=== PATIENT | male | born 1955 | race Caucasian/White ===

== ENCOUNTER 2020-01-27 22:55 | Emergency (ER) | payer SELFPAY ==
[2020-01-27 23:48] LABS: Absolute Lymphocytes (CBC) 1.9 K/uL (0.7-4.9); Basophils % 0.4 % (0-1.3); Hematocrit 44.9 % (39.6-49.0); Lymphocytes % 14.1 % (15.3-44.8); MPV 8.1 fL (7.6-11.3); RBC Red Blood Cell Count 4.88 M/uL (4.33-5.43)
[2020-01-28] LABS: Potassium 3.6 mmol/L (3.5-5.1)
[2020-01-28 00:17] LABS: Urine Blood 1+ (NEG); Urine Glucose NEGATIVE (NEG); Urine Protein NEGATIVE (NEG); Urine pH 5.5 (5.0-7.0)
--- NOTE | 2020-01-28 01:25 | ER ---
Nurse's Notes [facility] Name: Sinan Swift Age: 64 yrs Sex: Male : 1955 Arrival Date: 01/27/2020 Time: 22:59 Bed 5 Private MD: Diagnosis: Urinary Retention Presentation: 01/26 22:59 Chief complaint: EMS states: PATIENT COMPLAINING OF LOWER ABDOMINAL PAIN, DESCRIBED rv PRESSURE, 8/10 PAIN SCALE. WITH HISTORY OF PROSTATE ISSUES, TAKING FLOMAX. LAST VOIDED AT ABOUT TEN HOURS AGO. Coronavirus screen: Client denies travel out of the [place] in the last 14 days. At this time, the client does not indicate any symptoms associated with coronavirus-19. Ebola Screen: No symptoms or risks identified at this time. Initial Sepsis Screen: Does the patient meet any 2 criteria? No. Patient's initial sepsis screen is negative. Does the patient have a suspected source of infection? No. Patient's initial sepsis screen is negative. Risk Assessment: Do you want to hurt yourself or someone else? Patient reports no desire to harm self or others. Onset of symptoms was January 27, 2020 at 13:00. 22:59 Method Of Arrival: EMS: [facility] rv 22:59 Acuity: SUSANNE 3 rv Triage Assessment: 23:02 General: Appears uncomfortable, Behavior is calm, cooperative. Pain: Complains of pain rv in right lower quadrant and left lower quadrant. EENT: No signs and/or symptoms were reported regarding the EENT system. Neuro: Level of Consciousness is awake, alert, obeys commands, Oriented to person, place, time, situation. Cardiovascular: Patient's skin is warm and dry. Respiratory: Airway is patent Respiratory effort is even, unlabored. GI: No signs and/or symptoms were reported involving the gastrointestinal system. : Reports inability to void, since 1300 pain. Historical: - Allergies: 23:02 NKA; rv - Home Meds: 23:02 Flomax 0.4 mg Oral cp24 1 cap once daily [Active]; rv - PMHx: 23:02 PROSTATE; rv - PSHx: 23:02 None; rv - Immunization history:: Adult Immunizations up to date. - Social history:: Smoking status: Patient reports the use of cigarette tobacco products, smokes one pack cigarettes per day. Screenin:04 Abuse screen: Denies threats or abuse. Denies injuries from another. Nutritional rv screening: No deficits noted. Tuberculosis screening: No symptoms or risk factors identified. Fall Risk None identified. Assessment: 23:41 Reassessment: PRESSURE WAS RELIEVED AFTER BYRNE CATH INSERTION. Patient states feeling rv better. 01/27 00:29 Reassessment: Patient appears in no apparent distress at this time. Patient is alert, rr5 oriented x 3, equal unlabored respirations, skin warm/dry/pink. came back from CT scan. 01:00 Reassessment: Patient appears in no apparent distress at this time. Patient is alert, rr5 oriented x 3, equal unlabored respirations, skin warm/dry/pink. awaiting for results. 01:48 Reassessment: Patient appears in no apparent distress at this time. Patient is alert, rr5 oriented x 3, equal unlabored respirations, skin warm/dry/pink. discharge instruction given and explained without complaints made. Vital Signs: 01/26 22:59 BP 135 / 73; Pulse 72; Resp 17; Temp 98; Pulse Ox 100% ; Weight 87.54 kg; Height 5 ft. rv 9 in. (175.26 cm); Pain 8/10; 23:41 BP 126 / 72; Pulse 71; Resp 16; Pulse Ox 100% on R/A; rv 01/27 00:33 BP 97 / 64; Pulse 79; Resp 19; Pulse Ox 99% ; rr5 01:49 BP 110 / 75; Pulse 82; Resp 16; Pulse Ox 99% ; rr5 01/26 22:59 Body Mass Index 28.50 (87.54 kg, 175.26 cm) rv ED Course: 01/26 22:59 Patient arrived in ED. rv 23:02 Triage completed. rv 23:03 Arm band placed on Patient placed in the treatment room, on a stretcher, Patient rv notified of wait time. 23:04 Patient has correct armband on for positive identification. Pulse ox on. NIBP on. rv 23:04 Byrne cath inserted, using sterile technique, 16 Fr., by wv, balloon inflated, to ds4 gravity drainage, clamped. Patient tolerated well. 23:05 [facility] Griffin [facility]C [facility]. kb 23:05 Christian Mosqueda MD is Attending Physician. kb 23:30 Inserted saline lock: 22 gauge in right antecubital area, using aseptic technique. ds4 Blood collected. 23:37 CBC with Diff Sent. ds4 23:37 Basic Metabolic Panel Sent. ds4 23:40 Juice Caballero, RN is Primary Nurse. rv 23:52 Basic Metabolic Panel Sent. ds4 01/27 00:08 Urine Dipstick--Ancillary (enter results) Sent. ds4 00:23 CT Stone Protocol In Process Unspecified. EDKY 01:24 Suni Garcia MD is Referral Physician. [facility] 01:49 No provider procedures requiring assistance completed. IV discontinued, intact, rr5 bleeding controlled, No redness/swelling at site. Pressure dressing applied. Administered Medications: 01:25 Drug: LevaQUIN 500 mg Route: PO; rr5 01:47 Follow up: Response: No adverse reaction rr5 Output: 01:40 Urine: 1000ml (Byrne); Total: 1000ml. rr5 Outcome: 01:25 Discharge ordered by . 7 01:49 Discharged to home via wheelchair. rr5 01:49 Condition: stable 01:49 Discharge instructions given to patient, Instructed on discharge instructions, follow up and referral plans. medication usage, byrne catheter care Demonstrated understanding of instructions, follow-up care, medications, Prescriptions given X 1. 01:50 Patient left the ED. rr5 Signatures: Dispatcher [employer] EDMS Mary Griffin, BLADE WORKER-C BLADE WORKER-Ckb StewartEder carrascoovan ds4 Juice Caballero, SALINA RN Rodney Painting RN RN rr5 Christian Mosqueda MD MD 7 Corrections: (The following items were deleted from the chart) 01/26 23:09 23:04 Byrne cath inserted, using sterile technique, 16 Fr., by inside barrel polisher, balloon ds4 inflated, to gravity drainage, Patient tolerated well. rv
--- NOTE | 2020-01-28 01:25 | EDPHYS ---
Physician Documentation [facility] Name: Sinan Swift Age: 64 yrs Sex: Male : 1955 Arrival Date: 01/27/2020 Time: 22:59 Bed 5 Private MD: ED Physician Christian Mosqueda HPI: 01/27 00:47 This 64 yrs old Male presents to ER via EMS with complaints of Abdominal Pain.kb 00:47 The patient presents with urinary symptoms, retention, unable to void, Last void was kb approximately 10 hour(s) ago. Onset: The symptoms/episode began/occurred this morning. Modifying factors: The symptoms are alleviated by nothing, the symptoms are aggravated by pressure. Associated signs and symptoms: Pertinent positives: abdominal pain, Pertinent negatives: constipation, diarrhea, dysuria, fever, hematuria, nausea, vomiting. Severity of symptoms: At their worst the symptoms were moderate, in the emergency department the symptoms are unchanged. The patient has not experienced similar symptoms in the past. The patient has not recently seen a physician. Pt reports he hasn't been able to urinate for the past 10 hours and he is having suprapubic pain/pressure. Quigley placed on pt arrival for pt comfort. Pt reports pain is completely resolved after 1400ml drained. . Historical: - Allergies: 01/26 23:02 NKA; rv - Home Meds: 23:02 Flomax 0.4 mg Oral cp24 1 cap once daily [Active]; rv - PMHx: 23:02 PROSTATE; rv - PSHx: 23:02 None; rv - Immunization history:: Adult Immunizations up to date. - Social history:: Smoking status: Patient reports the use of cigarette tobacco products, smokes one pack cigarettes per day. ROS: 01/27 00:46 Constitutional: Negative for fever, chills, and weight loss, Cardiovascular: Negative kb for chest pain, palpitations, and edema, Respiratory: Negative for shortness of breath, cough, wheezing, and pleuritic chest pain, Back: Negative for injury and pain, MS/Extremity: Negative for injury and deformity, Skin: Negative for injury, rash, and discoloration, Neuro: Negative for headache, weakness, numbness, tingling, and seizure. Abdomen/GI: Positive for abdominal pain, Negative for nausea, vomiting, and diarrhea. : Positive for difficulty urinating, Negative for urinary frequency, hematuria, flank pain, burning with urination, bladder incontinence. Exam: 00:46 Constitutional: This is a well developed, well nourished patient who is awake, alert, kb and in no acute distress. Head/Face: Normocephalic, atraumatic. Chest/axilla: Normal chest wall appearance and motion. Nontender with no deformity. No lesions are appreciated. Cardiovascular: Regular rate and rhythm with a normal S1 and S2. No gallops, murmurs, or rubs. Normal PMI, no JVD. No pulse deficits. Respiratory: Lungs have equal breath sounds bilaterally, clear to auscultation and percussion. No rales, rhonchi or wheezes noted. No increased work of breathing, no retractions or nasal flaring. Abdomen/GI: Soft, non-tender, with normal bowel sounds. No distension or tympany. No guarding or rebound. No evidence of tenderness throughout. Skin: Warm, dry with normal turgor. Normal color with no rashes, no lesions, and no evidence of cellulitis. MS/ Extremity: Pulses equal, no cyanosis. Neurovascular intact. Full, normal range of motion. Neuro: Awake and alert, GCS 15, oriented to person, place, time, and situation. Cranial nerves II-XII grossly intact. Motor strength 5/5 in all extremities. Sensory grossly intact. Cerebellar exam normal. Normal gait. Vital Signs: 01/26 22:59 BP 135 / 73; Pulse 72; Resp 17; Temp 98; Pulse Ox 100% ; Weight 87.54 kg; Height 5 ft. rv 9 in. (175.26 cm); Pain 8/10; 23:41 BP 126 / 72; Pulse 71; Resp 16; Pulse Ox 100% on R/A; rv 01/27 00:33 BP 97 / 64; Pulse 79; Resp 19; Pulse Ox 99% ; rr5 01:49 BP 110 / 75; Pulse 82; Resp 16; Pulse Ox 99% ; rr5 01/26 22:59 Body Mass Index 28.50 (87.54 kg, 175.26 cm) rv MDM: 01/26 23:05 Patient medically screened. kb 01/27 00:46 Data reviewed: vital signs, nurses notes. Data interpreted: Pulse oximetry: on room air kb is 99 %. Interpretation: normal. 00:54 Transition of care: After a detail discussion of the patient's case, care is kb transferred to Christian Mosqueda MD. 01/26 23:08 Order name: Basic Metabolic Panel; Complete Time: 00:11 kb 01/26 23:08 Order name: CBC with Diff; Complete Time: 00:11 kb 01/26 23:08 Order name: CT Stone Protocol kb 01/26 23:52 Order name: Urine Dipstick--Ancillary (enter results); Complete Time: 00:27 ds4 01/27 01:23 Order name: Urine Culture 7 01/26 23:05 Order name: Bladder Scanner; Complete Time: 23:40 kb 01/26 23:08 Order name: Labs collected and sent; Complete Time: 23:36 kb 01/26 23:08 Order name: IV Start; Complete Time: 23:36 kb 01/26 23:08 Order name: Quigley; Complete Time: 23:09 kb Administered Medications: 01:25 Drug: LevaQUIN 500 mg Route: PO; rr5 01:47 Follow up: Response: No adverse reaction rr5 Disposition: 06:16 Co-signature as Attending Physician, Christian Mosqueda MD. mh7 Disposition: 01/28/20 01:25 Discharged to Home. Impression: Urinary Retention. - Condition is Stable. - Discharge Instructions: Acute Urinary Retention, Male, [id number], Quigley Catheter Care, Adult, [id number]. - Prescriptions for Levaquin 500 mg Oral Tablet - take 1 tablet by ORAL route once daily for 10 days; 10 tablet. - Medication Reconciliation Form, Thank You Letter, Antibiotic Education, Prescription Opioid Use form. - Follow up: Private Physician; When: 1 - 2 days; Reason: Worsening of condition, Recheck today's complaints, Continuance of care, Re-evaluation by your physician. Follow up: Suni Garcia MD; When: 1 - 2 days; Reason: Worsening of condition, Recheck today's complaints. - Problem is an acute exacerbation. - Symptoms have improved. Signatures: Dispatcher [employer] EDMary Solo, SONIAC ANGELES-Juice Haywood RN RN Rodney Painting RN RN rr5 Christian Mosqueda MD MD 7 Corrections: (The following items were deleted from the chart) 01:50 01:25 01/28/2020 01:25 Discharged to Home. Impression: Urinary Retention. Condition is rr5 Stable. Forms are Medication Reconciliation Form, Thank You Letter, Antibiotic Education, Prescription Opioid Use. Follow up: Private Physician; When: 1 - 2 days; Reason: Worsening of condition, Recheck today's complaints, Continuance of care, Re-evaluation by your physician. Follow up: Suni Garcia; When: 1 - 2 days; Reason: Worsening of condition, Recheck today's complaints. Problem is an acute exacerbation. Symptoms have improved. mh7
[2020-01-28] MEDS ORDERED: levoFLOXacin 500 MG TAB ONE (01:36)
--- NOTE | 2020-01-29 13:01 | RAD REPORT ---
EXAM DESCRIPTION: CT - Stone Protocol - 01/28/2020 5:51 am CLINICAL HISTORY: The patient is 64 years old and is Male; urinary retention TECHNIQUE: Axial computed tomography images of the abdomen and pelvis without intravenous contrast. Sagittal and coronal reformatted images were created and reviewed. This CT exam was performed usi ng one or more of the following dose reduction techniques: automated exposure control, adjustment o f the mA and/or kV according to patient size, and/or use of iterative reconstruction technique. COMPARISON: No relevant prior studies available. FINDINGS: LUNG BASES: Unremarkable. No mass. No consolidation. ABDOMEN: LIVER: Homogeneous without focal mass. GALLBLADDER AND BILE DUCTS: No calcified stones. No ductal dilation. PANCREAS: Unremarkable. No ductal dilation. SPLEEN: Unremarkable. ADRENALS: Mild hyperplasia of the adrenal glands is noted. KIDNEYS AND URETERS: Moderate right hydroureteronephrosis is present without obstructing calculu s. Edema and stranding of the right kidney is noted. Left perinephric stranding is present. Minimal l eft hydroureteronephrosis is present. No obstructing calculus is seen. STOMACH AND BOWEL: Stomach is distended with food contents. The small bowel is normal in caliber . Stool is present throughout colon. Scattered colonic diverticula are noted without surrounding infl ammation. There is no bowel obstruction. PELVIS: APPENDIX: The appendix is normal in caliber without surrounding inflammation. BLADDER: The bladder is decompressed with a Quigley catheter in place. A moderate sized right bl adder diverticulum is noted. There is near the UVJ. No stones. REPRODUCTIVE: Unremarkable as visualized. ABDOMEN and PELVIS: INTRAPERITONEAL SPACE: Unremarkable. No free air. No significant fluid collection. BONES/JOINTS: No acute fracture. SOFT TISSUES: The soft tissues are normal. VASCULATURE: Unremarkable. No abdominal aortic aneurysm. LYMPH NODES: Unremarkable. No enlarged lymph nodes. IMPRESSION: 1. Moderate right hydroureteronephrosis without obstructing calculus. However, there i s a bladder diverticulum adjacent to the right UVJ which may be the site of obstruction. 2. Perinephric fluid and stranding specifically on the right is present. Findings may be reactive t o the obstruction. Superimposed infection is within the differential. Electronically signed by: Clare Ortiz MD 01/28/2020 12:40 AM CDT Due to temporary technical issues with the PACS/Fluency reporting system, reports are being signed by the in house radiologist without review as a courtesy to ensure prompt reporting. The interpreting r adiologist is fully responsible for the content of the report.
[2020-01-31 11:20] VITALS: TEMP 98
[2020-01-31 11:23] VITALS: O2SAT 99
[2020-01-31 11:24] VITALS: BP 110/75
== END 2020-01-28 01:50 | disposition home or self-care (01) ==
LOC: ER 22:55
DX: R33.9 Retention of urine, unspecified (principal); F17.210 Nicotine dependence, cigarettes, uncomplicated
CPT/HCPCS: 36415; 51702; 74176; 76377; 80048; 81003; 85025; 87086; 87088; 99285

== ENCOUNTER 2022-03-23 03:27 | Inpatient (IN) | payer OTHER ==
--- OUTSIDE RECORDS SUMMARY | 2022-03-23 03:30 | XMS REPORT | Continuity of Care Document ---
:1955 Author Organization [facility] t Address [address] [place] [address] Care Team Providers Name Role Phone Domo Gordon Attending Clinician Unavailable Problems This patient has no known problems. Allergies, Adverse Reactions, Alerts This patient has no known allergies or adverse reactions. Medications This patient has no known medications. Procedures This patient has no known procedures. Encounters Start End Encounter Admission Attending Care Care Encounter Source Date/Time Date/Time Type Type Clinicians Facility Department ID 2021-08-06 Outpatient Gordon [facility] Common 08:57:04 Domo [id number] [facility] 2021-06-25 Outpatient [facility] Common 14:20:34 Domo [id number] [facility] 2021-06-25 Outpatient [facility] Common 14:18:31 Domo [id number] [facility] 2021-05-02 2021-05-02 ambulatory [facility] [id number] Common 00:00:00 00:00:00 [facility] Results This patient has no known results.
[2022-03-23 03:56] LABS: Blood Gas Oxyhemoglobin 86.8 % (94-97); Blood O2 Saturation 90.6 % (92-98.5)
[2022-03-23] MEDS ORDERED: FUROSEMIDE 40 MG/4 ML VIAL ONE (04:06)
[2022-03-23 04:09] LABS: Absolute Lymphocytes (CBC) 3.6 K/uL (0.7-4.9); Hematocrit 46.9 % (39.6-49.0); Lymphocytes % 21.9 % (15.3-44.8); MCV 93.1 fL (80-100); MPV 8.9 fL (7.6-11.3); Protime INR 1.16; RBC Red Blood Cell Count 5.04 M/uL (4.33-5.43)
[2022-03-23 04:23] LABS: Albumin 3.5 g/dL (3.4-5.0); Bilirubin Direct 0.2 mg/dL (0-0.2); Bilirubin Total 0.6 mg/dL (0.2-1.0); Magnesium 1.9 mg/dL (1.8-2.4); Potassium 3.5 mmol/L (3.5-5.1); Protein, Total 7.2 g/dL (6.4-8.2)
[2022-03-23 04:25] LABS: Troponin High Sensitivity 91.8 pg/mL (<58.9)
[2022-03-23 04:27] LABS: Urine Blood 2+ (Negative); Urine Glucose Negative (Negative); Urine Protein 2+ (Negative); Urine Specific Gravity 1.025 (1.005-1.030); Urine pH 5.5 (5.0-7.0)
[2022-03-23 04:42] LABS: Urine Granular Casts 0-5 /LPF (None Seen); Urine Mucus Slight /HPF (None Seen); Urine WBC Clump Rare /HPF (None Seen)
[2022-03-23] MEDS ORDERED: ASPIRIN 81 MG CHEWABLE TABLET ONE (04:46)
[2022-03-23] MEDS ORDERED: ENOXAPARIN 80 MG/0.8 ML SQ ONE (04:47)
[2022-03-23] MEDS ORDERED: NA CHLORIDE 0.9% 50 ML IV ONE (04:47)
[2022-03-23] MEDS ORDERED: METOPROLOL TAR 25 MG TAB ONE (04:47)
[2022-03-23] MEDS ORDERED: FAMOTIDINE 20 MG/2 ML VIAL IV ONE (04:47)
[2022-03-23] MEDS ORDERED: CEFTRIAXONE 1000 MG/VIAL ONE (04:47)
--- NOTE | 2022-03-23 04:48 | ER ---
Nurse's Notes [facility] Name: Sinan Swift Age: 66 yrs Sex: Male : 1955 Arrival Date: 03/23/2022 Time: 03:29 Bed 4 Private MD: Diagnosis: Tachycardia, unspecified;Non ST elevation SD;Cardiomegaly;Unspecified combined systolic (congestive) and diastolic (congestive) heart failure;Elevated white blood cell count;Hyperglycemia, unspecified;UTI/ Urinary tract infection, site not specified;Hypoxemia;Atypical atrial flutter;Influenza due to other identified influenza virus with other respiratory manifestations-Influenza B;Tobacco abuse counseling;Tobacco use;COPD/ Chronic obstructive pulmonary disease, unspecified Presentation: 03/23 03:20 Chief complaint: EMS states: 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 as6 on arrival to ER pt on CPAP, 82%. 03:20 Method Of Arrival: EMS: [facility] as6 03:20 Coronavirus screen: At this time, the client does not indicate any symptoms associated as6 with coronavirus-19. Ebola Screen: No symptoms or risks identified at this time. 03:54 Initial Sepsis Screen: Does the patient meet any 2 criteria? No. Patient's initial as6 sepsis screen is negative. Does the patient have a suspected source of infection? No. Patient's initial sepsis screen is negative. Risk Assessment: Do you want to hurt yourself or someone else? Patient reports no desire to harm self or others. Onset of symptoms was March 23, 2022 at 02:30. 03:54 Acuity: SUSANNE 2 as6 Historical: - Allergies: 03:55 No Known Drug Allergies; as6 - Home Meds: 03:55 Flomax 0.4 mg Oral cp24 1 cap once daily [Active]; as6 - PMHx: 03:55 Prostate; as6 - Immunization history:: Client reports receiving the 2nd dose of the Covid vaccine, moderna . - Social history:: Smoking status: Patient reports the use of cigarette tobacco products, smokes one pack cigarettes per day. Screenin:58 Abuse screen: Denies threats or abuse. Denies injuries from another. Nutritional as6 screening: No deficits noted. Tuberculosis screening: No symptoms or risk factors identified. Fall Risk None identified. Assessment: 03:58 General: Appears uncomfortable, Behavior is calm, cooperative. Pain: Denies pain. as6 Neuro: Level of Consciousness is awake, alert, obeys commands, Oriented to person, place, time, situation. Cardiovascular: Capillary refill < 3 seconds Patient's skin is warm and dry. Respiratory: Airway is patent Trachea midline Respiratory effort is even, labored. Vital Signs: 03:54 BP 123 / 95; Pulse 116; Resp 17 S; Temp 96.4(A); Pulse Ox 90% on 100% BiPAP; Weight as6 77.11 kg (R); Height 5 ft. 10 in. (177.80 cm) (R); Pain 0/10; 04:16 BP 111 / 77; Pulse 124; Resp 16 S; Pulse Ox 94% on 100% BiPAP; as6 04:39 BP 111 / 84; Pulse 124; Resp 20 S; Pulse Ox 96% on 100% BiPAP; as6 05:36 BP 108 / 74; Pulse 120; Resp 19 S; Pulse Ox 97% on 95% BiPAP; as6 06:24 BP 105 / 74; Pulse 113; Resp 12 S; Pulse Ox 92% on 50% BiPAP; as6 03:54 Body Mass Index 24.39 (77.11 kg, 177.80 cm) as6 ED Course: 03:29 Patient arrived in ED. as6 03:30 Adolph Cole, SALINA is Primary Nurse. as6 03:33 Jacoby Hernández MD is Attending Physician. katherin 03:35 Inserted saline lock: 18 gauge in left antecubital area, using aseptic technique. Blood as6 collected. 03:35 Maintain EMS IV. Dressing intact. Good blood return noted. Site clean \T\ dry. Gauge \T\ as 6 site: 20g RAC. 03:46 Lactate Sent. as6 03:46 Blood Culture Adult (2) Sent. as6 03:47 Basic Metabolic Panel Sent. as6 03:47 CBC with Diff Sent. as6 03:47 LFT's Sent. as6 03:47 Magnesium Sent. as6 03:47 NT PRO-BNP Sent. as6 03:47 Troponin HS Sent. as6 03:47 PT-INR Sent. as6 03:47 ABG Sent. as6 03:55 Triage completed. as6 03:56 Arm band placed on. as6 03:58 Placed in gown. Bed in low position. Call light in reach. Side rails up X 1. as6 04:06 XRAY Chest (1 view) In Process Unspecified. EDMS 04:17 Quigley cath inserted, using sterile technique, 16 Fr., by nv, balloon inflated, to as6 gravity drainage, urine specimen collected. returned clear yellow urine. Patient tolerated well. 04:30 Urine Microscopic Only Sent. as6 04:44 Luann Alamo MD is Hospitalizing Provider. katherin 04:45 Jb Martin is Hospitalizing Provider. katherin 06:32 No provider procedures requiring assistance completed. Patient admitted, IV remains in as6 place. Administered Medications: 04:20 Drug: Lasix (furosemide) 40 mg Route: IVP; Site: right antecubital; as6 06:41 Follow up: Response: No adverse reaction as6 04:55 Drug: Pepcid (famotidine) 20 mg Route: IVP; Site: left antecubital; as6 06:42 Follow up: Response: No adverse reaction as6 04:56 Drug: Rocephin (cefTRIAXone) 1 grams Route: IV; Rate: per protocol; Site: right as6 antecubital; 06:41 Follow up: Response: No adverse reaction; IV Status: Completed infusion; IV Intake: [id number] 04:57 Drug: Lovenox (enoxaparin) 1 mg/kg Route: Sub-Q; Site: left lower abdomen; as6 06:42 Follow up: Response: No adverse reaction as6 05:27 Drug: Digoxin 0.5 mg Route: IVP; Site: left antecubital; as6 06:42 Follow up: Response: No adverse reaction as6 05:27 Drug: Lopressor (metoprolol) 2.5 mg Route: IVP; Site: left antecubital; as6 06:42 Follow up: Response: No adverse reaction as6 05:30 Drug: Aspirin Chewable Tablet 81 mg Route: PO; as6 06:41 Follow up: Response: No adverse reaction as6 05:30 Drug: Lopressor (metoprolol TARTRATE)) 25 mg Route: PO; as6 06:42 Follow up: Response: No adverse reaction as6 05:36 Drug: Magnesium Sulfate 1 grams Route: IVPB; Infused Over: 1 hrs; Site: right as6 antecubital; 06:43 Follow up: Response: No adverse reaction; IV Status: Completed infusion; IV Intake: as6 100ml 05:54 Drug: Lopressor (metoprolol) 2.5 mg Route: IVP; Site: left antecubital; as6 06:43 Follow up: Response: No adverse reaction as6 06:40 Drug: Tamiflu (oseltamivir) 75 mg Route: PO; as6 06:43 Follow up: Response: No adverse reaction as6 Medication: 03:58 VIS not applicable for this client. as6 Intake: 06:41 IV: 50ml; Total: 50ml. as6 06:43 IV: 100ml; Total: 150ml. as6 Output: 06:24 Urine: 1200ml (Quigley); Total: 1200ml. as6 Outcome: 04:47 Decision to Hospitalize by Provider. [facility] 06:33 Condition: stable as6 06:33 Instructed on the need for admit. 09:12 Patient left the ED. ss Signatures: Dispatcher [employer] EDCA Jacoby Hernández MD MD cha Smirch, Shelby, RN RN Adolph Cole, SALINA RN as6 Corrections: (The following items were deleted from the chart) 06:33 03:54 BP 123 / 95; Pulse 116bpm; Resp 17bpm; Spontaneous; Pulse Ox 90% 02 60% BiPAP; as6 Temp 96.4F Axillary; 77.11 kg Reported; Height 5 ft. 10 in. Reported; BMI: 24.3; Pain 0/10; as6
--- NOTE | 2022-03-23 04:49 | EDPHYS ---
Physician Documentation [facility] Name: Sinan Swift Age: 66 yrs Sex: Male : 1955 Arrival Date: 03/23/2022 Time: 03:29 Bed 4 Private MD: ED Physician Jacoby Hernández HPI: 03/23 04:18 This 66 yrs old Male presents to ER via EMS with complaints of Breathing katherin Difficulty. 04:18 The patient has shortness of breath at rest, with light activity. Onset: The katherin symptoms/episode began/occurred just prior to arrival, this morning. Duration: The symptoms are continuous, and are steadily getting worse. The patient's shortness of breath is aggravated by exertion, light activity, supine position, is alleviated by elevating head, rest, sitting up, application of supplemental oxygen. Associated signs and symptoms: Pertinent positives: non-productive cough. Severity of symptoms: At their worst the symptoms were moderate severe in the emergency department the symptoms have improved moderately. The patient has not experienced similar symptoms in the past. Historical: - Allergies: 03:55 No Known Drug Allergies; as6 - Home Meds: 03:55 Flomax 0.4 mg Oral cp24 1 cap once daily [Active]; as6 - PMHx: 03:55 Prostate; as6 - Immunization history:: Client reports receiving the 2nd dose of the Covid vaccine, moderna . - Social history:: Smoking status: Patient reports the use of cigarette tobacco products, smokes one pack cigarettes per day. ROS: 04:19 Constitutional: Negative for fever, chills, and weight loss, Eyes: Negative for injury, katherin pain, redness, and discharge, ENT: Negative for injury, pain, and discharge, Neck: Negative for injury, pain, and swelling, Abdomen/GI: Negative for abdominal pain, nausea, vomiting, diarrhea, and constipation, Back: Negative for injury and pain, : Negative for injury, bleeding, discharge, and swelling, MS/Extremity: Negative for injury and deformity, Neuro: Negative for headache, weakness, numbness, tingling, and seizure, Psych: Negative for depression, anxiety, suicide ideation, homicidal ideation, and hallucinations, Allergy/Immunology: Negative for hives, rash, and allergies, Endocrine: Negative for neck swelling, polydipsia, polyuria, polyphagia, and marked weight changes, Hematologic/Lymphatic: Negative for swollen nodes, abnormal bleeding, and unusual bruising. 04:19 Cardiovascular: Positive for orthopnea, palpitations. 04:19 Respiratory: Positive for cough, orthopnea, shortness of breath, at rest. 04:32 Cardiovascular: Positive for katherin 04:32 Respiratory: Positive for wheezing, expiratory. Exam: 04:32 Constitutional: This is a well developed, well nourished patient who is awake, alert, katherin and in no acute distress. Head/Face: Normocephalic, atraumatic. Eyes: Pupils equal round and reactive to light, extra-ocular motions intact. Lids and lashes normal. Conjunctiva and sclera are non-icteric and not injected. Cornea within normal limits. Periorbital areas with no swelling, redness, or edema. ENT: Nares patent. No nasal discharge, no septal abnormalities noted. Tympanic membranes are normal and external auditory canals are clear. Oropharynx with no redness, swelling, or masses, exudates, or evidence of obstruction, uvula midline. Mucous membranes moist. Neck: Trachea midline, no thyromegaly or masses palpated, and no cervical lymphadenopathy. Supple, full range of motion without nuchal rigidity, or vertebral point tenderness. No Meningismus. Chest/axilla: Normal chest wall appearance and motion. Nontender with no deformity. No lesions are appreciated. Abdomen/GI: Soft, non-tender, with normal bowel sounds. No distension or tympany. No guarding or rebound. No evidence of tenderness throughout. Back: No spinal tenderness. No costovertebral tenderness. Full range of motion. Skin: Warm, dry with normal turgor. Normal color with no rashes, no lesions, and no evidence of cellulitis. MS/ Extremity: Pulses equal, no cyanosis. Neurovascular intact. Full, normal range of motion. Neuro: Awake and alert, GCS 15, oriented to person, place, time, and situation. Cranial nerves II-XII grossly intact. Motor strength 5/5 in all extremities. Sensory grossly intact. Cerebellar exam normal. Normal gait. Psych: Awake, alert, with orientation to person, place and time. Behavior, mood, and affect are within normal limits. 04:32 Cardiovascular: Rate: tachycardic, Rhythm: regular, Pulses: Pulses are 4+ in bilateral radial, brachial, femoral, popliteal, posterior tibial and and dorsalis pedis arteries.. Heart sounds: normal, Edema: is not appreciated, JVD: is not appreciated. 04:32 ECG was reviewed by the Attending Physician. Vital Signs: 03:54 BP 123 / 95; Pulse 116; Resp 17 S; Temp 96.4(A); Pulse Ox 90% on 100% BiPAP; Weight as6 77.11 kg (R); Height 5 ft. 10 in. (177.80 cm) (R); Pain 0/10; 04:16 BP 111 / 77; Pulse 124; Resp 16 S; Pulse Ox 94% on 100% BiPAP; as6 04:39 BP 111 / 84; Pulse 124; Resp 20 S; Pulse Ox 96% on 100% BiPAP; as6 05:36 BP 108 / 74; Pulse 120; Resp 19 S; Pulse Ox 97% on 95% BiPAP; as6 06:24 BP 105 / 74; Pulse 113; Resp 12 S; Pulse Ox 92% on 50% BiPAP; as6 03:54 Body Mass Index 24.39 (77.11 kg, 177.80 cm) as6 MDM: 03:33 Patient medically screened. katherin 04:42 Differential diagnosis: Anemia Anxiety Reaction Bronchitis CHF exacerbation, Chronic katherin Obstructive Pulmonary Disease arrythmia, pneumonia, pulmonary edema, reactive airway disease, Sepsis Unstable Angina. Antibiotic administration: Rocephin and Zithromax given. The patient's Wells Deep Vein Thrombosis Score was calculated as follows: Heart Rate >100 BPM (1.5 Pts) Total Score: 0-2 Pts- Low Risk. The patient's pulmonary embolism risk score was calculated as follows: the patients heart rate is greater than 100 beats per minute (1.5 Pts) Total Score: 0-2 points. This patient was found to be at low risk for a pulmonary embolism by using the Well's assessment criteria. Immunization status: Pneumococcal vaccine: Influenza vaccine: Data reviewed: vital signs, nurses notes, EMS record, lab test result(s), EKG, radiologic studies, plain films. Data interpreted: quality assurance monitor chassis: rate is 124 beats/min, rhythm is regular, Pulse oximetry: on room air is 96 %. Test interpretation: by ED physician or midlevel provider: ECG, plain radiologic studies. Counseling: I had a detailed discussion with the patient and/or guardian regarding: the historical points, exam findings, and any diagnostic results supporting the discharge/admit diagnosis, the presence of at least one elevated blood pressure reading (>120/80) during this emergency department visit, lab results, radiology results, the need for further work-up and treatment in the hospital. 03/23 03:36 Order name: Basic Metabolic Panel; Complete Time: 04:[address] [facility] 03/23 03:36 Order name: CBC with Diff; Complete Time: 04:[address] [facility] 03/23 03:36 Order name: LFT's; Complete Time: 04:31 03/23 03:36 Order name: Magnesium; Complete Time: 04:[address] [facility] 03/23 03:36 Order name: NT PRO-BNP; Complete Time: 04:[address] [facility] 03/23 03:36 Order name: PT-INR; Complete Time: 04:[address] [facility] 03/23 03:36 Order name: Troponin HS; Complete Time: 04:[address] [facility] 03/23 03:36 Order name: Blood Culture Adult (2) [facility] 03/23 03:36 Order name: Lactate; Complete Time: 04:[address] [facility] 03/23 03:40 Order name: ABG; Complete Time: 04:[address] [facility] 03/23 03:40 Order name: SARS-COV-2 RT PCR (Document "Date of Onset" if Symptomatic) 03/23 03:40 Order name: Flu [facility] 03/23 04:27 Order name: Urine Microscopic Only; Complete Time: 04:54 03/23 04:28 Order name: Urine Dipstick-Ancillary; Complete Time: 04:31 [facility] 03/23 03:36 Order name: XRAY Chest (1 view) [facility] 03/23 03:36 Order name: EKG; Complete Time: 03:38 03/23 03:36 Order name: Cardiac monitoring; Complete Time: 03:46 03/23 03:36 Order name: BIPAP [facility] 03/23 04:47 Order name: Urine Culture [facility] 03/23 03:36 Order name: EKG - Nurse/Tech; Complete Time: 03:47 03/23 03:36 Order name: IV Saline Lock; Complete Time: 03:47 03/23 03:36 Order name: Labs collected and sent; Complete Time: 03:47 03/23 03:36 Order name: O2 Per Protocol; Complete Time: 03:47 03/23 03:36 Order name: O2 Sat Monitoring; Complete Time: 03:[address] [facility] 03/23 03:36 Order name: Urine Dipstick-Ancillary (obtain specimen); Complete Time: 04:[address] [facility] 03/23 04:03 Order name: Dann; Complete Time: 04:[address] [facility] EC:32 Rate is 116 beats/min. Rhythm is regular. QRS [place] is Normal. PA interval is normal. katherin QRS interval is prolonged at 194 msec. QT interval is normal. No Q waves. T waves are Normal. No ST changes noted. Clinical impression: Sinus tachycardia. Interpreted by me. Reviewed by me. Administered Medications: 04:20 Drug: Lasix (furosemide) 40 mg Route: IVP; Site: right antecubital; as6 06:41 Follow up: Response: No adverse reaction as6 04:55 Drug: Pepcid (famotidine) 20 mg Route: IVP; Site: left antecubital; as6 06:42 Follow up: Response: No adverse reaction as6 04:56 Drug: Rocephin (cefTRIAXone) 1 grams Route: IV; Rate: per protocol; Site: right as6 antecubital; 06:41 Follow up: Response: No adverse reaction; IV Status: Completed infusion; IV Intake: [id number] 04:57 Drug: Lovenox (enoxaparin) 1 mg/kg Route: Sub-Q; Site: left lower abdomen; as6 06:42 Follow up: Response: No adverse reaction as6 05:27 Drug: Digoxin 0.5 mg Route: IVP; Site: left antecubital; as6 06:42 Follow up: Response: No adverse reaction as6 05:27 Drug: Lopressor (metoprolol) 2.5 mg Route: IVP; Site: left antecubital; as6 06:42 Follow up: Response: No adverse reaction as6 05:30 Drug: Aspirin Chewable Tablet 81 mg Route: PO; as6 06:41 Follow up: Response: No adverse reaction as6 05:30 Drug: Lopressor (metoprolol TARTRATE)) 25 mg Route: PO; as6 06:42 Follow up: Response: No adverse reaction as6 05:36 Drug: Magnesium Sulfate 1 grams Route: IVPB; Infused Over: 1 hrs; Site: right as6 antecubital; 06:43 Follow up: Response: No adverse reaction; IV Status: Completed infusion; IV Intake: as6 100ml 05:54 Drug: Lopressor (metoprolol) 2.5 mg Route: IVP; Site: left antecubital; as6 06:43 Follow up: Response: No adverse reaction as6 06:40 Drug: Tamiflu (oseltamivir) 75 mg Route: PO; as6 06:43 Follow up: Response: No adverse reaction as6 Disposition Summary: 03/23/22 04:47 Hospitalization Ordered Hospitalization Status: Inpatient Admission katherin Provider: Jb Martin cha Condition: Fair katherin Problem: new katherin Symptoms: have improved katherin Bed/Room Type: Standard katherin Location: Intensive Care Unit(03/23/22 06:27) mw Room Assignment: -(03/23/22 06:27) Diagnosis - Tachycardia, unspecified katherin - Non ST elevation [place] katherin - Cardiomegaly katherin - Unspecified combined systolic (congestive) and diastolic (congestive) heart failure katherin - Elevated white blood cell count katherin - Hyperglycemia, unspecified katherin - UTI/ Urinary tract infection, site not specified katherin - Hypoxemia katherin - Atypical atrial flutter katherin - Influenza due to other identified influenza virus with other respiratory katherin manifestations - Influenza B - Tobacco abuse counseling katherin - Tobacco use katherin - COPD/ Chronic obstructive pulmonary disease, unspecified katherin Forms: - Medication Reconciliation Form katherin - SBAR form katherin Signatures: Dispatcher [employer] EDLoretta Moore RN Jacoby Briscoe MD MD cha Slawson, Ashby, RN RN Cassandra Ferrer PA-C PALisbeth [id number] Corrections: (The following items were deleted from the chart) 04:47 Telemetry/MedSurg (Inpatient) [facility] : 04:47 [facility]
--- NOTE | 2022-03-23 04:55 | P.HP ---
Certification for Inpatient Patient admitted to: Inpatient With expected LOS: >2 Midnights Patient will require the following post-hospital care: None Practitioner: I am a practitioner with admitting privileges, knowledge of patient current condition, hospital course, and medical plan of care. Services: Services provided to patient in accordance with Admission requirements found in Title 42 Section 412.3 of the Code of Federal Regulations Patient History Date of Service: 03/23/22 Reason for admission: Acute CHF History of Present Illness: Patient is a 66 year old male with history of BPH who presented to the ED via EMS with sudden onset of shortness of breath. EMS placed him on bipap and administered 125 mg solumedrol he was saturating 90% upon arrival to ED. ABG with pH 7.35, pCO2 36, and bicarb 19. EKG showing wide QRS vs 2/1 aflutter. Labs significant for WBC 16.6, glucose 231, lactic acid 3.1, troponin HS 91.8, BNP 2162. Urine with trace ketones, 2+ blood, trace LE. Chest xray showed interstitial edema, cardiomegaly, and right pleural effusion. He was given lasix, pepcid, rocephin, and lovenox in the ED. He denies any diagnosed cardiac history although he reports that he had COVID-19 in December and now he has intermittent episodes of tachycardia. Patient is admitted for further management. 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 - Family History Father -: Heart disease - Social History Smoking Status: Current every day smoker Alcohol use: Yes CD- Drugs: No Caffeine use: Yes Place of Residence: Home Review of Systems Respiratory: Cough, Shortness of Breath Physical Examination - Physical Exam General: Alert, In no apparent distress, Obese HEENT: Atraumatic, PERRLA, EOMI, Sclerae nonicteric Neck: Supple, 2+ carotid pulse no bruit, No LAD, Without JVD or thyroid abnormality Respiratory: Crackles/rales, Expiratory wheezes Cardiovascular: Regular rate/rhythm, Normal S1 S2 Gastrointestinal: Normal bowel sounds, No tenderness Musculoskeletal: No tenderness Integumentary: No rashes Neurological: Normal speech, Normal strength at 5/5 x4 extr, Normal tone, Normal affect - Studies Laboratory Data (last 24 hrs) 03/23/22 03:43: PT 12.8 H, INR 1.16 03/23/22 03:43: WBC 16.60 H, Hgb 15.6, Hct 46.9, Plt Count 238 03/23/22 03:43: Sodium 135 L, Potassium 3.5, BUN 20 H, Creatinine 1.13, Glucose 231 H, Magnesium 1.9, Total Bilirubin 0.6, AST 18, ALT 38, Alkaline Phosphatase 86 Assessment and Plan - Problems (Diagnosis) (1) CHF (congestive heart failure) Current Visit: Yes Status: Acute Qualifiers: Heart failure type: diastolic Heart failure chronicity: acute Qualified Code(s): I50.31 - Acute diastolic (congestive) heart failure (2) Acute respiratory failure Current Visit: Yes Status: Acute Qualifiers: Respiratory failure complication: hypoxia Qualified Code(s): J96.01 - Acute respiratory failure with hypoxia (3) UTI (urinary tract infection) Current Visit: Yes Status: Acute Qualifiers: Urinary tract infection type: acute cystitis Hematuria presence: with hematuria Qualified Code(s): N30.01 - Acute cystitis with hematuria - Plan -Continue bipap as needed. Lasix given in ED. Quigley in place. Patient diuresing well. -Cardiology consult. Echo ordered. patient has not had cardiac work up and denies cardiac history. -Elevated troponin likely secondary to demand ischemia. Will trend serial cardiac enzymes and monitor patient on telemetry. -Continue rocephin. Patient meets sepsis criteria at this time, however SIRS criteria seems more likely due to acute CHF and not infection. -Initial lactic acid 3.1. Repeat pending. Blood and urine cultures obtained. -Breathing treatments as needed. -Hyperglycemic. Patient denies history of diabetes. He did receive solumedrol en route. Will obtain A1C. -Lipid panel and TSH ordered -Monitor and replete electrolytes per protocol -Reconcile and continue home medications -Lovenox for VTE prophylaxis -Full code Discharge Plan: Home Plan to discharge in: Greater than 2 days - Advance Directives Does patient have a Living Will: No Does patient have a Durable POA for Healthcare: No - Code Status/Comfort Care Code Status Assessed: Yes (Full) Critical Care: No Time Spent Managing Pts Care (In Minutes): 50
[2022-03-23] MEDS ORDERED: METOPROLOL TARTRATE 5 MG/5 ML INJ IV ONE (05:22)
[2022-03-23] MEDS ORDERED: DIGOXIN 0.25 MG/ML AMP ONE (05:22)
[2022-03-23] MEDS ORDERED: MAGNESIUM SULFATE 1 gm IVPB 1 GM/100 ML BAG IV ONE (05:34)
[2022-03-23] MEDS ORDERED: OSELTAMIVIR 75 MG CAP ONE (06:37)
[2022-03-23] MEDS ORDERED: ONDANSETRON 4 MG/2 ML VIAL IV PRN (08:43)
[2022-03-23] MEDS ORDERED: ACETAMINOPHEN 500 MG TAB PO PRN (08:43)
[2022-03-23] MEDS ORDERED: ALBUTEROL 2.5 MG/3 ML NEB SOL NEB PRN ×2 (08:43→14:00)
[2022-03-23] MEDS: ASPIRIN EC 81 MG TAB PO SCH (08:46)
[2022-03-23] MEDS: IPRATROPIUM BROM 0.5MG/2.5ML NEB SCH ×2 (10:40→12:00)
[2022-03-23] MEDS ORDERED: FUROSEMIDE 100 MG/10 ML VIAL IV ONE (11:04)
[2022-03-23] MEDS ORDERED: MORPHINE 4 MG/ML SYR IV ONE (11:05)
[2022-03-23] MEDS ORDERED: MORPHINE 4 MG/ML SYR ONE (11:07)
[2022-03-23] MEDS ORDERED: RSI MEDICATION KIT IV ONE (11:12)
[2022-03-23] MEDS ORDERED: propofoL 1,000 MG/100 ML VIAL IV ONE (11:14)
[2022-03-23] MEDS ORDERED: SUCCINYLCHOLINE 20 MG/ML (10 ML) IV ONE ×2 (11:22→11:41)
[2022-03-23] MEDS: propofoL 1,000 MG/100 ML VIAL IV SCH ×3 (11:40→23:31)
[2022-03-23] MEDS ORDERED: NOREPINEPHRINE BITARTRATE/D5W 4 MG/250 ML BAG IV ONE (11:42)
[2022-03-23] MEDS ORDERED: FENTANYL CITR 100 MCG/2 ML IV PRN (11:46)
[2022-03-23] MEDS ORDERED: NA CHLORIDE 0.9% 250 ML IV PRN (11:46)
[2022-03-23] MEDS ORDERED: MIDAZOLAM HCL 2 MG/2 ML INJ IV PRN (11:46)
[2022-03-23] MEDS ORDERED: HALOPERIDOL LACT 5 MG/ML INJ IV PRN (11:46)
[2022-03-23] MEDS ORDERED: LORazepam 2 MG/ML VIAL IV PRN (11:46)
[2022-03-23] MEDS ORDERED: METHYLPREDNISOLONE 40 MG INJ IV SCH (12:00)
--- NOTE | 2022-03-23 12:19 | P.CNS ---
Date of Consult: 03/23/22 Reason for Consult: Respiratory failure Chief Complaint: Respiratory failure patient on a ventilator History of Present Illness: Patient is 66 years of age admitted with sudden onset of breath he had significant interstitial edema was intubated he was very hypoxic patient was also in atrial flutter and was admitted to the ICU currently on a ventilator tachypneic history of COVID patient is currently on propofol drip Allergies No Known Allergies Allergy (Unverified 07/30/16 11:20) Home Medications: Cayenne 800 mg PO DAILY 03/23/22 Echinacea 500 mg PO DAILY 03/23/22 Fenugreek Seed 610 mg PO DAILY 03/23/22 Saw Aguirre 800 mg PO BID 03/23/22 Tamsulosin HCl [Flomax] 0.4 mg PO BID 03/23/22 Vitamin E 400 unit PO DAILY 03/23/22 - Past Medical/Surgical History Diabetic: No -: BPH -: urinary diverticulum -: leticia cataract sx -: vasectomy in 83 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 - Family History Father Medical History: Heart disease - Social History Smoking Status: Current every day smoker Alcohol use: No CD- Drugs: No Caffeine use: Yes Place of Residence: Home Review of Systems is unable to be obtained Physical Examination Temp Pulse Resp BP Pulse Ox 96.4 F L 100 H 28 H 177/101 H 88 L 03/23/22 03:54 03/23/22 11:33 03/23/22 11:31 03/23/22 11:33 03/23/22 11:31 General: Unresponsive HEENT: Atraumatic Neck: Supple Respiratory: Crackles/rales Cardiovascular: No edema, Regular rate/rhythm Gastrointestinal: Soft and benign, Non-distended Laboratory Data (last 24 hrs) 03/23/22 03:43: PT 12.8 H, INR 1.16 03/23/22 03:43: WBC 16.60 H, Hgb 15.6, Hct 46.9, Plt Count 238 03/23/22 03:43: Sodium 135 L, Potassium 3.5, BUN 20 H, Creatinine 1.13, Glucose 231 H, Magnesium 1.9, Total Bilirubin 0.6, AST 18, ALT 38, Alkaline Phosphatase 86 - Problems (1) Respiratory failure Current Visit: Yes Status: Acute Plan: Patient is 66 years of age admitted with acute hypoxic respiratory failure with bilateral interstitial changes presumed pulmonary edema troponins are mildly elevated plan to change to assist control ventilation increase PEEP try dexmedetomidine fully anticoagulate the patient chest x-ray is reviewed change to pressure control ventilation Lasix as tolerated diagram shows ballooning of the left ventricle elevated pulmonary artery pressure thrombus in the left atrium repeat troponins EKG does show some ST-T changes consistent with the aneurysmal 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
--- NOTE | 2022-03-23 12:33 | RAD REPORT ---
EXAM DESCRIPTION: RAD - Chest Single View - 03/23/2022 11:15 am CLINICAL HISTORY: CHF, RESP DISTRESS Chest pain. COMPARISON: Chest Single View dated 03/23/2022 FINDINGS: Portable technique limits examination quality. Quite severe bilateral pulmonary opacifications present likely representing pulmonary edema. The hear t is moderately enlarged in size. No displaced fractures. IMPRESSION: Moderately severe worsening of in lung aeration since comparative study.
--- NOTE | 2022-03-23 12:43 | RAD REPORT ---
EXAM DESCRIPTION: RAD - Chest Single View - 03/23/2022 11:39 am CLINICAL HISTORY: INTUBATION Chest pain. COMPARISON: Chest Single View dated 03/23/2022; Chest Single View dated 03/23/2022 FINDINGS: Portable technique limits examination quality. Tip of the endotracheal tube is above the gopal. Moderately severe bilateral pulmonary opacities are noted. Most likely, this represents pulmonary edema. The heart is moderately enlarged in size.
[2022-03-23 13:08] LABS: CKMB Creatine Kinase MB 3.7 ng/mL (1.0-3.6)
[2022-03-23 13:19] LABS: Troponin High Sensitivity 146.7 pg/mL (<58.9)
--- NOTE | 2022-03-23 13:26 | RAD REPORT ---
EXAM DESCRIPTION: RAD - Abdomen 1 View (KUB) - 03/23/2022 1:15 pm CLINICAL HISTORY: Device placement orogastric tube placement FINDINGS: The tip of an orogastric tube lies within the lateral gastric fundus
--- NOTE | 2022-03-23 14:10 | P.PN ---
Date of Service: 03/23/22 Patient seen and examined. He developed sudden acute respiratory distress associated with cough with frothy pinkish sputum production. Patient noted to be hypoxic and agonal breathing. He remained responsive. Patient given a dose of IV Lasix and intubated. Quigley catheter in place. Troponin trended up. Diagnosis: NSTEMI Acute pulmonary edema Acute heart failure-unknown EF Lactic acidosis Wide-complex tachycardia Echo preliminary report suggests apical ballooning with concern for cardiac thrombus. Seen by cardiology. Patient started on full dose anticoagulation. Also seen by pulmonary. Continue IV Lasix Scheduled bronchodilators, IV steroid. Mechanical ventilation. Sedation per vent protocol Antibiotics. Cardiology to follow.
[2022-03-23] MEDS ORDERED: IPRATROPIUM BROM 0.5MG/2.5ML NEB PRN (14:28)
--- NOTE | 2022-03-23 14:47 | RAD REPORT ---
EXAM DESCRIPTION: RAD - Abdomen 1 View (KUB) - 03/23/2022 2:40 pm CLINICAL HISTORY: Device placement orogastric tube placement FINDINGS: An orogastric tube is coiled within the gastric body. The distal 11 centimeters of the tu be extends proximally within the stomach. The tip lies near the junction of the gastric body and fund us
[2022-03-23] MEDS: ENOXAPARIN 100 MG/ML SYR SQ SCH (16:41)
[2022-03-23] MEDS: FUROSEMIDE 40 MG/4 ML VIAL IV SCH (16:42)
--- NOTE | 2022-03-23 18:36 | EKG ---
Test Date: 2022-03-23 Test Time: 03:30:13 Quality Analyst/Technical Writer: MEASUREMENT RESULTS: Intervals: Rate: 116 [place]: QRSD: 194 QT: 406 QTc: 564 [place]: P: IL: QRS: 233 T: 51 INTERPRETIVE STATEMENTS: Wide QRS rhythm Right bundle branch block Inferior infarct, age undetermined Anterolateral infarct, age undetermined Abnormal ECG No previous ECG available for comparison Electronically Signed On 03-23-22 18:35:38 CDT by Trevor Grimm
--- NOTE | 2022-03-23 18:36 | EKG ---
Test Date: 2022-03-23 Test Time: 10:50:30 Quality Assurance Clerk: THERESA MEASUREMENT RESULTS: Intervals: Rate: 113 TX: 122 QRSD: 112 QT: 338 QTc: 463 [place]: P: 49 TX: 122 QRS: 84 T: 54 INTERPRETIVE STATEMENTS: Sinus tachycardia with fusion complexes Low voltage QRS Inferior infarct, age undetermined Anterolateral infarct, age undetermined Abnormal ECG Compared to ECG 03/23/2022 03:30:13 Fusion complex(es) now present Low QRS voltage now present Uncertain supraventricular rhythm no longer present Ventricular premature complex(es) no longer present Right bundle-branch block no longer present Myocardial infarct finding still present Electronically Signed On 03-23-22 18:35:14 CDT by Trevor Grimm
--- NOTE | 2022-03-23 18:53 | CON ---
Date of Consultation: 03/23/2022 Reason For Consultation: Acute heart failure. History Of Present Illness: A 66-year-old male, history of enlarged prostate, no other medical histo ry, who presented to the emergency room with shortness of breath. He was in respiratory distress. E MS placed him on BiPAP, gave him another 25 mg of Solu-Medrol and found to have mild troponin leak, b ut there was no documentation of any chest pain. He was started on Lasix and then the patient's cond ition has deteriorated and required intubation. I was unable to get any history from the patient due to the fact that the patient is not awake and he is on the ventilator, and information on this consu lt were obtained from the records and from the providers that already saw the patient prior to intuba tion. Past Medical History: Enlarged prostate. Medications: Refer to reconciliation sheet for detailed list. Allergies: NO KNOWN DRUG ALLERGIES. Family History: Heart disease on father's side, unknown exactly what kind. Social History: He is an active smoker. Does not drink, use any drugs. Review of Systems: All systems reviewed and they were negative except what mentioned in HPI. Physical Examination: Vital Signs: Temperature is 96.4, heart rate 100, breathing at 28 to 30, blood pressure is 177/101, saturating 88%. General: This is a middle-aged male on the ventilator. Head and Neck: Pupils are equal, reactive to light. There is no cervical lymphadenopathy. Elevated JVD. Lungs: Diffuse crackles bilaterally and increased in respiratory efforts. Heart: Irregular and tachycardic. Abdomen: Soft, nontender. Bowel sounds positive. No rigidity or rebound. Extremities: No clubbing or cyanosis. Intact pulses. Skin: No rash. Neurologic: He is sedated, unable to answer questions, on the ventilator. Lymph Nodes: No cervical or axillary lymphadenopathy. Investigations: BUN is 20, creatinine 1.1. NT-proBNP is 2161. First troponin was 91. Second tropo sami, which is almost 10 hours later, is 146. On echo, his ejection fraction is 25% to 30% with diffu se apical dyskinesis and apical ballooning picture and elevated filling pressures. On the EKG, the E KG showed he was sinus and there is ST elevation in the anterolateral leads; however, on echo, the LV is aneurysmal in the apex explaining that. Assessment And Recommendations: 1.Acute hypoxic respiratory failure due to acute congestive heart failure, probably some chronic obs tructive pulmonary disease also as the patient is heavy smoker. There was ST elevation on the EKG, h owever, there is aneurysmal LV, which explains ST elevation as the repeat troponin 10 hours later is still very mildly elevated. I do not believe there is acute coronary syndrome unless it is non-ST el evation myocardial infarction. I recommend full anticoagulation. The patient was found also to have a small LV thrombus on the echo. Full anticoagulation with Lovenox, aggressive diuresis of Lasix I will give him 60 mg IV q.6 hours. Monitor BUN, creatinine, electrolytes. 2.Systolic congestive heart failure. The apex is dyskinetic and dilated suggestive of stress-induce d cardiomyopathy. Aggressive diuresis to stabilize the condition is recommended and then if the bloo d pressure allows to start on beta-racheal and low-dose HENRY inhibitor. Once the patient's condition stabilizes, then we will plan for coronary angiogram on more elective basis as there is non-ST elevat ion myocardial infarction and the patient is not stable for transportation at this point. 3.LV thrombus seen on echo. Continue Lovenox therapeutic dose 1 mg/kg subcu q.12 hours once he is a ble to take medications by mouth to overlap with Coumadin. Critically ill patient. Discussed the case with Dr. Warner. /MODL Voice ID: [id number] Report ID: [id number]
--- NOTE | 2022-03-23 21:14 | P.PN ---
Date of Service: 03/24/22 Subjective: intubated/sedated no acute events overnight ROS: 10 point ROS unable to be obtained Physical Exam: Gen: intubated/sedated CV: regular rate & rhythm, no edema Pulm: on mech vent, mild b/l rhonchi Abd: soft, non-distended MSK: no contractures, no tenderness Skin: no rashes, no lesions Neuro: sedated solorzano (placed in ED) vitals reviewed Problem List NSTEMI acute CHF exacerbation, unknown EF; with pulmonary edema acute hypoxic respiratory failure secondary to above UTI, acute cystitis Lactic acidosis Wide-complex tachycardia Flu B+ intubated 03/23 for respiratory distress Echo: suggests apical ballooning with concern for cardiac thrombus. Seen by cardiology. will likely need cardiac cath Patient started on full dose anticoagulation 03/23 also seen by pulm, flu B positive continue IV lasix bronchodilators, IV steroids mech vent; sedation; wean as tolerated empiric antibiotics for UTI f/u cultures solorzano placed in ED for strict i/o's continue for now VTE: full lovenox Code: full Dispo: continue ICU level of care Time Spent Managing Pts Care (In Minutes): 35
[2022-03-23] MEDS: FAMOTIDINE 20 MG/2 ML VIAL IV SCH (21:59)
--- NOTE | 2022-03-23 22:42 | RAD REPORT ---
EXAM DESCRIPTION: XR Chest, 1 View CLINICAL HISTORY: The patient is 66 years old and is Male; Cough TECHNIQUE: Frontal view of the chest. COMPARISON: No relevant prior studies available. FINDINGS: Lungs: Prominent interstitial markings suggestive of interstitial edema. Pleural space: Blunting of the right costophrenic angle which may indicate a right pleural effusi on. No pneumothorax. Heart: Cardiac silhouette appears enlarged. Mediastinum: Unremarkable. Bones/joints: Unremarkable. IMPRESSION: 1. Prominent interstitial markings suggestive of interstitial edema. 2. Cardiac silhouette appears enlarged. 3. Blunting of the right costophrenic angle which may indicate a right pleural effusion. Electronically signed by: Darinel Hayward MD 03/23/2022 4:31 AM CDT Due to temporary technical issues with the PACS/Fluency reporting system, reports are being signed by the in house radiologists without review as a courtesy to insure prompt reporting. The interpreting radiologist is fully responsible for the content of the report.
[2022-03-24] MEDS: FUROSEMIDE 40 MG/4 ML VIAL IV SCH ×3 (01:14→18:18)
[2022-03-24 05:02] LABS: Hematocrit 43.2 % (39.6-49.0); Lymphocytes % 4.6 % (15.3-44.8); MCV 92.4 fL (80-100); RBC Red Blood Cell Count 4.67 M/uL (4.33-5.43)
[2022-03-24 05:23] LABS: Blood Morphology Comment NOT SEEN (NOT SEEN); Platelet Estimate ADEQ
[2022-03-24 05:28] LABS: Phosphorus 3.8 mg/dL (2.5-4.9); Potassium 3.8 mmol/L (3.5-5.1); Thyroid Stimulating Hormone 0.479 uIU/mL (0.360-3.740)
[2022-03-24] MEDS ORDERED: ENOXAPARIN 40 MG/0.4 ML SQ SCH (06:00)
[2022-03-24] MEDS: ENOXAPARIN 100 MG/ML SYR SQ SCH ×2 (06:03→18:18)
[2022-03-24] MEDS: CEFTRIAXONE 1,000 MG in NA CHLORIDE 0.9% 50 ML IVPB SCH (06:03)
[2022-03-24] MEDS: propofoL 1,000 MG/100 ML VIAL IV SCH ×3 (06:04→18:17)
[2022-03-24 06:23] LABS: Arterial Blood Carboxyhemoglob 0.9 % (0-1.5); Blood Gas Oxyhemoglobin 94.2 % (94-97); Blood O2 Saturation 96.2 % (92-98.5)
--- NOTE | 2022-03-24 06:37 | RAD REPORT ---
EXAM DESCRIPTION: RAD - Chest Single View - 03/24/2022 5:21 am CLINICAL HISTORY: Respiratory Failure/Pulmonary Edema COMPARISON: Portable chest March 23 TECHNIQUE: AP portable chest image was obtained 03/24/2022 5:21 am . FINDINGS: Endotracheal tube is in place mid aortic arch level 4.5 cm above the gopal. NG tube is in place extending below the diaphragm, off the field of view. Cardiomegaly and vascular engorgement are still present. Diffuse interstitial and alveolar opacities are seen throughout both lung villanueva. Lung volume is reduced compared to the prior study. There is be en no improvement. Accentuated lung parenchymal pattern is probably due to low lung volumes. No pneumothorax or enlarging pleural effusion. No acute bony abnormality seen. No acute aortic findin gs suspected. IMPRESSION: Endotracheal tube and NG tube in good position. Diffuse alveolar edema or infiltrate, accentuated by shallow inspiration, shows no improvement from O ct. Cardiomegaly similar to prior imaging.
--- NOTE | 2022-03-24 08:07 | ECHO ---
HEIGHT: 5 ft 9 in WEIGHT: 205 lb 4.006 oz DATE OF STUDY: 03/23/[address]: Cassandra Gongora 2-DIMENSIONAL: YES M.MODE: YES DOPPLER: YES COLOR FLOW: YES TDS: PORTABLE: YES DEFINITY: BUBBLE STUDY: DIAGNOSIS: CONGESTIVE HEART FAILURE CARDIAC HISTORY: CATHERIZATION: SURGERY: PROSTHETIC VALVE: PACEMAKER: MEASUREMENTS (cm) DIASTOLIC (NORMALS) SYSTOLIC (NORMALS) IVSd 1.1 (0.6-1.2) LA Diam 4.0 (1.9-4.0) LVEF 20% LVIDd 6.1 (3.5-5.7) LVIDs 4.9 (2.0-3.5) %FS % LVPWd 1.3 (0.6-1.2) Ao Diam (2.0-3.7) 2 DIMENSIONAL ASSESSMENT: RIGHT ATRIUM: NORMAL LEFT ATRIUM: NORMAL RIGHT VENTRICLE: NORMAL LEFT VENTRICLE: DILATED LEFT VENTRICLE TRICUSPID VALVE: MILD TRICUSPID REGURGITATION MITRAL VALVE: MILD MITRAL REGURGITATION PULMONIC VALVE: NORMAL AORTIC VALVE: MILD AORTIC INSUFFICIENCY PERICARDIAL EFFUSION: NONE AORTIC ROOT: NORMAL LEFT VENTRICULAR WALL MOTION: APICAL DYSKINESIS DOPPLER/COLOR FLOW: COMMENTS: SEVERELY DEPRESSED LEFT VENTRICULAR EJECTION FRACTION 20-25%. APICAL ANEURYSM WITH DYSKINESIS. SMALL LEFT VENTRICULAR THROMBUS IS SEEN. MILD MITRAL REGRUGITATION. MILD TRICUSPID REGURGITATION. MODERATE PULMONARY HYPERTENSION WITH RIGHT VENTRICULAR SYSTOLIC PRESSURE 55-60 mmHg. LARGE PLEURAL EFFUSION. TECHNOLOGIST: LULU AMAYA
[2022-03-24] MEDS: ASPIRIN EC 81 MG TAB PO SCH (09:23)
[2022-03-24] MEDS: FAMOTIDINE 20 MG/2 ML VIAL IV SCH ×2 (09:23→20:44)
--- NOTE | 2022-03-24 12:33 | P.PN ---
Subjective Date of Service: 03/24/22 Chief Complaint: Respiratory failure patient on a ventilator Patient's condition is stable still requiring high concentrations of oxygen chest x-ray no change currently on propofol Review of Systems is unable to be obtained Physical Examination - Vital Signs Temperature: 97.2 F Blood Pressure: 102/72 Pulse: 115 Respirations: 19 Pulse Ox (%): 96 - Physical Exam General: Unresponsive Respiratory: Clear to auscultation bilaterally, Crackles/rales Cardiovascular: No edema, Regular rate/rhythm, Normal S1 S2 Gastrointestinal: Normal bowel sounds, Soft and benign - Studies Microbiology Data (last 24 hrs): 03/23/22 04:28 Clean Catch Urine Harrod Count - Final No growth. 03/23/22 04:28 Clean Catch Urine - Final No growth. Assessment And Plan - Current Problems (Diagnosis) (1) Respiratory failure Current Visit: Yes Status: Acute Plan: Patient admitted with respiratory failure appears to have ARDS phone is were not significantly elevated probably not an [place] he does have dilated cardiomyopathy moderate pulmonary hypertension pleural effusion labs reviewed white count is mildly elevated currently on pressure control PEEP of 8 we will plan to titrate his O2 down so far cultures are negative trial of steroid serum cultures Qualifiers: Chronicity: acute
[2022-03-24] MEDS: METHYLPREDNISOLONE 40 MG INJ IV SCH ×2 (17:00→18:18)
[2022-03-24 18:13] LABS: Arterial Blood Carboxyhemoglob 0.8 % (0-1.5); Blood Gas Oxyhemoglobin 92.3 % (94-97); Blood O2 Saturation 94.1 % (92-98.5)
[2022-03-24] MEDS: OSELTAMIVIR 75 MG CAP FT SCH (20:44)
[2022-03-25] MEDS: METHYLPREDNISOLONE 40 MG INJ IV SCH ×2 (00:55→09:25)
[2022-03-25] MEDS: FUROSEMIDE 40 MG/4 ML VIAL IV SCH ×2 (00:55→09:25)
[2022-03-25] MEDS: propofoL 1,000 MG/100 ML VIAL IV SCH (01:36)
[2022-03-25 04:59] LABS: Hematocrit 44.6 % (39.6-49.0); Lymphocytes % 6.2 % (15.3-44.8); MPV 9.1 fL (7.6-11.3); RBC Red Blood Cell Count 4.85 M/uL (4.33-5.43)
[2022-03-25 05:15] LABS: Magnesium 2.5 mg/dL (1.8-2.4); Phosphorus 4.3 mg/dL (2.5-4.9); Potassium 3.8 mmol/L (3.5-5.1)
[2022-03-25 05:40] LABS: Arterial Blood Carboxyhemoglob 0.9 % (0-1.5); Blood Gas Oxyhemoglobin 90.8 % (94-97); Blood O2 Saturation 92.8 % (92-98.5)
[2022-03-25] MEDS: ENOXAPARIN 100 MG/ML SYR SQ SCH ×2 (06:16→16:58)
[2022-03-25] MEDS: CEFTRIAXONE 1,000 MG in NA CHLORIDE 0.9% 50 ML IVPB SCH (06:16)
--- NOTE | 2022-03-25 07:29 | RAD REPORT ---
EXAM DESCRIPTION: RAD - Chest Single View - 03/25/2022 5:15 am CLINICAL HISTORY: Respiratory Failure/Pulmonary Edema COMPARISON: Chest Single View dated 03/24/2022; Abdomen 1 View (KUB) dated 03/23/2022; Abdomen 1 Vie w (KUB) dated 03/23/2022; Chest Single View dated 03/23/2022 FINDINGS: Lines: Endotracheal tube at the aortic arch. NG tube below the diaphragm. Lungs: Widespread pulmonary opacities with suggestion of improvement, best seen on left side. Pleural: Bilateral effusions. Cardiac: Cardiomegaly. Mediastinum: Within normal limits. Bones: No acute fractures. Other: None IMPRESSION: Effusions and widespread pulmonary opacities favored to represent pulmonary edema with s ome improvement compared with 03/24/2022.
[2022-03-25] MEDS ORDERED: POTASSIUM 25 MEQ EFFERV TAB PO ONE (09:00)
[2022-03-25] MEDS: OSELTAMIVIR 75 MG CAP FT SCH ×2 (09:24→20:15)
[2022-03-25] MEDS: ASPIRIN 81 MG CHEWABLE TABLET PO SCH (09:24)
[2022-03-25] MEDS: FAMOTIDINE 20 MG/2 ML VIAL IV SCH ×2 (09:25→20:16)
--- NOTE | 2022-03-25 12:30 | P.PN ---
Subjective Date of Service: 03/25/22 Chief Complaint: Respiratory failure patient on a ventilator Patient is doing much better he is was extubated following a spontaneous breathing trial. Alert responsive cooperative hemodynamically stable Review of Systems is unable to be obtained Physical Examination - Vital Signs Temperature: 97.3 F Blood Pressure: 96/69 Pulse: 75 Respirations: 20 Pulse Ox (%): 94 - Physical Exam General: Alert, Cooperative Respiratory: Clear to auscultation bilaterally Cardiovascular: No edema, Regular rate/rhythm Assessment And Plan - Current Problems (Diagnosis) (1) Respiratory failure Current Visit: Yes Status: Acute Plan: Respiratory failure secondary to dilated cardiomyopathy patient is improving doing well was extubated given a trial of steroids yesterday renal function is slightly worse we will need to back down on the Lasix for now chest x-ray shows some haziness in the right side most likely right-sided pleural effusion reduce dose of Lasix Qualifiers: Chronicity: acute
--- NOTE | 2022-03-25 13:07 | EKG ---
Test Date: 2022-03-25 Test Time: 03:30:17 Domestic Technician: JACOB MEASUREMENT RESULTS: Intervals: Rate: 78 [place]: QRSD: 90 QT: 402 QTc: 458 [place]: P: [place]: QRS: 70 T: 42 INTERPRETIVE STATEMENTS: Atrial fibrillation Cannot rule out Inferior infarct, age undetermined Anterolateral infarct, age undetermined Abnormal ECG Compared to ECG 03/23/2022 10:50:30 Sinus tachycardia no longer present Fusion complex(es) no longer present Myocardial infarct finding still present Electronically Signed On 03-25-22 13:06:15 CDT by Trevor Grimm
--- NOTE | 2022-03-25 15:11 | PN ---
Date of Progress Note: 03/24/2022 Subjective: Seen by bedside. Remains intubated, but stable on the vent. No distress. Review of Systems: No reported fever or vomiting or diarrhea. No skin rash. The patient is unable to communicate to re view the other systems. Physical Examination: Vital Signs: Reviewed. Head and Neck: Pupils are equal, reactive to light. No JVD. No cervical lymphadenopathy. Lungs: Clear to auscultation bilaterally. No rhonchi, wheezing, or crackles. Heart: Irregularly irregular. No extra sounds. Abdomen: Soft, nontender. Bowel sounds positive. No organomegaly. No masses or hernia. No rigidi ty or rebound. Extremities: No clubbing or cyanosis. Intact pulses. Skin: No rash. Neurologic: Alert, awake. No acute focal deficits appreciated. Lymph Nodes: No cervical or axillary lymphadenopathy. Investigations: Labs were reviewed. Assessment And Recommendations: 1.Acute hypoxic respiratory failure due to acute congestive heart failure. After diuresis, he is do ing much better now and there is plan for extubation. We will further obtain history from the patien t once he is awake about his cardiac status. 2.Acute congestive heart failure exacerbation. This could be stress induced cardiomyopathy and ther e is apical ballooning with a small thrombus. Recommend to start beta-racheal and HENRY inhibitor and titrate up if the blood pressure allows and once he is awake, we will get more history and plan accordingly. 3.LV thrombus. Continue anticoagulation with Lovenox. SR/MODL Voice ID: [id number] Report ID: [id number]
--- NOTE | 2022-03-25 15:14 | PN ---
Date of Progress Note: 03/25/2022 Subjective: Seen by bedside. He is extubated. I had a more history from him. He never had a heart attack before or chest pain or any cardiac history that he is aware of. Review of Systems: No chest pain, shortness of breath, orthopnea, cough. No nausea, vomiting, diarrhea. No abdominal p ain. No dysuria, polyuria, or urinary urgency. No skin rash, headache. All other systems reviewed and they were negative. Physical Examination: Vital Signs: Revealed a temperature of 97.3, pulse 75, breathing at 18, blood pressure 96/69, satura ting 94% on room air. General: Pleasant and middle-aged male, in no apparent distress. Head and Neck: Pupils are equal, reactive to light. Intact eye movements. No JVD. No cervical lym phadenopathy. Neck is supple. Thyroid is not enlarged. Lungs: Clear to auscultation bilaterally. No rhonchi, wheezing, or crackles. No accessory muscle u se. Heart: Irregularly irregular. No extra sounds. Abdomen: Soft, nontender. Bowel sounds positive. No organomegaly. No masses or hernia. No rigidi ty or rebound. Extremities: No clubbing or cyanosis. Intact pulses. Skin: No rash. Neurologic: Alert, awake, oriented x3. No acute focal deficits appreciated. Investigations: BUN 48, creatinine 1.49, and his hemoglobin is 14.9. Assessment And Recommendations: 1.Acute hypoxic respiratory failure, successfully extubated, and this is due to congestive heart kodi lure. Diuresed very well. Appears to be euvolemic, in fact slightly dehydrated. Hold Lasix today a nd reassess tomorrow morning. 2.Severe systolic heart failure with apical ballooning suggestive of possibility of stress induced c ardiomyopathy; however, to confirm diagnosis, we will plan for coronary angiogram tomorrow morning. 3.Influenza A. Continue Tamiflu. 4.LV thrombus. He is off the ventilator now. Continue Lovenox for now as we are going to do a lauren nary angiogram on him tomorrow and then switch him to Eliquis after that. After holding the Lasix, w e will evaluate his blood pressure and try to reduce beta-racheal, HENRY inhibitor if possible. 5.Atrial fibrillation, rate is controlled and on the anticoagulation. If there is no coronary arter y disease is seen, then I will plan to load him with amiodarone drip to convert into sinus rhythm and given the fact that he has significant systolic heart failure. SR/MODL Voice ID: [id number] Report ID: [id number]
--- NOTE | 2022-03-25 17:27 | P.PN ---
Date of Service: 03/25/22 Subjective: intubated aflutter noted last night ROS: 10 point ROS unable to be obtained Physical Exam: Gen: intubated/sedated CV: irregularly irregular rhythm, no edema Pulm: on mech vent, mild b/l rhonchi Abd: soft, non-distended MSK: no contractures, no tenderness Skin: no rashes, no lesions Neuro: sedated solorzano (placed in ED) vitals reviewed Problem List NSTEMI acute CHF exacerbation, unknown EF; with pulmonary edema acute hypoxic respiratory failure secondary to above UTI, acute cystitis Lactic acidosis Wide-complex tachycardia Flu B+ intubated 03/23 for respiratory distress Echo: suggests apical ballooning with concern for cardiac thrombus. Seen by cardiology. will likely need cardiac cath Patient started on full dose anticoagulation 03/23, plan for transition to coumadin once taking PO/stable also seen by pulnicole, flu B positive renal function worsening, dc lasix bronchodilators, IV steroids mech vent; sedation; weaning trials this AM, likely extubate today empiric antibiotics for UTI f/u cultures solorzano placed in ED for strict i/o's continue for now VTE: full lovenox Code: full Dispo: continue ICU level of care Time Spent Managing Pts Care (In Minutes): 35
[2022-03-25] MEDS ORDERED: METHYLPREDNISOLONE 40 MG INJ IV SCH (21:00)
[2022-03-25] MEDS ORDERED: FUROSEMIDE 40 MG/4 ML VIAL IV SCH (21:00)
[2022-03-26 04:53] LABS: Hematocrit 45.5 % (39.6-49.0); Lymphocytes % 6.1 % (15.3-44.8); MCV 92.1 fL (80-100); RBC Red Blood Cell Count 4.94 M/uL (4.33-5.43)
[2022-03-26] MEDS: ENOXAPARIN 100 MG/ML SYR SQ SCH ×2 (05:00→16:45)
[2022-03-26 05:09] LABS: Magnesium 2.8 mg/dL (1.8-2.4); Phosphorus 3.2 mg/dL (2.5-4.9); Potassium 3.8 mmol/L (3.5-5.1)
[2022-03-26] MEDS: CEFTRIAXONE 1,000 MG in NA CHLORIDE 0.9% 50 ML IVPB SCH (06:10)
--- NOTE | 2022-03-26 07:26 | RAD REPORT ---
EXAM DESCRIPTION: RAD - Chest Single View - 03/26/2022 5:50 am CLINICAL HISTORY: Respiratory Failure/Pulmonary Edema COMPARISON: Chest Single View dated 03/25/2022; Chest Single View dated 03/24/2022; Abdomen 1 View ( KUB) dated 03/23/2022; Abdomen 1 View (KUB) dated 03/23/2022 FINDINGS: Lines: The patient has been extubated and there has been removal of the enteric tube. Lungs: Pulmonary edema continues to improve. Pleural: No significant pleural effusions or pneumothorax. Cardiac: Cardiomegaly. Mediastinum: Within normal limits. Bones: No acute fractures. Other: None IMPRESSION: Continued improvement in pulmonary edema. Interval extubation and removal of the enteric tube.
[2022-03-26] MEDS: ASPIRIN 81 MG CHEWABLE TABLET PO SCH (08:45)
[2022-03-26] MEDS: predniSONE 20 MG TAB PO SCH ×2 (08:45→20:21)
[2022-03-26] MEDS: OSELTAMIVIR 75 MG CAP FT SCH ×2 (08:45→20:21)
[2022-03-26] MEDS ORDERED: POTASSIUM CL SA 10 MEQ TAB PO ONE (09:00)
[2022-03-26] MEDS ORDERED: HEPA 1000U/500MLS 2,000 UNIT/1,000 ML BAG IV ONE (10:06)
[2022-03-26] MEDS ORDERED: LIDOCAINE 1% 20 ML MDV ONE ×2 (10:07→18:48)
--- NOTE | 2022-03-26 13:37 | P.PN ---
Date of Service: 03/26/22 Subjective: extubated yesterday, down to 3L NC no chest pain, feeling better; sore throat ROS: 10 point ROS unable to be obtained Physical Exam: Gen: NAD, AOx3 CV: paced rhythm, no edema Pulm: mild b/l rhonchi, on 3L NC Abd: soft, non-distended Skin: no rashes, no lesions Neuro: normal speech/affect, moves all extremities solorzano (placed in ED) vitals reviewed Problem List NSTEMI acute CHF exacerbation, unknown EF; with pulmonary edema acute hypoxic respiratory failure secondary to above UTI, acute cystitis Lactic acidosis Wide-complex tachycardia Flu B+ BPH, straight cath's at home intubated 03/23 for respiratory distress Echo: apical ballooning with concern for cardiac thrombus. Seen by cardiology. cardiac cath planned for today Patient started on full dose anticoagulation 03/23, plan for transition to PO anticoagulation/ eliquis once taking PO/stable also seen by pulm, flu B positive renal function worsening suspect secondary to overdiuresis, dc'd lasix 03/25, improved today bronchodilators, steroids extubated 03/25 empiric antibiotics for suspected UTI f/u cultures solorzano placed in ED for strict i/o's continue for now Flu B+ continue tamiflu VTE: full lovenox Code: full Dispo: continue ICU level of care pending cardiac cath; further improvement home, ~2-3 days Time Spent Managing Pts Care (In Minutes): 35
--- NOTE | 2022-03-26 14:33 | EKG ---
Test Date: 2022-03-25 Test Time: 03:32:38 Table Worker Packager: JACOB MEASUREMENT RESULTS: Intervals: Rate: 73 [place]: QRSD: 94 QT: 404 QTc: 445 [place]: P: [place]: QRS: 71 T: 11 INTERPRETIVE STATEMENTS: Atrial fibrillation Cannot rule out Inferior infarct, age undetermined Anterolateral infarct, age undetermined Abnormal ECG Compared to ECG 03/25/2022 03:30:17 No significant changes Electronically Signed On 03-26-22 14:31:02 CDT by Trevor Grimm
[2022-03-26] MEDS ORDERED: VERAPAMIL HCL 10 MG/4 ML VIAL IV ONE (18:35)
[2022-03-26] MEDS ORDERED: HEPARIN 5000 UNIT/ML 1 ML VIAL ONE (18:35)
[2022-03-26] MEDS ORDERED: CLOPIDOGREL 75 MG TABLET ONE (18:35)
[2022-03-26] MEDS ORDERED: ASPIRIN 325 MG TAB ONE (18:35)
[2022-03-26] MEDS ORDERED: FENTANYL CITR 100 MCG/2 ML ONE (18:35)
[2022-03-26] MEDS ORDERED: MIDAZOLAM HCL 2 MG/2 ML INJ ONE (18:35)
[2022-03-26] MEDS ORDERED: TICAGRELOR 90 MG TABLET PO ONE (18:36)
[2022-03-26] MEDS ORDERED: ATROPINE SULF 1 MG/10 ML SYR IV ONE (18:36)
[2022-03-26] MEDS ORDERED: HEPARIN 10,000 UNIT/10 ML VIAL IV ONE (18:36)
[2022-03-26] MEDS ORDERED: NA CHLORIDE 0.9% 500 ML ONE (18:48)
[2022-03-26] MEDS ORDERED: NITROPRUSSIDE 50 MG VIAL IV ONE (19:20)
[2022-03-26] MEDS ORDERED: D5W 250 ML IV ONE (19:20)
[2022-03-26] MEDS ORDERED: AMIODARONE HCL 150 MG in D5W 100 ML IV STA (21:18)
[2022-03-26] MEDS ORDERED: AMIODARONE HCL 150 MG/3 ML INJ IV ONE (21:22)
[2022-03-26] MEDS ORDERED: AMIODARONE IN DEXTROSE,ISO-OSM 360 MG/200 ML BAG IV ONE (21:23)
[2022-03-26] MEDS ORDERED: D5W 100 ML IV ONE (21:23)
[2022-03-26] MEDS: AMIODARONE IN DEXTROSE,ISO-OSM 360 MG/200 ML BAG IV SCH (21:31)
[2022-03-26] MEDS ORDERED: AMIODARONE HCL 900 MG in Dextrose 5%-Water 482 ML IV SCH (22:00)
--- NOTE | 2022-03-26 22:53 | PN ---
Date of Progress Note: 03/26/2022 Subjective: Seen at bedside, doing clinically well. No chest pain, shortness of breath, or cough. No nausea, vomiting, or diarrhea. All other systems reviewed and they are negative. Physical Examination: Vital Signs: Temperature is 97.6, pulse 71, breathing at 14, blood pressure is 109/74, saturating 94 % on room air. General: A pleasant middle-aged male, in no apparent distress. Head and Neck: Pupils are equal and reactive to light. Intact eye movements. No JVD. No cervical lymphadenopathy. Neck: Supple. Thyroid is not enlarged. Lungs: Clear to auscultation bilaterally. No rhonchi, wheezing, or crackles. No accessory muscle u se. Heart: Irregular. No extra sounds. Abdomen: Soft, nontender. Bowel sounds positive. No organomegaly. No masses or hernia. No rigidi ty or rebound. Extremities: No edema, clubbing, or cyanosis. Intact pulses. Skin: No rash noted. Neuro: Alert, awake, oriented x3. No acute focal deficits appreciated. Investigations: Labs were reviewed. Assessment And Recommendations: 1.Severe systolic congestive heart failure. He is n.p.o. We will plan for coronary angiogram on hi m later today. This definitely could be stress induced cardiomyopathy as there is an apical ballooni ng. 2.Left ventricular thrombus. Continue anticoagulation. Switch Lovenox to oral Eliquis after the ca theterization is done. 3.Acute hypoxic respiratory failure due to congestive heart failure. This has resolved and patient is extubated. 4.Atrial fibrillation. Rate is controlled, on anticoagulation. SR/MODL Voice ID: [id number] Report ID: [id number]
[2022-03-27] MEDS ORDERED: ALPRAZOLAM 0.5 MG TABLET PO STA (00:39)
[2022-03-27] MEDS: AMIODARONE IN DEXTROSE,ISO-OSM 360 MG/200 ML BAG IV SCH (03:44)
[2022-03-27 05:21] LABS: Hematocrit 48.3 % (39.6-49.0); MCV 92.4 fL (80-100); MPV 9.3 fL (7.6-11.3); RBC Red Blood Cell Count 5.23 M/uL (4.33-5.43)
[2022-03-27] MEDS: CEFTRIAXONE 1,000 MG in NA CHLORIDE 0.9% 50 ML IVPB SCH (05:38)
[2022-03-27] MEDS: ENOXAPARIN 100 MG/ML SYR SQ SCH (05:38)
[2022-03-27 05:42] LABS: Magnesium 2.9 mg/dL (1.8-2.4); Phosphorus 2.9 mg/dL (2.5-4.9); Potassium 4.3 mmol/L (3.5-5.1)
--- NOTE | 2022-03-27 06:11 | P.PN ---
Date of Service: 03/27/22 Subjective: s/p cath yesterday arrhythmia overnight, started on amiodarone feeling ok, no worsening of symptoms ROS: 10 point ROS unable to be obtained Physical Exam: Gen: NAD, AOx3 CV: irregularly irregular rhythm, no edema Pulm: nonlabored respirations on 3L NC Abd: soft, non-distended Skin: no rashes, no lesions Neuro: normal speech/affect, moves all extremities solorzano (placed in ED) vitals reviewed Problem List NSTEMI, CAD s/p PCI acute CHF exacerbation, unknown EF; with pulmonary edema acute hypoxic respiratory failure secondary to above UTI, acute cystitis Lactic acidosis Wide-complex tachycardia Flu B+ BPH, straight cath's at home intubated 03/23 for respiratory distress; extubated 03/25 Echo: apical ballooning with concern for cardiac thrombus. Seen by cardiology. cardiac cath planned for today Patient started on full dose anticoagulation 03/23, plan for transition to PO anticoagulation/ eliquis once taking PO/stable also seen by pulm, flu B positive renal function worsening suspect secondary to overdiuresis, dc'd lasix 03/25, improved bronchodilators, steroids empiric antibiotics for suspected UTI solorzano placed in ED for strict i/o's continue for now straight cath's at home Afib/flutter after cardiac cath, suspect secondary to reperfusion, s/p PCI on 03/26, LAD occlusion on amio drip cardiology planning electrical cardioversion today continue lovenox for now Flu B+ continue tamiflu VTE: full lovenox Code: full Dispo: continue ICU level of halfway, ~2-3 days Time Spent Managing Pts Care (In Minutes): 35
[2022-03-27 06:45] VITALS: BMI 28.3
[2022-03-27] MEDS: CLOPIDOGREL 75 MG TABLET PO SCH (08:29)
[2022-03-27] MEDS: OSELTAMIVIR 75 MG CAP FT SCH ×2 (08:29→19:45)
[2022-03-27] MEDS: predniSONE 20 MG TAB PO SCH ×2 (08:29→19:44)
[2022-03-27] MEDS: ASPIRIN 81 MG CHEWABLE TABLET PO SCH (08:29)
--- NOTE | 2022-03-27 08:35 | RAD REPORT ---
EXAM DESCRIPTION: Ben Single View03/27/2022 5:33 am CLINICAL HISTORY: respiratory failure COMPARISON: March 26 2022 FINDINGS: Bilateral pulmonary opacities have resolved. Heart remains enlarged IMPRESSION: Resolution in the bilateral pulmonary opacities
[2022-03-27] MEDS ORDERED: METOPROLOL TARTRATE 5 MG/5 ML INJ IV ONE (11:47)
[2022-03-27] MEDS ORDERED: ATROPINE SULFATE 1 MG/ML INJ ONE (11:48)
[2022-03-27] MEDS ORDERED: FENTANYL CITR 100 MCG/2 ML ONE (11:48)
[2022-03-27] MEDS ORDERED: FLUMAZENIL 0.1 MG/ML (5 mL VIAL) IV ONE (11:48)
[2022-03-27] MEDS ORDERED: MIDAZOLAM HCL 5 ML ONE (11:48)
[2022-03-27] MEDS ORDERED: NA CHLORIDE 0.9% 500 ML ONE (11:49)
[2022-03-27] MEDS ORDERED: PHENOL 1.4% ORAL SPRAY 180ML ONE (11:58)
[2022-03-27] MEDS ORDERED: LIDOCAINE VISCOUS 2% SOLN 15 ML UDC ONE (12:02)
--- NOTE | 2022-03-27 14:08 | OP ---
Date of Procedure: 03/26/2022 Surgeon: LUKE CALIX Procedures Performed: 1.Selective coronary angiogram. 2.Left heart catheterization. 3.Balloon angioplasty of chronic total occlusion 100% occlusion, which is chronic of the mid left an terior descending with establishing a GORDO 1-2 flow after the angioplasty. Indication: Severe systolic heart failure. Access: Right femoral artery 6-South African closed with 6-South African Angio-Seal. Complications: None. Estimated Blood Loss: Bleeding less than 10 mL. Anesthesia: Total sedation time was 65 minutes. Description Of Procedure: After risks, benefits, alternatives were explained, patient agreed to proc edure and signed informed consent. Patient was brought into the cardiac catheterization laboratory, prepped and draped in the usual sterile fashion. Then, I accessed the right radial artery using micr opuncture kit and placed 6-South African Slender sheath and took 5-South African [place] 4 catheter. However, there was some radial artery spasm. I engaged the left main, then right coronary artery and took standard views and the catheter was pushed into the LV over the wire and measured the LVEDP and pullback. Did not record any gradient. I tried to get an EBU through the radial; however, there was severe spasm, so I accessed the right femoral artery and placed 6-South African [place] sheath using micropuncture kit a nd the ultrasound guidance, and then I took an EBU 3.5 guide into the aortic root, engaged left main, took a short Runthrough wire into the mid LAD, could not cross it, gave heparin to assure ACT level above 250 throughout the procedure. Then I took a [place] wire into the mid LAD. I was able to cros s it and placed it in the distal LAD. Then I used a 2.5 x 20 mm NC balloon and now I was able to ope n the vessel. However, only GORDO-2 flow at the end. So I decided not to put a stent as this is like ly an old STEMI probably happened many months ago that caused the severe systolic heart failure. At this point, I decided to remove all the wires and final angiogram showed still flow in the LAD all th e way distally, but it is sluggish. So I tried IV nitroglycerin and IV Nipride without significant i mprovement. So, at this point, we will give the patient aspirin and Plavix and high-dose statin and heart failure therapy. I then removed the guide and the sheath and placed a 6-[place] Angio-Seal for closure and TR band for the radial artery. No complications. Findings: 1.Left main, large and normal. 2.LAD; proximal to mid is normal and normal diagonal branches and normal septal branches, but there is a CADDY MASTER 100% chronic total occlusion and it is very old. Also hard to cross, but eventually I was a ble to cross it and established GORDO-2 flow in it, status post successful balloon angioplasty as abov e. 3.Left circumflex, large and normal with luminal irregularities and is dominant. 4.RCA; it is medium size and codominant with luminal irregularities. 5.Elevated LVEDP at 25 mmHg. Conclusion: 1.Chronic total occlusion of the mid LAD, status post successful angioplasty as above. 2.Mild coronary artery disease elsewhere. 3.Elevated LVEDP. Plan: Aspirin, Plavix, and statin, and recommend stop smoking. SR/MODL Voice ID: [id number] Report ID: [id number]
--- NOTE | 2022-03-27 14:43 | EKG ---
Test Date: 2022-03-26 Test Time: 20:58:31 Cinder Worker: JACOB MEASUREMENT RESULTS: Intervals: Rate: 154 [place]: QRSD: 180 QT: 334 QTc: 534 [place]: P: GA: QRS: -59 T: 100 INTERPRETIVE STATEMENTS: A flutter Left axis deviation Left ventricular hypertrophy with QRS widening and repolarization abnormality Inferior infarct, age undetermined Anterolateral infarct, age undetermined Abnormal ECG Compared to ECG 03/25/2022 03:32:38 Left-axis deviation now present Left ventricular hypertrophy now present Early repolarization now present Myocardial infarct finding still present Electronically Signed On 03-27-22 14:42:52 CDT by Trevor Grimm
[2022-03-27] MEDS: APIXABAN 5 MG TABLET PO SCH (19:45)
--- NOTE | 2022-03-28 01:17 | PN ---
Date of Progress Note: 03/27/2022 Subjective: Seen by bedside, doing well. No complaints. Still in AFib flutter, but with rapid vent ricular response. On amiodarone since last night, but heart rate is still fast. Review of Systems: No chest pain, shortness of breath, orthopnea, or cough. No nausea, vomiting, or diarrhea. No abdom inal pain. No dysuria, polyuria, or urinary urgency. All other systems are reviewed and are negativ e. Physical Examination: Vital Signs: Reviewed. Head And Neck: Pupils are equal and reactive to light. Intact eye movements. No JVD. No cervical lymphadenopathy. Neck: Supple. Thyroid is not enlarged. Lungs: Clear to auscultation bilaterally. No rhonchi, wheezing, or crackles. No accessory muscle u se. Heart: Irregularly irregular and tachycardic. Abdomen: Soft, nontender. Bowel sounds positive. No organomegaly. No masses or hernia. No rigidi ty or rebound. Extremities: No clubbing or cyanosis. Intact pulses. Skin: No rashes. Neurologic: Alert, awake, and oriented x3. No acute focal deficits appreciated. Investigations: Labs were reviewed. Assessment And Recommendation: 1.Nxsiy-ny-qbuyjyt systolic heart failure exacerbation with resultant respiratory failure, has resol charu now. He is extubated. Continue current management with the diuretics. If the patient is not ge tting Lasix, start him on Lasix at 20 mg once daily for now and adjust further as far as blood pressu re tolerates. 2.Atrial flutter with rapid ventricular response now. We will plan for MANISHA guided cardioversion and patient was started on amiodarone drip last night and he is still not slowing down and did not conve rt to sinus rhythm. Continue with the 24 hours low dose of the amiodarone and introduce beta racheal . 3.Severe systolic heart failure. He had an old heart attack and did heart catheterization on him an d he has a chronically totally occluded mid left anterior descending, which was opened yesterday as t here are no collaterals that I could see. Likely, this might not improve his cardiac function. [place] tr[place], the patient is feeling well and has no chest pain. Recommend to introduce Toprol-XL 25 mg daily and we will plan to put him on Entresto once his blood pressure allows to start the medication. The patient can be transferred to the floor after the cardioversion. /LAURYN Voice ID: [id number] Report ID: [id number]
--- NOTE | 2022-03-28 02:53 | OP ---
Date of Procedure: 03/27/2022 Surgeon: LUKE CALIX Procedures Performed: 1.Transesophageal echocardiogram. 2.Electrical cardioversion to normal sinus rhythm. Indication: Atrial fibrillation/flutter with rapid ventricular response and severe systolic heart fa ilure failed to respond to medical treatment. Description Of Procedure: After risks, benefits, and concerns were explained to the patient, patient agreed to procedure and signed informed consent. At the bedside in ICU, the back of the throat was numbed using local lidocaine and after proper time-out, we gave 5 mg of Versed and then inserted a TE E probe without difficulty. MANISHA was performed and there was no thrombus in the left atrial appendage . MANISHA probe was removed after finishing the echo and then charged the paddles to 200 joule in synchr onized fashion. Electrical cardioversion was performed successfully converting the rhythm into sinus . Conclusion: Successful MANISHA-guided cardioversion. Plan: Continue amiodarone and Eliquis. /LAURYN Voice ID: [id number] Report ID: [id number]
[2022-03-28] MEDS ORDERED: CEFTRIAXONE 1000 MG/VIAL ONE (04:54)
[2022-03-28] MEDS ORDERED: NA CHLORIDE 0.9% 50 ML IV ONE (04:57)
[2022-03-28] MEDS: CEFTRIAXONE 1,000 MG in NA CHLORIDE 0.9% 50 ML IVPB SCH (05:26)
[2022-03-28 05:30] LABS: Hematocrit 44.4 % (39.6-49.0); MCV 93.1 fL (80-100); MPV 8.7 fL (7.6-11.3); RBC Red Blood Cell Count 4.77 M/uL (4.33-5.43)
[2022-03-28 05:49] LABS: Magnesium 2.2 mg/dL (1.8-2.4); Potassium 4.3 mmol/L (3.5-5.1)
--- NOTE | 2022-03-28 06:42 | P.PN ---
Date of Service: 03/28/22 Subjective: s/p successful electrocardioversion yesterday Feeling much better today, feels "like a new man" Oxygen being weaned down Ambulating to the bathroom without issue ROS: 10 point ROS unable to be obtained Physical Exam: Gen: NAD, AOx3 CV: Regular heart rate and rhythm, no edema Pulm: nonlabored respirations on 2L NC Abd: soft, non-distended Neuro: normal speech/affect, moves all extremities solorzano (placed in ED) vitals reviewed Problem List NSTEMI, CAD s/p PCI acute CHF exacerbation, unknown EF; with pulmonary edema acute hypoxic respiratory failure secondary to above UTI, acute cystitis Lactic acidosis Wide-complex tachycardia Flu B+ BPH, straight cath's at home intubated 03/23 for respiratory distress; extubated 03/25 Echo: apical ballooning with concern for cardiac thrombus Seen by cardiology. cardiac cath done - LAD occlusion Patient started on full dose anticoagulation 03/23, transitioned to eliquis & plavix also seen by pulm, started steroids, dc steroids. patient also flu B positive renal function worsened earlier in hospitalization secondary to overdiuresis, improving since lasix dc'd CXR 03/27 cleared b/l opacities bronchodilators, empiric antibiotics for suspected UTI - completed 5 days rocephin on 03/28, cultures negative, afebrile. solorzano placed in ED for strict i/o's dc 03/28 straight cath's at home, ok to straight cath resume home tamsulosin Afib/flutter after cardiac cath, suspect secondary to reperfusion, s/p PCI on 03/26, LAD occlusion started on amio drip, now transitioned to PO amio after electrical cardioversion 03/27 Continue Eliquis Flu B+ continue tamiflu, to complete today (5 days) VTE: Eliquis Code: full Dispo: home, ~1-2 days Time Spent Managing Pts Care (In Minutes): 35 Hospital course Patient presented with chest pain and shortness of breath. He progressed with sudden onset of respiratory distress/failure on 03/23, requiring intubation (extubated 03/25). He was seen by pulmonology and cardiology. He received empiric IV Rocephin for possible UTI, bronchodilators and steroids, and Lasix. Echocardiogram revealed apical ballooning with concern for cardiac thrombus. He was also noted to be positive for flu B, and received 5 days of Tamiflu. Patient underwent cardiac catheterization, which revealed LAD occlusion. Stent was able to be placed and opened this up. Postoperatively, he was noted to develop atrial fibrillation/flutter, started on amiodarone drip with no significant change. Cardiology performed successful electrical cardioversion on 03/27. Patient was transitioned to oral amiodarone, and continued on Eliquis and Plavix per cardiology recommendations.
[2022-03-28] MEDS: ASPIRIN 81 MG CHEWABLE TABLET PO SCH (08:34)
[2022-03-28] MEDS: APIXABAN 5 MG TABLET PO SCH ×2 (08:34→22:05)
[2022-03-28] MEDS: CLOPIDOGREL 75 MG TABLET PO SCH (08:34)
[2022-03-28] MEDS: OSELTAMIVIR 75 MG CAP FT SCH ×2 (08:34→22:05)
[2022-03-28] MEDS: predniSONE 20 MG TAB PO SCH (08:35)
[2022-03-28] MEDS: AMIODARONE HCL 200 MG TAB PO SCH ×2 (08:42→22:05)
--- NOTE | 2022-03-28 20:19 | PN ---
Date of Progress Note: 03/28/2022 Subjective: Seen at bedside, doing clinically well and still in sinus rhythm. Review of Systems: No chest pain, shortness of breath, orthopnea, or cough. No nausea, vomiting, or diarrhea. No abdom inal pain. All other systems are reviewed and they are negative. Physical Examination: Vital Signs: Reviewed. Head And Neck: Pupils are equal and reactive to light. Intact eye movements. No JVD. No cervical lymphadenopathy. Neck is supple. Thyroid is not enlarged. Lungs: Clear to auscultation bilaterally. No rhonchi, wheezing, or crackles. No accessory muscle u se. Heart: Regular rate and rhythm. No extra sounds. Abdomen: Soft, nontender. Bowel sounds positive. No organomegaly. No masses or hernia. No rigidi ty or rebound. Extremities: No edema, clubbing, or cyanosis. Intact pulses. Skin: No rash. Neurologic: Alert, awake, oriented x3. No acute focal deficits appreciated. Investigations: Labs reviewed. Assessment And Recommendation: 1.Acute respiratory failure due to congestive heart failure plus pneumonia, doing clinically better. 2.Severe systolic heart failure, status post coronary angiogram. He has chronic total occlusion of mid left anterior descending. Recommend to continue aspirin, Plavix, high-dose statin, and beta-bloc ker. 3.Atrial flutter. He was cardioverted to sinus rhythm successfully. Continue amiodarone and Eliqui s. SR/MODL Voice ID: [id number] Report ID: [id number]
[2022-03-28] MEDS: TAMSULOSIN 0.4 MG SR CAP PO SCH (22:05)
[2022-03-29 03:52] VITALS: O2SAT 96
[2022-03-29 05:21] LABS: Hematocrit 40.5 % (39.6-49.0); MCV 91.9 fL (80-100); MPV 8.7 fL (7.6-11.3); RBC Red Blood Cell Count 4.41 M/uL (4.33-5.43)
[2022-03-29 05:39] LABS: Magnesium 2.2 mg/dL (1.8-2.4); Potassium 3.5 mmol/L (3.5-5.1)
[2022-03-29 07:20] VITALS: BP 109/50; TEMP 97.2
--- NOTE | 2022-03-29 07:44 | P.DS ---
Admission Date: 03/23/22 Discharge Date: 03/29/22 Disposition: ROUTINE DISCHARGE Discharge Condition: GOOD Reason for Admission: Respiratory failure patient on a ventilator Consultations: Cardiology - Dr. Grimm Pulmonology - Dr. Warner Brief History of Present Illness: 66 year old male with history of BPH who presented to the ED via EMS with sudden onset of shortness of breath. EMS placed him on bipap and administered 125 mg solumedrol he was saturating 90% upon arrival to ED. ABG with pH 7.35, pCO2 36, and bicarb 19. EKG showing wide QRS vs 2/1 aflutter. Labs significant for WBC 16.6, glucose 231, lactic acid 3.1, troponin HS 91.8, BNP 2162. Urine with trace ketones, 2+ blood, trace LE. Chest xray showed interstitial edema, cardiomegaly, and right pleural effusion. He was given lasix, pepcid, rocephin, and lovenox in the ED. He denies any diagnosed cardiac history although he reports that he had COVID-19 in December and now he has intermittent episodes of tachycardia. Hospital Course: Problem List NSTEMI, CAD s/p PCI (chronic, total mid LAD occlusion) acute systolic CHF exacerbation (EF:25%); with pulmonary edema acute hypoxic respiratory failure secondary to above Lactic acidosis secondary to CHF/hypoxia Wide-complex tachycardia Flu B+ BPH, straight cath's at home Patient presented with chest pain and shortness of breath. He progressed with sudden onset of respiratory distress/failure on 03/23, requiring intubation (extubated 03/25). He was seen by pulmonology and cardiology. He received empiric IV Rocephin for possible UTI, bronchodilators and steroids, and Lasix. Echocardiogram revealed: EF: ~25%, apical ballooning with concern for cardiac thrombus. He was also noted to be positive for flu B, and received 5 days of Tamiflu. Patient underwent cardiac catheterization, which revealed chronic total mid LAD occlusion. Stent was able to be placed and opened this up. Postoperatively, he was noted to develop atrial fibrillation/flutter, started on amiodarone drip with no significant change. Cardiology performed successful electrical cardioversion on 03/27. Patient was transitioned to oral amiodarone, and continued on Eliquis and Plavix per cardiology recommendations. Patient was weaned off oxygen supplementation and chest x-ray noted resolved bilateral opacities. Follow up PCP within 1 week Cardiology in ~2 weeks Monitor heart rate, blood pressure, and for worsening lower extremity swelling / shortness of breath Discussed risks of tobacco, counselled on cessation. Vital Signs/Physical Exam: Temp Pulse Resp BP Pulse Ox 97.2 F 62 16 109/50 L 97 03/29/22 04:00 03/29/22 04:00 03/29/22 04:00 03/29/22 04:00 03/29/22 04:00 General: Alert, In no apparent distress, Oriented x3 HEENT: Mucous membr. moist/pink, EOMI, Sclerae nonicteric Respiratory: Clear to auscultation bilaterally, Normal air movement Cardiovascular: No edema, Regular rate/rhythm Gastrointestinal: Soft and benign, Non-distended, No tenderness Musculoskeletal: No tenderness Neurological: Normal speech, Normal strength at 5/5 x4 extr, Normal affect Laboratory Data at Discharge: WBC 13.20 K/uL (4.3-10.9) H 03/29/22 04:54 Hgb 13.6 g/dL (13.6-17.9) 03/29/22 04:54 Hct 40.5 % (39.6-49.0) 03/29/22 04:54 Plt Count 193 K/uL (152-406) 03/29/22 04:54 PT 12.8 SECONDS (9.5-12.5) H 03/23/22 03:43 INR 1.16 03/23/22 03:43 Sodium 137 mmol/L (136-145) 03/29/22 04:54 Potassium 3.5 mmol/L (3.5-5.1) D 03/29/22 04:54 BUN 30 mg/dL (7-18) H 03/29/22 04:54 Creatinine 0.76 mg/dL (0.55-1.3) 03/29/22 04:54 Glucose 114 mg/dL (74-106) H 03/29/22 04:54 Phosphorus 2.9 mg/dL (2.5-4.9) 03/27/22 04:38 Magnesium 2.2 mg/dL (1.8-2.4) 03/29/22 04:54 Total Bilirubin 0.6 mg/dL (0.2-1.0) 03/23/22 03:43 AST 18 U/L (15-37) 03/23/22 03:43 ALT 38 U/L (12-78) 03/23/22 03:43 Alkaline Phosphatase 86 U/L (45-117) 03/23/22 03:43 Triglycerides 87 mg/dL (<150) 03/24/22 04:33 Cholesterol 157 mg/dL (<200) 03/24/22 04:33 HDL Cholesterol 47 mg/dL (40-60) 03/24/22 04:33 Cholesterol/HDL Ratio 3.34 03/24/22 04:33 Home Medications: Cay[place] 800 mg PO DAILY 03/23/22 Echinacea 500 mg PO DAILY 03/23/22 Fenugreek Seed 610 mg PO DAILY 03/23/22 Saw [place] 800 mg PO BID 03/23/22 Tamsulosin HCl [Flomax] 0.4 mg PO BID 03/23/22 Vitamin E 400 unit PO DAILY 03/23/22 Amiodarone HCl [Cordarone*] 200 mg PO BID 30 Days #60 tab 03/29/22 Apixaban [Eliquis] 5 mg PO BID 30 Days #60 tab 03/29/22 Atorvastatin Calcium [Lipitor] 40 mg PO BEDTIME 30 Days #30 tab 03/29/22 Clopidogrel Bisulfate [Plavix*] 75 mg PO DAILY 30 Days #30 tab 03/29/22 Furosemide [Lasix] 40 mg PO DAILY 30 Days #30 tab 03/29/22 New Medications: Amiodarone HCl [Cordarone*] 200 mg PO BID 30 Days #60 tab Apixaban [Eliquis] 5 mg PO BID 30 Days #60 tab Furosemide [Lasix] 40 mg PO DAILY 30 Days #30 tab Atorvastatin Calcium [Lipitor] 40 mg PO BEDTIME 30 Days #30 tab Clopidogrel Bisulfate [Plavix*] 75 mg PO DAILY 30 Days #30 tab Physician Discharge Instructions: Patient presented with chest pain and shortness of breath. He progressed with sudden onset of respiratory distress/failure on 03/23, requiring intubation (extubated 03/25). He was seen by pulmonology and cardiology. He received empiric IV Rocephin for possible UTI, bronchodilators and steroids, and Lasix. Echocardiogram revealed: EF: ~25%, apical ballooning with concern for cardiac thrombus. He was also noted to be positive for flu B, and received 5 days of Tamiflu. Patient underwent cardiac catheterization, which revealed chronic total mid LAD occlusion. Stent was able to be placed and opened this up. Postoperatively, he was noted to develop atrial fibrillation/flutter, started on amiodarone drip with no significant change. Cardiology performed successful electrical cardioversion on 03/27. Patient was transitioned to oral amiodarone, and continued on Eliquis and Plavix per cardiology recommendations. Patient was weaned off oxygen supplementation and chest x-ray noted resolved bilateral opacities. Follow up PCP within 1 week Cardiology in ~2 weeks Monitor heart rate, blood pressure, and for worsening lower extremity swelling / shortness of breath Discussed risks of tobacco, counselled on cessation. Diet: AHA Activity: Ad young Followup: Unknown,U [Primary Care Provider] - 1-2 Weeks (Please call to schedule a follow up appointment.) Time spent managing pt's care (in minutes): 45
[2022-03-29] MEDS: TAMSULOSIN 0.4 MG SR CAP PO SCH (08:17)
[2022-03-29] MEDS: CLOPIDOGREL 75 MG TABLET PO SCH (08:17)
[2022-03-29] MEDS: AMIODARONE HCL 200 MG TAB PO SCH (08:18)
[2022-03-29] MEDS: OSELTAMIVIR 75 MG CAP FT SCH (08:18)
[2022-03-29] MEDS: APIXABAN 5 MG TABLET PO SCH (08:18)
[2022-03-29] MEDS ORDERED: POTASSIUM 25 MEQ EFFERV TAB PO ONE (09:00)
--- NOTE | 2022-03-30 07:44 | TEE ---
TRANSESOPHAGEAL ECHOCARDIOGRAM REPORT CARDIOLOGY DEPARTMENT DATE OF STUDY: 03/27/2022 HEIGHT: 5 ft. 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 SEVERELY DEPRESSED LEFT VENTRICULAR EJECTION FRACTION 30% WITH APICAL ANEURYSM. MILD MITRAL REGURGITATION. TECHNOLOGIST: JERED BRASWELL
--- NOTE | 2022-03-30 16:08 | EKG ---
Test Date: 2022-03-27 Test Time: 13:00:05 Clerical Receptionist: DELVIS MEASUREMENT RESULTS: Intervals: Rate: 66 TN: 136 QRSD: 102 QT: 400 QTc: 419 [place]: P: 57 TN: 136 QRS: 10 T: 89 INTERPRETIVE STATEMENTS: Sinus rhythm with premature supraventricular complexes Anterolateral infarct, age undetermined Abnormal ECG Compared to ECG 03/26/2022 20:58:31 Atrial premature complex(es) now present Left-axis deviation no longer present Left ventricular hypertrophy no longer present Early repolarization no longer present Myocardial infarct finding still present Electronically Signed On 03-30-22 16:00:58 CDT by Trevor Grimm
== END 2022-03-29 09:01 | disposition home or self-care (01) | DRG 981 ==
LOC: ER 03:27 → ERHOLD 04:47 → 3RD-ICU 06:31 → 2ND 03-27 21:51
PROVIDERS: ADMIT Internal Medicine; ATTEND Hospitalist
PROC: 5A1945Z Respiratory Ventilation, 24-96 Consecutive Hours (ICD-10-PCS; 2022-03-23)
PROC: 0BH17EZ Insertion of Endotracheal Airway into Trachea, Via Natural or Artificial Opening (ICD-10-PCS; 2022-03-23)
PROC: 5A09357 Assistance with Respiratory Ventilation, Less than 24 Consecutive Hours, Continuous Positive Airway Pressure (ICD-10-PCS; 2022-03-23)
PROC: 4A023N7 Measurement of Cardiac Sampling and Pressure, Left Heart, Percutaneous Approach (ICD-10-PCS; 2022-03-23)
PROC: B2111ZZ Fluoroscopy of Multiple Coronary Arteries using Low Osmolar Contrast (ICD-10-PCS; 2022-03-23)
PROC: 02703ZZ Dilation of Coronary Artery, One Artery, Percutaneous Approach (ICD-10-PCS; principal; 2022-03-26)
PROC: B245ZZ4 Ultrasonography of Left Heart, Transesophageal (ICD-10-PCS; 2022-03-27)
PROC: 5A2204Z Restoration of Cardiac Rhythm, Single (ICD-10-PCS; 2022-03-27)
DX: J96.01 Acute respiratory failure with hypoxia (principal); I21.4 Non-ST elevation (NSTEMI) myocardial infarction; I50.33 Acute on chronic diastolic (congestive) heart failure; J18.9 Pneumonia, unspecified organism; E87.20 Acidosis, unspecified; N30.01 Acute cystitis with hematuria; I42.0 Dilated cardiomyopathy; I48.4 Atypical atrial flutter; I97.89 Other postprocedural complications and disorders of the circulatory system, not elsewhere classified; J44.0 Chronic obstructive pulmonary disease with (acute) lower respiratory infection; I25.10 Atherosclerotic heart disease of native coronary artery without angina pectoris; N40.0 Benign prostatic hyperplasia without lower urinary tract symptoms; I27.20 Pulmonary hypertension, unspecified; I48.91 Unspecified atrial fibrillation; J10.1 Influenza due to other identified influenza virus with other respiratory manifestations; D72.829 Elevated white blood cell count, unspecified; F17.210 Nicotine dependence, cigarettes, uncomplicated; I25.2 Old myocardial infarction; R73.9 Hyperglycemia, unspecified; Z71.6 Tobacco abuse counseling; Z78.1 Physical restraint status; Z79.02 Long term (current) use of antithrombotics/antiplatelets; Z79.01 Long term (current) use of anticoagulants; Z85.46 Personal history of malignant neoplasm of prostate; Z86.16 Personal history of COVID-19; Z79.899 Other long term (current) drug therapy; Z20.822 Contact with and (suspected) exposure to COVID-19; Y84.8 Other medical procedures as the cause of abnormal reaction of the patient, or of later complication, without mention of misadventure at the time of the procedure
CPT/HCPCS: 36415; 51702; 71045; 74018; 76937; 80048; 80061; 80076; 81003; 81015; 82550; 82553; 82805; 82947; 83036; 83605; 83735; 83880; 84100; 84443; 84484; 85025; 85027; 85347; 85610; 87040; 87070; 87086; 87088; 87205; 87804; 92920; 93005; 93306; 93312; 93458; 94002; 94003; 94660; 96372; 99284; C1725; C1760; C1893; G0269; J0282; J0330; J0461; J1160; J1644; J1650; J1940; J2250; J2704; J2920; J3010; J3475; J7040; J7060; J7512; Q9967; U0003

== ENCOUNTER 2022-04-20 01:46 | Emergency (ER) | payer OTHER ==
--- OUTSIDE RECORDS SUMMARY | 2022-04-20 01:48 | XMS REPORT | Continuity of Care Document ---
:1955 Author Organization [facility] t Address [address] [place] [address] Care Team Providers Name Role Phone Domo [...] Clinicians Facility Department ID 2021-08-06 Outpatient [facility] Common 08:57:04 Domo [id number] [facility] 2021-06-25 [facility] Common 14:20:34 Domo [id number] [facility] 2021-06-25 Outpatient Heidi [facility] Common 14:18:31 Domo [id number] [facility] 2021-05-02 2021-05-[address] [facility] [id number] Common 00:00:00 00:00:00 [facility] Results This patient has no known results.
[2022-04-20 02:44] LABS: Urine Blood 3+ (Negative); Urine Glucose Trace (Negative); Urine Protein Negative (Negative); Urine Specific Gravity 1.015 (1.005-1.030); Urine pH 5.5 (5.0-7.0)
[2022-04-20 03:23] LABS: Absolute Lymphocytes (CBC) 2.5 K/uL (0.7-4.9); Hematocrit 44.7 % (39.6-49.0); Lymphocytes % 27.2 % (15.3-44.8); MCV 92.6 fL (80-100); MPV 8.2 fL (7.6-11.3); RBC Red Blood Cell Count 4.82 M/uL (4.33-5.43)
[2022-04-20 03:24] LABS: Calcium Oxalate Crystals- Ur Many /HPF (None Seen); Urine RBC >50 /HPF (None Seen)
[2022-04-20 03:27] LABS: Protime INR 1.16
[2022-04-20 03:29] LABS: Albumin 3.3 g/dL (3.4-5.0); Bilirubin Total 0.3 mg/dL (0.2-1.0); Magnesium 1.8 mg/dL (1.8-2.4); Potassium 3.9 mmol/L (3.5-5.1); Protein, Total 6.7 g/dL (6.4-8.2); Troponin High Sensitivity 52.1 pg/mL (<58.9)
[2022-04-20] MEDS ORDERED: CEFTRIAXONE 1000 MG/VIAL ONE (04:06)
[2022-04-20] MEDS ORDERED: NA CHLORIDE 0.9% 50 ML IV ONE (04:07)
--- NOTE | 2022-04-20 05:03 | ER ---
Nurse's Notes [facility] Name: Sinan Swift Age: 66 yrs Sex: Male : 1955 Arrival Date: 04/20/2022 Time: 01:46 Bed 7 Private MD: Diagnosis: Paroxysmal tachycardia, unspecified;Acute cystitis with hematuria Presentation: 04/20 01:56 Chief complaint: Patient states: I had an WY a month ago and I am feeling the same way jb4 I did then. I am not having any chest pain, I am having SOB. Coronavirus screen: At this time, the client does not indicate any symptoms associated with coronavirus-19. Ebola Screen: No symptoms or risks identified at this time. Initial Sepsis Screen: Does the patient meet any 2 criteria? No. Patient's initial sepsis screen is negative. Does the patient have a suspected source of infection? No. Patient's initial sepsis screen is negative. Risk Assessment: Do you want to hurt yourself or someone else? Patient reports no desire to harm self or others. Onset of symptoms was April 20, 2022. Transition of care: patient was not received from another setting of care. 01:56 Method Of Arrival: Wheelchair jb4 01:56 Acuity: SUSANNE 3 jb4 Historical: - Allergies: 01:58 No Known Allergies; jb4 - Home Meds: 01:58 Flomax 0.4 mg Oral cp24 1 cap once daily [Active]; clopidogrel oral [Active]; Eliquis jb4 oral [Active]; amiodarone Oral [Active]; - PMHx: 01:58 Prostate; Bladder Diverticulum; WY; jb4 - PSHx: 01:58 Cataract; jb4 - Immunization history:: Adult Immunizations unknown. - Social history:: Smoking status: Patient/guardian denies using tobacco, Stopped _ months ago 1. Screenin:00 Abuse screen: Denies threats or abuse. Nutritional screening: No deficits noted. jb4 Tuberculosis screening: No symptoms or risk factors identified. Fall Risk None identified. Assessment: 02:00 General: Appears in no apparent distress. comfortable, Behavior is calm, cooperative, jb4 appropriate for age. Pain: Denies pain. Neuro: Level of Consciousness is awake, alert, obeys commands, Oriented to person, place, time, situation. Cardiovascular: Patient's skin is warm and dry. Rhythm is sinus rhythm. Respiratory: Airway is patent Respiratory effort is even, unlabored, Respiratory pattern is regular, symmetrical. GI: No signs and/or symptoms were reported involving the gastrointestinal system. : No signs and/or symptoms were reported regarding the genitourinary system. EENT: No signs and/or symptoms were reported regarding the EENT system. Derm: Skin is intact, Skin is pink, warm \T\ dry. Musculoskeletal: Circulation, motion, and sensation intact. Range of motion: intact in all extremities. Vital Signs: 01:56 BP 132 / 80; Pulse 94; Resp 12; Temp 98.2(TE); Pulse Ox 99% on R/A; Weight 92.53 kg jb4 (M); Height 5 ft. 9 in. (175.26 cm) (R); 04:10 BP 91 / 63; Pulse 65; Resp 13 S; Pulse Ox 96% on R/A; as6 04:58 BP 98 / 65; Pulse 61; Resp 10 S; Pulse Ox 99% on R/A; as6 01:56 Body Mass Index 30.13 (92.53 kg, 175.26 cm) jb4 ED Course: 01:46 Patient arrived in ED. jj6 01:53 Roya Evangelista MD is Attending Physician. sd2 01:56 Clarke Butler, SALINA is Primary Nurse. jb4 01:58 Triage completed. jb4 01:58 Arm band placed on right wrist. EKG completed in triage. Results shown to MD. jb4 02:35 Inserted saline lock: 18 gauge in right forearm, using aseptic technique. Blood as6 collected. 02:36 XRAY Chest (1 view) In Process Unspecified. EDMS 02:43 Ptt, Activated Sent. as6 02:43 Urine Microscopic Only Sent. as6 02:43 PT-INR Sent. as6 02:43 BNP Sent. as6 02:43 Troponin High Sensitivity Sent. as6 02:43 CMP Sent. as6 02:43 Magnesium Sent. as6 02:43 CBC with Diff Sent. as6 05:01 Trevor Grimm MD is Referral Physician. sd2 05:02 Andrew Seaman MD is Referral Physician. sd2 05:15 No provider procedures requiring assistance completed. IV discontinued, intact, as6 bleeding controlled, No redness/swelling at site. Pressure dressing applied. 05:16 Placed in gown. Bed in low position. Call light in reach. Side rails up X2. as6 Administered Medications: 04:10 Drug: Rocephin (cefTRIAXone) 1 grams Route: IV; Rate: bolus; Site: right forearm; as6 05:15 Follow up: Response: No adverse reaction; IV Status: Completed infusion; IV Intake: [id number] Medication: 05:16 VIS not applicable for this client. as6 Intake: 05:15 IV: 50ml; Total: 50ml. as6 Outcome: 05:02 Discharge ordered by . ru2 05:15 Discharged to home ambulatory, with family. as6 05:15 Condition: stable 05:15 Discharge instructions given to patient, Instructed on discharge instructions, follow up and referral plans. medication usage, Demonstrated understanding of instructions, follow-up care, medications, Prescriptions given X 1. 05:16 Patient left the ED. as6 Signatures: Dispatcher [employer] EDMS Clarke Butler, RN RN [email or web address] Norma Andrew6 Adolph Cole RN RN as6 Roya Evangelista MD MD sd2
--- NOTE | 2022-04-20 05:03 | EDPHYS ---
Physician Documentation [facility] Name: Sinan Swift Age: 66 yrs Sex: Male : 1955 Arrival Date: 04/20/2022 Time: 01:46 Bed 7 Private MD: ED Physician Roya Evangelista HPI: 04/20 02:21 This 66 yrs old Male presents to ER via Wheelchair with complaints of Breathing sd2 Difficulty. 02:21 66 yo M presents with CC of breathing difficulty tonight. Noticed his HR was running sd2 high on his home pulse ox in the 110s and he was unable to get it to come down until he arrived at the ER and it has been in the 80s since then. States he had some associated SOB with it. Recently started on Entresto with Dr. Grimm and stopped after 3 doses due to continued side effects with dizziness and orthostatic hypotension. Also recently discharged from the hospital after a complex stay with cardiac stent placement and intubation. Pt also reports noticing tonight he had gross hematuria with small clots when he was urinating only. States only at beginning of stream and then urine clears. is currently on 2 blood thinners.. Historical: - Allergies: 01:58 No Known Allergies; jb4 - Home Meds: 01:58 Flomax 0.4 mg Oral cp24 1 cap once daily [Active]; clopidogrel oral [Active]; Eliquis jb4 oral [Active]; amiodarone Oral [Active]; - PMHx: 01:58 Prostate; Bladder Diverticulum; MS; jb4 - PSHx: 01:58 Cataract; jb4 - Immunization history:: Adult Immunizations unknown. - Social history:: Smoking status: Patient/guardian denies using tobacco, Stopped _ months ago 1. ROS: 02:21 Constitutional: Negative for fever, chills, and weight loss, Eyes: Negative for injury, sd2 pain, redness, and discharge, Cardiovascular: Negative for chest pain, palpitations, and edema. 02:21 Abdomen/GI: Negative for abdominal pain, nausea, vomiting, diarrhea. : Negative for dysuria, frequency, positive for hematuria MS/Extremity: Negative for injury and deformity, Skin: Negative for injury, rash, and discoloration, Neuro: Negative for headache, numbness and tingling. 02:21 Respiratory: Positive for shortness of breath, Negative for cough, dyspnea on exertion, wheezing. Exam: 02:21 Constitutional: This is a well developed, well nourished patient who is awake, alert, sd2 and in no acute distress. Head/Face: Normocephalic, atraumatic. Eyes: EOMI, normal conjunctiva bilaterally Chest/axilla: Normal chest wall appearance and motion. Nontender with no deformity. Cardiovascular: Regular rate and rhythm with a normal S1 and S2. No gallops, murmurs, or rubs. 2+ distal pulses. Respiratory: Lungs have equal breath sounds bilaterally, clear to auscultation and percussion. No rales, rhonchi or wheezes noted. No increased work of breathing, no retractions or nasal flaring. Abdomen/GI: Soft, non-tender, with normal bowel sounds. No guarding or rebound. No evidence of tenderness throughout. Skin: Warm, dry with normal turgor. Normal color with no rashes, no lesions, and no evidence of cellulitis. MS/ Extremity: Pulses equal, no cyanosis. Neurovascular intact. Full, normal range of motion. Ambulatory without difficulty. Psych: Awake, alert, with orientation to person, place and time. Behavior, mood, and affect are within normal limits. 02:21 ECG was reviewed by the Attending Physician. NSR, rate 85, no STEMI criteria sd2 Vital Signs: 01:56 BP 132 / 80; Pulse 94; Resp 12; Temp 98.2(TE); Pulse Ox 99% on R/A; Weight 92.53 kg jb4 (M); Height 5 ft. 9 in. (175.26 cm) (R); 04:10 BP 91 / 63; Pulse 65; Resp 13 S; Pulse Ox 96% on R/A; as6 04:58 BP 98 / 65; Pulse 61; Resp 10 S; Pulse Ox 99% on R/A; as6 01:56 Body Mass Index 30.13 (92.53 kg, 175.26 cm) jb4 MDM: 01:57 Patient medically screened. sd2 04:58 Differential diagnosis: Differential diagnosis includes but is not limited to: ACS, sd2 DVT/PE, pneumothorax, dissection, musculoskeletal, anxiety, anemia, electrolyte abnormality, pneumonia, CHF, COPD among others. Data reviewed: vital signs, nurses notes, lab test result(s), EKG, radiologic studies. Counseling: I had a detailed discussion with the patient and/or guardian regarding: the historical points, exam findings, and any diagnostic results supporting the discharge/admit diagnosis, lab results, radiology results, the need for outpatient follow up, to return to the emergency department if symptoms worsen or persist or if there are any questions or concerns that arise at home. ED course: Labs and imaging reviewed. Labs grossly WNCL for patient. BNP elevated but downtrending from previous levels. Pt with stable HR and BP at his baseline and resolution of SOB. No further episodes of tachycardia. Discussed hematuria with patient. His urine stream does clear and he is able to self-cath and urinate on his own normally and empty his bladder. Offered CBI which patient declines and would prefer to continue to monitor and discuss with Dr. Grimm later this morning when his office opens about whether or not to hold any of his blood thinners. UA is consistent with possible infection. Cx sent and antibiotics started. Pt comfortable with plan for discharge and outpatient follow up. Verbalizes understanding of strict return precautions. . 04/20 02:21 Order name: CBC with Diff; Complete Time: 03:58 sd2 04/20 02:21 Order name: CMP; Complete Time: 03:58 sd2 04/20 02:21 Order name: Magnesium; Complete Time: 03:58 sd2 04/20 02:21 Order name: Troponin High Sensitivity; Complete Time: 03:58 sd2 04/20 02:21 Order name: BNP; Complete Time: 03:58 sd2 04/20 02:21 Order name: Urine Microscopic Only; Complete Time: 03:58 sd2 04/20 02:21 Order name: EKG - Nurse/Tech; Complete Time: 02:21 sd2 04/20 02:21 Order name: XRAY Chest (1 view) sd2 04/20 02:21 Order name: Urine Dipstick-Ancillary (obtain specimen); Complete Time: 02:43 sd2 04/20 02:21 Order name: PT-INR; Complete Time: 03:58 sd2 04/20 02:21 Order name: Ptt, Activated; Complete Time: 03:58 sd2 04/20 02:45 Order name: Urine Dipstick-Ancillary; Complete Time: 03:22 EDMS 04/20 03:27 Order name: Urine Culture EDMS Administered Medications: 04:10 Drug: Rocephin (cefTRIAXone) 1 grams Route: IV; Rate: bolus; Site: right forearm; as6 05:15 Follow up: Response: No adverse reaction; IV Status: Completed infusion; IV Intake: [id number] Disposition Summary: 04/20/22 05:02 Discharge Ordered Location: Home sd2 Problem: an acute exacerbation sd2 Symptoms: have improved sd2 Condition: Stable sd2 Diagnosis - Paroxysmal tachycardia, unspecified sd2 - Acute cystitis with hematuria sd2 Followup: sd2 - With: Private Physician - When: 1 - 2 days - Reason: Recheck today's complaints, Continuance of care, Re-evaluation by your physician Followup: sd2 - With: Trevor Grimm MD - When: Today - Reason: Recheck today's complaints, Continuance of care, Re-evaluation by your physician Followup: sd2 - With: Andrew Seaman MD - When: 2 - 3 days - Reason: Recheck today's complaints, Continuance of care, Re-evaluation by your physician Discharge Instructions: - Discharge Summary Sheet sd2 - Urinary Tract Infection, Adult sd2 - Atrial Flutter sd2 Forms: - Medication Reconciliation Form sd2 - Thank You Letter sd2 - Antibiotic Education sd2 - Prescription Opioid Use sd2 Prescriptions: - cefdinir 300 mg Oral capsule - take 1 capsule by ORAL route every 12 hours for 10 days; 20 capsule; Refills: sd2 0, Product Selection Permitted Signatures: Dispatcher [employer] EDMI Clarke Butler RN RN jb4 Adolph Cole RN RN as6 Roya Evangelista MD MD sd2
[2022-04-20 05:21] VITALS: TEMP 98.2
[2022-04-20 05:23] VITALS: BP 98/65; O2SAT 99
--- NOTE | 2022-04-20 15:28 | EKG ---
Test Date: 2022-04-20 Test Time: 01:53:42 Coin Machine Collector: MEASUREMENT RESULTS: Intervals: Rate: 85 OK: 172 QRSD: 118 QT: 374 QTc: 445 [place]: P: 43 OK: 172 QRS: -29 T: 101 INTERPRETIVE STATEMENTS: Normal sinus rhythm Anteroseptal infarct, age undetermined T wave abnormality, consider lateral ischemia Abnormal ECG Compared to ECG 03/27/2022 13:00:05 T-wave abnormality now present Possible ischemia now present Atrial premature complex(es) no longer present Myocardial infarct finding still present Electronically Signed On 04-20-22 15:27:21 FERRIS WHEEL ATTENDANT by Trevor Grimm
--- NOTE | 2022-04-20 15:45 | RAD REPORT ---
EXAM DESCRIPTION: RAD - Chest Single View - 04/20/2022 2:34 am Chest Single View 04/20/2022 2:42 AM PHYSICAL THERAPIST CLINICAL HISTORY: 66 years, Male, SOB COMPARISON: 03/23/2022 FINDINGS: Single view of the chest was obtained portable. Prior films were compared. External EKG le ads within the [id number] limits diagnosis. The cardiomediastinal silhouette demonstrate to be unr emarkable. The heart is prominent. The thoracic aorta is unremarkable. The pulmonary vasculature is n ormal distribution. Costophrenic angles are sharp. No areas of consolidation or masses are seen. The rest of the soft tissue and bony structures demonstrate to be unremarkable. IMPRESSION: Mild cardiomegaly. No focal areas of acute airspace disease. Electronically signed by: Evaristo Singh MD 04/20/2022 2:42 AM PHYSICAL THERAPIST Due to temporary technical issues with the PACS/Fluency reporting system, reports are being signed by the in house radiologists without review as a courtesy to insure prompt reporting. The interpreting radiologist is fully responsible for the content of the report.
== END 2022-04-20 05:16 | disposition home or self-care (01) ==
LOC: ER 01:46
DX: I47.9 Paroxysmal tachycardia, unspecified (principal); N30.01 Acute cystitis with hematuria; I25.2 Old myocardial infarction; Z79.01 Long term (current) use of anticoagulants
CPT/HCPCS: 36415; 71045; 80053; 81003; 81015; 83735; 83880; 84484; 85025; 85610; 85730; 87086; 87088; 93005; 96365; 99284

== ENCOUNTER 2022-07-10 09:35 | Emergency (ER) | payer OTHER ==
--- OUTSIDE RECORDS SUMMARY | 2022-07-10 09:37 | XMS REPORT | Continuity of Care Document ---
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 [facility] 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 - [facility] n n with 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 Caitlyn ter sexual excitement Incomplete Incomplete Problem C ommon bladder bladder Spirit emptying emptying - [facility] [id number] Dysfunctio Problem Co mmon nal [facility] voiding of - [facility] urine [facility] Allergies, Adverse Reactions, Alerts Allergy Allergy Status Severity Reaction(s) Onset Inactive Treating Comm ents Source Name Type Date Date Clinician Gregg Escobedo Active (mhs) [facility] Social History Social Habit Start Date Stop Date Quantity Comments Source History of Tobacco Current Smoker Co mmon [facility] - [facility] Use [facility] [place] Sex Assigned At Com mon [facility] - [facility] Smoking Status Start Date Stop Date Source Current Smoker 2022-05-20 00:00:00 Common [facility] - [facility] Medications Ordered Filled Start Stop Current Ordering Indication Dosage Frequency Signature Comments Components Source Medication Medication Date Date Medication? Clinician (SIG) Name Name Cialis 5 mg Cialis 5 mg 2011- No 1{tab(s QD Cialis 5 6-19 )} mg 00:00: 00 Saw Saw No Saw Barton Bartonmagali Nicholso 1000 MG 1000 MG 1000 MG Cay[place] 450 Cayenne 450 No Cayenne MG MG 450 MG Fenugreek Fenugreek No Fenugreek 500 MG 500 MG 500 MG Nitrofurant Nitrofurant No QD Nitrofuran oin Monohyd oin Monohyd toin Macro 100 Macro 100 Monohyd MG MG Macro 100 MG Lipitor Lipitor No Lipitor Echinacea Echinacea No Echinacea 400 MG 400 MG 400 MG Vitamin B6 Vitamin B6 No 1{table QD Vitamin B6 200 MG 200 MG t} 200 MG Vitamin E Vitamin E No 1{capsu QD Vitamin E 400 UNIT 400 UNIT le} 400 UNIT Eliquis Eliquis No Eliquis Plavix Plavix No Plavix Vital Signs Vital Name Observation Time Observation Value Comments Source height 2022-05-20 13:15:00 66 [in_i] [facility] weight 2022-05-20 13:15:00 205 [lb_av] [facility] temperature 2022-05-20 13:15:00 98.3 [degF] [facility] bmi 2022-05-20 13:15:00 33.08 kg/m2 [facility] oximetry 2022-05-20 13:15:00 96 % [facility] respiratory rate 2022-05-20 13:15:00 17 /min Comm on [facility] blood pressure 2022-05-20 13:15:00 113 mm[Hg] Common [facility] - systolic [facility] blood pressure 2022-05-20 13:15:00 66 mm[Hg] Common [facility] diastolic [facility] Procedures This patient has no known procedures. Encounters Start End Encounter Admission Attending Care Care Encounter Source Date/Time Date/Time Type Type Clinicians Facility Department ID 2022-05-14 [id number] Common 14:33:02 Domo [id number] [facility] 2021-08-06 Outpatient Heidi, STNINALC STLMLC Common 08:57:04 Domo [facility] 2021-06-25 Outpatient Heidi STNINALC STL[facility] Common 14:20:34 Domo [id number] [facility] 2021-06-25 Outpatient Heidi, STLMLC ST[facility]C Common 14:18:31 Domo [id number] [facility] 2022-05-20 2022-05-20 OFFICE STLMLC STL[facility]C [id number] Co mmon 00:00:00 00:00:00 VISIT EST Spir it PT LEVEL 3 [facility] 2021-05-02 2021-05-02 ambulatory STLMLC STLMLC [id number] Common 00:00:00 00:00:00 [facility] Results This patient has no known results.
[2022-07-10 10:21] LABS: Absolute Lymphocytes (CBC) 1.4 K/uL (0.7-4.9); Hematocrit 44.6 % (39.6-49.0); Lymphocytes % 15.9 % (15.3-44.8); MCV 92.9 fL (80-100); RBC Red Blood Cell Count 4.81 M/uL (4.33-5.43)
[2022-07-10 10:42] LABS: Troponin High Sensitivity 34.3 pg/mL (<58.9)
--- NOTE | 2022-07-10 12:00 | RAD REPORT ---
EXAM DESCRIPTION: Ben Single View07/10/2022 11:32 am CLINICAL HISTORY: Chest pain COMPARISON: 2021 FINDINGS: The lungs appear clear of acute infiltrate. The heart is mildly to moderately enlarged IMPRESSION: No acute abnormalities displayed
--- NOTE | 2022-07-10 13:20 | EDPHYS ---
Physician Documentation [facility] Name: Sinan Swift Age: 66 yrs Sex: Male : 1955 Arrival Date: 07/10/2022 Time: 09:38 Bed 3 Private MD: ED Physician Chucky Dean HPI: 07/10 10:13 This 66 yrs old Male presents to ER via EMS with complaints of Palpitations. aj3 10:13 Patient reports sitting at the computer when his heart rate went to 117 and his blood aj3 pressure elevated as well. Patient associated this with some chest tightness and a little shortness of breath. He reports history of a flutter, CHF and PE. He also had 100% occlusion of LAD and had a cardiac stent placed last year. He is now on amiodarone and says that a flutter has resolved but wanted to make sure everything is okay since his heart rate went high. No reports of chest pain, shortness of breath, dizziness, nausea/vomiting or diaphoresis at this time.. Historical: - Allergies: 09:41 Fish Containing Products; ll1 - PMHx: 09:40 Bladder Diverticulum; GA; Prostate; ll1 09:41 Hypertensive disorder; A flutter; ll1 - PSHx: 09:40 cataract; ll1 - Immunization history:: Adult Immunizations up to date. - Social history:: Smoking status: Patient/guardian denies using tobacco, Stopped _ months ago 3.5. ROS: 10:13 Constitutional: Negative for fever, chills, and weight loss, Neck: Negative for injury, aj3 pain, and swelling, Abdomen/GI: Negative for abdominal pain, nausea, vomiting, diarrhea, and constipation, MS/Extremity: Negative for injury and deformity, Skin: Negative for injury, rash, and discoloration, Neuro: Negative for syncope, headache, weakness, numbness, tingling, and seizure. 10:13 Cardiovascular: Positive for chest pain, palpitations. 10:13 Respiratory: Positive for orthopnea. Exam: 10:13 Constitutional: This is a well developed, well nourished patient who is awake, alert, aj3 and in no acute distress. Neck: Trachea midline and no cervical lymphadenopathy. Supple, full range of motion without nuchal rigidity. Cardiovascular: Regular rate and rhythm with a normal S1 and S2. No gallops, murmurs, or rubs. Normal PMI, no JVD. No pulse deficits. Respiratory: Lungs have equal breath sounds bilaterally, clear to auscultation and percussion. No rales, rhonchi or wheezes noted. No increased work of breathing, no retractions or nasal flaring. Abdomen/GI: Soft, non-tender, with normal bowel sounds. No distension or tympany. No guarding or rebound. No evidence of tenderness throughout. Skin: Warm, dry with normal turgor. Normal color with no rashes, no lesions, and no evidence of cellulitis. MS/ Extremity: Pulses equal, no cyanosis. Neurovascular intact. Full, normal range of motion. Neuro: Awake and alert, GCS 15, oriented to person, place, time, and situation. Cranial nerves II-XII grossly intact. Motor strength 5/5 in all extremities. Sensory grossly intact. Cerebellar exam normal. Normal gait. 12:17 ECG was reviewed by the Attending Physician. aj3 Vital Signs: 09:50 BP 126 / 71; Pulse 68; Resp 17; Temp 98.1; Pulse Ox 100% ; Weight 93.44 kg; Height 5 ll1 ft. 9 in. (175.26 cm); Pain 0/10; 11:03 BP 102 / 85; Pulse 77; Resp 16; Pulse Ox 96% on R/A; hb 11:56 BP 110 / 66; Pulse 58; Resp 16; Pulse Ox 99% on R/A; hb 12:35 BP 101 / 67; Pulse 59; Resp 17; Pulse Ox 99% on R/A; hb 09:50 Body Mass Index 30.42 (93.44 kg, 175.26 cm) ll1 MDM: 09:49 Patient medically screened. aj3 10:13 Differential diagnosis: arrythmia, dehydration, Acute GA. aj3 12:21 Independent interpretation of the following test(s) in the Emergency Department EKG: aj3 See my EKG interpretation above X-Ray: My interpretation is clear chest with cardiomegaly. manager monitoring: rate is 64 beats/min, Rhythm is normal sinus rhythm, Interpretation: normal rate, normal rhythm. 13:38 Data reviewed: vital signs, nurses notes, lab test result(s), EKG, radiologic studies, aj3 plain films. Consideration of Admission/Observation Patient symptoms remain stable, no admission warranted.. Care significantly affected by the following chronic conditions: CAD. Scoring Tools. Scoring Tools. Counseling: I had a detailed discussion with the patient and/or guardian regarding: the historical points, exam findings, and any diagnostic results supporting the discharge/admit diagnosis, lab results, radiology results, the need for outpatient follow up, Director Banking, to return to the emergency department if symptoms worsen or persist or if there are any questions or concerns that arise at home. ED course: Patient remained stable while in the ED, labs, EKG and x-ray reassuring. No episodes of tachycardia. Based on ED work-up and assessment, patient does not need admission today and can be discharged home to follow-up with tool hardener. ER return precautions given.. 07/10 10:04 Order name: Basic Metabolic Panel; Complete Time: 11:07/10 10:04 Order name: CBC with Diff; Complete Time: 11:07/10 10:04 Order name: Troponin HS; Complete Time: :07/10 10:04 Order name: XRAY Chest (1 view); Complete Time: 12:17 07/10 10:04 Order name: EKG; Complete Time: 10:07/10 11:12 Order name: Troponin HS: Draw at 1230; Complete Time: 13:04 07/10 10:04 Order name: Cardiac monitoring; Complete Time: 10:05 07/10 10:04 Order name: EKG - Nurse/Tech; Complete Time: 10:48 07/10 10:04 Order name: IV Saline Lock; Complete Time: 10:48 07/10 10:04 Order name: Labs collected and sent; Complete Time: 10:48 07/10 10:04 Order name: O2 Per Protocol; Complete Time: 10:07/10 10:04 Order name: O2 Sat Monitoring; Complete Time: 10:05 EC:17 Clinical impression: Sinus rhythm, rate 60, left axis deviation, normal NE, QRS and QTc aj3 interval. T wave inversion to leads I, aVL. No ST elevation or ST depression. No STEMI. Interpreted by me. Reviewed by me. Administered Medications: No medications were administered Disposition: 17:48 Co-signature as Attending Physician, Chucky Dean MD I reviewed the patient's care rt provided by the Advanced Practice Provider and agree with the diagnosis and treatment plan. Disposition Summary: 07/10/22 13:19 Discharge Ordered Location: Home aj3 Problem: new aj3 Symptoms: have improved aj3 Condition: Stable aj3 Diagnosis - Palpitations aj3 - Cardiomegaly aj3 Followup: aj3 - With: Private Physician - When: 2 - 3 days - Reason: Recheck today's complaints, Re-evaluation by your physician Followup: aj3 - With: Emergency Department - When: - Reason: If symptoms return Discharge Instructions: - Discharge Summary Sheet aj3 - Palpitations, [id number] aj3 Forms: - Medication Reconciliation Form aj3 - Thank You Letter aj3 - Antibiotic Education aj3 - Prescription Opioid Use aj3 Signatures: Dispatcher [employer] Smiley Carter, RN RN ll1 Kayla Muñoz, BENEFITS ANALYST BENEFITS ANALYST aj3 Chucky Dean MD MD rt Corrections: (The following items were deleted from the chart) 09:42 09:40 Allergies: No Known Allergies; ll1 ll1
--- NOTE | 2022-07-10 13:20 | ER ---
Nurse's Notes [facility] Name: Sinan Swift Age: 66 yrs Sex: Male : 1955 Arrival Date: 07/10/2022 Time: 09:38 Bed 3 Private MD: Diagnosis: Palpitations;Cardiomegaly Presentation: 07/10 09:40 Chief complaint: Patient states: Tachy HR 117 and anxiety at home today. Some SOB and ll1 nausea at times. HX of A flutter EMS states: VSS for EMS. Ebola Screen: Patient denies travel to an Ebola-affected area in the 21 days before illness onset. Initial Sepsis Screen: Does the patient meet any 2 criteria? No. Patient's initial sepsis screen is negative. Does the patient have a suspected source of infection? Yes: Productive cough/pneumonia. Risk Assessment: Do you want to hurt yourself or someone else? Patient reports no desire to harm self or others. Onset of symptoms was July 10, 2022. 09:40 Method Of Arrival: EMS ll1 09:40 Acuity: SUSANNE 3 ll1 09:50 Coronavirus screen: Client denies travel out of the [place] in the last 14 days. At this ll1 time, the client does not indicate any symptoms associated with coronavirus-19. Historical: - Allergies: 09:41 Fish Containing Products; ll1 - PMHx: 09:40 Bladder Diverticulum; [place]; Prostate; ll1 09:41 Hypertensive disorder; A flutter; ll1 - PSHx: 09:40 cataract; ll1 - Immunization history:: Adult Immunizations up to date. - Social history:: Smoking status: Patient/guardian denies using tobacco, Stopped _ months ago 3.5. Screenin:04 [facility] ED Fall Risk Assessment (Adult) Score/Fall Risk Level 0 - 2 = Low Risk hb Oriented to surroundings, Maintained a safe environment, Educated pt \T\ family on fall prevention, incl call for assistance when getting out of bed. Abuse screen: Denies threats or abuse. Denies injuries from another. Nutritional screening: No deficits noted. Tuberculosis screening: No symptoms or risk factors identified. Assessment: 10:04 General: Appears in no apparent distress. Behavior is calm, cooperative. Pain: Denies hb pain. Neuro: Level of Consciousness is awake, alert, obeys commands, Oriented to person, place, time, situation. Cardiovascular: Patient's skin is warm and dry. Respiratory: Respiratory effort is even, unlabored, Respiratory pattern is regular, symmetrical. GI: No signs and/or symptoms were reported involving the gastrointestinal system. : No signs and/or symptoms were reported regarding the genitourinary system. EENT: No signs and/or symptoms were reported regarding the EENT system. Derm: Skin is pink, warm \T\ dry. Musculoskeletal: No signs and/or symptoms reported regarding the musculoskeletal system. 11:03 Reassessment: Patient appears in no apparent distress at this time. Patient and/or hb family updated on plan of care and expected duration. Pain level reassessed. Patient is alert, oriented x 3, equal unlabored respirations, skin warm/dry/pink. 11:56 Reassessment: Patient appears in no apparent distress at this time. Patient and/or hb family updated on plan of care and expected duration. Pain level reassessed. Patient is alert, oriented x 3, equal unlabored respirations, skin warm/dry/pink. Vital Signs: 09:50 BP 126 / 71; Pulse 68; Resp 17; Temp 98.1; Pulse Ox 100% ; Weight 93.44 kg; Height 5 ll1 ft. 9 in. (175.26 cm); Pain 0/10; 11:03 BP 102 / 85; Pulse 77; Resp 16; Pulse Ox 96% on R/A; hb 11:56 BP 110 / 66; Pulse 58; Resp 16; Pulse Ox 99% on R/A; hb 12:35 BP 101 / 67; Pulse 59; Resp 17; Pulse Ox 99% on R/A; hb 09:50 Body Mass Index 30.42 (93.44 kg, 175.26 cm) ll1 ED Course: 09:38 Patient arrived in ED. eb 09:39 Kayla Muñoz NP is PHCP. aj3 09:39 Chucky Dean MD is Attending Physician. aj3 09:40 Arm band placed on Patient placed in an exam room, on a stretcher. ll1 09:41 Triage completed. ll1 09:53 Trisha Valentino, RN is Primary Nurse. hb 10:04 Patient has correct armband on for positive identification. hb 11:33 XRAY Chest (1 view) In Process Unspecified. EDMS 13:46 No provider procedures requiring assistance completed. IV discontinued, intact, hb bleeding controlled, No redness/swelling at site. Administered Medications: No medications were administered Medication: 10:04 VIS not applicable for this client. hb Outcome: 13:19 Discharge ordered by . [email or web address] 13:46 Discharged to home ambulatory. hb 13:46 Condition: stable 13:46 Discharge instructions given to patient, Instructed on discharge instructions, follow up and referral plans. medication usage, Demonstrated understanding of instructions, follow-up care, medications. 13:46 Patient left the ED. hb Signatures: Dispatcher [employer] EDWI Trihsa Valentino RN RN Daniela Soto Lynsay, RN RN ll1 Kayla Muñoz, EVAN CORPORATE ACCOUNTANT aj3 Corrections: (The following items were deleted from the chart) 09:42 09:40 Allergies: No Known Allergies; ll1 ll1
[2022-07-10 14:58] VITALS: TEMP 98.1
[2022-07-10 15:00] VITALS: O2SAT 99
[2022-07-10 15:01] VITALS: BP 101/67
== END 2022-07-10 13:46 | disposition home or self-care (01) ==
LOC: ER 09:35
DX: R00.2 Palpitations (principal); I51.7 Cardiomegaly; R07.9 Chest pain, unspecified; I10 Essential (primary) hypertension; I25.2 Old myocardial infarction; Z91.013 Allergy to seafood
CPT/HCPCS: 36415; 71045; 80048; 84484; 85025; 93005; 99283

== ENCOUNTER 2023-01-06 15:54 | Emergency (ER) | payer OTHER ==
--- OUTSIDE RECORDS SUMMARY | 2023-01-06 16:04 | XMS REPORT | Continuity of Care Document ---
:1955 Author Organization [facility] t Address [address] [place] [address] Care Team Providers Name Role Phone Trevor Grimm Attending Clinician Unavailable Domo DECKER Attending Clinician Unavailable Trevor Grimm Admitting Clinician Unavailable Payers Payer Name Policy Type Policy Number Effective Date Expiration Date S curt AETNA 53 [id number] 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 - [facility] n n with 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 Caitlyn ter sexual excitement Incomplete Incomplete Problem C ommon bladder bladder [facility] emptying emptying - [facility] [id number] Dysfunctio Problem Co mmon nal [facility] voiding of - [facility] urine [facility] Allergies, Adverse Reactions, Alerts Allergy Allergy Status Severity Reaction(s) Onset Inactive Treating Comm ents Source Name Type Date Date Clinician [place] Active (mhs) [facility] - [facility] Social History Social Habit Start Date Stop Date Quantity Comments Source History of Tobacco Current Smoker Co mmon [facility] - [facility] Sex Assigned At Com mon [facility] Smoking Status Start Date Stop Date Source Current Smoker 2022-05-20 00:00:00 Common [facility] Medications Ordered Filled Start Stop Current Ordering Indication Dosage Frequency Signature Comments Components Source Medication Medication Date Date Medication? Clinician (SIG) Name Name Cialis 5 mg Cialis 5 mg No 1{tab(s QD Cialis 5 6-19 )} mg 00:00: 00 Saw Saw No Saw [place] 1000 MG 1000 MG 1000 MG [place] [...] Comments Source height 2022-05-20 13:15:00 66 [in_i] [facility] weight 2022-05-20 13:15:00 205 [lb_av] [facility] temperature 2022-05-20 13:15:00 98.3 [degF] [facility] bmi 2022-05-20 13:15:00 33.08 kg/m2 [facility] oximetry 2022-05-20 13:15:00 96 % [facility] respiratory rate 2022-05-20 13:15:00 17 /min Comm on [facility] blood pressure 2022-05-20 13:15:00 113 mm[Hg] Common [facility] - systolic [facility] blood pressure 2022-05-20 13:15:00 66 mm[Hg] Common [facility] Procedures This patient has no known procedures. Encounters Start End Encounter Admission Attending Care Care Encounter Source Date/Time Date/Time Type Type Clinicians Facility Department ID 2023-01-05 Inpatient RENE Benavides CARD [id number] [facility] ED 07:00:00 Trevor 16 [facility] 2022-11-23 Outpatient HEIDI, STLMLC STLMLC Common 08:14:01 Domo [id number] [facility] 2022-11-16 Outpatient HEIDI, STLMLC STLMLC Common 10:39:02 Domo 19695 [facility] 2022-05-14 Outpatient Heidi, STLMLC STLMLC Common 14:33:02 Domo [id number] [facility] 2021-08-06 Outpatient Heidi, STLMLC STLMLC Common 08:57:04 Domo [id number] [facility] 2021-06-25 Outpatient Heidi, STLMLC STLMLC Common 14:20:34 Domo 69106 [facility] 2021-06-25 Outpatient Heidi, STLMLC STLMLC Common 14:18:31 Domo [id number] [facility] 2022-05-20 2022-05-20 OFFICE STLMLC STLMLC [id number] Co mmon 00:00:00 00:00:00 VISIT EST Spir it PT LEVEL 3 [facility] 2021-05-02 2021-05-02 ambulatory STLMLC STLMLC [id number] Common 00:00:00 00:00:00 [facility] Results This patient has no known results.
[2023-01-06 16:29] LABS: Absolute Lymphocytes (CBC) 2.1 K/uL (0.7-4.9); Hematocrit 43.3 % (39.6-49.0); Lymphocytes % 23.3 % (15.3-44.8); MCV 92.8 fL (80-100); MPV 7.9 fL (7.6-11.3); Platelets 279 thou/uL (152-406); RBC Red Blood Cell Count 4.67 M/uL (4.33-5.43)
[2023-01-06 16:34] LABS: Protime INR 1.06
--- NOTE | 2023-01-06 16:45 | RAD REPORT ---
EXAM DESCRIPTION: CT - [id number] - 01/06/2023 4:37 pm CLINICAL HISTORY: RADICULOPATHY, left arm numbness COMPARISON: Head C Spine Mpr Wo Con dated 07/30/2016 TECHNIQUE: Axial 5 mm thick images of the head were obtained. Axial 2 mm thick images of the cervical spine were obtained with sagittal and coronal reconstruction images generated and reviewed. All CT scans are performed using dose optimization technique as appropriate and may include automated exposure control or mA/KV adjustment according to patient size. FINDINGS: CT HEAD WITHOUT CONTRAST: No acute hemorrhage, hydrocephalus or extra-axial collection is identified.No areas of brain edema or midline shift. The paranasal sinuses and mastoids are clear.The calvarium is intact. CT CERVICAL SPINE WITHOUT CONTRAST: No fracture or subluxation.No prevertebral soft tissues swelling is identified. Bridging an partially bridging osteophytes are present cervical spine. Moderate neural foraminal narrowing noted on the ri ght at C6-7. Mild neural foraminal narrowing noted on the left at C2 foreign C6-7. IMPRESSION: No acute intracranial or cervical spine findings.Cervical spondylosis is mild without de finite culprit to explain a left-sided radiculopathy. MRI could further evaluate.
[2023-01-06 17:17] LABS: Potassium 3.4 mEq/L (3.5-5.1)
--- NOTE | 2023-01-06 17:28 | RAD REPORT ---
EXAM DESCRIPTION: RAD - Chest Single View - 01/06/2023 4:55 pm CLINICAL HISTORY: left arm parasthesias COMPARISON: Chest Single View dated 07/10/2022; Chest Single View dated 04/20/2022; Chest Single View dated 03/27/2022; Chest Single View dated 03/26/2022; Head C Spine Mpr Wo Con dated 01/06/2023 FINDINGS: Lines: None. Lungs: Increased prominence of the pulmonary interstitium. Pleural: No significant pleural effusions or pneumothorax. Cardiac: Cardiomegaly. Mediastinum: Within normal limits. Bones: No acute fractures. Other: None IMPRESSION: Mild increased prominence of the pulmonary interstitium could reflect mild edema or nons pecific infection/inflammation. The background pulmonary interstitium has been prominent on multiple prior exams but today's exam is marginally worsened.
--- NOTE | 2023-01-06 18:11 | EDPHYS ---
Physician Documentation [facility] Name: Sinan Swift Age: 67 yrs Sex: Male : 1955 Arrival Date: 01/06/2023 Time: 15:54 Bed 13 Private MD: ED Physician Roger Almanza HPI: 01/06 17:44 This 67 yrs old Male presents to ER via Wheelchair with complaints of Numbness - Left cp3 arm. 17:44 Patient is a 67-year-old male with a history of atrial flutter in the past, history of cp3 IL, coronary disease, hypertension who presents to the ED secondary to 3 hours of left arm numbness that is described as lateral pins and needle sensation radiating from the mid biceps down to the fifth digit of the left arm. There is no associated weakness of the arm. No associated fever, chills, nausea, vomiting, mental status change,, chest pain, shortness of breath. Historical: - Allergies: 16:03 Fish Containing Products; cm10 - PMHx: 16:03 a flutter; Bladder Diverticulum; Hypertensive disorder; IL; Prostate; Pulmonary cm10 Embolism; - PSHx: 16:03 cataract; cm10 - Immunization history:: Adult Immunizations. - Social history:: Smoking status: unknown. ROS: 17:44 Constitutional: Negative for fever, chills, and weight loss, Eyes: Negative for injury, cp3 pain, redness, and discharge, Neck: Negative for injury, pain, and swelling, Cardiovascular: Negative for chest pain, palpitations, and edema, Respiratory: Negative for shortness of breath, cough, wheezing, and pleuritic chest pain, Abdomen/GI: Negative for abdominal pain, nausea, vomiting, diarrhea, and constipation, Back: Negative for injury and pain, : Negative for injury, bleeding, discharge, and swelling, MS/Extremity: Negative for injury and deformity, Skin: Negative for injury, rash, and discoloration. 17:44 Psych: Negative for depression, anxiety, suicide ideation, homicidal ideation, and hallucinations, Allergy/Immunology: Negative for hives, rash, and allergies, Endocrine: Negative for neck swelling, polydipsia, polyuria, polyphagia, and marked weight changes, Hematologic/Lymphatic: Negative for swollen nodes, abnormal bleeding, and unusual bruising. 17:44 : Positive for Patient has a neurogenic bladder at baseline. 17:44 Neuro: Positive for numbness, Lateral aspect of left arm. Exam: 17:44 Constitutional: This is a well developed, well nourished patient who is awake, alert, cp3 and in no acute distress. Head/Face: Normocephalic, atraumatic. Eyes: Pupils equal round and reactive to light, extra-ocular motions intact. Lids and lashes normal. Conjunctiva and sclera are non-icteric and not injected. Cornea within normal limits. Periorbital areas with no swelling, redness, or edema. ENT: Nares patent. No nasal discharge, no septal abnormalities noted. Tympanic membranes are normal and external auditory canals are clear. Oropharynx with no redness, swelling, or masses, exudates, or evidence of obstruction, uvula midline. Mucous membranes moist. Neck: Trachea midline, no thyromegaly or masses palpated, and no cervical lymphadenopathy. Supple, full range of motion without nuchal rigidity, or vertebral point tenderness. No Meningismus. Chest/axilla: Normal chest wall appearance and motion. Nontender with no deformity. No lesions are appreciated. Cardiovascular: Regular rate and rhythm with a normal S1 and S2. No gallops, murmurs, or rubs. Normal PMI, no JVD. No pulse deficits. Respiratory: Lungs have equal breath sounds bilaterally, clear to auscultation and percussion. No rales, rhonchi or wheezes noted. No increased work of breathing, no retractions or nasal flaring. Abdomen/GI: Soft, non-tender, with normal bowel sounds. No distension or tympany. No guarding or rebound. No evidence of tenderness throughout. Back: No spinal tenderness. No costovertebral tenderness. Full range of motion. Skin: Warm, dry with normal turgor. Normal color with no rashes, no lesions, and no evidence of cellulitis. MS/ Extremity: Pulses equal, no cyanosis. Neurovascular intact. Full, normal range of motion. 17:44 Neuro: Patient with regular strength and sensation to left upper extremity and right upper extremity. Baseline wheelchair-bound without neurologic changes to bilateral lower extremities. 18:10 Radiologist reports: Cervical radiculopathy no acute evidence of stroke cp3 Vital Signs: 16:00 BP 134 / 76; Pulse 65; Resp 18; Temp 97.7; Pulse Ox 100% ; cm10 16:50 BP 116 / 65; Pulse 57; Resp 18; Pulse Ox 96% on R/A; mb9 17:50 BP 93 / 55; Pulse 53; Resp 18; Pulse Ox 95% on R/A; ld1 Sterling Coma Score: 17:44 Eye Response: spontaneous(4). Motor Response: obeys commands(6). Verbal Response: cp3 oriented(5). Total: 15. Procedures: 17:42 Performed EKG interpreted by me at 1612: Rate is 64, normal sinus rhythm no evidence of cp3 acute IL. MDM: 16:09 Patient medically screened. cp3 17:42 Differential diagnosis: The differential diagnosis includes cervical radiculopathy, cp3 nerve impingement, CVA. Data reviewed: vital signs, nurses notes, EKG, radiologic studies, plain films, Chest x-ray interpreted by me at 542pm: No acute cardiopulmonary process mild perihilar prominence that is consistent with previous imaging. 17:44 Consideration of Admission/Observation Escalation of care including cp3 admission/observation considered. Patient with normal neurologic exam patient would like to explore outpatient treatment and follow-up with his primary care provider.. 18:10 ED course: Results discussed with patient at bedside DC home with close outpatient cp3 follow-up. 01/06 16:08 Order name: Basic Metabolic Panel; Complete Time: 17:40 cp3 01/06 17:49 Interpretation: NA 133; K 3.4; CL 100; CO2 28; ANION GAP 8.4; GLUC 141; BUN 13; CRE cp3 1.22; GFR 65; CA 8.6. 01/06 16:08 Order name: CBC with Diff; Complete Time: 16:45 cp3 01/06 17:50 Interpretation: WBC 8.90; RBC 4.67; HGB 14.3; HCT 43.3; MCV 92.8; MCH 30.6; MCHC 33.0; cp3 PLT 279; RDW 14.6; MPV 7.9; PATRICIO% 63.7; LYM% 23.3; MN% 11.3; EOSINOPHIL % 1.2; BASO% 0.5; NEUT A 5.7; LYMA 2.1; MNA 1.0; EOSA 0.1; BASOA 0.0. 16:08 Order name: High Sensitivity Troponin; Complete Time: 17:40 cp3 08/ 17:50 Interpretation: Troponin HS 25.0. cp3 08/ 16:08 Order name: Protime (+inr); Complete Time: 16:45 cp3 / 16:08 Order name: Ptt, Activated; Complete Time: 16:45 cp3 08/ 17:49 Interpretation: PTT 37.0. cp3 08/ 16:25 Order name: Glucose, Ancillary Testing; Complete Time: 16:45 EDMS 08/ 16:08 Order name: Stroke CXR 1 View; Complete Time: 17:40 cp3 08 16:18 Order name: Head C Spine Mpr Wo Con; Complete Time: 17:40 EDMS 08/ 16:08 Order name: EKG; Complete Time: 16:09 cp3 01/06 16:08 Order name: Accucheck; Complete Time: 16:14 cp3 01/06 16:08 Order name: Cardiac monitoring; Complete Time: 16:14 cp3 01/06 16:08 Order name: EKG - Nurse/Tech; Complete Time: 16:14 cp3 01/06 16:08 Order name: IV Saline Lock; Complete Time: 16:14 cp3 01/06 16:08 Order name: Labs collected and sent; Complete Time: 16:19 cp3 01/06 16:08 Order name: NPO; Complete Time: 16:09 cp3 01/06 16:08 Order name: O2 Per Protocol; Complete Time: 16:09 cp3 01/06 16:08 Order name: O2 Sat Monitoring; Complete Time: 16:09 cp3 01/06 16:08 Order name: Stroke Swallow Screen; Complete Time: 16:14 cp3 Administered Medications: No medications were administered Disposition Summary: 01/06/23 18:10 Discharge Ordered Location: Home cp3 Problem: new cp3 Symptoms: have improved cp3 Condition: Stable cp3 Diagnosis - Cervical disc disorder with radiculopathy, cervicothoracic region cp3 - Pain in left arm - with parasthesia cp3 Discharge Instructions: - Discharge Summary Sheet cp3 - Cervical Radiculopathy cp3 Forms: - Medication Reconciliation Form cp3 - Thank You Letter cp3 - Antibiotic Education cp3 - Prescription Opioid Use cp3 - Patient Portal Instructions cp3 Signatures: Dispatcher [employer] EDMS Roger Almanza MD MD cp3 Georgiana Gallagher RN RN cm10 Corrections: (The following items were deleted from the chart) 16:18 16:09 CT-STROKE BRAIN W/O CONTRAST+CT.RAD.BRZ ordered. EDMS EDMS 16:19 16:09 C Spine Wo Con+CT.RAD.BRZ ordered. EDMS EDMS 17:49 17:49 PTT 37.0. cp3 cp3 17:50 17:49 OrderId: [id number] PrecursorText: InterpretationText: cp3 cp3
--- NOTE | 2023-01-06 18:11 | ER ---
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 No other cm10 deficits noted. Speech clear, pt able to ambulate with steady gait. Pt able to move left arm. Coronavirus screen: Vaccine status: Patient reports receiving the 2nd dose of the covid vaccine. Ebola Screen: Patient denies travel to an Ebola-affected area in the 21 days before illness onset. No symptoms or risks identified at this time. Initial Sepsis Screen: Does the patient meet any 2 criteria? No. Patient's initial sepsis screen is negative. Does the patient have a suspected source of infection? No. Patient's initial sepsis screen is negative. Risk Assessment: Do you want to hurt yourself or someone else? Patient reports no desire to harm self or others. Onset of symptoms was January 06, 2023. 16:00 Method Of Arrival: Wheelchair cm10 16:00 Acuity: SUSANNE 3 cm10 Historical: - Allergies: 16:03 Fish Containing Products; cm10 - PMHx: 16:03 a flutter; Bladder Diverticulum; Hypertensive disorder; IL; Prostate; Pulmonary cm10 Embolism; - PSHx: 16:03 cataract; cm10 - Immunization history:: Adult Immunizations. - Social history:: Smoking status: unknown. Screenin:15 [facility] ED Fall Risk Assessment (Adult) History of falling in the last 3 months, mb9 including since admission No falls in past 3 months (0 pts). Abuse screen: Denies threats or abuse. Denies injuries from another. Nutritional screening: No deficits noted. Tuberculosis screening: No symptoms or risk factors identified. Assessment: 16:15 General: Appears in no apparent distress. comfortable, Behavior is calm, cooperative, mb9 appropriate for age. Pain: Denies pain. Neuro: Level of Consciousness is awake, alert, obeys commands, Oriented to person, place, time, Appropriate for age. Neuro: Reports numbness in left bicep, left antecubital area, dorsal aspect of left forearm, left wrist and left hand. Cardiovascular: Capillary refill < 3 seconds Patient's skin is warm and dry. Rhythm is sinus rhythm. Respiratory: Airway is patent Respiratory effort is even, unlabored. GI: Abdomen is round non-distended. : No signs and/or symptoms were reported regarding the genitourinary system. EENT: No signs and/or symptoms were reported regarding the EENT system. Derm: No signs and/or symptoms reported regarding the dermatologic system. Musculoskeletal: No signs and/or symptoms reported regarding the musculoskeletal system. Vital Signs: 16:00 BP 134 / 76; Pulse 65; Resp 18; Temp 97.7; Pulse Ox 100% ; cm10 16:50 BP 116 / 65; Pulse 57; Resp 18; Pulse Ox 96% on R/A; mb9 17:50 BP 93 / 55; Pulse 53; Resp 18; Pulse Ox 95% on R/A; ld1 [place] Coma Score: 17:44 Eye Response: spontaneous(4). Motor Response: obeys commands(6). Verbal Response: cp3 oriented(5). Total: 15. ED Course: 15:57 Patient arrived in ED. cm10 15:59 Roger Almanza MD is Attending Physician. cp3 16:03 Triage completed. cm10 16:04 Arm band placed on Patient placed in an exam room, on a stretcher. cm10 16:09 Noemi Olson, RN is Primary Nurse. mb9 16:15 Patient has correct armband on for positive identification. Placed in gown. Bed in low mb9 position. Call light in reach. Side rails up X2. library monitor on. Pulse ox on. NIBP on. Door closed. Noise minimized. Warm blanket given. 16:15 No provider procedures requiring assistance completed. mb9 16:19 Basic Metabolic Panel Sent. bc6 16:19 CBC with Diff Sent. bc6 16:19 High Sensitivity Troponin Sent. bc6 16:19 Protime (+inr) Sent. bc6 16:19 Ptt, Activated Sent. bc6 16:19 Inserted saline lock: 20 gauge in right antecubital area, using aseptic technique. bc6 Blood collected. 16:38 Head C Spine Mpr Wo Con In Process Unspecified. EDMS 16:57 Stroke CXR 1 View In Process Unspecified. EDMS 18:43 IV discontinued, intact, bleeding controlled, No redness/swelling at site. ld1 Administered Medications: No medications were administered Medication: 18:43 VIS not applicable for this client. ld1 Outcome: 18:10 Discharge ordered by . cp3 18:43 Discharged to home ambulatory. ld1 18:43 Condition: stable 18:43 Discharge instructions given to patient, Instructed on discharge instructions, follow up and referral plans. Demonstrated understanding of instructions, follow-up care. 18:43 Patient left the ED. ld1 Signatures: Dispatcher [employer] Roger Porter MD MD cp3 Lesley Kay RN RN ld1 Noemi Olson RN RN mb9 Enedelia Qureshi6 Georgiana Gallagher RN RN cm10
[2023-01-06 18:53] VITALS: TEMP 97.7
[2023-01-06 19:04] VITALS: BP 93/55; O2SAT 95
--- NOTE | 2023-01-07 14:13 | EKG ---
Test Date: 2023-01-06 Test Time: 16:12:41 Humane Officer: STEFFEN MEASUREMENT RESULTS: Intervals: Rate: 64 OR: 176 QRSD: 128 QT: 438 QTc: 451 [place]: P: 50 OR: 176 QRS: -27 T: 78 INTERPRETIVE STATEMENTS: Normal sinus rhythm Nonspecific intraventricular block Abnormal ECG Compared to ECG 07/10/2022 10:22:58 Sinus bradycardia no longer present Left-axis deviation no longer present Myocardial infarct finding no longer present Electronically Signed On 01-07-23 14:10:45 CDT by Trevor Grimm
== END 2023-01-06 18:43 | disposition home or self-care (01) ==
LOC: ER 15:54
DX: M50.13 Cervical disc disorder with radiculopathy, cervicothoracic region (principal); M79.602 Pain in left arm; I10 Essential (primary) hypertension; I25.2 Old myocardial infarction; Z91.013 Allergy to seafood; Z86.711 Personal history of pulmonary embolism
CPT/HCPCS: 36415; 70450; 71045; 72125; 80048; 82947; 84484; 85025; 85610; 85730; 93005

== ENCOUNTER 2023-03-15 07:07 | Emergency (ER) | payer OTHER, BC ==
--- OUTSIDE RECORDS SUMMARY | 2023-03-15 07:15 | XMS REPORT | Continuity of Care Document ---
:1955 Author Organization [facility] t Address 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 Spirit [facility] 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 - [facility] n n with 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 Caitlyn ter sexual excitement Incomplete Incomplete Problem C ommon bladder bladder Spirit emptying emptying - [facility] [id number] Dysfunctio Problem Co mmon nal Spirit voiding of - [facility] urine [facility] Allergies, Adverse Reactions, Alerts Allergy Allergy Status Severity Reaction(s) Onset Inactive Treating Comm ents Source Name Type Date Date Clinician Gregg Escobedo Active (mhs) Common [facility] Social History Social Habit Start Date Stop Date Quantity Comments Source History of Tobacco Current Smoker Co mmon Spirit - [facility] Use [facility] Sex Assigned At Com mon [facility] Smoking Status Start Date Stop Date Source Current Smoker 2022-05-20 00:00:00 Common Spiri t [facility] Medications Ordered Filled Start Stop Current Ordering Indication Dosage Frequency Signature Comments Components Source Medication Medication Date Date Medication? Clinician (SIG) Name Name Cialis 5 mg Cialis 5 mg No 1{tab(s QD Cialis 5 6-19 )} mg 00:00: 00 Saw Saw No Saw [place] 1000 MG 1000 MG 1000 MG [place] [...] Comments Source height 2022-05-20 13:15:00 66 [in_i] [facility] weight 2022-05-20 13:15:00 205 [lb_av] [facility] temperature 2022-05-20 13:15:00 98.3 [degF] [facility] bmi 2022-05-20 13:15:00 33.08 kg/m2 [facility] oximetry 2022-05-20 13:15:00 96 % [facility] respiratory rate 2022-05-20 13:15:00 17 /min Comm on [facility] blood pressure 2022-05-20 13:15:00 113 mm[Hg] [facility] blood pressure 2022-05-20 13:15:00 66 mm[Hg] Common [facility] Procedures This patient has no known procedures. Encounters Start End Encounter Admission Attending Care Care Encounter Source Date/Time Date/Time Type Type Clinicians Facility Department ID 2023-02-08 Outpatient TEX GORDON [facility] Common 15:36:00 Domo [id number] [facility] 2023-01-05 Inpatient ELDER BenavidesCL CARD [id number] [facility] 07:00:00 Trevor 16 [facility] 2022-11-23 Outpatient HEIDI STCÉSAR [facility]LML[facility] Common 08:14:01 Domo [id number] [facility] 2022-11-16 Outpatient TEX GORDON [facility] Common 10:39:02 Domo [id number] [facility] 2022-05-14 Outpatient TEX Gordon [facility] Common 14:33:02 Domo [id number] [facility] 2021-08-06 Outpatient TEX Gordon [facility] Common 08:57:04 Domo [id number] [facility] 2021-06-25 Outpatient Heidi STCÉSAR [facility] Common 14:20:34 Domo [id number] [facility] 2021-06-25 Outpatient Heidi STCÉSAR [facility] Common 14:18:31 Domo [id number] [facility] 2022-05-20 2022-05-20 OFFICE STLC STLMLC [id number] Co mmon 00:00:00 00:00:00 VISIT EST Spir it PT LEVEL 3 [facility] 2021-05-02 2021-05-02 ambulatory STLMLC [facility] [id number] Common 00:00:00 00:00:00 [facility] Results This patient has no known results.
[2023-03-15 07:51] LABS: Absolute Lymphocytes (CBC) 1.7 K/uL (0.7-4.9); Hematocrit 40.5 % (39.6-49.0); Lymphocytes % 21.3 % (15.3-44.8); MCV 93.7 fL (80-100); MPV 7.9 fL (7.6-11.3); Platelets 259 thou/uL (152-406); RBC Red Blood Cell Count 4.33 M/uL (4.33-5.43)
[2023-03-15 07:58] LABS: Protime INR 1.18
[2023-03-15 08:11] LABS: Potassium 3.9 mEq/L (3.5-5.1); Troponin High Sensitivity 34.3 pg/mL (<58.9)
[2023-03-15 08:14] LABS: Albumin 3.3 g/dL (3.4-5.0); Bilirubin Direct 0.1 mg/dL (0-0.2); Bilirubin Indirect, Calculated 0.3 mg/dL (0.2-0.8); Bilirubin Total 0.4 mg/dL (0.2-1.0); Protein, Total 6.4 g/dL (6.4-8.2)
--- NOTE | 2023-03-15 09:09 | RAD REPORT ---
EXAM DESCRIPTION: RADChest Single View03/15/2023 8:56 am CLINICAL HISTORY: Abdominal distention;Dyspnea COMPARISON: Chest Single View dated 01/06/2023; Chest Single View dated 07/10/2022; Chest Single View d ated 04/20/2022; Chest Single View dated 03/27/2022 TECHNIQUE: Portable AP view of the chest. FINDINGS: The lungs are clear apart from opacification along the left costophrenic angle which may r elate to prominent epicardial fat or atelectasis. No pneumothorax or effusion. Cardiomegaly, stable. Mediastinal contours are unremarkable. IMPRESSION: Stable cardiomegaly. Probable left basilar atelectasis. No acute pulmonary process.
--- NOTE | 2023-03-15 09:55 | RAD REPORT ---
EXAM DESCRIPTION: CT - Abdomen Pelvis W Contrast - 03/15/2023 9:10 am CLINICAL HISTORY: abdominal distension COMPARISON: [place] Protocol dated 01/27/2020 TECHNIQUE: Thin cut axial CT imaging of the abdomen and pelvis was performed following intravenous a dministration of 100 mL Isovue 300. Multiplanar reformats were generated and reviewed. All CT scans are performed using dose optimization technique as appropriate and may include automated exposure control or mA/KV adjustment according to patient size. FINDINGS: No suspicious findings in the lung bases. The liver, spleen, and pancreas show no suspicious findings. Adrenal glands show mild diffuse thicken ing bilaterally, nonspecific, without focal nodules/masses. Gallbladder and biliary tree are also wit hout suspicious finding. Symmetric renal function is seen with no hydronephrosis or suspicious renal mass. No dilated bowel loops or bowel wall thickening. No free air, free fluid or inflammatory stranding. N o hernia, mass or bulky lymphadenopathy. The urinary bladder is up slightly decompressed, limiting ev aluation, with a stable diverticulum arising from the right posterosuperior wall, measuring up to 5.6 cm. No suspicious bony findings. Minimal grade 1 anterolisthesis of L5 over S1 with bilateral pars intera rticularis defects. IMPRESSION: No acute intra-abdominal process. Incidental findings as above.
--- NOTE | 2023-03-15 10:31 | EDPHYS ---
Physician Documentation [facility] Name: Sinan Swift Age: 67 yrs Sex: Male : 1955 Arrival Date: 03/15/2023 Time: 07:07 Bed 15 Private MD: ED Physician Candace Peña HPI: 03/15 08:35 This 67 yrs old Male presents to ER via Ambulatory with complaints of Abdominal sp3 Swelling, Breathing Difficulty. 08:35 67-year-old male with history of hypertension, NE, PE in the past, prostate hypertrophy sp3 who self caths multiple times a day now presents to the ED with chief complaint abdominal fullness and swelling for several days. He states that his shirt is now fitting tight. He denies any abdominal pain, decreased bowel movements, chest pain, shortness of breath (other than 1 abdominal distention is causing due to pushing up on his diaphragm), fever, URI symptoms, cough, peripheral edema, dysuria, urinary complaints (patient does still have urine output but has a residual of about 300 mL which is why he has to self cath every 6-7 hours). Review of systems otherwise negative.. Historical: - Allergies: 07:27 Fish Containing Products; ll1 - PMHx: 07:27 a flutter; Bladder Diverticulum; Hypertensive disorder; NE; Prostate; Pulmonary ll1 Embolism; - PSHx: 07:27 cataract; ll1 - Immunization history:: Adult Immunizations up to date. - Social history:: Smoking status: Patient denies any tobacco usage or history of. ROS: 08:36 Constitutional: Negative for fever, chills, and weight loss, Eyes: Negative for injury, sp3 pain, redness, and discharge, Neck: Negative for injury, pain, and swelling, Cardiovascular: Negative for chest pain, palpitations, and edema, Back: Negative for injury and pain, MS/Extremity: Negative for injury and deformity, Skin: Negative for injury, rash, and discoloration, Neuro: Negative for headache, weakness, numbness, tingling, and seizure, Psych: Negative for depression, anxiety, suicide ideation, homicidal ideation, and hallucinations, Allergy/Immunology: Negative for hives, rash, and allergies, Endocrine: Negative for neck swelling, polydipsia, polyuria, polyphagia, and marked weight changes, Hematologic/Lymphatic: Negative for swollen nodes, abnormal bleeding, and unusual bruising, 08:36 All other systems are negative, Exam: 08:37 Constitutional: This is a well developed, well nourished patient who is awake, alert, sp3 and in no acute distress. Head/Face: Normocephalic, atraumatic. Eyes: Pupils equal round and reactive to light, extra-ocular motions intact. Lids and lashes normal. Conjunctiva and sclera are non-icteric and not injected. Cornea within normal limits. Periorbital areas with no swelling, redness, or edema. ENT: Nares patent. No nasal discharge, no septal abnormalities noted. External auditory canals are clear. Oropharynx with no redness, swelling, or masses, exudates, or evidence of obstruction, uvula midline. Mucous membranes moist. Neck: Trachea midline, no thyromegaly or masses palpated, and no cervical lymphadenopathy. Supple, full range of motion without nuchal rigidity, or vertebral point tenderness. No Meningismus. Chest/axilla: Normal chest wall appearance and motion. Nontender with no deformity. No lesions are appreciated. Cardiovascular: Regular rate and rhythm with a normal S1 and S2. No gallops, murmurs, or rubs. Normal PMI, no JVD. No pulse deficits. Respiratory: Lungs have equal breath sounds bilaterally, clear to auscultation and percussion. No rales, rhonchi or wheezes noted. No increased work of breathing, no retractions or nasal flaring. Back: No spinal tenderness. No costovertebral tenderness. Full range of motion. Skin: Warm, dry with normal turgor. Normal color with no rashes, no lesions, and no evidence of cellulitis. MS/ Extremity: Pulses equal, no cyanosis. Neurovascular intact. Full, normal range of motion. Neuro: Awake and alert, GCS 15, oriented to person, place, time, and situation. Cranial nerves II-XII grossly intact. Motor strength 5/5 in all extremities. Sensory grossly intact. Cerebellar exam normal. Normal gait. Psych: Awake, alert, with orientation to person, place and time. Behavior, mood, and affect are within normal limits. 08:37 Abdomen/GI: Mildly distended abdomen that is still soft without peritoneal signs, rebound or guarding. There is no pain reported to palpation. There is no CVA tenderness. There is no peripheral edema in any of the 4 extremities., 08:40 ECG was reviewed by the Attending Physician. EKG demonstrates normal sinus rhythm at 61 sp3 bpm with normal intervals, leftward axis, nonspecific diffuse ST/T changes without evidence of acute ischemia. Vital Signs: 07:27 BP 130 / 68; Pulse 70; Resp 18; Temp 97.9; Pulse Ox 97% on R/A; Weight 107.5 kg; Height ll1 5 ft. 9 in. ; 08:28 BP 96 / 58; Pulse 55; Resp 14 S; Pulse Ox 95% on R/A; kc6 10:07 BP 94 / 53; Pulse 53; Resp 14 S; Pulse Ox 96% on R/A; kc6 07:27 Body Mass Index 35.00 (107.50 kg, 175.26 cm) ll1 MDM: 07:42 Patient medically screened. sp3 08:38 Data reviewed: vital signs, nurses notes, old medical records, lab test result(s), EKG, sp3 radiologic studies. ED course: 67-year-old male with complex history now presents with abdominal distention. Differential diagnosis includes pathology including UTI, pyelonephritis, kidney stone, GI pathology including ileus, constipation, increased bowel gas, aortic pathology including AAA (which is very less likely given his presentation), among others. Will differentiate with CT scan of the abdomen pelvis, laboratory values, EKG, and general observation. In general, patient does not appear in any distress, is breathing without any difficulty, and is able to converse fully and joke with medical team demonstrating no pain or extremis at this time. Disposition pending work-up and patient course.. 10:26 ED course: CT scan of the abdomen pelvis demonstrate no significant abnormality. sp3 Laboratory values are all within normal limits except for mild elevation in BNP at 900 and a creatinine of 1.3. Patient is in no acute distress and we will safely discharge him home at this time with follow-up to his PCP.. 03/15 07:34 Order name: Basic Metabolic Panel; Complete Time: 08:37 6 03/15 07:34 Order name: CBC with Diff; Complete Time: 08:37 6 03/15 07:34 Order name: Troponin HS; Complete Time: 08:37 6 03/15 07:42 Order name: BNP; Complete Time: 08:37 sp3 03/15 07:42 Order name: PT-INR; Complete Time: 08:37 sp3 03/15 07:42 Order name: LFT's; Complete Time: 08:37 sp3 03/15 07:34 Order name: XRAY Chest (1 view); Complete Time: 09:18 kc6 03/15 08:38 Order name: CT Abd/Pelvis - IV Contrast Only; Complete Time: 10:00 sp3 03/15 07:34 Order name: EKG; Complete Time: 07:34 kc6 03/15 07:34 Order name: Cardiac monitoring; Complete Time: 07:46 kc6 03/15 07:34 Order name: EKG - Nurse/Tech; Complete Time: 07:46 kc6 03/15 07:34 Order name: IV Saline Lock; Complete Time: 07:46 kc6 03/15 07:34 Order name: Labs collected and sent; Complete Time: 07:46 kc6 03/15 07:34 Order name: O2 Per Protocol; Complete Time: 07:46 kc6 03/15 07:34 Order name: O2 Sat Monitoring; Complete Time: 07:46 kc6 Administered Medications: No medications were administered Disposition Summary: 03/15/23 10:31 Discharge Ordered Notes: Location: Home sp3 Condition: Stable sp3 Diagnosis - Abdominal distention sp3 Followup: sp3 - With: Private Physician - When: Upon discharge from the Emergency Department - Reason: Continuance of care Discharge Instructions: - Discharge Summary Sheet sp3 - Abdominal Bloating sp3 Forms: - Medication Reconciliation Form sp3 - Thank You Letter sp3 - Antibiotic Education sp3 - Prescription Opioid Use sp3 - Patient Portal Instructions sp3 - Leadership Thank You Letter sp3 Signatures: Dispatcher [employer] Smiley Carter RN RN ll1 Candace Peña MD MD sp3 Ya Mendes RN RN kc6
--- NOTE | 2023-03-15 10:31 | ER ---
Nurse's Notes [facility] Name: Sinan Swift Age: 67 yrs Sex: Male : 1955 Arrival Date: 03/15/2023 Time: 07:07 Bed 15 Private MD: Diagnosis: Abdominal distention Presentation: 03/15 07:27 Chief complaint: Patient states: SOB, body swelling, trouble selling laying down since ll1 last night. Coronavirus screen: Vaccine status: Patient reports receiving the 2nd dose of the covid vaccine. Client denies travel out of the [place] in the last 14 days. difficulty breathing, shortness of breath, Client presents with at least one sign or symptom that may indicate coronavirus-19. Standard/surgical mask placed on the client. Ebola Screen: Patient denies travel to an Ebola-affected area in the 21 days before illness onset. Initial Sepsis Screen: Does the patient meet any 2 criteria? No. Patient's initial sepsis screen is negative. Does the patient have a suspected source of infection? Yes: Productive cough/pneumonia. Risk Assessment: Do you want to hurt yourself or someone else? Patient reports no desire to harm self or others. Onset of symptoms was March 14, 2023. 07:27 Method Of Arrival: Ambulatory ll1 07:27 Acuity: SUSANNE 3 ll1 Historical: - Allergies: 07:27 Fish Containing Products; ll1 - PMHx: 07:27 a flutter; Bladder Diverticulum; Hypertensive disorder; AL; Prostate; Pulmonary ll1 Embolism; - PSHx: 07:27 cataract; ll1 - Immunization history:: Adult Immunizations up to date. - Social history:: Smoking status: Patient denies any tobacco usage or history of. Screenin:30 [facility] ED Fall Risk Assessment (Adult) History of falling in the last 3 months, kc6 including since admission No falls in past 3 months (0 pts) Confusion or Disorientation No (0 pts) Intoxicated or Sedated No (0 pts) Impaired Gait No (0 pts) Mobility Assist Device Used No (0 pt) Altered Elimination No (0 pt) Score/Fall Risk Level 0 - 2 = Low Risk. Abuse screen: Denies threats or abuse. Denies injuries from another. Nutritional screening: No deficits noted. Tuberculosis screening: No symptoms or risk factors identified. Assessment: 07:30 General: Appears in no apparent distress. comfortable, Behavior is calm, cooperative, kc6 appropriate for age. Pain: Denies pain. Neuro: Level of Consciousness is awake, alert, obeys commands, Oriented to person, place, time, situation, Appropriate for age. Cardiovascular: Denies chest pain, Heart tones S1 S2 present Capillary refill < 3 seconds Rhythm is sinus rhythm. Respiratory: Reports shortness of breath Airway is patent Trachea midline Respiratory effort is even, unlabored, Respiratory pattern is regular, symmetrical. GI: Abdomen is round Bowel sounds present X 4 quads. Abd is soft and non tender X 4 quads. Patient currently denies abdominal pain, diarrhea, nausea, vomiting. : No signs and/or symptoms were reported regarding the genitourinary system. EENT: No signs and/or symptoms were reported regarding the EENT system. Derm: No signs and/or symptoms reported regarding the dermatologic system. Skin is intact, is healthy with good turgor, Skin is pink, warm \T\ dry. Musculoskeletal: No signs and/or symptoms reported regarding the musculoskeletal system. Circulation, motion, and sensation intact. Capillary refill < 3 seconds, Range of motion: intact in all extremities. 08:30 Reassessment: Patient appears in no apparent distress at this time. No changes from kc6 previously documented assessment. Patient and/or family updated on plan of care and expected duration. Pain level reassessed. Patient is alert, oriented x 3, equal unlabored respirations, skin warm/dry/pink. 09:30 Reassessment: Patient appears in no apparent distress at this time. No changes from kc6 previously documented assessment. Patient and/or family updated on plan of care and expected duration. Pain level reassessed. Patient is alert, oriented x 3, equal unlabored respirations, skin warm/dry/pink. 10:30 Reassessment: Patient appears in no apparent distress at this time. No changes from kc6 previously documented assessment. Patient and/or family updated on plan of care and expected duration. Pain level reassessed. Patient is alert, oriented x 3, equal unlabored respirations, skin warm/dry/pink. Vital Signs: 07:27 BP 130 / 68; Pulse 70; Resp 18; Temp 97.9; Pulse Ox 97% on R/A; Weight 107.5 kg; Height ll1 5 ft. 9 in. ; 08:28 BP 96 / 58; Pulse 55; Resp 14 S; Pulse Ox 95% on R/A; kc6 10:07 BP 94 / 53; Pulse 53; Resp 14 S; Pulse Ox 96% on R/A; kc6 07:27 Body Mass Index 35.00 (107.50 kg, 175.26 cm) 1 ED Course: 07:09 Patient arrived in ED. rg4 07:16 Ya Mendes, RN is Primary Nurse. kc6 07:27 Arm band placed on Patient placed in an exam room, on a stretcher. ll1 07:28 Triage completed. ll1 07:30 Patient has correct armband on for positive identification. Placed in gown. Bed in low kc6 position. Call light in reach. Side rails up X2. Client placed on continuous cardiac and pulse oximetry monitoring. NIBP monitoring applied. personnel monitor on. 07:39 Candace Peña MD is Attending Physician. sp3 07:47 Inserted saline lock: 18 gauge in right antecubital area, using aseptic technique. kc6 Blood collected. Patient maintains SpO2 saturation greater than 95% on room air. 08:58 XRAY Chest (1 view) In Process Unspecified. EDMS 09:12 CT Abd/Pelvis - IV Contrast Only In Process Unspecified. EDMS 10:44 No provider procedures requiring assistance completed. IV discontinued, intact, kc6 bleeding controlled, No redness/swelling at site. Pressure dressing applied. Administered Medications: No medications were administered Medication: 10:44 VIS not applicable for this client. kc6 Outcome: 10:31 Discharge ordered by . sp3 10:44 Discharged to home ambulatory, kc6 10:44 Condition: stable 10:44 Discharge instructions given to patient, Instructed on discharge instructions, follow up and referral plans. Demonstrated understanding of instructions, follow-up care, 10:45 Patient left the ED. kc6 Signatures: Dispatcher [employer] EDPaola Puentes rg4 Smiley Miller RN RN 1 Candace Peña MD MD sp3 Ya Mendes, SALINA RN kc6
[2023-03-15 10:55] VITALS: TEMP 97.9
[2023-03-15 11:06] VITALS: BP 94/53; O2SAT 96
--- NOTE | 2023-03-15 17:02 | EKG ---
Test Date: 2023-03-15 Test Time: 07:37:58 [employer] Operator: ESTEBAN MEASUREMENT RESULTS: Intervals: Rate: 61 UT: 178 QRSD: 124 QT: 444 QTc: 446 [place]: P: 66 UT: 178 QRS: -8 T: 90 INTERPRETIVE STATEMENTS: Normal sinus rhythm Anterolateral infarct, age undetermined Abnormal ECG Compared to ECG 01/06/2023 16:12:41 Myocardial infarct finding now present Electronically Signed On 03-15-23 17:01:14 CDT by Trevor Grimm
== END 2023-03-15 10:45 | disposition home or self-care (01) ==
LOC: ER 07:07
DX: R14.0 Abdominal distension (gaseous) (principal); I10 Essential (primary) hypertension; I25.2 Old myocardial infarction; Z91.013 Allergy to seafood
CPT/HCPCS: 93005; 85025; 80048; 36415; 85610; 80076; 84484; 83880; 74177; 71045; 99285; Q9967

== ENCOUNTER → 2023-07-07 | Emergency (ER) | payer OTHER, BC ==
--- OUTSIDE RECORDS SUMMARY | 2023-07-07 15:19 | XMS REPORT | Continuity of Care Document ---
Author Name Unknown Address [address] [facility] [place] [address] [facility] thconnect Address [address] [facility] [address] [place] [address] Care Team Providers Care [employer] Dean Name Role Phone Domo GORDON Attending Clinician Unavailab Trevor Stanford Attending Clinician Unavailable Trevor Grimm Admitting Clinician Unavailable Payers Payer Name Policy Type Policy Number Effective Date Expirati on Date Source AETNA 53 [id number] Common Sp [facility] Problems Condition Name Condition Details Condition Category Status Onset Date Resolution Date Last Treatment Date Treating Clinician Comments Source [id number] Acquired bladder diverticul um Problem [facility] [id number] Obstructiv e uropathy Problem [facility] 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 Problem [facility] Incomplete bladder emptying Incomplete bladder emptying Problem [facility] [id number] Dysfunctio nal voiding of urine Problem [facility] 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 BPH loc w urin obs/LUTS Problem [facility] Allergies, Adverse Reactions, Alerts Allergy Name Allergy Type Status Severity Reaction(s) Onset Date Inactive Date Treating Clinician Comments Source [place] Active (mhs) [facility] Social History Social Habit Start Date Stop Date Quantity Comments Source History of Tobacco Use Current Smoker [facility] Sex Assigned At [facility] Smoking Status Start Date Stop Date Source Current Smoker 2023-03-18 00:00:00 [facility] Medications Ordered Medication Name Filled Medication Name Start Date Stop Date Current Medication? Ordering Clinician Indication Dosage Frequency Signature (SIG) Comments Components Source Cialis 5 mg Cialis 5 mg 11-16 00:00: 00 No 1{tab(s )} QD Cialis 5 mg Fenugreek 500 MG Fenugreek 500 MG No Fenugreek 500 MG Lipitor Lipitor No Lipitor Saw Manist[place] 1000 MG Saw Manist[place] 1000 MG No Saw [place] 1000 MG [place] 450 MG [place] 450 MG No [place] 450 MG Fenugreek 500 MG Fenugreek 500 MG No Fenugreek 500 MG Nitrofurant oin Monohyd Macro 100 MG Nitrofurant oin Monohyd Macro 100 MG No QD Nitrofuran toin Monohyd Macro 100 MG Lipitor Lipitor No Lipitor Echinacea 400 MG Echinacea 400 MG No Echinacea 400 MG Vitamin B6 200 MG Vitamin B6 200 MG No 1{table t} QD Vitamin B6 200 MG Vitamin E 400 UNIT Vitamin E 400 UNIT No 1{capsu le} QD Vitamin E 400 UNIT Eliquis Eliquis No Eliquis Plavix Plavix No Plavix Lasix 40 MG Lasix 40 MG No 1{table t} QD Lasix 40 MG Plavix Plavix No Plavix Saw Manist[place] 1000 MG Saw [place] 1000 MG No Saw [place] 1000 MG Nitrofurant oin Monohyd Macro 100 MG Nitrofurant oin Monohyd Macro 100 MG No QD Nitrofuran toin Monohyd Macro 100 MG Cay[place] 450 MG [place] 450 MG No [place] 450 MG Tamsulosin HCl 0.4 MG Tamsulosin HCl 0.4 MG No Tamsulosin HCl 0.4 MG Echinacea 400 MG Echinacea 400 MG No Echinacea 400 MG Vitamin E 400 UNIT Vitamin E 400 UNIT No 1{capsu le} QD Vitamin E 400 UNIT Eliquis Eliquis No Eliquis Vitamin B6 200 MG Vitamin B6 200 MG No 1{table t} QD Vitamin B6 200 MG Fenugreek 500 MG Fenugreek 500 MG No Fenugreek 500 MG Lipitor Lipitor No Lipitor Lasix 40 MG Lasix 40 MG No 1{table t} QD Lasix 40 MG Plavix Plavix No Plavix Saw [place] 1000 MG Saw [place] 1000 MG No Saw [place] 1000 MG Nitrofurant oin Monohyd Macro 100 MG Nitrofurant oin Monohyd Macro 100 MG No QD Nitrofuran toin Monohyd Macro 100 MG Cay[place] 450 MG Cay[place] 450 MG No [place] 450 MG Tamsulosin HCl 0.4 MG Tamsulosin HCl 0.4 MG No Tamsulosin HCl 0.4 MG Echinacea 400 MG Echinacea 400 MG No Echinacea 400 MG Vitamin E 400 UNIT Vitamin E 400 UNIT No 1{capsu le} QD Vitamin E 400 UNIT Eliquis Eliquis No Eliquis Vitamin B6 200 MG Vitamin B6 200 MG No 1{table t} QD Vitamin B6 200 MG Fenugreek 500 MG Fenugreek 500 MG No Fenugreek 500 MG Lipitor Lipitor No Lipitor Lasix 40 MG Lasix 40 MG No 1{table t} QD Lasix 40 MG Plavix Plavix No Plavix Saw Manist[place] 1000 MG Saw Manist[place] 1000 MG No Saw Manist[place] 1000 MG Nitrofurant oin Monohyd Macro 100 MG Nitrofurant oin Monohyd Macro 100 MG No QD Nitrofuran toin Monohyd Macro 100 MG Cay[place] 450 MG Cay[place] 450 MG No [place] 450 MG Tamsulosin HCl 0.4 MG Tamsulosin HCl 0.4 MG No Tamsulosin HCl 0.4 MG Echinacea 400 MG Echinacea 400 MG No Echinacea 400 MG Vitamin E 400 UNIT Vitamin E 400 UNIT No 1{capsu le} QD Vitamin E 400 UNIT Eliquis Eliquis No Eliquis Vitamin B6 200 MG Vitamin B6 200 MG No 1{table t} QD Vitamin B6 200 MG Vital Signs Vital Name Observation Time Observation Value Comments Helen elias height 2023-03-18 13:30:00 66 [in_i] Commo n [facility] weight 2023-03-18 13:30:00 240.6 [lb_av] Co mmon [facility] temperature 2023-03-18 13:30:00 97.8 [degF] Com [facility] bmi 2023-03-18 13:30:00 38.83 kg/m2 Comm on [facility] oximetry 2023-03-18 13:30:00 96 % Commo n [facility] respiratory rate 2023-03-18 13:30:00 18 /min Common [facility] blood pressure systolic 2023-03-18 13:30:00 121 mm[Hg] [facility] blood pressure diastolic 2023-03-18 13:30:00 66 mm[Hg] Common [facility] height 2022-11-18 10:45:00 66 [in_i] Commo n [facility] weight 2022-11-18 10:45:00 231 [lb_av] Comm on [facility] temperature 2022-11-18 10:45:00 98.1 [degF] Com [facility] bmi 2022-11-18 10:45:00 37.28 kg/m2 Comm on [facility] oximetry 2022-11-18 10:45:00 99 % Commo n [facility] respiratory rate 2022-11-18 10:45:00 18 /min [facility] blood pressure systolic 2022-11-18 10:45:00 123 mm[Hg] [facility] blood pressure diastolic 2022-11-18 10:45:00 71 mm[Hg] [facility] weight 2022-05-20 13:15:00 205 [lb_av] Comm on [facility] temperature 2022-05-20 13:15:00 98.3 [degF] Com [facility] bmi 2022-05-20 13:15:00 33.08 kg/m2 Comm on [facility] oximetry 2022-05-20 13:15:00 96 % Commo n [facility] respiratory rate 2022-05-20 13:15:00 17 /min [facility] blood pressure systolic 2022-05-20 13:15:00 113 mm[Hg] [facility] blood pressure diastolic 2022-05-20 13:15:00 66 mm[Hg] [facility] height 2022-05-20 13:15:00 66 [in_i] Commo n [facility] Encounters Start Date/Time End Date/Time Encounter Type Admission Type Attending [facility] Facility Care Department Encounter ID Source 2023-06-30 09:43:00 Outpatient Domo GORDON STLMLC STLMLC [id number] [facility] 2023-06-28 16:58:00 Outpatient Domo GORDON STLMLC STLMLC [id number] [facility] 2023-03-15 14:56:01 Outpatient Domo GORDON STLMLC STLMLC [id number] [facility] 2023-02-08 15:36:00 Outpatient Domo GORDON STLMLC STLMLC [id number] [facility] 2023-01-05 07:00:00 Inpatient Trevor Benavides HCACL CARD [id number] 16 [facility] 2022-11-23 08:14:01 Outpatient Domo GORDON STLMLC STLMLC [id number] [facility] 2022-11-16 10:39:02 Outpatient Domo GORDON STLMLC STLMLC [id number] [facility] 2022-05-14 14:33:02 Outpatient Domo Gordno STLMLC STLMLC [id number] [facility] 2021-08-06 08:57:04 Outpatient Domo Gordon STLMLC STLMLC [facility] 2021-06-25 14:20:34 Outpatient Domo Gordon STLMLC STLMLC [id number] [facility] 2021-06-25 14:18:31 Outpatient Domo Gordon STLMLC STLMLC [id number] [facility] 2023-03-18 00:00:00 2023-03-18 00:00:00 OFFICE VISIT ESTAB PT LEVEL 3 STLMLC STLMLC [id number] [facility] 2022-11-23 00:00:00 2022-11-23 00:00:00 (TEL) STLMLC STLMLC [id number] [facility] 2022-11-18 00:00:00 2022-11-18 00:00:00 OFFICE VISIT ESTAB PT LEVEL 3 STLMLC STLMLC [id number] [facility] 2022-05-20 00:00:00 2022-05-20 00:00:00 OFFICE VISIT EST PT LEVEL 3 STLMLC STLMLC [id number] [facility] 2021-05-02 00:00:00 2021-05-02 00:00:00 ambulatory STLMLC STLMLC [id number] [facility]
[2023-07-07 16:23] LABS: Specific Gravity 1.017 (1.005-1.030); Urine Bacteria <20 /HPF (<20); Urine Bilirubin NEGATIVE (Negative); Urine Blood 3+ (OVER) (Negative); Urine Clarity Extremely Turbid (Clear); Urine Color Light-Yellow (Yellow); Urine Glucose NEGATIVE (Negative); Urine Mucus Slight /HPF (None Seen); Urine Protein TRACE (Negative); Urine RBC >50 /HPF (None Seen); Urine Urobilinogen Normal (Normal); Urine pH 5.5 (5.0-7.0)
--- NOTE | 2023-07-07 16:36 | EDPHYS ---
Physician Documentation [facility] Name: Sinan Swift Age: 67 yrs Sex: Male : 1955 Arrival Date: 07/07/2023 Time: 15:17 Bed DX3 Private MD: ED Physician Win Kay HPI: 07/07 16:03 This 67 yrs old Male presents to ER via Ambulatory with complaints of UTI. ms3 16:03 67-year-old male with past medical history of atrial fibrillation, bladder ms3 diverticulum, hypertension, MA, prostate hypertrophy, pulmonary embolism presents to the emergency department for urinary frequency and hematuria. Patient denies pain at this time. Patient denies nausea, vomiting, fevers, chills. Historical: - Allergies: 15:29 Fish Containing Products; ko1 - PMHx: 15:29 a flutter; Bladder Diverticulum; Hypertensive disorder; MA; Prostate; Pulmonary ko1 Embolism; - PSHx: 15:29 cataract; Stented artery; ko1 - Immunization history:: Adult Immunizations up to date. - Social history:: Smoking status: Patient denies any tobacco usage or history of. ROS: 16:03 Constitutional: Negative for fever, and chills. Neck: Negative for injury, pain, and ms3 swelling, Cardiovascular: Negative for chest pain, and palpitations. Respiratory: Negative for shortness of breath, cough, wheezing, and pleuritic chest pain, Abdomen/GI: Negative for abdominal pain, nausea, vomiting, diarrhea, and constipation, Skin: Negative for injury, rash, and discoloration, Neuro: Negative for headache, weakness, numbness, tingling. 16:03 : Positive for urinary frequency, hematuria, Negative for flank pain, Exam: 16:03 Constitutional: This is a well developed, well nourished patient who is awake, alert, ms3 and in no acute distress. Head/Face: Normocephalic, atraumatic. Neck: Trachea midline, no cervical lymphadenopathy. Supple, full range of motion without nuchal rigidity, or vertebral point tenderness. No Meningismus. Chest/axilla: Normal chest wall appearance and motion. Nontender with no deformity. Cardiovascular: Regular rate and rhythm with a normal S1 and S2. No gallops, murmurs, or rubs. Normal PMI, no JVD. No pulse deficits. Respiratory: Lungs have equal breath sounds bilaterally, clear to auscultation and percussion. No rales, rhonchi or wheezes noted. No increased work of breathing, no retractions or nasal flaring. Abdomen/GI: Soft, non-tender, with normal bowel sounds. No distension or tympany. No guarding or rebound. No evidence of tenderness throughout. Skin: Warm, dry with normal turgor. Normal color with no rashes, no lesions, and no evidence of cellulitis. MS/ Extremity: Pulses equal, no cyanosis. Neurovascular intact. Full, normal range of motion. Vital Signs: 15:24 BP 119 / 59; Pulse 62; Resp 18; Temp 97.7; Pulse Ox 99% ; ko1 MDM: 15:45 Patient medically screened. ms3 16:03 Differential diagnosis: UTI, prostatitis, urethritis. ms3 18:08 Data reviewed: vital signs, lab test result(s), and as a result, I will discharge ms3 patient. Care significantly affected by the following chronic conditions: Hypertension, PE, BPH, Atrial Fibrillation. Counseling: I had a detailed discussion with the patient and/or guardian regarding the historical points, exam findings, and any diagnostic results supporting the discharge/admit diagnosis, lab results, the need for outpatient follow up, to return to the emergency department if symptoms worsen or persist or if there are any questions or concerns that arise at home. Special discussion: I discussed with the patient/guardian in detail that at this point there is no indication for admission to the hospital. It is understood, however, that if the symptoms persist or worsen the patient needs to return immediately for re-evaluation. ED course: Discussed urinalysis results with patient. Patient to follow-up with Dr. Seaman in 2 to 3 days. Patient understands agrees with plan. All questions were answered. Return precautions discussed include worsening symptoms, or any other concerns. 07/07 15:45 Order name: Urinalysis w/ reflexes; Complete Time: 16:34 ms3 07/07 16:33 Order name: Urine Culture EDMS Administered Medications: No medications were administered Disposition Summary: 07/07/23 16:35 Discharge Ordered Notes: Location: Home ms3 Condition: Stable ms3 Diagnosis - UTI/ Urinary tract infection, site not specified ms3 Followup: ms3 - With: Andrew Seaman MD - When: 2 - 3 days - Reason: Recheck today's complaints Discharge Instructions: - Discharge Summary Sheet ms3 - Urinary Tract Infection, Adult ms3 Forms: - Medication Reconciliation Form ms3 - Thank You Letter ms3 - Antibiotic Education ms3 - Prescription Opioid Use ms3 - Patient Portal Instructions ms3 - Leadership Thank You Letter ms3 Prescriptions: - cefpodoxime 200 mg Oral tablet - take 1 tablet ORAL route every 12 hours with food; 14 tablet; Refills: 0, ms3 Product Selection Permitted Signatures: Dispatcher [employer] EDMS Win Kay DO DO ms3 Beti Bucio, RN RN ko1
--- NOTE | 2023-07-07 16:36 | ER ---
Nurse's Notes [facility] Name: Sinan Swift Age: 67 yrs Sex: Male : 1955 Arrival Date: 07/07/2023 Time: 15:17 Bed DX3 Private MD: Diagnosis: UTI/ Urinary tract infection, site not specified Presentation: 07/07 15:24 Chief complaint: Chief complaint: Patient states: I did an in and out catheter and ko1 there was a clot on the end of the catheter, the next time I cath'd I had another clot. Coronavirus screen: At this time, the client does not indicate any symptoms associated with coronavirus-19. Ebola Screen: No symptoms or risks identified at this time. Initial Sepsis Screen: Does the patient meet any 2 criteria? No. Patient's initial sepsis screen is negative. Does the patient have a suspected source of infection? No. Patient's initial sepsis screen is negative. Risk Assessment: Do you want to hurt yourself or someone else? Patient reports no desire to harm self or others. Onset of symptoms is unknown. 15:24 Method Of Arrival: Ambulatory ko1 15:24 Acuity: SUSANNE 4 ko1 Triage Assessment: 15:29 General: Appears in no apparent distress. Behavior is calm, cooperative, appropriate ko1 for age. Pain: Denies pain. : Reports blood on catheter. Historical: - Allergies: 15:29 Fish Containing Products; ko1 - PMHx: 15:29 a flutter; Bladder Diverticulum; Hypertensive disorder; CT; Prostate; Pulmonary ko1 Embolism; - PSHx: 15:29 cataract; Stented artery; ko1 - Immunization history:: Adult Immunizations up to date. - Social history:: Smoking status: Patient denies any tobacco usage or history of. Screenin:45 [facility] ED Fall Risk Assessment (Adult) History of falling in the last 3 months, ap3 including since admission No falls in past 3 months (0 pts). Abuse screen: Denies threats or abuse. Nutritional screening: No deficits noted. Tuberculosis screening: No symptoms or risk factors identified. Vital Signs: 15:24 BP 119 / 59; Pulse 62; Resp 18; Temp 97.7; Pulse Ox 99% ; ko1 ED Course: 15:20 Patient arrived in ED. mg5 15:24 Win Kay DO is Attending Physician. ms3 15:29 Triage completed. ko1 15:29 Arm band placed on right wrist. Patient placed in waiting room, Patient notified of ko1 wait time. 16:03 Urinalysis w/ reflexes Sent. ko1 16:35 Andrew Seaman MD is Referral Physician. ms3 16:45 Provided Education on: discharge instructions. ap3 16:45 Patient has correct armband on for positive identification. ap3 16:45 No provider procedures requiring assistance completed. Patient did not have IV access ap3 during this emergency room visit. Administered Medications: No medications were administered Medication: 16:45 VIS not applicable for this client. ap3 Outcome: 16:35 Discharge ordered by . ms3 16:45 Discharged to home ambulatory, ap3 16:45 Condition: good 16:45 Discharge instructions given to patient, Instructed on discharge instructions, follow up and referral plans. medication usage, Demonstrated understanding of instructions, follow-up care, medications, Prescriptions given X 1, 16:45 Patient left the ED. ap3 Signatures: Kayla Dunn, RN RN ap3 Win Kay DO DO ms3 Beti Bucio, SALINA RN ko1 Agata Wolfe mg5
[2023-07-08 23:43] VITALS: BP 119/59; TEMP 97.7; O2SAT 99
== END ==
LOC: ER 15:17
DX: N39.0 Urinary tract infection, site not specified (principal); Z91.013 Allergy to seafood
CPT/HCPCS: 81001; 87086; 87088

== ENCOUNTER 2023-09-06 07:38 | Inpatient (IN) | payer OTHER, BC ==
--- OUTSIDE RECORDS SUMMARY | 2023-09-06 07:41 | XMS REPORT | Continuity of Care Document ---
Author Name Unknown Address [address] [place] [address] [facility] thconnect Address [address] [place] [address] Care Team Providers Care Lime Supervisor Name Role Phone Domo GORDON Attending Clinician Unavailab Trevor Stanford Attending Clinician Unavailable Trevor Grimm Admitting Clinician Unavailable Payers Payer Name Policy Type Policy Number Effective Date Expirati on Date Source AETNA 53 [id number] Common Sp [facility] Problems Condition Name Condition Details Condition Category Status Onset Date Resolution Date Last Treatment Date Treating Clinician Comments Source [id number] Acquired bladder diverticul um Problem [facility] [id number] Obstructiv e uropathy Problem [facility] 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 Problem [facility] Incomplete bladder emptying Incomplete bladder emptying Problem [facility] [id number] Dysfunctio nal voiding of urine Problem [facility] 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 BPH loc w urin obs/LUTS Problem [facility] Allergies, Adverse Reactions, Alerts Allergy Name Allergy Type Status Severity Reaction(s) Onset Date Inactive Date Treating Clinician Comments Source [place] Active (mhs) [facility] Social History Social Habit Start Date Stop Date Quantity Comments Source History of Tobacco Use Current Smoker [facility] Sex Assigned At [facility] Smoking Status Start Date Stop Date Source Current Smoker 2023-03-18 00:00:00 [facility] Medications Ordered Medication Name Filled Medication Name Start Date Stop Date Current Medication? Ordering Clinician Indication Dosage Frequency Signature (SIG) Comments Components Source Cialis 5 mg Cialis 5 mg 11-16 00:00: 00 No 1{tab(s )} QD Cialis 5 mg [place] 500 MG [place] 500 MG No [place] 500 MG Saw [place] 1000 MG Saw [place] 1000 MG No Saw [place] 1000 MG [place] 450 MG [place] 450 MG No [place] 450 MG [place] 500 MG [place] 500 MG No [place] 500 MG Nitrofurant oin Monohyd Macro 100 MG Nitrofurant oin Monohyd Macro 100 MG No QD Nitrofuran toin Monohyd Macro 100 MG Echinacea 400 MG Echinacea 400 MG No Echinacea 400 MG Vitamin E 400 UNIT Vitamin E 400 UNIT No 1{capsu le} QD Vitamin E 400 UNIT Lasix 40 MG Lasix 40 MG No 1{table t} QD Lasix 40 MG Plavix Plavix No Plavix Saw [place] 1000 MG Saw [place] 1000 MG No Saw [place] 1000 MG Nitrofurant oin Monohyd Macro 100 [...] 1{capsu le} QD Vitamin E 400 UNIT Lasix 40 MG Lasix 40 MG No 1{table t} QD Lasix 40 MG Plavix Plavix No Plavix Saw [place] 1000 MG Saw [place] 1000 MG No Saw [place] 1000 MG Nitrofurant oin Monohyd Macro 100 [...] 1{capsu le} QD Vitamin E 400 UNIT Lasix 40 MG Lasix 40 MG No 1{table t} QD Lasix 40 MG Saw [place] 1000 MG Saw [place] 1000 MG No Saw [place] 1000 MG Nitrofurant oin Monohyd Macro 100 [...] 1{capsu le} QD Vitamin E 400 UNIT Vital Signs Vital Name Observation Time Observation Value Comments S ource height 2023-03-18 13:30:00 66 [in_i] Commo n [facility] weight 2023-03-18 13:30:00 240.6 [lb_av] Co mmon [facility] temperature 2023-03-18 13:30:00 97.8 [degF] Com mon [facility] bmi 2023-03-18 13:30:00 38.83 kg/m2 Comm on [facility] oximetry 2023-03-18 13:30:00 96 % Commo [facility] respiratory rate 2023-03-18 13:30:00 18 /min Common [facility] blood pressure systolic 2023-03-18 13:30:00 121 mm[Hg] Common [facility] blood pressure diastolic 2023-03-18 13:30:00 66 mm[Hg] Common [facility] height 2022-11-18 10:45:00 66 [in_i] Commo n [facility] weight 2022-11-18 10:45:00 231 [lb_av] Comm on [facility] temperature 2022-11-18 10:45:00 98.1 [degF] Com mon [facility] bmi 2022-11-18 10:45:00 37.28 kg/m2 Comm on [facility] oximetry 2022-11-18 10:45:00 99 % Commo n [facility] respiratory rate 2022-11-18 10:45:00 18 /min [facility] blood pressure systolic 2022-11-18 10:45:00 123 mm[Hg] Common [facility] blood pressure diastolic 2022-11-18 10:45:00 71 mm[Hg] [facility] height 2022-05-20 13:15:00 66 [in_i] Commo n [facility] weight 2022-05-20 13:15:00 205 [lb_av] Comm on [facility] temperature 2022-05-20 13:15:00 98.3 [degF] Com mon [facility] bmi 2022-05-20 13:15:00 33.08 kg/m2 Comm on [facility] oximetry 2022-05-20 13:15:00 96 % Commo n [facility] respiratory rate 2022-05-20 13:15:00 17 /min [facility] blood pressure systolic 2022-05-20 13:15:00 113 mm[Hg] Common [facility] blood pressure diastolic 2022-05-20 13:15:00 66 mm[Hg] [facility] Encounters Start Date/Time End Date/Time Encounter Type Admission Type Attending Clinicians Care Facility Care Department Encounter ID Source 2023-06-30 09:43:[address] [facility] [id number] [facility] 2023-06-28 16:58:[address] [facility] [id number] [facility] 2023-03-15 14:56:01 Outpatient Domo GORDON [facility] [id number] [facility] 2023-02-08 15:36:00 Outpatient Domo GORDON [facility] [id number] [facility] 2023-01-05 07:00:00 Inpatient Trevor Benavides [facility] CARD [id number] [facility] 2022-11-23 08:14:01 Outpatient Domo GORDON [facility] [id number] [facility] 2022-11-16 10:39:02 Outpatient Domo GORDON [facility] [id number] [facility] 2022-05-14 14:33:02 Outpatient Domo Gordon [facility] 15 [facility] 2021-08-06 08:57:04 Outpatient Domo Gordon [facility] 2021-06-25 14:20:34 Outpatient Domo Gordon [facility] [id number] [facility] 2021-06-25 14:18:31 Outpatient Domo Gordon [facility] [id number] [facility] 2023-03-18 00:00:00 2023-03-18 00:00:00 OFFICE VISIT ESTAB PT LEVEL 3 [facility] [id number] [facility] 2022-11-23 00:00:00 2022-11-23 00:00:00 (TEL) [facility]LMLC [facility] [id number] [facility] 2022-11-18 00:00:00 2022-11-18 00:00:00 OFFICE VISIT ESTAB PT LEVEL 3 [facility] [id number] [facility] 2022-05-20 00:00:00 2022-05-20 00:00:00 OFFICE VISIT EST PT LEVEL [address] [facility] [id number] [facility] 2021-05-02 00:00:00 2021-05-02 00:00:00 [facility] [id number] [facility]
[2023-09-06] MEDS ORDERED: ASPIRIN 81 MG CHEWABLE TABLET ONE (07:57)
[2023-09-06 08:11] LABS: Absolute Eosinophils 0.1 K/uL (0-0.5); Absolute Neutrophil 5.5 K/uL (1.8-8.0); Basophils % 0.6 % (0-1.3); Hematocrit 42.9 % (39.6-49.0); Lymphocytes % 23.4 % (15.3-44.8); MCH 30.8 pg (27.0-35.0); MCHC 32.6 g/dL (32.0-36.0); MCV 94.4 fL (80-100); MPV 8.5 fL (7.6-11.3); Monocytes % 11.4 % (3.3-12.3); Neutrophils % 63.6 % (41.7-73.7); Platelets 293 thou/uL (152-406); RBC Red Blood Cell Count 4.55 M/uL (4.33-5.43); Red Cell Distribution Width 14.5 % (12.1-15.2)
[2023-09-06 08:12] LABS: PT Prothrombin Time 14.5 SECONDS (9.5-12.5); Protime INR 1.33
[2023-09-06 08:29] LABS: Albumin 3.5 g/dL (3.4-5.0); Albumin/Globulin Ratio 1.1 (1.1-1.8); Anion Gap 10.6 mEq/L (5.0-15.0); Bilirubin Direct 0.1 mg/dL (0-0.2); Bilirubin Indirect, Calculated 0.5 mg/dL (0.2-0.8); Bilirubin Total 0.6 mg/dL (0.2-1.0); Globulin 3.2 g/dL (2.3-3.5); Magnesium 1.7 mg/dL (1.6-2.4); Potassium 3.6 mEq/L (3.5-5.1); Protein, Total 6.7 g/dL (6.4-8.2); Troponin High Sensitivity 23.2 pg/mL (<58.9)
--- NOTE | 2023-09-06 08:45 | RAD REPORT ---
EXAM DESCRIPTION: NANETTEChest Single View09/06/2023 8:28 am CLINICAL HISTORY: CHEST PAIN COMPARISON: Chest Single View dated 05/13/2023; Chest Single View dated 03/15/2023; Chest Single Vie w dated 01/06/2023; Chest Single View dated 07/10/2022 TECHNIQUE: Portable AP view of the chest. FINDINGS: The lungs are clear. No pneumothorax or effusion. Stable cardiomegaly. Mediastinal contou rs are unremarkable. IMPRESSION: No acute cardiopulmonary process.
--- NOTE | 2023-09-06 08:52 | EDPHYS ---
Physician Documentation [facility] Name: Sinan Swift Age: 67 yrs Sex: Male : 1955 Arrival Date: 09/06/2023 Time: 07:38 Bed 6 Private MD: ED Physician Win Kay HPI: 09/05 07:46 This 67 yrs old Male presents to ER via Unassigned with complaints of palpitations. ms3 07:46 67-year-old male with past medical history of atrial fibrillation, pulmonary embolism ms3 presents to the emergency department via [facility] for palpitations. Patient states he awoke this morning and was sweaty and noticed his heart rate to be in the 80s. Patient states his heart rate then increased to the 90s then to 118. Patient denies chest pain. Patient states when his heart rate increased to 118 he developed nausea. Patient denies any alleviating or inciting factors.. Historical: - Allergies: 07:51 Fish Containing Products; kc6 - PMHx: 07:51 a flutter; Bladder Diverticulum; Hypertensive disorder; MA; Prostate; Pulmonary kc6 Embolism; - PSHx: 07:51 cataract; Stented artery; kc6 - Immunization history:: Adult Immunizations up to date. - Infectious Disease History:: Denies. - Social history:: Smoking status: Patient denies any tobacco usage or history of. ROS: 07:46 Constitutional: Negative for fever, and chills. Neck: Negative for injury, pain, and ms3 swelling, Respiratory: Negative for shortness of breath, cough, wheezing, and pleuritic chest pain, MS/Extremity: Negative for injury and deformity, Skin: Negative for injury, rash, and discoloration, 07:46 Cardiovascular: Positive for palpitations, 07:46 Abdomen/GI: Positive for nausea, 07:46 All other systems are negative, Exam: 07:46 Constitutional: This is a well developed, well nourished patient who is awake, alert, ms3 and in no acute distress. Head/Face: Normocephalic, atraumatic. Neck: Trachea midline, no cervical lymphadenopathy. Supple, full range of motion without nuchal rigidity, or vertebral point tenderness. No Meningismus. Chest/axilla: Normal chest wall appearance and motion. Nontender with no deformity. Cardiovascular: Regular rate and rhythm with a normal S1 and S2. No gallops, murmurs, or rubs. Normal PMI, no JVD. No pulse deficits. Respiratory: Lungs have equal breath sounds bilaterally, clear to auscultation and percussion. No rales, rhonchi or wheezes noted. No increased work of breathing, no retractions or nasal flaring. Abdomen/GI: Soft, non-tender, with normal bowel sounds. No distension or tympany. No guarding or rebound. No evidence of tenderness throughout. Skin: Warm, dry with normal turgor. Normal color with no rashes, no lesions, and no evidence of cellulitis. MS/ Extremity: Pulses equal, no cyanosis. Neurovascular intact. Full, normal range of motion. 08:34 ECG was reviewed by the Attending Physician. ms3 Vital Signs: 07:59 BP 108 / 59; Pulse 67; Resp 18 S; Pulse Ox 98% on R/A; Weight 102.97 kg (R); Height 5 kc6 ft. 9 in. (R); 08:10 BP 99 / 54; Pulse 62; Resp 17 S; Pulse Ox 98% on R/A; kc6 08:40 BP 100 / 58; Pulse 53; Resp 15; Pulse Ox 99% ; ko1 10:23 BP 125 / 77; Pulse 53; Resp 16 S; Pulse Ox 99% on R/A; kc6 11:57 Pulse 48; Resp 15 S; Pulse Ox 99% on R/A; kc6 07:59 Body Mass Index 33.52 (102.97 kg, 175.26 cm) kc6 MDM: 07:40 Patient medically screened. ms3 07:46 Differential diagnosis: arrythmia, dehydration, Atrial Fibrillation. ms3 09:54 Data reviewed: vital signs, nurses notes, lab test result(s), EKG, radiologic studies, ms3 and as a result, I will discharge patient. Consideration of Admission/Observation Patient was admitted/placed on observation. Management of patient was discussed with the following: Hospitalist: Dr Martin. Independent interpretation of the following test(s) in the Emergency Department EKG: See my EKG interpretation above X-Ray: My interpretation is CXR image reviewed by me does not show PNA or pulmonary edema. Counseling: I had a detailed discussion with the patient and/or guardian regarding the historical points, exam findings, and any diagnostic results supporting the discharge/admit diagnosis, lab results, radiology results, the need for further work-up and treatment in the hospital. ED course: Discussed necessity for admission with patient. All questions answered. Patient remains in stable condition in the ED. 09/05 07:44 Order name: Basic Metabolic Panel; Complete Time: 08:33 ms3 09/05 07:44 Order name: CBC with Diff; Complete Time: 08:33 ms3 09/05 07:44 Order name: LFT's; Complete Time: 08:33 ms3 09/05 07:44 Order name: Magnesium; Complete Time: 08:33 ms3 09/05 07:44 Order name: NT PRO-BNP; Complete Time: 08:33 ms3 09/05 07:44 Order name: PT-INR; Complete Time: 08:33 ms3 09/05 07:44 Order name: Troponin HS; Complete Time: 08:33 ms3 09/05 08:57 Order name: Urinalysis w/ reflexes ms3 09/05 09:23 Order name: T4 Free EDMS 09/05 09:23 Order name: Thyroid Stimulating Hormone EDMS 09/05 09:23 Order name: Basic Metabolic Panel EDMS 09/05 09:23 Order name: Basic Metabolic Panel EDMS 09/05 09:23 Order name: CBC with Automated Diff EDMS 09/05 09:23 Order name: CBC with Automated Diff EDMS 09/05 09:23 Order name: Lipid Profile EDMS 09/05 09:23 Order name: Lipid Profile EDMS 09/05 09:23 Order name: Magnesium EDMS 09/05 09:23 Order name: Magnesium EDMS 09/05 09:23 Order name: Phosphorus EDMS 09/05 09:23 Order name: Phosphorus EDMS / 09:23 Order name: Troponin High Sensitivity EDMS 09/05 09:23 Order name: Troponin High Sensitivity EDMS 09/05 09:23 Order name: Troponin High Sensitivity EDMS 09/05 07:44 Order name: XRAY Chest (1 view); Complete Time: 08:46 ms3 09/05 09:23 Order name: Echo with Doppler EDMS 09/05 09:29 Order name: Rest Stress Cardiac Imaging EDMS 09/05 09:23 Order name: CONS Physician Consult EDMS 09/05 07:44 Order name: Cardiac monitoring; Complete Time: 07:53 ms3 09/05 07:44 Order name: EKG - Nurse/Tech; Complete Time: 07:53 ms3 09/05 07:44 Order name: IV Saline Lock; Complete Time: 07:53 ms3 09/05 07:44 Order name: Labs collected and sent; Complete Time: 07:53 ms3 09/05 07:44 Order name: O2 Per Protocol; Complete Time: 07:53 ms3 09/05 07:44 Order name: O2 Sat Monitoring; Complete Time: 07:53 ms3 EC:34 Rate is 64 beats/min. Rhythm is regular. QRS Martin is Normal. MO interval is normal. QRS ms3 interval is normal. QT interval is normal. Clinical impression: NSR w/ Non-specific ST/T Changes. Interpreted by me. Reviewed by me. Administered Medications: 07:59 Drug: Aspirin PO Chewable Tablet 324 mg PO once; 81 mg tablets x 4 Route: PO; kc6 09:15 Follow up: Response: No adverse reaction kc6 Disposition Summary: 09/06/23 08:51 Hospitalization Ordered Notes: Hospitalization Status: Inpatient Admission ms3 Provider: Jb Martin ms3 Condition: Stable ms3 Problem: new ms3 Symptoms: are unchanged ms3 Bed/Room Type: Standard ms3 Location: Intensive Care Unit(09/06/23 15:25) Room Assignment: 6-(09/06/23 15:25) Diagnosis - Ventricular tachycardia ms3 - Palpitations ms3 Forms: - Medication Reconciliation Form ms3 - SBAR form ms3 - Leadership Thank You Letter ms3 Signatures: Dispatcher [employer] EDMS Tianna Koroma Marcus, DO DO ms3 Ya Mendes RN RN kc6 Corrections: (The following items were deleted from the chart) 07:45 07:45 BASIC METABOLIC PANEL+C.LAB.BRZ ordered. EDMS EDMS 07:45 07:45 CBC+H.LAB.BRZ ordered. EDMS EDMS 07:45 07:45 HEPATIC FUNCTION+C.LAB.BRZ ordered. EDMS EDMS 07:45 07:45 MAGNESIUM+C.LAB.BRZ ordered. EDMS EDMS 07:45 07:45 PROBNP+C.LAB.BRZ ordered. EDMS EDMS 07:45 07:45 PROTIME (+INR)+COAG.LAB.BRZ ordered. EDMS EDMS 07:45 07:45 Troponin High Sensitivity+C.LAB.BRZ ordered. EDMS EDMS 07:45 07:45 Chest Single View+RAD.RAD.BRZ ordered. EDMS EDMS 14:47 08:51 Telemetry/MedSurg (Inpatient) ms3 bd 14:47 08:51 ms3 bd 15:25 14:47 [facility] ER HOLD bd bd 15:25 14:47 ERHOLD- bd bd
--- NOTE | 2023-09-06 08:52 | ER ---
Nurse's Notes [facility] Name: Sinan Swift Age: 67 yrs Sex: Male : 1955 Arrival Date: 09/06/2023 Time: 07:38 Bed 6 Private MD: Diagnosis: Ventricular tachycardia;Palpitations Presentation: 09/05 07:50 Chief complaint: Patient states: he woke up this morning sweaty, with some chest kc6 "tightness". states he checked his HR and it was 110bpm, took his usual dose of metoprolol. Coronavirus screen: At this time, the client does not indicate any symptoms associated with coronavirus-19. Ebola Screen: No symptoms or risks identified at this time. Initial Sepsis Screen: Does the patient meet any 2 criteria? No. Patient's initial sepsis screen is negative. Does the patient have a suspected source of infection? No. Patient's initial sepsis screen is negative. Risk Assessment: Do you want to hurt yourself or someone else? Patient reports no desire to harm self or others. Onset of symptoms was September 06, 2023. 07:50 Method Of Arrival: EMS: [facility] 6 07:50 Acuity: SUSANNE 3 kc6 Triage Assessment: 07:51 General: Appears in no apparent distress. comfortable, well groomed, well developed, kc6 Behavior is calm, cooperative, appropriate for age. Pain: Complains of pain in chest. EENT: No signs and/or symptoms were reported regarding the EENT system. Neuro: Level of Consciousness is awake, alert, obeys commands, Oriented to person, place, time, situation, Appropriate for age. Cardiovascular: Reports chest pain, Heart tones S1 S2 present Capillary refill < 3 seconds Rhythm is sinus rhythm. Respiratory: Airway is patent Trachea midline Respiratory effort is even, unlabored, Respiratory pattern is regular, symmetrical. GI: Abdomen is round non-distended, Reports nausea, Patient currently denies abdominal pain, diarrhea, vomiting. : No signs and/or symptoms were reported regarding the genitourinary system. Derm: No signs and/or symptoms reported regarding the dermatologic system. Skin is intact, is healthy with good turgor, Skin is pink, warm \\T\\ dry. Musculoskeletal: No signs and/or symptoms reported regarding the musculoskeletal system. Circulation, motion, and sensation intact. Capillary refill < 3 seconds, Range of motion: intact in all extremities. Historical: - Allergies: 07:51 Fish Containing Products; kc6 - PMHx: 07:51 a flutter; Bladder Diverticulum; Hypertensive disorder; KS; Prostate; Pulmonary kc6 Embolism; - PSHx: 07:51 cataract; Stented artery; kc6 - Immunization history:: Adult Immunizations up to date. - Infectious Disease History:: Denies. - Social history:: Smoking status: Patient denies any tobacco usage or history of. Screenin:52 [facility] ED Fall Risk Assessment (Adult) History of falling in the last 3 months, kc6 including since admission No falls in past 3 months (0 pts) Confusion or Disorientation No (0 pts) Intoxicated or Sedated No (0 pts) Impaired Gait No (0 pts) Mobility Assist Device Used No (0 pt) Altered Elimination No (0 pt) Score/Fall Risk Level 0 - 2 = Low Risk. Abuse screen: Denies threats or abuse. Denies injuries from another. Nutritional screening: No deficits noted. Tuberculosis screening: No symptoms or risk factors identified. Assessment: 07:52 Reassessment: please see triage. kc6 08:52 Reassessment: Patient appears in no apparent distress at this time. No changes from kc6 previously documented assessment. Patient and/or family updated on plan of care and expected duration. Pain level reassessed. Patient is alert, oriented x 3, equal unlabored respirations, skin warm/dry/pink. 09:52 Reassessment: Patient appears in no apparent distress at this time. No changes from kc6 previously documented assessment. Patient and/or family updated on plan of care and expected duration. Pain level reassessed. Patient is alert, oriented x 3, equal unlabored respirations, skin warm/dry/pink. 10:52 Reassessment: Patient appears in no apparent distress at this time. No changes from kc6 previously documented assessment. Patient and/or family updated on plan of care and expected duration. Pain level reassessed. Patient is alert, oriented x 3, equal unlabored respirations, skin warm/dry/pink. 11:52 Reassessment: Patient appears in no apparent distress at this time. No changes from kc6 previously documented assessment. Patient and/or family updated on plan of care and expected duration. Pain level reassessed. Patient is alert, oriented x 3, equal unlabored respirations, skin warm/dry/pink. 12:43 Pain: Pain does not radiate. Pain began. ko1 Vital Signs: 07:59 BP 108 / 59; Pulse 67; Resp 18 S; Pulse Ox 98% on R/A; Weight 102.97 kg (R); Height 5 kc6 ft. 9 in. (R); 08:10 BP 99 / 54; Pulse 62; Resp 17 S; Pulse Ox 98% on R/A; kc6 08:40 BP 100 / 58; Pulse 53; Resp 15; Pulse Ox 99% ; ko1 10:23 BP 125 / 77; Pulse 53; Resp 16 S; Pulse Ox 99% on R/A; kc6 11:57 Pulse 48; Resp 15 S; Pulse Ox 99% on R/A; kc6 07:59 Body Mass Index 33.52 (102.97 kg, 175.26 cm) kc6 ED Course: 07:39 Patient arrived in ED. kc6 07:40 Win Kay DO is Attending Physician. ms3 07:49 Ya Mendes, SALINA is Primary Nurse. kc6 07:49 Maintain EMS IV. Dressing intact. Good blood return noted. Site clean \\T\\ dry. Gauge \\T\\ jesús 6 site: 20G RHAND. O2 via RA. 07:51 Triage completed. kc6 07:51 Arm band placed on. kc6 07:52 Patient has correct armband on for positive identification. Placed in gown. Bed in low kc6 position. Call light in reach. Side rails up X2. Client placed on continuous cardiac and pulse oximetry monitoring. NIBP monitoring applied. child nutrition assistant on. 08:29 XRAY Chest (1 view) In Process Unspecified. EDMS 08:51 Jb Martin is Hospitalizing Provider. ms3 09:15 Straight cath inserted, using sterile technique, 14 Fr. Specimen obtained. Returned kc6 clear yellow urine. Patient tolerated well. 11:58 No provider procedures requiring assistance completed. Patient admitted, IV remains in kc6 place. 12:42 Provided Education on: admit. ko1 Administered Medications: 07:59 Drug: Aspirin PO Chewable Tablet 324 mg PO once; 81 mg tablets x 4 Route: PO; kc6 09:15 Follow up: Response: No adverse reaction kc6 Medication: 11:58 VIS not applicable for this client. kc6 Outcome: 08:51 Decision to Hospitalize by Provider. ms3 11:58 Admitted to ER Hold. Please see [facility] for further documentation. kc6 11:58 Condition: good 11:58 Instructed on the need for admit, 16:02 Patient left the ED. kc6 Signatures: Dispatcher [employer] EDMS Win Kay DO DO ms3 Ya Mendes RN RN kc6 Beti Bucio RN RN ko1
[2023-09-06] MEDS ORDERED: MORPHINE 4 MG/ML SYR IV PRN (09:13)
[2023-09-06] MEDS ORDERED: NITROGLYCERIN 0.4 MG/TAB SL PRN (09:13)
--- NOTE | 2023-09-06 09:31 | P.HP ---
Certification for Inpatient Patient admitted to: Inpatient With expected LOS: <2 Midnights Patient will require the following post-hospital care: None Practitioner: I am a practitioner with admitting privileges, knowledge of patient current condition, hospital course, and medical plan of care. Services: Services provided to patient in accordance with Admission requirements found in Title 42 Section 412.3 of the Code of Federal Regulations Patient History Date of Service: 09/06/23 Reason for admission: Heart palpitations r/o SVT History of Present Illness: Sinan Swift is a 67 year old male with Pmhx of TCO LAD with stent, HTN, Afib, BPH, and bladder diverticulum who presents to the ER with chief complaint of heart palpitations. He tracks his BP, HR, and oxygen level regularly. He noticed his HR started to rise From 55 to 88 and quickly went to 118 while at rest and started sweating and became nauseous. His normal HR is in the 50s. He explained having a TCO to the LAD without chest pain, he thought the same thing was happening since he didn't have chest pain. On evaluation, he was not distressed, conversing well without SOB, no diaphoresis, and Vital signs stable. Initial vitals BP 108 / 59; Pulse 67; Resp 18 S; Pulse Ox 98% on R/A Lab evaluation mostly unremarkable BNP 837 and serum glucose 161. Chest Xray reports "The lungs are clear. No pneumothorax or effusion. Stable cardiomegaly. Mediastinal contours are unremarkable." Sinan will be admitted to ICU and hospitalist service for further evaluation and treatment with Dr. Grimm consulted. 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 - Family History Father -: Heart disease - Social History Alcohol use: No CD- Drugs: No Caffeine use: Yes Review of Systems Cardiovascular: Palpitations Physical Examination - Physical Exam General: Alert, In no apparent distress, Oriented x3 HEENT: Atraumatic, Normocephalic, PERRLA Neck: Supple, JVD not distended Respiratory: Clear to auscultation bilaterally, Normal air movement Cardiovascular: No edema, Normal pulses, Regular rate/rhythm, Normal S1 S2 Capillary refill: <2 Seconds Gastrointestinal: Normal bowel sounds, Soft and benign, Distended (Obese) Musculoskeletal: No clubbing Integumentary: No rashes Neurological: Normal speech, Normal tone - Studies Laboratory Data (last 24 hrs) 09/06/23 09/06/23 09/06/23 07:48 07:48 07:48 WBC 8.70 Hgb 14.0 Hct 42.9 Plt Count 293 PT 14.5 H INR 1.33 Sodium 138 Potassium 3.6 BUN 21 H Creatinine 1.19 Glucose 161 H Magnesium 1.7 Total Bilirubin 0.6 AST 13 L ALT 35 Alkaline Phosphatase 64 Assessment and Plan - Plan Assessment and plan Heart palpitaions V. tach while in the ED Diaphoretic Hx TCO of the LAD with stent HFrEF Admit to ICU for continuous observation Dr. Grimm Consulted Sotalol and Lipitor started NM stress test neg ECHO EF 39%, Mild mitral and tricuspid regurgitaion TSh/T4, lipid panel pending Diabetes Mellitus- NIDDM Hyperglycemia Serum glucose 161 A1C in the AM History hypertension Hx Atrial fibrillation Hx BPH Hx Bladder diverticulum Continue home medication Follow up outpatient DVT PPx Eliquis Full code LOS 2 days Discharge Plan: Home Plan to discharge in: 24 Hours - Advance Directives Does patient have a Living Will: No Does patient have a Durable POA for Healthcare: No
[2023-09-06] MEDS ORDERED: METOPROLOL TAR 50 MG TAB PO SCH ×2 (10:00)
[2023-09-06 10:11] LABS: Specific Gravity 1.022 (1.005-1.030); Sqamous Epithelial <5 /HPF (None Seen); Urine Bacteria <20 /HPF (<20); Urine Bilirubin NEGATIVE (Negative); Urine Blood 1+ (Negative); Urine Clarity Turbid (Clear); Urine Color Light-Yellow (Yellow); Urine Culture Reflex Order REFLEXED; Urine Glucose NEGATIVE (Negative); Urine Ketones NEGATIVE (Negative); Urine Microscopic Reflex YN ORDER UMIC; Urine Mucus Slight /HPF (None Seen); Urine Nitrite NEGATIVE (Negative); Urine Protein TRACE (Negative); Urine Urobilinogen Normal (Normal); Urine WBC >50 /HPF (<5); Urine pH 5.5 (5.0-7.0)
[2023-09-06] MEDS ORDERED: REGADENOSON 0.4 MG/5 ML SYR IV ONE (10:47)
[2023-09-06 11:51] LABS: Thyroid Stimulating Hormone 1.96 uIU/mL (0.358-3.740)
--- NOTE | 2023-09-06 12:32 | RAD REPORT ---
EXAM DESCRIPTION: NM - Rest Stress Cardiac Imaging - 09/06/2023 11:30 am CLINICAL HISTORY: Vtach and diaphoretic, hx SC with Stent COMPARISON: Chest Single View dated 09/06/2023 TECHNIQUE: The patient was administered approximately 10.1 mCi of Tc 99m Sestamibi prior to resting SPECT imaging of the heart. The patient was then administered approximately 29.7 mCi of Tc 99m Sestam ibi following exercise or pharmacologic stress. Multiplanar SPECT images were reviewed. FINDINGS: No stress induced ischemic defect is seen to suggest stress induced ischemia. Markedly dil ated left ventricular chamber both on stress and rest images. Large areas of fixed defect throughout the left ventricular wall, including the apex, septum, anterior, lateral, and inferior urbano, sparing regions of the basal segments of the septum, anterior, and lateral urbano. The end diastolic volume is 440 ml, the end systolic volume is 380 ml, and the ejection fraction is 1 4 %. IMPRESSION: No evidence of stress induced ischemia. Enlarged left ventricle, with large regions of fixed defect throughout the myocardium, sparing areas of the basal segments of the septum, anterior, and lateral urbano, concerning for sequelae of infarct. Reduced left ventricular ejection fraction, 14%.
[2023-09-06 12:47] VITALS: BMI 33.5
--- NOTE | 2023-09-06 14:01 | ECHO ---
HEIGHT: 5 ft 9 in WEIGHT: 227 lb 0 oz DATE OF STUDY: 09/06/[address]: Chloé Harris NP 2-DIMENSIONAL: YES M.MODE: YES DOPPLER: YES COLOR FLOW: YES TDS: PORTABLE: YES DEFINITY: BUBBLE STUDY: DIAGNOSIS: CHEST PAIN CARDIAC HISTORY: CATHERIZATION: SURGERY: PROSTHETIC VALVE: PACEMAKER: MEASUREMENTS (cm) DIASTOLIC (NORMALS) SYSTOLIC (NORMALS) IVSd 1.2 (0.6-1.2) LA Diam 3.9 (1.9-4.0) LVEF 39% LVIDd 637 (3.5-5.7) LVIDs 5.4 (2.0-3.5) %FS 19% LVPWd 1.3 (0.6-1.2) Ao Diam 3.4 (2.0-3.7) 2 DIMENSIONAL ASSESSMENT: RIGHT ATRIUM: NORMAL LEFT ATRIUM: NORMAL RIGHT VENTRICLE: NORMAL LEFT VENTRICLE: DEPRESSED EJECTION FRACTION TRICUSPID VALVE: MILD TRICUSPID REGURGITATION MITRAL VALVE: MILD MITRAL REGURGITATION PULMONIC VALVE: NORMAL AORTIC VALVE: NORMAL PERICARDIAL EFFUSION: NONE AORTIC ROOT: NORMAL LEFT VENTRICULAR WALL MOTION: APICAL/ DISTAL ANTEROSEPTAL DYSKINESIS DOPPLER/COLOR FLOW: SEE BELOW COMMENTS: 1. MODERATELY DEPRESSED LEFT VENTRICULAR EJECTION FRACTINO 35-40% WITH APICAL DYSKINESIS 2. MILD MITRAL REGURGITATION 3. MILD TRICUSPID REGURGITATION TECHNOLOGIST: JERED BRASWELL
--- NOTE | 2023-09-06 14:12 | TREADPHA ---
DX: VENTRICULAR TACHYCARDIA AND DIAPHORETIC Date of Study: 09/06/2023 Ht: 5' 9 " Wt: 227 lb 0 oz Consulting Physician: YOGI MEDICATIONS: ASPIRIN, LOPRESSOR, MORPHINE, NITROSTAT HISTORY: 67 YEAR OLD MALE WITH COMPLAINTS OF ELEVATED HEART RATE. HISTORY OF CORONARY ARTERY DISEASE, HYPERTENSION, HYPERLIPIDEMIA, SHORNESS OF BREATH. PATIENT DENIES ALLERGIES. PHYSICIAL EXAMINATION: RESTING B.P.: 115/67 RESTING H.R.: 55 RESTING EKG: SINUS RHYTHM PROTOCOL: PHARMACOLOGIC EXERCISE TIME: 3:30 B.P. AT PEAK STRESS: 104/62 IMPRESSION: LEXISCAN INJECTED. CARDIOLITE INJECTED - SEE NUCLEAR MEDICINE REPORT. NO SUPRAVENTRICULAR TACHCYARDIA, VENTRICULAR TACHYCARDIA, PREMATURE ATRIAL COMPLEXES, PREMATURE VENTRICULAR COMPLEXES NOTED. PATIENT DENIES CHEST PAIN. NO ELECTROCARDIOGRAM CHANGES OF ISCHEMIA WITH LEXISCAN.
[2023-09-06] MEDS ORDERED: MORPHINE 2 MG/ML SYR IV PRN (15:01)
[2023-09-06] MEDS: SOTALOL HCL 80 MG TAB PO SCH (17:24)
--- NOTE | 2023-09-06 20:23 | CON ---
Date of Consultation: 09/06/2023 Reason For Consultation: Short run of ventricular tachycardia. History Of Present Illness: This is a 67-year-old male, history of coronary artery disease, CHF due to acute NH in the past, diabetes, hypertension, presented with fast heart rate and feeling generally weak, found to have ventricular tachycardia in and out, slow ventricular tachycardia, then converted to sinus rhythm, has been doing well since. Has no chest pain or shortness of breath. Past Medical History: As outlined above in the HPI. Medications: Refer reconciliation sheet for detailed list. Allergies: NO KNOWN DRUG ALLERGIES. Family History: No premature coronary artery disease or cancer. Social History: Does not smoke or drink. Does not use any drugs. Review of Systems: All systems reviewed and they were negative except as mentioned in HPI. Physical Examination: Vital Signs: Reviewed. Head and Neck: Pupils are equal, reactive to light. Intact eye movements. No JVD. No cervical lym phadenopathy. Neck is supple. Thyroid is not enlarged. Lungs: Clear to auscultation bilaterally. No rhonchi, rales, or crackles. No accessory muscle use. Heart: Regular rate and rhythm. No extra sounds. Abdomen: Soft, nontender. Bowel sounds positive. No organomegaly. No masses or hernia. No rigidi ty or rebound. Extremities: No edema, clubbing, or cyanosis. Neurologic: Alert, awake, oriented x3. No acute focal deficits appreciated. Lymph Nodes: No cervical or axillary lymphadenopathy. Investigations: Troponins are negative. BUN 21, creatinine 1.1, and hemoglobin is 14. Assessment/recommendation: 1.Ventricular tachycardia, monomorphic. This is probably due to a scar. The patient has a large sc ar in the heart after the heart attack. Start him on sotalol 80 mg twice a day instead of the metopr olol and monitor EKG after the third dose to look for QTc interval. 2.Coronary artery disease. No chest pain. Continue home medications. 3.Dyslipidemia. Continue statin. 4.CHF, systolic heart failure. His heart function is between 35% to 40%. If sotalol does not slow down his ventricular tachycardia, then we will plan for an ICD implantation. SR/MODL Voice ID: [id number] Report ID: [id number]
[2023-09-06] MEDS ORDERED: TAMSULOSIN 0.4 MG SR CAP ONE (20:34)
[2023-09-06] MEDS: ATORVASTATIN 40 MG TAB PO SCH (20:48)
[2023-09-06] MEDS: APIXABAN 5 MG TABLET PO SCH (20:48)
[2023-09-06] MEDS: TAMSULOSIN 0.4 MG SR CAP PO SCH (20:48)
[2023-09-07 05:02] LABS: Absolute Eosinophils 0.1 K/uL (0-0.5); Absolute Lymphocytes (CBC) 2.5 K/uL (0.7-4.9); Absolute Monocytes 1.1 K/uL (0.1-1.3); Absolute Neutrophil 6.3 K/uL (1.8-8.0); Basophils % 0.4 % (0-1.3); Eosinophils % 1.3 % (0-4.4); Hematocrit 41.1 % (39.6-49.0); Hemoglobin 13.3 g/dL (13.6-17.9); Lymphocytes % 24.7 % (15.3-44.8); MCH 30.5 pg (27.0-35.0); MCHC 32.4 g/dL (32.0-36.0); MCV 94.2 fL (80-100); MPV 8.6 fL (7.6-11.3); Neutrophils % 62.6 % (41.7-73.7); Nucleated Red Blood Cells % 0.1 % (0-0); Platelets 271 thou/uL (152-406); RBC Red Blood Cell Count 4.37 M/uL (4.33-5.43); Red Cell Distribution Width 14.4 % (12.1-15.2)
[2023-09-07 05:17] LABS: Anion Gap 6.9 mEq/L (5.0-15.0); Magnesium 1.9 mg/dL (1.6-2.4); Phosphorus 2.8 mg/dL (2.5-4.9); Potassium 3.9 mEq/L (3.5-5.1)
[2023-09-07] MEDS ORDERED: ASPIRIN EC 81 MG TAB PO SCH ×2 (09:00)
[2023-09-07] MEDS: SPIRONOLACTONE 25 MG TABLET PO SCH ×2 (09:00→17:26)
[2023-09-07] MEDS: TAMSULOSIN 0.4 MG SR CAP PO SCH ×2 (09:00→18:00)
[2023-09-07] MEDS ORDERED: ASPIRIN 81 MG CHEWABLE TABLET ONE (09:03)
[2023-09-07] MEDS: POTASSIUM CL SA 10 MEQ TAB PO ONE (09:08)
[2023-09-07] MEDS ORDERED: ASPIRIN EC 81 MG TAB PO ONE (09:09)
[2023-09-07] MEDS: ASPIRIN EC 81 MG TAB PO SCH (09:11)
--- NOTE | 2023-09-07 12:28 | P.PN ---
Date of Service: 09/07/23 Subjective: Blood pressure low throughout the night, denies any specific complaint Reports baseline heart rate in the 50s and blood pressure around 95 systolic ROS: 10 point ROS as noted above, otherwise negative Physical exam GEN: Alert, oriented, NAD HEENT: Normal conjunctiva, sclera anicteric CV: A-fib, rate controlled, no edema Pulm: Nonlabored respirations on room air ABD: Soft, nontender, nondistended MSK: No joint tenderness Integumentary: No rashes Neuro: Normal speech, normal affect Vitals reviewed Assessment Monomorphic ventricular tachycardia Atrial fibrillation on chronic anticoagulation History of CAD Chronic systolic congestive heart failure Diabetes mellitus type [id number] BPH/History of bladder diverticulum Plan Monomorphic ventricular tachycardia Atrial fibrillation on chronic anticoagulation History of CAD Chronic systolic congestive heart failure Monitor on tele, no further episodes of VTACH ECHO EF 39%, Mild mitral and tricuspid regurgitaion Nuclear med stress test negative Cardiology started sotalol 80 mg p.o. twice daily Blood pressure soft overnight with systolic in the 70s to 80s Patient reports baseline blood pressures around 95 systolic, baseline heart rate in the 50s Discuss further with cardiology Diabetes mellitus type [id number] ACHS Accu-Chek, sliding scale insulin BPH/History of bladder diverticulum Patient performs self catheterizations at home-continue inpatient Not having any difficulties with self cath DVT PPx Eliquis Full code LOS 2 days Time Spent Managing Pts Care (In Minutes): 35 <Christiano Gonzalez - Last Filed: 09/07/23 12:23> Patient seen and examined on rounds this morning with GARMENT FORM ASSEMBLER Lisa. I performed a substantial part of the MDM during this patient's care today as noted above in the plan of care. I agree with plan of care as noted above with the following additions / corrections: hypotensive and bradycardic overnight. received sotalol yesterday asymptomatic while at rest overnight denies any nausea, no dizziness/lightheadedness states his BP usually runs on low side ~100-110/60s, HR: ~50s-60 hold AM sotalol dose, will discuss with cardio, likely lower dose of sotalol later today and monitor <Rodney Roach - Last Filed: 09/07/23 17:45>
--- NOTE | 2023-09-07 16:20 | EKG ---
Test Date: 2023-09-06 Test Time: 07:42:30 Eye Glass Frame Polisher: ESTEBAN MEASUREMENT RESULTS: Intervals: Rate: 64 AR: 164 QRSD: 122 QT: 420 QTc: 433 Frohna: P: 15 AR: 164 QRS: -9 T: 92 INTERPRETIVE STATEMENTS: Normal sinus rhythm with sinus arrhythmia Cannot rule out Inferior infarct, age undetermined Anterolateral infarct, age undetermined Abnormal ECG Compared to ECG 05/13/2023 21:05:09 Fusion complex(es) no longer present Myocardial infarct finding still present Electronically Signed On 09-07-23 16:15:50 CDT by Trevor Grimm
[2023-09-07] MEDS: SOTALOL HCL 80 MG TAB PO SCH (17:25)
[2023-09-07] MEDS ORDERED: SOTALOL HCL 80 MG TAB PO SCH (18:00)
[2023-09-07 19:31] VITALS: O2SAT 98
[2023-09-07] MEDS ORDERED: TAMSULOSIN 0.4 MG SR CAP ONE (20:23)
[2023-09-08 05:20] LABS: Hematocrit 45.3 % (39.6-49.0); Hemoglobin 15.2 g/dL (13.6-17.9); MCH 31.4 pg (27.0-35.0); MCHC 33.5 g/dL (32.0-36.0); MCV 93.8 fL (80-100); MPV 8.5 fL (7.6-11.3); Platelets 282 thou/uL (152-406); RBC Red Blood Cell Count 4.83 M/uL (4.33-5.43); Red Cell Distribution Width 14.2 % (12.1-15.2)
[2023-09-08 05:41] LABS: Anion Gap 8.3 mEq/L (5.0-15.0); Magnesium 1.9 mg/dL (1.6-2.4); Potassium 4.3 mEq/L (3.5-5.1)
[2023-09-08 07:09] LABS: Specific Gravity 1.014 (1.005-1.030); Sqamous Epithelial <5 /HPF (None Seen); Transitional Epithelial <5 /HPF (None Seen); Urine Bacteria <20 /HPF (<20); Urine Bilirubin NEGATIVE (Negative); Urine Blood 3+ (Negative); Urine Clarity Extremely Turbid (Clear); Urine Color Light-Yellow (Yellow); Urine Culture Reflex Order REFLEXED; Urine Glucose NEGATIVE (Negative); Urine Ketones NEGATIVE (Negative); Urine Micro Reflex YN NO BILL MICROSCOPIC; Urine Mucus Slight /HPF (None Seen); Urine Nitrite NEGATIVE (Negative); Urine Protein TRACE (Negative); Urine RBC >50 /HPF (None Seen); Urine Urobilinogen Normal (Normal); Urine WBC >50 /HPF (<5); Urine WBC Clump Rare /HPF (None Seen); Urine pH 5.5 (5.0-7.0)
[2023-09-08] MEDS ORDERED: ASPIRIN EC 81 MG TAB PO ONE (09:50)
--- NOTE | 2023-09-08 11:33 | P.PN ---
Date of Service: 09/08/23 Subjective: Blood pressures still soft although close to baseline per patient QTC WNL yesterday ROS: 10 point ROS as noted above, otherwise negative Physical exam GEN: Alert, oriented, NAD HEENT: Normal conjunctiva, sclera anicteric CV: A-fib, rate controlled, no edema Pulm: Nonlabored respirations on room air ABD: Soft, nontender, nondistended MSK: No joint tenderness Integumentary: No rashes Neuro: Normal speech, normal affect Vitals reviewed Assessment Monomorphic ventricular tachycardia Atrial fibrillation on chronic anticoagulation History of CAD Chronic systolic congestive heart failure Diabetes mellitus type [id number] BPH/History of bladder diverticulum Plan Monomorphic ventricular tachycardia Atrial fibrillation on chronic anticoagulation History of CAD Chronic systolic congestive heart failure Monitor on tele, no further episodes of VTACH ECHO EF 39%, Mild mitral and tricuspid regurgitaion Nuclear med stress test negative Cardiology started sotalol 80 mg p.o. twice daily, decreased to 40mg for bradycardia/hypotension 09/06 Patient reports baseline blood pressures around 95 systolic, baseline heart rate in the 50s Repeat EKG today Possible DC in AM Diabetes mellitus type [id number] ACHS Accu-Chek, sliding scale insulin BPH/History of bladder diverticulum Patient performs self catheterizations at home-continue inpatient Not having any difficulties with self cath- did report some blood in urine overnight, UA sent Urine culture performed on admission shows mixed josephine DVT PPx Eliquis Full code LOS 1-2 days Time Spent Managing Pts Care (In Minutes): 35
--- NOTE | 2023-09-08 12:35 | EKG ---
Test Date: 2023-09-07 Test Time: 16:31:02 Physical Therapy Coordinator: AMANDEEP MEASUREMENT RESULTS: Intervals: Rate: 53 VT: 172 QRSD: 120 QT: 496 QTc: 465 [place]m: P: 57 VT: 172 QRS: -36 T: 85 INTERPRETIVE STATEMENTS: Sinus bradycardia Left axis deviation Left ventricular hypertrophy with QRS widening Anterolateral infarct, age undetermined Abnormal ECG Compared to ECG 09/06/2023 07:42:30 Left-axis deviation now present Left ventricular hypertrophy now present Sinus rhythm no longer present Sinus arrhythmia no longer present Myocardial infarct finding still present Electronically Signed On 09-08-23 12:33:09 CDT by Trevor Grimm
[2023-09-08] MEDS: SOTALOL HCL 80 MG TAB PO ONE (13:17)
--- NOTE | 2023-09-08 21:06 | PN ---
Date of Progress Note: 09/08/2023 Subjective: Seen by bedside, doing well. Heart rate is on the low side and sotalol has not been giv en yet because of that, and he is going into no further ventricular tachycardia episodes. No chest p ain. No shortness of breath. Review of Systems: No chest pain, shortness of breath, orthopnea, cough, nausea, vomiting, diarrhea. All other systems reviewed, they are negative. Objective: Vital Signs: Reviewed. Head and Neck: Pupils are equal, reactive to light. Intact eye movements. No JVD. No cervical lym phadenopathy. Neck is supple. Thyroid is not enlarged. Lungs: Clear to auscultation bilaterally. No rhonchi, wheezing, or crackles. No accessory muscle u se. Heart: Regular rate and rhythm. No extra sounds. Abdomen: Soft, nontender. Bowel sounds positive. No organomegaly. No masses or hernia. No rigidi ty or rebound. Extremities: No clubbing, cyanosis. Intact pulses. Skin: No rash or nodule. Neurologic: Alert, awake, oriented x3. No acute focal deficits appreciated. Investigations: Labs were reviewed. BUN is 19, creatinine 1.1, and cardiac enzymes x3 are negative and hemoglobin is 15.2. Assessment/recommendation: 1.Ventricular tachycardia, monomorphic, likely due to a scar. Reduce the sotalol to 40 mg twice a d ay as he is not able to tolerate 80 mg due to low blood pressure. Monitor QTc interval to make sure to give it twice a day and after third dose, to get an EKG to evaluate QTc interval in preparation fo r discharge. 2.Coronary artery disease, status post PCI of the LAD, but already had a damage to the anterior wall . Ejection fraction in the mid 30s. Stable. No chest pain. Cardiac enzymes are negative. 3.Systolic heart failure, stable. Continue current therapy. 4.Dyslipidemia. Continue statin. SR/MODL Voice ID: [id number] Report ID: [id number]
[2023-09-09 07:31] LABS: Hematocrit 41.2 % (39.6-49.0); Hemoglobin 14.2 g/dL (13.6-17.9); MCHC 34.3 g/dL (32.0-36.0); MCV 93.2 fL (80-100); MPV 8.4 fL (7.6-11.3); Platelets 274 thou/uL (152-406); RBC Red Blood Cell Count 4.43 M/uL (4.33-5.43); Red Cell Distribution Width 14.5 % (12.1-15.2)
[2023-09-09 08:56] VITALS: BP 97/50; TEMP 97.2
--- NOTE | 2023-09-09 10:31 | P.DS ---
Admission Date: 09/06/23 Discharge Date: 09/09/23 Disposition: ROUTINE DISCHARGE Discharge Condition: GOOD Reason for Admission: Heart palpitations r/o SVT Consultations: Dr. Grimm cardiology Brief History of Present Illness: Sinan Swift is a 67 year old male with Pmhx of TCO LAD with stent, HTN, Afib, BPH, and bladder diverticulum who presents to the ER with chief complaint of heart palpitations. He tracks his BP, HR, and oxygen level regularly. He noticed his HR started to rise From 55 to 88 and quickly went to 118 while at rest and started sweating and became nauseous. His normal HR is in the 50s. He explained having a TCO to the LAD without chest pain, he thought the same thing was happening since he didn't have chest pain. On evaluation, he was not distressed, conversing well without SOB, no diaphoresis, and Vital signs stable. Hospital Course: Assessment Monomorphic ventricular tachycardia Atrial fibrillation on chronic anticoagulation History of CAD Chronic systolic congestive heart failure Diabetes mellitus type [id number] BPH/History of bladder diverticulum Patient was admitted to the hospital for palpitations/arrhythmia and was noted to have a run of monomorphic V. tach in the emergency department. He was initially admitted to the ICU for close monitoring and started on sotalol 80 mg by mouth twice daily, his metoprolol was discontinued. His baseline systolic blood pressure is around 95 and heart rate in the low 50s, with 80 mg sotalol dose and blood pressure and heart rate are on the low side so the dose was reduced to 40 mg mouth twice daily. Serial EKGs were completed and his QTc remained within normal limits, heart rate and blood pressure around his baseline currently and he had no further episodes of ventricular tachycardia during his hospitalization. Echocardiogram was performed which showed an ejection fraction in the mid 30s, additionally nuclear stress test was performed which was negative for stress-induced ischemia. Patient stable for discharge at this time with the following medication changes Discontinue metoprolol Start new medication sotalol 40 mg by mouth twice daily Continue other medications as prescribed Please follow-up with Dr. Grimm in the clinic within 1 week Vital Signs/Physical Exam: Temp Pulse Resp BP Pulse Ox 97.2 F 47 L 16 97/50 L 95 09/09/23 08:00 09/09/23 08:00 09/09/23 08:00 09/09/23 08:00 09/09/23 08:00 General: Alert, In no apparent distress, Oriented x3 HEENT: Atraumatic, PERRLA Neck: Supple, JVD not distended Respiratory: Clear to auscultation bilaterally, Normal air movement Cardiovascular: Regular rate/rhythm (sinus aubrey rate 50), Normal S1 S2 Gastrointestinal: Normal bowel sounds Musculoskeletal: No tenderness Integumentary: No rashes Neurological: Normal speech, Normal tone, Normal affect Laboratory Data at Discharge: WBC 9.90 thou/uL (4.3-10.9) 09/09/23 05:56 Hgb 14.2 g/dL (13.6-17.9) 09/09/23 05:56 Hct 41.2 % (39.6-49.0) 09/09/23 05:56 Plt Count 274 thou/uL (152-406) 09/09/23 05:56 PT 14.5 SECONDS (9.5-12.5) H 09/06/23 07:48 INR 1.33 09/06/23 07:48 Sodium 136 mEq/L (136-145) 09/09/23 05:56 Potassium 4.0 mEq/L (3.5-5.1) 09/09/23 05:56 BUN 22 mg/dL (7-18) H 09/09/23 05:56 Creatinine 1.31 mg/dL (0.70-1.30) H 09/09/23 05:56 Glucose 118 mg/dL (74-106) H 09/09/23 05:56 Phosphorus 2.8 mg/dL (2.5-4.9) 09/07/23 04:09 Magnesium 2.0 mg/dL (1.6-2.4) 09/09/23 05:56 Total Bilirubin 0.6 mg/dL (0.2-1.0) 09/06/23 07:48 AST 13 U/L (15-37) L 09/06/23 07:48 ALT 35 U/L (16-61) 09/06/23 07:48 Alkaline Phosphatase 64 U/L (45-117) 09/06/23 07:48 Triglycerides 109 mg/dL (<150) 09/07/23 04:09 Cholesterol 106 mg/dL (<200) 09/07/23 04:09 HDL Cholesterol 37 mg/dL (40-60) L 09/07/23 04:09 Cholesterol/HDL Ratio 2.86 09/07/23 04:09 Home Medications: Tamsulosin HCl [Flomax] 0.4 mg PO BID 03/23/22 Atorvastatin Calcium [Lipitor] 40 mg PO BEDTIME 30 Days #30 tab 03/29/22 Spironolactone 25 mg PO DAILY 05/14/23 Apixaban [Eliquis] 5 mg PO BID 09/06/23 Aspirin [Aspirin EC 81 MG] 81 mg PO DAILY 09/06/23 Sotalol HCl [Betapace*] 40 mg PO BID #30 tab 09/09/23 New Medications: Sotalol HCl [Betapace*] 40 mg PO BID #30 tab Physician Discharge Instructions: Patient was admitted to the hospital for palpitations/arrhythmia and was noted to have a run of monomorphic V. tach in the emergency department. He was initially admitted to the ICU for close monitoring and started on sotalol 80 mg by mouth twice daily, his metoprolol was discontinued. His baseline systolic blood pressure is around 95 and heart rate in the low 50s, with 80 mg sotalol dose and blood pressure and heart rate are on the low side so the dose was reduced to 40 mg mouth twice daily. Serial EKGs were completed and his QTc remained within normal limits, heart rate and blood pressure around his baseline currently and he had no further episodes of ventricular tachycardia during his hospitalization. Echocardiogram was performed which showed an ejection fraction in the mid 30s, additionally nuclear stress test was performed which was negative for stress-induced ischemia. Patient stable for discharge at this time with the following medication changes Discontinue metoprolol Start new medication sotalol 40 mg by mouth twice daily Continue other medications as prescribed Please follow-up with Dr. Grimm in the clinic within 1 week Diet: AHA Activity: Ad young Followup: NONE,NONE [Primary Care Provider] - 1-2 Weeks Trevor Grimm MD [ACTIVE - CAN ADMIT] - 1 Week Time spent managing pt's care (in minutes): 35
--- NOTE | 2023-09-10 13:40 | EKG ---
Test Date: 2023-09-09 Test Time: 06:32:29 Towing Pilot: Reina MEASUREMENT RESULTS: Intervals: Rate: 53 [place]: 178 QRSD: 120 QT: 476 QTc: 446 [place]: P: 57 [place]: 178 QRS: -20 T: 83 INTERPRETIVE STATEMENTS: Sinus bradycardia with premature atrial complexes Cannot rule out Inferior infarct, age undetermined Anterolateral infarct, age undetermined Abnormal ECG Compared to ECG 09/07/2023 16:31:02 Atrial premature complex(es) now present Left-axis deviation no longer present Left ventricular hypertrophy no longer present Myocardial infarct finding still present Electronically Signed On 09-10-23 13:38:19 CDT by Trevor Grimm
== END 2023-09-09 09:30 | disposition home or self-care (01) | DRG 309 ==
LOC: ER 07:38 → ERHOLD 09:13 → 3RD-ICU 16:15 → 4TH 09-08 20:07
PROVIDERS: ADMIT Internal Medicine; ATTEND Hospitalist
PROC: 0T9B70Z Drainage of Bladder with Drainage Device, Via Natural or Artificial Opening (ICD-10-PCS; principal; 2023-09-06)
DX: I47.20 Ventricular tachycardia, unspecified (principal); I50.22 Chronic systolic (congestive) heart failure; I11.0 Hypertensive heart disease with heart failure; I48.91 Unspecified atrial fibrillation; E11.65 Type 2 diabetes mellitus with hyperglycemia; I08.1 Rheumatic disorders of both mitral and tricuspid valves; N40.0 Benign prostatic hyperplasia without lower urinary tract symptoms; I25.10 Atherosclerotic heart disease of native coronary artery without angina pectoris; I25.2 Old myocardial infarction; Z98.52 Vasectomy status; Z79.82 Long term (current) use of aspirin; Z79.01 Long term (current) use of anticoagulants; Z91.013 Allergy to seafood; Z79.899 Other long term (current) drug therapy; Z86.711 Personal history of pulmonary embolism
CPT/HCPCS: 36415; 51702; 71045; 78452; 80048; 80061; 80076; 81001; 83735; 83880; 84100; 84439; 84443; 84484; 85025; 85027; 85610; 87086; 87088; 93005; 93017; 93306; 99285; A9500; J2785

== ENCOUNTER 2023-11-19 03:14 | Emergency (ER) | payer OTHER ==
--- OUTSIDE RECORDS SUMMARY | 2023-11-19 03:16 | XMS REPORT | Continuity of Care Document ---
Author Name Unknown Address [address] [place] [address] [facility] thconnect Address [address] [facility] [address] [place] [address] Care Team Providers Care Ticker Wirer Name Role Phone Domo GORDON Attending Clinician Unavailab Trevor Stanford Attending Clinician Unavailable Trevor Grimm Admitting Clinician Unavailable Payers Payer Name Policy Type Policy Number Effective Date Expirati on Date Source [place] [id number] [facility] AETNA 53 [id number] [facility] Problems Condition Name Condition Details Condition Category Status Onset Date Resolution Date Last Treatment Date Treating Clinician Comments Source [id number] Acquired bladder diverticul um Problem [facility] [id number] Obstructiv e uropathy Problem [facility] 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 Problem [facility] Incomplete bladder emptying Incomplete bladder emptying Problem [facility] [id number] Dysfunctio nal voiding of urine Problem [facility] 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 BPH loc w urin obs/LUTS Problem [facility] Allergies, Adverse Reactions, Alerts Allergy Name Allergy Type Status Severity Reaction(s) Onset Date Inactive Date Treating Clinician Comments Source [place] Active (mhs) [facility] Social History Social Habit Start Date Stop Date Quantity Comments Source History of Tobacco Use [facility] Sex Assigned At [facility] Smoking Status Start Date Stop Date Source Former Smoker 2023-10-21 00:00:00 2023-10-21 00:00:00 [facility] Current Smoker 2023-03-18 00:00:00 [facility] Medications Ordered Medication Name Filled Medication Name Start Date Stop Date Current Medication? Ordering Clinician Indication Dosage Frequency Signature (SIG) Comments Components Source Eliquis Eliquis No 1{table t} QD Eliquis Aldactone 25 MG Aldactone 25 MG No 1{table t} Aldactone 25 MG Vitamin E 400 UNIT Vitamin E 400 UNIT No 1{capsu le} QD Vitamin E 400 UNIT Sotalol HCl 80 MG Sotalol HCl 80 MG No BID Sotalol HCl 80 MG Aspirin 81 81 MG Aspirin 81 81 MG No 1{table t} QD Aspirin 81 81 MG Saw [place] 1000 MG Saw [place] 1000 MG No Saw [place] 1000 MG [place] 450 MG [place] 450 MG No [place] 450 MG Nitrofurant oin Monohyd Macro 100 MG Nitrofurant oin Monohyd Macro 100 MG No QD Nitrofuran toin Monohyd Macro 100 MG Echinacea 400 MG Echinacea 400 MG No Echinacea 400 MG Lasix 40 MG Lasix 40 MG No 1{table t} QD Lasix 40 MG Tamsulosin HCl 0.4 MG Tamsulosin HCl 0.4 MG No Tamsulosin HCl 0.4 MG Vital Signs Vital Name Observation Time Observation Value Comments S ource height 2023-10-21 15:15:00 66 [in_i] Commo n [facility] weight 2023-10-21 15:15:00 229.6 [lb_av] Co mmon [facility] temperature 2023-10-21 15:15:00 97.5 [degF] Com mon [facility] bmi 2023-10-21 15:15:00 37.05 kg/m2 Comm on [facility] oximetry 2023-10-21 15:15:00 93 % Commo n [facility] respiratory rate 2023-10-21 15:15:00 18 /min Common [facility] blood pressure systolic 2023-10-21 15:15:00 101 mm[Hg] [facility] blood pressure diastolic 2023-10-21 15:15:00 55 mm[Hg] [facility] height 2023-03-18 13:30:00 66 [in_i] Commo n [facility] weight 2023-03-18 13:30:00 240.6 [lb_av] Co mmon [facility] temperature 2023-03-18 13:30:00 97.8 [degF] Com [facility] bmi 2023-03-18 13:30:00 38.83 kg/m2 Comm on [facility] oximetry 2023-03-18 13:30:00 96 % Commo n [facility] respiratory rate 2023-03-18 13:30:00 18 /min [facility] blood pressure systolic 2023-03-18 13:30:00 121 mm[Hg] [facility] blood pressure diastolic 2023-03-18 13:30:00 66 mm[Hg] [facility] height 2022-11-18 10:45:00 66 [in_i] Commo n [facility] weight 2022-11-18 10:45:00 231 [lb_av] Comm on [facility] temperature 2022-11-18 10:45:00 98.1 [degF] Com [facility] bmi 2022-11-18 10:45:00 37.28 kg/m2 Comm on [facility] oximetry 2022-11-18 10:45:00 99 % Commo n [facility] respiratory rate 2022-11-18 10:45:00 18 /min [facility] blood pressure systolic 2022-11-18 10:45:00 123 mm[Hg] [facility] blood pressure diastolic 2022-11-18 10:45:00 71 mm[Hg] [facility] height 2022-05-20 13:15:00 66 [in_i] Commo n [facility] weight 2022-05-20 13:15:00 205 [lb_av] Comm on [facility] temperature 2022-05-20 13:15:00 98.3 [degF] Com mon [facility] bmi 2022-05-20 13:15:00 33.08 kg/m2 Comm on [facility] oximetry 2022-05-20 13:15:00 96 % Commo n [facility] respiratory rate 2022-05-20 13:15:00 17 /min [facility] blood pressure systolic 2022-05-20 13:15:00 113 mm[Hg] [facility] blood pressure diastolic 2022-05-20 13:15:00 66 mm[Hg] [facility] Encounters Start Date/Time End Date/Time Encounter Type Admission Type Attending [facility] Care Facility Care Department Encounter ID Source 2023-06-30 09:43:00 Outpatient Domo GORDON [facility] [id number] [facility] 2023-06-28 16:58:00 Outpatient Domo GORDON [facility] [id number] [facility] 2023-03-15 14:56:01 Outpatient Domo GORDON [facility] [id number] [facility] 2023-02-08 15:36:00 Outpatient Domo GORDON [facility] [id number] [facility] 2023-01-05 07:00:00 Inpatient Trevor Benavides [facility] [id number] [facility] 2022-11-23 08:14:01 Outpatient Domo GORDON [facility] 26 [facility] 2022-11-16 10:39:02 Outpatient Domo GORDON [facility] 19 [facility] 2022-05-14 14:33:02 Outpatient Domo Gordon [facility] 2021-08-06 08:57:04 Outpatient Domo Gordon [facility] 2021-06-25 14:20:34 Outpatient Domo Gordon [facility] [id number] [facility] 2021-06-25 14:18:31 Outpatient Domo Gordon [facility] [id number] [facility] 2023-10-21 00:00:00 2023-10-21 00:00:00 OFFICE VISIT ESTAB PT LEVEL 3 [facility] [id number] [facility] 2023-03-18 00:00:00 2023-03-18 00:00:00 OFFICE VISIT ESTAB PT LEVEL 3 [facility] [id number] [facility] 2022-11-23 00:00:00 2022-11-23 00:00:00 (TEL) [facility] [id number] [facility] 2022-11-18 00:00:00 2022-11-18 00:00:00 OFFICE VISIT ESTAB PT LEVEL 3 [facility] [id number] [facility] 2022-05-20 00:00:00 2022-05-20 00:00:00 OFFICE VISIT EST PT LEVEL 3 [facility] [id number] [facility] 2021-05-02 00:00:00 2021-05-02 00:00:00 ambulatory [facility] [id number] [facility]
[2023-11-19 04:21] LABS: Absolute Eosinophils 0.1 K/uL (0-0.5); Absolute Lymphocytes (CBC) 2.3 K/uL (0.7-4.9); Absolute Monocytes 0.8 K/uL (0.1-1.3); Absolute Neutrophil 5.1 K/uL (1.8-8.0); Basophils % 0.4 % (0-1.3); Eosinophils % 0.8 % (0-4.4); Hemoglobin 13.3 g/dL (13.6-17.9); Lymphocytes % 27.3 % (15.3-44.8); MCH 30.5 pg (27.0-35.0); MCHC 33.1 g/dL (32.0-36.0); MCV 92.1 fL (80-100); MPV 8.5 fL (7.6-11.3); Monocytes % 9.8 % (3.3-12.3); Neutrophils % 61.7 % (41.7-73.7); Platelets 255 thou/uL (152-406); RBC Red Blood Cell Count 4.35 M/uL (4.33-5.43); Red Cell Distribution Width 14.6 % (12.1-15.2)
[2023-11-19 04:22] LABS: PT Prothrombin Time 13.1 SECONDS (9.4-12.5); Protime INR 1.2
[2023-11-19 04:39] LABS: ALT/SGPT 27 U/L (16-61); Albumin 3.2 g/dL (3.4-5.0); Albumin/Globulin Ratio 1.1 (1.1-1.8); Alkaline Phosphatase 62 U/L (45-117); BUN Blood Urea Nitrogen 23 mg/dL (7-18); Bicarbonate 25 mEq/L (21-32); Bilirubin Total 0.4 mg/dL (0.2-1.0); Globulin 2.9 g/dL (2.3-3.5); Glomerular Filtration Rate 66 ml/min (=/>90); Glucose Level 134 mg/dL (74-106); Magnesium 1.7 mg/dL (1.6-2.4); NT PRO-BNP 1037 pg/mL (<125); Protein, Total 6.1 g/dL (6.4-8.2); Sodium Level 139 mEq/L (136-145)
[2023-11-19 04:40] LABS: AST/SGOT < 10 U/L (15-37); Bilirubin Direct < 0.2 mg/dL (0-0.2); Bilirubin Indirect, Calculated 0.2 mg/dL (0.2-0.8)
--- NOTE | 2023-11-19 07:52 | EDPHYS ---
Physician Documentation [facility] Name: Sinan Swift Age: 68 yrs Sex: Male : 1955 Arrival Date: 11/19/2023 Time: 03:14 Bed 19 Private MD: ED Physician Faraz Phillip HPI: 11/18 03:22 This 68 yrs old Male presents to ER via Unassigned with complaints of Gen sp4 complaint . 20:29 She 8-year-old male with history of atrial flutter, hypertension, SD, pulmonary sp4 embolism presents with acute palpitations. Patient arrived with EMS. Reported a rapid heart rate in the range of 120 at home.. Denied chest pain or dizziness. . Historical: - Allergies: 03:25 Fish Containing Products; jw7 - Home Meds: 03:25 sotalol 40 Mg Oral 1 tab 2 times per day [Active]; Eliquis oral 1 tab 2 times per day jw7 [Active]; Aldactone 25 mg Oral tablet 1 tab 2 times per day [Active]; Flomax 0.4 mg Oral capsule 1 cap BID [Active]; aspirin 81 mg Oral capsule 1 cap daily [Active]; Coreg 3.125 mg Oral tablet 1 tab 2 times per day [Active]; - PMHx: 03:25 a flutter; Bladder Diverticulum; Hypertensive disorder; SD; Prostate; Pulmonary jw7 Embolism; Atrial fibrillation; Pneumonia; - PSHx: 03:25 cataract; Stented artery; Vasectomy; jw7 - Immunization history:: Adult Immunizations up to date, Client reports receiving the 2nd dose of the Covid vaccine, Pneumococcal vaccine is not up to date, Flu vaccine is not up to date. - Infectious Disease History:: Denies. - Social history:: Smoking status: Patient/guardian denies using tobacco, the patient reports quitting approximately 2 years ago, Patient/guardian denies using alcohol, street drugs, IV drugs. - Family history:: not pertinent. ROS: 20:29 Constitutional: Negative for fever, chills, and weight loss, positive for sp4 palpitations. 20:29 All other systems are negative, Exam: 06:14 ECG was reviewed by the Attending Physician. EKG at 0400 sinus rhythm with PAC, rate sp4 62. 06:43 Constitutional: This is a well developed, well nourished patient who is awake, alert, sp4 and in no acute distress. Head/Face: Normocephalic, atraumatic. Eyes: Pupils equal round and reactive to light, extra-ocular motions intact. Lids and lashes normal. Conjunctiva and sclera are not injected. Cornea within normal limits. Periorbital areas with no swelling, redness, or edema. ENT: Nares patent. No nasal discharge, no septal abnormalities noted. Tympanic membranes are normal and external auditory canals are clear. Oropharynx with no redness, swelling, or masses, exudates, or evidence of obstruction, uvula midline. Mucous membranes moist. Neck: Trachea midline, no thyromegaly or masses palpated, and no cervical lymphadenopathy. Supple, full range of motion without nuchal rigidity, or vertebral point tenderness. Chest/axilla: Normal chest wall appearance and motion. Nontender with no deformity. No lesions are appreciated. Cardiovascular: Regular rate and rhythm with a normal S1 and S2. No gallops, murmurs, or rubs. Normal PMI, no JVD. No pulse deficits. Respiratory: Lungs have equal breath sounds bilaterally, clear to auscultation and percussion. No rales, rhonchi or wheezes noted. No increased work of breathing, no retractions or nasal flaring. Abdomen/GI: Soft, with normal bowel sounds. No distension or tympany. No guarding or rebound. No evidence of tenderness throughout. Back: No spinal tenderness. No costovertebral tenderness. Skin: Warm, dry with normal turgor. Normal color with no rashes, no lesions, and no evidence of cellulitis. MS/ Extremity: Pulses equal, no cyanosis. Neurovascular intact. Full, normal range of motion. Neuro: Awake and alert, GCS 15, oriented to person, place, time, and situation. Cranial nerves II-XII grossly intact. Motor strength 5/5 in all extremities. Sensory grossly intact. Psych: Awake, alert, with orientation to person, place and time. Behavior, mood, and affect are within normal limits 06:43 Repeat EKG 0 627 reveals sinus bradycardia rate 48 otherwise normal. Vital Signs: 03:25 BP 114 / 76; Pulse 66; Resp 14 S; Temp 97.7(O); Pulse Ox 97% on R/A; Weight 102.51 kg; jw7 Height 5 ft. 9 in. ; Pain 0/10; 04:01 BP 116 / 71; Pulse 60; Resp 16 S; Pulse Ox 95% on R/A; jw7 04:52 BP 103 / 66; Pulse 55; Resp 16 S; Pulse Ox 95% on R/A; jw7 05:57 BP 91 / 60; Pulse 54; Resp 14 S; Pulse Ox 95% on R/A; jw7 06:30 BP 106 / 68; Pulse 49; Resp 15 S; Pulse Ox 96% on R/A; jw7 07:16 BP 120 / 69; Pulse 53; Resp 15 S; Pulse Ox 100% on R/A; kc6 07:32 BP 120 / 69; Pulse 50; Resp 16; Temp 97.1; Pulse Ox 97% on R/A; aw1 03:25 Body Mass Index 33.37 (102.51 kg, 175.26 cm) jw7 03:25 Pain Scale: Adult jw7 MDM: 03:38 Patient medically screened. sp4 20:29 Differential Diagnosis altered mental status, sepsis, flu. Data reviewed: vital signs, sp4 nurses notes, EMS record, old medical records, lab test result(s), EKG, radiologic studies, plain films. Consideration of Admission/Observation Escalation of care including admission/observation considered. ED course: Repeat troponin is negative EKG reveals sinus rhythm. Patient stable for discharge home at this time. Advised follow-up with cardiology.. 11/18 03:43 Order name: Basic Metabolic Panel; Complete Time: 06:06 [facility] 11/18 03:43 Order name: CBC with Diff; Complete Time: 06:06 [facility] 11/18 03:43 Order name: LFT's; Complete Time: 06:06 4 11/18 03:43 Order name: Magnesium; Complete Time: 06:06 4 11/18 03:43 Order name: NT PRO-BNP; Complete Time: 06:06 4 11/18 03:43 Order name: PT-INR; Complete Time: 06:06 4 11/18 03:43 Order name: Troponin HS; Complete Time: 06:06 4 11/18 06:06 Order name: Troponin High Sensitivity; Complete Time: 07:16 4 11/18 03:43 Order name: XRAY Chest (1 view) [facility] 11/18 06:06 Order name: EKG; Complete Time: 06:07 sp4 11/18 03:43 Order name: Cardiac monitoring; Complete Time: 03:53 sp4 11/18 03:43 Order name: EKG - Nurse/Tech; Complete Time: 04:01 sp4 11/18 03:43 Order name: IV Saline Lock; Complete Time: 03:53 sp4 11/18 03:43 Order name: Labs collected and sent; Complete Time: 04:01 sp4 11/18 03:43 Order name: O2 Per Protocol; Complete Time: 03:53 sp4 11/18 03:43 Order name: O2 Sat Monitoring; Complete Time: 03:53 sp4 EC:14 Rate is 62 beats/min. Rhythm is regular, Sinus Rhythm. QRS [place] is Normal. AL interval sp4 is normal. QRS interval is normal. QT interval is normal. No Q waves. T waves are Normal. No ST changes noted. Clinical impression: No evidence of ischemia. Interpreted by me. Reviewed by me. Administered Medications: No medications were administered Disposition Summary: 11/19/23 07:51 Discharge Ordered Notes: Location: Home sp4 Problem: new sp4 Symptoms: have improved sp4 Condition: Stable sp4 Diagnosis - Palpitations sp4 - Acute palpitations , Sinus arrhythmia sp4 Followup: sp4 - With: Trevor Grimm MD - When: 7 - 10 days - Reason: Recheck today's complaints Discharge Instructions: - Discharge Summary Sheet sp4 - Palpitations sp4 Forms: - Patient Portal Instructions sp4 Signatures: Dispatcher MedHo Francesca Ramirez RN RN jw7 Faraz Phillip MD MD sp4 Corrections: (The following items were deleted from the chart) 03:43 03:43 BASIC METABOLIC PANEL+C.LAB.BRZ ordered. EDMS EDMS 03:43 03:43 CBC+H.LAB.BRZ ordered. EDMS EDMS 03:43 03:43 HEPATIC FUNCTION+C.LAB.BRZ ordered. EDMS EDMS 03:43 03:43 MAGNESIUM+C.LAB.BRZ ordered. EDMS EDMS 03:43 03:43 PROBNP+C.LAB.BRZ ordered. EDMS EDMS 03:43 03:43 PROTIME (+INR)+COAG.LAB.BRZ ordered. EDMS EDMS 03:43 03:43 Troponin High Sensitivity+C.LAB.BRZ ordered. EDMS EDMS 03:44 03:43 Chest Single View+RAD.RAD.BRZ ordered. EDMS EDMS
--- NOTE | 2023-11-19 07:52 | ER ---
Nurse's Notes [facility] Name: Sinan Swift Age: 68 yrs Sex: Male : 1955 Arrival Date: 11/19/2023 Time: 03:14 Bed 19 Private MD: Diagnosis: Palpitations;Acute palpitations , Sinus arrhythmia Presentation: 11/18 03:25 Chief complaint: Patient states: I woke up with SOB, a pulse of 98, and oxygen jw7 saturation 95%. I haven't had any pain. 03:25 Coronavirus screen: At this time, the client does not indicate any symptoms associated jw7 with coronavirus-19. Ebola Screen: No symptoms or risks identified at this time. Initial Sepsis Screen: Does the patient meet any 2 criteria? No. Patient's initial sepsis screen is negative. Does the patient have a suspected source of infection? No. Patient's initial sepsis screen is negative. Risk Assessment: Do you want to hurt yourself or someone else? Patient reports no desire to harm self or others. Onset of symptoms was November 19, 2023. 03:25 Method Of Arrival: EMS: [facility] jw7 03:25 Acuity: SUSANNE 3 jw7 03:25 Care prior to arrival: IV initiated. 20 GA, in the left antecubital area. jw7 Triage Assessment: 03:25 General: Appears in no apparent distress. comfortable, Behavior is calm, cooperative, jw7 appropriate for age. Pain: Denies pain. EENT: No deficits noted. No signs and/or symptoms were reported regarding the EENT system. Neuro: Boyce Agitation-Sedation Scale (RASS): 0 - Alert and Calm Level of Consciousness is awake, alert, obeys commands, Oriented to person, place, time, situation, Appropriate for age. Cardiovascular: Heart tones S1 S2 present Capillary refill < 3 seconds Clubbing of nail beds is absent JVD is absent Patient's skin is warm and dry. Respiratory: Airway is patent Trachea midline Respiratory effort is even, unlabored, Respiratory pattern is regular, symmetrical, Breath sounds are clear bilaterally. GI: Abdomen is round non-distended, Bowel sounds present X 4 quads. Abd is soft and non tender X 4 quads. : No deficits noted. No signs and/or symptoms were reported regarding the genitourinary system. Derm: Skin is intact, is healthy with good turgor, Skin is dry, Skin is normal, Skin temperature is warm. Musculoskeletal: Circulation, motion, and sensation intact. Range of motion: intact in all extremities. Historical: - Allergies: 03:25 Fish Containing Products; jw7 - Home Meds: 03:25 sotalol 40 Mg Oral 1 tab 2 times per day [Active]; Eliquis oral 1 tab 2 times per day jw7 [Active]; Aldactone 25 mg Oral tablet 1 tab 2 times per day [Active]; Flomax 0.4 mg Oral capsule 1 cap BID [Active]; aspirin 81 mg Oral capsule 1 cap daily [Active]; Coreg 3.125 mg Oral tablet 1 tab 2 times per day [Active]; - PMHx: 03:25 a flutter; Bladder Diverticulum; Hypertensive disorder; OR; Prostate; Pulmonary jw7 Embolism; Atrial fibrillation; Pneumonia; - PSHx: 03:25 cataract; Stented artery; Vasectomy; jw7 - Immunization history:: Adult Immunizations up to date, Client reports receiving the 2nd dose of the Covid vaccine, Pneumococcal vaccine is not up to date, Flu vaccine is not up to date. - Infectious Disease History:: Denies. - Social history:: Smoking status: Patient/guardian denies using tobacco, the patient reports quitting approximately 2 years ago, Patient/guardian denies using alcohol, street drugs, IV drugs. - Family history:: not pertinent. Screenin:25 [facility] ED Fall Risk Assessment (Adult) History of falling in the last 3 months, jw7 including since admission No falls in past 3 months (0 pts) Confusion or Disorientation No (0 pts) Intoxicated or Sedated No (0 pts) Impaired Gait No (0 pts) Mobility Assist Device Used No (0 pt) Altered Elimination No (0 pt) Score/Fall Risk Level 0 - 2 = Low Risk Oriented to surroundings, Maintained a safe environment, Educated pt \T\ family on fall prevention, incl call for assistance when getting out of bed. Abuse screen: Denies threats or abuse. Denies injuries from another. Nutritional screening: No deficits noted. Tuberculosis screening: No symptoms or risk factors identified. Assessment: 03:30 General: See Triage Assessment. jw7 04:30 Reassessment: Patient appears in no apparent distress at this time. No changes from jw7 previously documented assessment. Patient and/or family updated on plan of care and expected duration. Pain level reassessed. Patient is alert, oriented x 3, equal unlabored respirations, skin warm/dry/pink. 05:30 Reassessment: Patient appears in no apparent distress at this time. No changes from jw7 previously documented assessment. Patient and/or family updated on plan of care and expected duration. Pain level reassessed. Patient is alert, oriented x 3, equal unlabored respirations, skin warm/dry/pink. 06:30 Reassessment: Patient appears in no apparent distress at this time. No changes from jw7 previously documented assessment. Patient and/or family updated on plan of care and expected duration. Pain level reassessed. Patient is alert, oriented x 3, equal unlabored respirations, skin warm/dry/pink. Vital Signs: 03:25 BP 114 / 76; Pulse 66; Resp 14 S; Temp 97.7(O); Pulse Ox 97% on R/A; Weight 102.51 kg; jw7 Height 5 ft. 9 in. ; Pain 0/10; 04:01 BP 116 / 71; Pulse 60; Resp 16 S; Pulse Ox 95% on R/A; jw7 04:52 BP 103 / 66; Pulse 55; Resp 16 S; Pulse Ox 95% on R/A; jw7 05:57 BP 91 / 60; Pulse 54; Resp 14 S; Pulse Ox 95% on R/A; jw7 06:30 BP 106 / 68; Pulse 49; Resp 15 S; Pulse Ox 96% on R/A; jw7 07:16 BP 120 / 69; Pulse 53; Resp 15 S; Pulse Ox 100% on R/A; kc6 07:32 BP 120 / 69; Pulse 50; Resp 16; Temp 97.1; Pulse Ox 97% on R/A; aw1 03:25 Body Mass Index 33.37 (102.51 kg, 175.26 cm) jw7 03:25 Pain Scale: Adult jw7 ED Course: 03:20 Patient arrived in ED. jw7 03:22 Faraz Phillip MD is Attending Physician. sp4 03:25 Arm band placed on. jw7 03:25 Patient has correct armband on for positive identification. Bed in low position. Call jw7 light in reach. Side rails up X 1. Provided Education on: Use of call light. 03:25 Maintain EMS IV. Dressing intact. Good blood return noted. Site clean \T\ dry. Gauge \T\ jw 7 site: 20G LAC. 03:40 Francesca Hobbs RN is Primary Nurse. jw7 03:44 Triage completed. jw7 04:00 Initial lab(s) drawn, by me, sent to lab. jw7 04:01 EKG done, by ED staff, reviewed by Faraz Phillip MD. jw7 04:41 XRAY Chest (1 view) In Process Unspecified. EDMS 07:00 Report received from Francesca Hobbs RN. kc6 07:00 library monitor on. Pulse ox on. NIBP on. Warm blanket given. Pillow given. kc6 07:50 Trevor Grimm MD is Referral Physician. sp4 08:14 No provider procedures requiring assistance completed. IV discontinued, intact, kc6 bleeding controlled, No redness/swelling at site. Pressure dressing applied. Administered Medications: No medications were administered Medication: 08:14 VIS not applicable for this client. kc6 Outcome: 07:51 Discharge ordered by . sp4 08:14 Discharged to home ambulatory, with significant other, kc6 08:14 Condition: good 08:14 Discharge instructions given to patient, Instructed on discharge instructions, follow up and referral plans. Demonstrated understanding of instructions, follow-up care, 08:14 Patient left the ED. kc6 Signatures: Dispatcher [employer] EDSD Francesca Hobbs RN RN jw7 Campbell, Kaitlyn, RN RN kc6 Potepalov, Sergey, MD MD sp4 Ghada Beth aw1
[2023-11-19 08:33] VITALS: BP 120/69; TEMP 97.1; O2SAT 97
--- NOTE | 2023-11-19 10:42 | RAD REPORT ---
EXAM DESCRIPTION: RAD - Chest Single View - 11/19/2023 4:39 am CLINICAL HISTORY: CHEST PAIN COMPARISON: None TECHNIQUE: Single AP view of the chest. FINDINGS: Lung volumes adequate. Cardiac silhouette is enlarged. No pneumothorax. No large pleural effusion. No focal consolidation. No acute bony finding. IMPRESSION: 1. No focal consolidation. 2. Enlarged cardiac silhouette. Electronically signed by: Marcel Durbin MD 11/19/2023 06:06 AM CDT Z9 Due to temporary technical issues with the PACS/Fluency reporting system, reports are being signed by the in house radiologist without review as a courtesy to ensure prompt reporting. The interpreting r adiologist is fully responsible for the content of the report.
--- NOTE | 2023-11-19 12:32 | EKG ---
Test Date: 2023-11-19 Test Time: 06:27:54 Intake Counselor: MARIA G MEASUREMENT RESULTS: Intervals: Rate: 48 AR: 180 QRSD: 118 QT: 450 QTc: 402 [place]: P: AR: 180 QRS: -20 T: 79 INTERPRETIVE STATEMENTS: Marked sinus bradycardia Anterolateral infarct, age undetermined Abnormal ECG Compared to ECG 11/19/2023 04:00:59 Sinus rhythm no longer present Atrial premature complex(es) no longer present Myocardial infarct finding still present Electronically Signed On 11-19-23 12:31:37 CDT by Trevor Grimm
--- NOTE | 2023-11-19 12:32 | EKG ---
Test Date: 2023-11-19 Test Time: 04:00:59 Shim Plug Cutter: MARIA G MEASUREMENT RESULTS: Intervals: Rate: 62 TX: 172 QRSD: 116 QT: 424 QTc: 430 [place]: P: 38 TX: 172 QRS: -27 T: 96 INTERPRETIVE STATEMENTS: Sinus rhythm with premature atrial complexes Anteroseptal infarct, age undetermined Abnormal ECG Compared to ECG 09/09/2023 06:32:29 Sinus bradycardia no longer present Myocardial infarct finding still present Electronically Signed On 11-19-23 12:31:38 CDT by Trevor Grimm
== END 2023-11-19 08:14 | disposition home or self-care (01) ==
LOC: ER 03:14
DX: R00.2 Palpitations (principal); I49.8 Other specified cardiac arrhythmias; I10 Essential (primary) hypertension; I48.91 Unspecified atrial fibrillation; I48.92 Unspecified atrial flutter; I25.2 Old myocardial infarction; Z86.711 Personal history of pulmonary embolism; Z79.01 Long term (current) use of anticoagulants
CPT/HCPCS: 36415; 71045; 80048; 80076; 83735; 83880; 84484; 85025; 85610; 93005; 99284

== ENCOUNTER 2024-01-10 23:44 | Emergency (ER) | payer OTHER ==
--- OUTSIDE RECORDS SUMMARY | 2024-01-10 23:48 | XMS REPORT | Continuity of Care Document ---
Author Name Unknown Address [address] [facility] [place] [address] [facility] thconnect Address [address] [facility] [address] [place] [address] Care Team Providers Care Resin Shaver Name Role Phone Domo GORDON Attending Clinician Unavailab Trevor Stanford Attending Clinician Unavailable Trevor Grimm Admitting Clinician Unavailable Payers Payer Name Policy Type Policy Number Effective Date Expirati on Date Source [place] [address] [id number] [facility] AETNA 53 [id number] Common [facility] Problems Condition Name Condition Details Condition Category Status Onset Date Resolution Date Last Treatment Date Treating Clinician Comments Source [id number] Acquired bladder diverticul um Problem [facility] [id number] Obstructiv e uropathy Problem [facility] 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 Problem [facility] Incomplete bladder emptying Incomplete bladder emptying Problem [facility] [id number] Dysfunctio nal voiding of urine Problem [facility] 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 BPH loc w urin obs/LUTS Problem [facility] Allergies, Adverse Reactions, Alerts Allergy Name Allergy Type Status Severity Reaction(s) Onset Date Inactive Date Treating Clinician Comments Source Gregg Escobedo Active (mhs) [facility] Social History Social Habit Start Date Stop Date Quantity Comments Source History of Tobacco Use [facility] Sex Assigned At [facility] Smoking Status Start Date Stop Date Source Former Smoker 2023-10-21 00:00:00 2023-10-21 00:00:00 [facility] Current Smoker 2023-03-18 00:00:00 [facility] Medications Ordered Medication Name Filled Medication Name [...] t} QD Aspirin 81 81 MG Saw Rio 1000 MG Saw Rio 1000 MG No Saw Rio 1000 MG Cayenne 450 MG Cayenne 450 [...] height 2023-10-21 15:15:00 66 [in_i] Commo n [facility] weight 2023-10-21 15:15:00 229.6 [lb_av] Co mmon [facility] temperature 2023-10-21 15:15:00 97.5 [degF] Com mon [facility] bmi 2023-10-21 15:15:00 37.05 kg/m2 Comm on [facility] oximetry 2023-10-21 15:15:00 93 % Commo n [facility] respiratory rate 2023-10-21 15:15:00 18 /min Common [facility] blood pressure systolic 2023-10-21 15:15:00 101 mm[Hg] [facility] pressure diastolic 2023-10-21 15:15:00 55 mm[Hg] [facility] height 2023-03-18 13:30:00 66 [in_i] Commo n [facility] weight 2023-03-18 13:30:00 240.6 [lb_av] Co mmon [facility] temperature 2023-03-18 13:30:00 97.8 [degF] Com [facility] bmi 2023-03-18 13:30:00 38.83 kg/m2 Comm on [facility] oximetry 2023-03-18 13:30:00 96 % Commo n [facility] respiratory rate 2023-03-18 13:30:00 18 /min Common [facility] blood pressure systolic 2023-03-18 13:30:00 121 mm[Hg] [facility] blood pressure diastolic 2023-03-18 13:30:00 66 mm[Hg] [facility] height 2022-11-18 10:45:00 66 [in_i] Commo n [facility] weight 2022-11-18 10:45:00 231 [lb_av] Comm on [facility] temperature 2022-11-18 10:45:00 98.1 [degF] Com [facility] bmi 2022-11-18 10:45:00 37.28 kg/m2 Comm on [facility] oximetry 2022-11-18 10:45:00 99 % Commo n [facility] respiratory rate 2022-11-18 10:45:00 18 /min [facility] blood pressure systolic 2022-11-18 10:45:00 123 mm[Hg] [facility] blood pressure diastolic 2022-11-18 10:45:00 71 mm[Hg] [facility] height 2022-05-20 13:15:00 66 [in_i] Commo n [facility] weight 2022-05-20 13:15:00 205 [lb_av] Comm on [facility] temperature 2022-05-20 13:15:00 98.3 [degF] Com mon [facility] bmi 2022-05-20 13:15:00 33.08 kg/m2 Comm on [facility] oximetry 2022-05-20 13:15:00 96 % Commo n [facility] respiratory rate 2022-05-20 13:15:00 17 /min [facility] blood pressure systolic 2022-05-20 13:15:00 113 mm[Hg] [facility] blood pressure diastolic 2022-05-20 13:15:00 66 mm[Hg] [facility] Encounters Start Date/Time End Date/Time Encounter Type Admission Type Attending [facility] Care Facility Care Department Encounter ID Source 2023-06-30 09:43:00 Outpatient Domo GORDON [facility] [id number] [facility] 2023-06-28 16:58:00 Outpatient Domo GORDON [facility] [id number] [facility] 2023-03-15 14:56:01 Outpatient Domo GORDON [facility] [id number] [facility] 2023-02-08 15:36:00 Outpatient Domo GORDON [facility] [id number] [facility] 2023-01-05 07:00:00 Inpatient Trevor Benavides [facility] CARD [id number] [facility] 2022-11-23 08:14:01 Outpatient Domo GORDON [facility] [id number] [facility] 2022-11-16 10:39:02 Outpatient Domo GORDON [facility] [id number] [facility] 2022-05-14 14:33:02 Outpatient Domo Gordon [facility] 2021-08-06 08:57:04 Outpatient Domo Gordon [facility] 2021-06-25 14:20:34 Outpatient Domo Gordon [facility] [id number] [facility] 2021-06-25 14:18:31 Outpatient Domo Gordon [facility] [id number] [facility] 2023-10-21 00:00:00 2023-10-21 00:00:00 OFFICE VISIT ESTAB PT LEVEL 3 [facility]C ST[facility] [id number] [facility] 2023-03-18 00:00:00 2023-03-18 00:00:00 OFFICE VISIT ESTAB PT LEVEL 3 [facility]C STL[facility]C [id number] [facility] 2022-11-23 00:00:00 2022-11-23 00:00:00 (TEL) STLMLC STL[facility]C [id number] [facility] 2022-11-18 00:00:00 2022-11-18 00:00:00 OFFICE VISIT ESTAB PT LEVEL 3 STLMLC STLMLC [id number] [facility] 2022-05-20 00:00:00 2022-05-20 00:00:00 OFFICE VISIT EST PT LEVEL 3 [facility]LMLC STLMLC [id number] [facility] 2021-05-02 00:00:00 2021-05-02 00:00:00 ambulatory STLMLC STLMLC [id number] Common [facility]
[2024-01-11 02:03] LABS: Absolute Eosinophils 0.1 K/uL (0-0.5); Absolute Lymphocytes (CBC) 2.2 K/uL (0.7-4.9); Absolute Monocytes 0.9 K/uL (0.1-1.3); Basophils % 0.5 % (0-1.3); Eosinophils % 0.7 % (0-4.4); Hematocrit 41.5 % (39.6-49.0); Lymphocytes % 21.4 % (15.3-44.8); MCH 31.5 pg (27.0-35.0); MCHC 33.8 g/dL (32.0-36.0); MCV 93.2 fL (80-100); Monocytes % 9.1 % (3.3-12.3); Neutrophils % 68.3 % (41.7-73.7); Nucleated Red Blood Cells % 0.1 % (0-0); Platelets 298 thou/uL (152-406); RBC Red Blood Cell Count 4.45 M/uL (4.33-5.43); Red Cell Distribution Width 15.4 % (12.1-15.2)
[2024-01-11 02:11] LABS: PT Prothrombin Time 11.3 SECONDS (9.4-12.5); Protime INR 1.01
[2024-01-11 02:18] LABS: ALT/SGPT 34 U/L (16-61); AST/SGOT 22 U/L (15-37); Albumin 3.8 g/dL (3.4-5.0); Albumin/Globulin Ratio 1.1 (1.1-1.8); Alkaline Phosphatase 75 U/L (45-117); BUN Blood Urea Nitrogen 18 mg/dL (7-18); Bicarbonate 26 mEq/L (21-32); Bilirubin Total 0.3 mg/dL (0.2-1.0); Globulin 3.5 g/dL (2.3-3.5); Glomerular Filtration Rate 61 ml/min (=/>90); Glucose Level 138 mg/dL (74-106); Magnesium 1.9 mg/dL (1.6-2.4); NT PRO-BNP 1159 pg/mL (<125); Protein, Total 7.3 g/dL (6.4-8.2); Sodium Level 138 mEq/L (136-145); Troponin High Sensitivity 28.3 pg/mL (<58.9)
[2024-01-11 02:21] LABS: Bilirubin Direct < 0.2 mg/dL (0-0.2); Bilirubin Indirect, Calculated 0.1 mg/dL (0.2-0.8)
--- NOTE | 2024-01-11 05:16 | ER ---
Nurse's Notes [facility] Name: Sinan Swift Age: 68 yrs Sex: Male : 1955 Arrival Date: 01/10/2024 Time: 23:44 Bed 6 Private MD: Diagnosis: Palpitations Presentation: 01/09 23:51 Chief complaint: Patient states: Low heart rate. Coronavirus screen: Vaccine status: [facility] Patient reports receiving the 2nd dose of the covid vaccine. Client denies travel out of the [place] in the last 14 days. At this time, the client does not indicate any symptoms associated with coronavirus-19. Ebola Screen: No symptoms or risks identified at this time. Initial Sepsis Screen: Does the patient meet any 2 criteria? No. Patient's initial sepsis screen is negative. Does the patient have a suspected source of infection? No. Patient's initial sepsis screen is negative. Risk Assessment: Do you want to hurt yourself or someone else? Patient reports no desire to harm self or others. Onset of symptoms was January 10, 2024. 23:51 Method Of Arrival: EMS: [facility] 23:51 Acuity: SUSANNE 3 [facility] Triage Assessment: 23:54 General: Appears in no apparent distress. Behavior is calm, cooperative. Pain: Denies [facility] pain. Historical: - Allergies: 23:53 Fish Containing Products; [facility] - Home Meds: 23:53 Aldactone 25 mg Oral tablet 1 tab 2 times per day [Active]; Aldactone 25 mg Oral tablet [facility] 1 tab 2 times per day [Active]; aspirin 81 mg Oral capsule 1 cap daily [Active]; Coreg 3.125 mg Oral tablet 1 tab 2 times per day [Active]; Eliquis oral 1 tab 2 times per day [Active]; Flomax 0.4 mg Oral capsule 1 cap BID [Active]; Sotalol 40 mg Oral 1 tab 2 times per day [Active]; - PMHx: 23:53 a flutter; a flutter; Atrial fibrillation; Bladder Diverticulum; Hypertensive disorder; [facility] Hypertensive disorder; PA; Pneumonia; Pneumonia; Prostate; Pulmonary Embolism; - PSHx: 23:53 cataract; Stented artery; Vasectomy; [facility] - Immunization history:: Adult Immunizations up to date. - Infectious Disease History:: Denies. - Social history:: Smoking status: Patient denies any tobacco usage or history of. Patient uses Patient/guardian denies using. - Family history:: not pertinent. Screenin/13 00:15 [facility] ED Fall Risk Assessment (Adult) History of falling in the last 3 months, [facility] including since admission No falls in past 3 months (0 pts) Confusion or Disorientation No (0 pts) Intoxicated or Sedated No (0 pts) Impaired Gait No (0 pts) Mobility Assist Device Used No (0 pt) Altered Elimination No (0 pt) Score/Fall Risk Level 0 - 2 = Low Risk. Abuse screen: Denies threats or abuse. Denies injuries from another. Nutritional screening: No deficits noted. Tuberculosis screening: No symptoms or risk factors identified. Assessment: 00:13 General: Appears in no apparent distress. Behavior is calm, appropriate for age. Pain: 12 Denies pain. Cardiovascular: Reports low heart rate. Respiratory: No deficits noted. GI: No deficits noted. No signs and/or symptoms were reported involving the gastrointestinal system. : No deficits noted. No signs and/or symptoms were reported regarding the genitourinary system. EENT: No deficits noted. No signs and/or symptoms were reported regarding the EENT system. Derm: No deficits noted. No signs and/or symptoms reported regarding the dermatologic system. Musculoskeletal: No deficits noted. No signs and/or symptoms reported regarding the musculoskeletal system. 02:00 Reassessment: No changes from previously documented assessment. [facility] 03:17 Reassessment: No changes from previously documented assessment. [facility] 04:13 Reassessment: No changes from previously documented assessment. [facility] Vital Signs: 01/09 23:51 BP 133 / 74; Pulse 65; Resp 16; Temp 98.2; Pulse Ox 100% ; Weight 103.42 kg; Height 5 [facility] ft. 9 in. ; Pain 0/10; 01/10 02:00 BP 128 / 76; Pulse 63; Resp 16; Pulse Ox 100% ; Pain 0/10; [facility] 02:00 BP 130 / 72; Pulse 55; Resp 14; Pulse Ox 100% ; Pain 0/10; [facility] 04:13 BP 110 / 76; Pulse 58; Resp 14; Pulse Ox 100% ; Pain 0/10; [facility] 01/09 23:51 Body Mass Index 33.67 (103.42 kg, 175.26 cm) [facility] 01/09 23:51 Pain Scale: Adult [facility] 01/10 02:00 Pain Scale: Adult [facility] 02:00 Pain Scale: Adult [facility] 04:13 Pain Scale: Adult [facility] [place] Coma Score: 05:10 Eye Response: spontaneous(4). Motor Response: obeys commands(6). Verbal Response: sp4 oriented(5). Total: 15. ED Course: 01/09 23:50 Patient arrived in ED. [facility] 23:53 Triage completed. [facility] 23:54 Faraz Phillip MD is Attending Physician. sp4 23:55 Arm band placed on. [facility] 01/10 00:20 XRAY Chest (1 view) In Process Unspecified. EDMO 05:33 IV discontinued, intact, bleeding controlled, No redness/swelling at site. Pressure [facility] dressing applied. Administered Medications: No medications were administered Outcome: 05:15 Discharge ordered by . sp4 05:33 Discharged to home ambulatory, [facility] 05:33 Condition: good 05:33 Condition: stable 05:33 Discharge instructions given to patient, Instructed on discharge instructions, follow up and referral plans. Demonstrated understanding of instructions, follow-up care, 05:34 Patient left the ED. [facility] Signatures: Dispatcher [employer] EDMO Faraz Phillip MD MD sp4 Tracee Pelletier [facility] Giselle Cuellar RN RN [id number]
--- NOTE | 2024-01-11 05:16 | EDPHYS ---
Physician Documentation [facility] Name: Sinan Swift Age: 68 yrs Sex: Male : 1955 Arrival Date: 01/10/2024 Time: 23:44 Bed 6 Private MD: ED Physician Faraz Phillip HPI: 01/10 05:10 This 68 yrs old Male presents to ER via EMS with complaints of Irregular sp4 Pulse. 05:10 68-year-old male presents with complaint of dizziness and irregular heart rate . sp4 Historical: - Allergies: 01/09 23:53 Fish Containing Products; jm12 - Home Meds: 23:53 Aldactone 25 mg Oral tablet 1 tab 2 times per day [Active]; Aldactone 25 mg Oral tablet jm12 1 tab 2 times per day [Active]; aspirin 81 mg Oral capsule 1 cap daily [Active]; Coreg 3.125 mg Oral tablet 1 tab 2 times per day [Active]; Eliquis oral 1 tab 2 times per day [Active]; Flomax 0.4 mg Oral capsule 1 cap BID [Active]; Sotalol 40 mg Oral 1 tab 2 times per day [Active]; - PMHx: 23:53 a flutter; a flutter; Atrial fibrillation; Bladder Diverticulum; Hypertensive disorder; jm12 Hypertensive disorder; [place]; Pneumonia; Pneumonia; Prostate; Pulmonary Embolism; - PSHx: 23:53 cataract; Stented artery; Vasectomy; jm12 - Immunization history:: Adult Immunizations up to date. - Infectious Disease History:: Denies. - Social history:: Smoking status: Patient denies any tobacco usage or history of. Patient uses Patient/guardian denies using. - Family history:: not pertinent. ROS: 01/10 05:10 Constitutional: Negative for fever, chills, and weight loss, positive dizziness, sp4 positive irregular heart rates. All other systems are negative, Exam: 05:10 Constitutional: This is a well developed, well nourished patient who is awake, alert, sp4 and in no acute distress. Head/Face: Normocephalic, atraumatic. Eyes: Pupils equal round and reactive to light, extra-ocular motions intact. Lids and lashes normal. Conjunctiva and sclera are not injected. Cornea within normal limits. Periorbital areas with no swelling, redness, or edema. ENT: Nares patent. No nasal discharge, no septal abnormalities noted. Tympanic membranes are normal and external auditory canals are clear. Oropharynx with no redness, swelling, or masses, exudates, or evidence of obstruction, uvula midline. Mucous membranes moist. Neck: Trachea midline, no thyromegaly or masses palpated, and no cervical lymphadenopathy. Supple, full range of motion without nuchal rigidity, or vertebral point tenderness. Chest/axilla: Normal chest wall appearance and motion. Nontender with no deformity. No lesions are appreciated. Cardiovascular: Regular rate and rhythm with a normal S1 and S2. No gallops, murmurs, or rubs. Normal PMI, no JVD. No pulse deficits. Respiratory: Lungs have equal breath sounds bilaterally, clear to auscultation and percussion. No rales, rhonchi or wheezes noted. No increased work of breathing, no retractions or nasal flaring. Abdomen/GI: Soft, with normal bowel sounds. No distension or tympany. No guarding or rebound. No evidence of tenderness throughout. Back: No spinal tenderness. No costovertebral tenderness. Skin: Warm, dry with normal turgor. Normal color with no rashes, no lesions, and no evidence of cellulitis. MS/ Extremity: Pulses equal, no cyanosis. Neurovascular intact. Full, normal range of motion. Neuro: Awake and alert, GCS 15, oriented to person, place, time, and situation. Cranial nerves II-XII grossly intact. Motor strength 5/5 in all extremities. Sensory grossly intact. Psych: Awake, alert, with orientation to person, place and time. Behavior, mood, and affect are within normal limits 05:10 ECG was reviewed by the Attending Physician. EKG at 0100 normal sinus rhythm with PACs at the rate of 62. Vital Signs: 01/09 23:51 BP 133 / 74; Pulse 65; Resp 16; Temp 98.2; Pulse Ox 100% ; Weight 103.42 kg; Height 5 jm12 ft. 9 in. ; Pain 0/10; 01/10 02:00 BP 128 / 76; Pulse 63; Resp 16; Pulse Ox 100% ; Pain 0/10; jm12 02:00 BP 130 / 72; Pulse 55; Resp 14; Pulse Ox 100% ; Pain 0/10; jm12 04:13 BP 110 / 76; Pulse 58; Resp 14; Pulse Ox 100% ; Pain 0/10; [facility] 01/09 23:51 Body Mass Index 33.67 (103.42 kg, 175.26 cm) [facility] 01/09 23:51 Pain Scale: Adult 12 01/10 02:00 Pain Scale: Adult [facility] 02:00 Pain Scale: Adult [facility] 04:13 Pain Scale: Adult [facility] Ashley Coma Score: 05:10 Eye Response: spontaneous(4). Motor Response: obeys commands(6). Verbal Response: sp4 oriented(5). Total: 15. MDM: 01/09 23:55 Patient medically screened. 4 01/10 05:10 Differential diagnosis: arrythmia, dehydration, stress disorder. Data reviewed: vital sp4 signs, nurses notes, EMS record, old medical records, lab test result(s), EKG, radiologic studies, plain films. ED course: CLINICAL HISTORY: Chest pain. COMPARISON: None. TECHNIQUE: XR CHEST 1 VIEW 01/10/2024 11:55 PM CDT FINDINGS: The heart is moderately enlarged. Lungs are clear without consolidation, atelectasis, mass or edema. There is no pleural effusion. There is no pneumothorax. There are no acute osseous findings. IMPRESSION: Clear lungs. Electronically signed by: Celso Aguiar MD 01/11/2024 03:13 AM. 01/09 23:55 Order name: Basic Metabolic Panel; Complete Time: 04:56 sp4 01/09 23:55 Order name: CBC with Diff; Complete Time: 04:56 sp4 01/09 23:55 Order name: LFT's; Complete Time: 04:56 sp4 01/09 23:55 Order name: Magnesium; Complete Time: 04:56 sp4 01/09 23:55 Order name: NT PRO-BNP; Complete Time: 04:56 sp4 01/09 23:55 Order name: PT-INR; Complete Time: 04:56 sp4 01/09 23:55 Order name: Troponin HS; Complete Time: 04:56 sp4 01/09 23:55 Order name: XRAY Chest (1 view) 4 01/09 23:55 Order name: EKG; Complete Time: 23:55 sp4 01/09 23:55 Order name: Cardiac monitoring; Complete Time: 00:42 sp4 01/09 23:55 Order name: EKG - Nurse/Tech; Complete Time: :49 sp4 01/09 23:55 Order name: IV Saline Lock; Complete Time: :49 sp4 01/09 23:55 Order name: Labs collected and sent; Complete Time: :49 sp4 01/09 23:55 Order name: O2 Per Protocol; Complete Time: 00:42 sp4 01/09 23:55 Order name: O2 Sat Monitoring; Complete Time: 00:42 sp4 EC:10 Rate is 62 beats/min. Rhythm is irregular, Normal Sinus Rhythm with PACs. QRS [place] is sp4 Normal. NM interval is normal. QRS interval is normal. QT interval is normal. No Q waves. T waves are Normal. No ST changes noted. Clinical impression: No evidence of ischemia. Interpreted by me. Reviewed by me. Administered Medications: No medications were administered Disposition Summary: 01/11/24 05:15 Discharge Ordered Notes: Location: Home sp4 Problem: new sp4 Symptoms: are resolved sp4 Condition: Stable sp4 Diagnosis - Palpitations sp4 Followup: sp4 - With: Private Physician - When: 7 - 10 days - Reason: Recheck today's complaints Discharge Instructions: - Discharge Summary Sheet sp4 - Premature Atrial Contraction sp4 Forms: - Patient Portal Instructions sp4 Signatures: Dispatcher [employer] Faraz Elizabeth MD MD sp4 Giselle Cuellar, RN RN jm12
[2024-01-11 06:20] VITALS: TEMP 98.2; O2SAT 100
[2024-01-11 06:25] VITALS: BP 110/76
--- NOTE | 2024-01-11 11:38 | RAD REPORT ---
EXAM DESCRIPTION: RAD - Chest Single View - 01/11/2024 12:18 am CLINICAL HISTORY: Chest pain. COMPARISON: None. TECHNIQUE: XR CHEST 1 VIEW 01/10/2024 11:55 PM CDT FINDINGS: The heart is moderately enlarged. Lungs are clear without consolidation, atelectasis, mass or edema. There is no pleural effusion. There is no pneumothorax. There are no acute osseous finding s. IMPRESSION: Clear lungs. Electronically signed by: Celso Aguiar MD 01/11/2024 03:13 AM CDT RP Due to temporary technical issues with the PACS/Fluency reporting system, reports are being signed by the in house radiologist without review as a courtesy to ensure prompt reporting. The interpreting r adiologist is fully responsible for the content of the report.
== END 2024-01-11 05:34 | disposition home or self-care (01) ==
LOC: ER 23:44
DX: R00.2 Palpitations (principal); R42 Dizziness and giddiness; I48.91 Unspecified atrial fibrillation; I10 Essential (primary) hypertension; Z79.01 Long term (current) use of anticoagulants; Z79.82 Long term (current) use of aspirin
CPT/HCPCS: 36415; 71045; 80048; 80076; 83735; 83880; 84484; 85025; 85610; 93005

== ENCOUNTER 2024-01-17 22:03 | Emergency (ER) | payer OTHER ==
[2024-01-17 22:59] LABS: Absolute Eosinophils 0.1 K/uL (0-0.5); Absolute Monocytes 1.3 K/uL (0.1-1.3); Absolute Neutrophil 6.2 K/uL (1.8-8.0); Basophils % 0.5 % (0-1.3); Eosinophils % 0.9 % (0-4.4); Hematocrit 41.3 % (39.6-49.0); Hemoglobin 13.7 g/dL (13.6-17.9); Lymphocytes % 27.8 % (15.3-44.8); MCH 31.1 pg (27.0-35.0); MCHC 33.2 g/dL (32.0-36.0); MCV 93.9 fL (80-100); MPV 8.4 fL (7.6-11.3); Monocytes % 12.5 % (3.3-12.3); Neutrophils % 58.3 % (41.7-73.7); Platelets 290 thou/uL (152-406); Red Cell Distribution Width 15.3 % (12.1-15.2)
[2024-01-17 23:04] LABS: ALT/SGPT 33 U/L (16-61); AST/SGOT 17 U/L (15-37); Albumin 3.6 g/dL (3.4-5.0); Albumin/Globulin Ratio 1.1 (1.1-1.8); Alkaline Phosphatase 59 U/L (45-117); Anion Gap 11.1 mEq/L (5.0-15.0); BUN Blood Urea Nitrogen 19 mg/dL (7-18); Bicarbonate 26 mEq/L (21-32); Bilirubin Total 0.3 mg/dL (0.2-1.0); Globulin 3.4 g/dL (2.3-3.5); Glomerular Filtration Rate 62 ml/min (=/>90); Glucose Level 167 mg/dL (74-106); Magnesium 1.5 mg/dL (1.6-2.4); NT PRO-BNP 928 pg/mL (<125); Potassium 4.1 mEq/L (3.5-5.1); Sodium Level 137 mEq/L (136-145); Troponin High Sensitivity 22.2 pg/mL (<58.9)
[2024-01-17 23:06] LABS: Bilirubin Direct < 0.2 mg/dL (0-0.2); Bilirubin Indirect, Calculated 0.1 mg/dL (0.2-0.8)
--- NOTE | 2024-01-18 00:38 | ER ---
Nurse's Notes [facility] Name: Sinan Swift Age: 68 yrs Sex: Male : 1955 Arrival Date: 01/17/2024 Time: 22:03 Bed 6 Private MD: Diagnosis: Chest pain;Atrial fibrillation with rapid ventricular rate Presentation: 01/16 22:09 Chief complaint: Patient states: I have afib, I had an appointment for pacemaker jb4 consultation. Tonight my heart rate got up to 110-115 and I had some chest pressure. Coronavirus screen: At this time, the client does not indicate any symptoms associated with coronavirus-19. Ebola Screen: No symptoms or risks identified at this time. Initial Sepsis Screen: Does the patient meet any 2 criteria? No. Patient's initial sepsis screen is negative. Does the patient have a suspected source of infection? No. Patient's initial sepsis screen is negative. Risk Assessment: Do you want to hurt yourself or someone else? Patient reports no desire to harm self or others. Onset of symptoms was January 17, 2024. Transition of care: patient was not received from another setting of care. 22:09 Method Of Arrival: EMS: [facility] jb4 22:09 Acuity: SUSANNE 2 jb4 Historical: - Allergies: 22:15 Fish Containing Products; jb4 - Home Meds: 22:15 Aldactone 25 mg Oral tablet 1 tab 2 times per day [Active]; Coreg 3.125 mg Oral tablet jb4 1 tab 2 times per day [Active]; Eliquis oral 1 tab 2 times per day [Active]; Flomax 0.4 mg Oral capsule 1 cap BID [Active]; Sotalol 40 mg Oral 1 tab 2 times per day [Active]; aspirin 81 mg Oral capsule 1 cap daily [Active]; - PMHx: 22:15 a flutter; Atrial fibrillation; Hypertensive disorder; Pneumonia; [place]; Bladder jb4 Diverticulum; Prostate; Pulmonary Embolism; - PSHx: 22:15 cataract; Stented artery; Vasectomy; jb4 - Immunization history:: Adult Immunizations up to date. - Infectious Disease History:: Denies. - Social history:: Smoking status: Patient/guardian denies using tobacco, the patient reports quitting approximately 2 years ago. - Family history:: not pertinent. Screenin:52 [facility] ED Fall Risk Assessment (Adult) History of falling in the last 3 months, jb4 including since admission No falls in past 3 months (0 pts) Confusion or Disorientation No (0 pts) Intoxicated or Sedated No (0 pts) Impaired Gait No (0 pts) Mobility Assist Device Used No (0 pt) Altered Elimination No (0 pt) Score/Fall Risk Level 0 - 2 = Low Risk Oriented to surroundings, Maintained a safe environment. Abuse screen: Denies threats or abuse. Nutritional screening: No deficits noted. Tuberculosis screening: No symptoms or risk factors identified. Assessment: 22:52 General: Appears in no apparent distress. comfortable, Behavior is calm, cooperative, jb4 appropriate for age. Pain: Complains of pain in chest Pain does not radiate. Pain currently is 0 out of 10 on a pain scale. Neuro: Level of Consciousness is awake, alert, obeys commands, Oriented to person, place, time, situation. Cardiovascular: Patient's skin is warm and dry. Respiratory: Airway is patent Respiratory effort is even, unlabored, Respiratory pattern is regular, symmetrical. GI: No signs and/or symptoms were reported involving the gastrointestinal system. : No signs and/or symptoms were reported regarding the genitourinary system. EENT: No signs and/or symptoms were reported regarding the EENT system. Derm: Skin is intact, Skin is pink, warm \T\ dry. Musculoskeletal: Circulation, motion, and sensation intact. 01/17 00:00 Reassessment: Patient appears in no apparent distress at this time. Patient and/or jb4 family updated on plan of care and expected duration. Pain level reassessed. Patient is alert, oriented x 3, equal unlabored respirations, skin warm/dry/pink. 00:57 Reassessment: Patient appears in no apparent distress at this time. Patient and/or jb4 family updated on plan of care and expected duration. Pain level reassessed. Patient is alert, oriented x 3, equal unlabored respirations, skin warm/dry/pink. Vital Signs: 01/16 22:09 BP 126 / 78; Pulse 71; Resp 16; Temp 97.2(TE); Pulse Ox 97% on R/A; Weight 103.87 kg jb4 (R); Height 5 ft. 9 in. ; Pain 0/10; 23:00 BP 101 / 70; Pulse 62; Resp 15; Pulse Ox 97% ; vc1 01/17 00:00 BP 100 / 59; Pulse 56; Resp 14; Pulse Ox 99% ; vc1 01/16 22:09 Body Mass Index 33.82 (103.87 kg, 175.26 cm) jb4 01/16 22:09 Pain Scale: Adult jb4 ED Course: 01/16 22:08 Maintain EMS IV. Dressing intact. Good blood return noted. Site clean \T\ dry. Gauge \T\ karlo 4 site: 22 LAC. Flushed with 10 mL NS IV is patent, is intact, with good blood return. 22:09 Patient arrived in ED. vk 22:15 Chucky Dean MD is Attending Physician. rt 22:15 Triage completed. jb4 22:16 Arm band placed on right wrist. jb4 22:25 XRAY Chest (1 view) In Process Unspecified. EDMS 22:52 Clarke Butler RN is Primary Nurse. jb4 22:52 Patient has correct armband on for positive identification. Placed in gown. Bed in low jb4 position. Call light in reach. Side rails up X 1. Provided Education on: plan of care. 22:52 No provider procedures requiring assistance completed. jb4 08 00:56 IV discontinued, intact, bleeding controlled, No redness/swelling at site. Pressure jb4 dressing applied. Administered Medications: No medications were administered Medication: 01/16 22:52 VIS not applicable for this client. jb4 Outcome: 01/17 00:38 Discharge ordered by . rt 00:56 Discharged to home ambulatory, jb4 00:56 Condition: stable 00:56 Discharge instructions given to patient, Instructed on discharge instructions, follow up and referral plans. Demonstrated understanding of instructions, follow-up care, 00:59 Patient left the ED. jb4 Signatures: Dispatcher [employer] EDMS Clarke Butler RN RN jb4 Juliane Altman RN RN vc1 Chucky Dean MD MD rt Mary Ellen Andrew Corrections: (The following items were deleted from the chart) 01/16 22:18 22:09 BP 126 / 78; Pulse 71bpm; Resp 16bpm; Pulse Ox 97% RA; 103.87 kg Reported; Height jb4 5 ft. 9 in.; BMI: 33.8; Pain 0/10, Adult; jb4 01/17 00:57 00:00 Reassessment: Patient appears in no apparent distress at this time. Patient jb4 and/or family updated on plan of care and expected duration. Pain level reassessed. Patient is alert, oriented x 3, equal unlabored respirations, skin warm/dry/pink. jb4
--- NOTE | 2024-01-18 00:39 | EDPHYS ---
Physician Documentation [facility] Name: Sinan Swift Age: 68 yrs Sex: Male : 1955 Arrival Date: 01/17/2024 Time: 22:03 Bed 6 Private MD: ED Physician Chucky Dean HPI: 01/16 22:25 This 68 yrs old Male presents to ER via EMS with complaints of chest pain. rt 22:25 Patient presents to the ED with chest pain described as a pressure starting little rt after 9. It lasted for about 30 minutes. Patient Checked his pulse ox and noticed that his heart rate was about 115. States this is similar to when he has a flare of his A-fib. States that the symptoms have completely resolved, states that he feels well currently. 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 Denies other acute complaints at this time, symptoms are moderate in severity, no other aggravating elevating factors. . Historical: - Allergies: 22:15 Fish Containing Products; jb4 - Home Meds: 22:15 Aldactone 25 mg Oral tablet 1 tab 2 times per day [Active]; Coreg 3.125 mg Oral tablet jb4 1 tab 2 times per day [Active]; Eliquis oral 1 tab 2 times per day [Active]; Flomax 0.4 mg Oral capsule 1 cap BID [Active]; Sotalol 40 mg Oral 1 tab 2 times per day [Active]; aspirin 81 mg Oral capsule 1 cap daily [Active]; - PMHx: 22:15 a flutter; Atrial fibrillation; Hypertensive disorder; Pneumonia; [place]; Bladder jb4 Diverticulum; Prostate; Pulmonary Embolism; - PSHx: 22:15 cataract; Stented artery; Vasectomy; jb4 - Immunization history:: Adult Immunizations up to date. - Infectious Disease History:: Denies. - Social history:: Smoking status: Patient/guardian denies using tobacco, the patient reports quitting approximately 2 years ago. - Family history:: not pertinent. ROS: 22:25 Constitutional: Negative for fever, chills, and weight loss, Respiratory: Negative for rt shortness of breath, cough, wheezing, and pleuritic chest pain, Abdomen/GI: Negative for abdominal pain, nausea, vomiting, diarrhea, and constipation, MS/Extremity: Negative for injury and deformity, Skin: Negative for injury, rash, and discoloration, Neuro: Negative for headache, weakness, numbness, tingling, and seizure, 22:25 Cardiovascular: Positive for chest pain, Negative for edema, Exam: 22:25 Constitutional: This is a well developed, well nourished patient who is awake, alert, rt and in no acute distress. Chest/axilla: Normal chest wall appearance and motion. Nontender with no deformity. No lesions are appreciated. Cardiovascular: Regular rate and rhythm with a normal S1 and S2. No gallops, murmurs, or rubs. Normal PMI, no JVD. No pulse deficits. Respiratory: Lungs have equal breath sounds bilaterally, clear to auscultation and percussion. No rales, rhonchi or wheezes noted. No increased work of breathing, no retractions or nasal flaring. Abdomen/GI: Soft, non-tender, with normal bowel sounds. No distension or tympany. No guarding or rebound. No evidence of tenderness throughout. Skin: Warm, dry with normal turgor. Normal color with no rashes, no lesions, and no evidence of cellulitis. MS/ Extremity: Pulses equal, no cyanosis. Neurovascular intact. Full, normal range of motion. Neuro: Awake and alert, GCS 15, oriented to person, place, time, and situation. Cranial nerves II-XII grossly intact. Motor strength 5/5 in all extremities. Sensory grossly intact. Cerebellar exam normal. Normal gait. 22:25 ECG was reviewed by the Attending Physician. Vital Signs: 22:09 BP 126 / 78; Pulse 71; Resp 16; Temp 97.2(TE); Pulse Ox 97% on R/A; Weight 103.87 kg jb4 (R); Height 5 ft. 9 in. ; Pain 0/10; 23:00 BP 101 / 70; Pulse 62; Resp 15; Pulse Ox 97% ; vc1 01/17 00:00 BP 100 / 59; Pulse 56; Resp 14; Pulse Ox 99% ; vc1 01/16 22:09 Body Mass Index 33.82 (103.87 kg, 175.26 cm) [facility] 01/16 22:09 Pain Scale: Adult [facility] MDM: 01/16 22:15 Patient medically screened. rt 01/17 04:14 Differential Diagnosis A-fib, CAD. Data reviewed: vital signs, nurses notes, lab test rt result(s), EKG, radiologic studies. Consideration of Admission/Observation Escalation of care including admission/observation considered. Discussed admission with the patient. Symptoms seem to mostly be related to A-fib with RVR, resolved prior to arrival. He is asymptomatic in the ED. I discussed getting repeat troponin with the patient, patient states that he wishes to go home before having that repeat testing done. 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 Patient will keep that follow up appointment. He is to return should he develop any worsening symptoms.. Independent interpretation of the following test(s) in the Emergency Department X-Ray: My interpretation is No pneumonia seen on interpretation of x-ray images. Test considered but Not performed: CT: Low suspicion for pulmonary embolus, patient on Eliquis, CT angiogram not indicated. Care significantly affected by the following chronic conditions: Atrial fibrillation. Counseling: I had a detailed discussion with the patient and/or guardian regarding the historical points, exam findings, and any diagnostic results supporting the discharge/admit diagnosis, lab results, radiology results, the need for outpatient follow up, to return to the emergency department if symptoms worsen or persist or if there are any questions or concerns that arise at home. Response to treatment: the patient's symptoms have markedly improved after treatment. 01/16 22: Order name: Basic Metabolic Panel; Complete Time: 23:14 rt 01/16 22:17 Order name: CBC with Diff; Complete Time: 23:14 rt 01/16 22:17 Order name: LFT's; Complete Time: 23:14 rt 01/16 22:17 Order name: Magnesium; Complete Time: 23:14 rt 01/16 22:17 Order name: NT PRO-BNP; Complete Time: 23:14 rt 01/16 22:17 Order name: Troponin HS; Complete Time: 23:14 rt 01/16 22:17 Order name: XRAY Chest (1 view) rt 01/16 22:17 Order name: EKG; Complete Time: 22:17 rt 01/16 22:17 Order name: Cardiac monitoring; Complete Time: 22:17 rt 01/16 22:17 Order name: EKG - Nurse/Tech; Complete Time: 22:17 rt 01/16 22:17 Order name: IV Saline Lock; Complete Time: 22:17 rt 01/16 22:17 Order name: Labs collected and sent; Complete Time: 22:17 rt 01/16 22:17 Order name: O2 Per Protocol; Complete Time: : rt 01/16 22: Order name: O2 Sat Monitoring; Complete Time: 22:17 rt EC/19 22:25 Rate is 68 beats/min. Rhythm is regular, Normal Sinus Rhythm with No ectopy. QRS [place] rt is Normal. IN interval is normal. QRS interval is normal. QT interval is normal. No Q waves. No ST changes noted. Administered Medications: No medications were administered Disposition Summary: 01/18/24 00:38 Discharge Ordered Notes: Location: Home rt Problem: new rt Symptoms: have improved rt Condition: Stable rt Diagnosis - Chest pain rt - Atrial fibrillation with rapid ventricular rate rt Followup: rt - With: Private Physician - When: Tomorrow - Reason: Discharge Instructions: - Discharge Summary Sheet rt - Atrial Fibrillation rt - Nonspecific Chest Pain, Adult rt Forms: - Medication Reconciliation Form rt - Antibiotic Education rt - Prescription Opioid Use rt - Patient Portal Instructions rt - Leadership Thank You Letter rt Signatures: Dispatcher [employer] Clarke Alarcon, RN RN jb4 Chucky Dean MD MD rt
[2024-01-18 01:16] VITALS: TEMP 97.2
[2024-01-18 01:18] VITALS: BP 100/59; O2SAT 99
--- OUTSIDE RECORDS SUMMARY | 2024-01-18 14:27 | XMS REPORT | Continuity of Care Document ---
Author Name Unknown Address [address] [facility]. [address] [place] [address] [facility] thconnect Address [address] [facility] [address] [place] [address] Care Team Providers Care Floor Associate Name Role Phone Domo GORDON Attending Clinician Unavailab Trevor Stanford Attending Clinician Unavailable Trevor Grimm Admitting Clinician Unavailable Payers Payer Name Policy Type Policy Number Effective Date Expirati on Date Source [place] [address] [id number] [facility] AETNA 53 [id number] Common [facility] Problems Condition Name Condition Details Condition Category Status Onset Date Resolution Date Last Treatment Date Treating Clinician Comments Source [id number] Acquired bladder diverticul um Problem [facility] [id number] Obstructiv e uropathy Problem [facility] 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 Problem [facility] Incomplete bladder emptying Incomplete bladder emptying Problem [facility] [id number] Dysfunctio nal voiding of urine Problem [facility] 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 BPH loc w urin obs/LUTS Problem [facility] Allergies, Adverse Reactions, Alerts Allergy Name Allergy Type Status Severity Reaction(s) Onset Date Inactive Date Treating Clinician Comments Source Gregg Escobedo Active (mhs) [facility] Social History Social Habit Start Date Stop Date Quantity Comments Source History of Tobacco Use [facility] Sex Assigned At [facility] Smoking Status Start Date Stop Date Source Former Smoker 2023-10-21 00:00:00 2023-10-21 00:00:00 [facility] Current Smoker 2023-03-18 00:00:00 [facility] Medications Ordered Medication Name Filled Medication Name [...] t} QD Aspirin 81 81 MG [place] 1000 MG [place] 1000 MG No [place] 1000 MG [place] 450 MG [place] 450 [...] height 2023-10-21 15:15:00 66 [in_i] Commo n [facility] weight 2023-10-21 15:15:00 229.6 [lb_av] Co mmon [facility] temperature 2023-10-21 15:15:00 97.5 [degF] Com mon [facility] bmi 2023-10-21 15:15:00 37.05 kg/m2 Comm on [facility] oximetry 2023-10-21 15:15:00 93 % Commo n [facility] respiratory rate 2023-10-21 15:15:00 18 /min Common [facility] blood pressure systolic 2023-10-21 15:15:00 101 mm[Hg] [facility] blood pressure diastolic 2023-10-21 15:15:00 55 mm[Hg] Common [facility] height 2023-03-18 13:30:00 66 [in_i] Commo n [facility] weight 2023-03-18 13:30:00 240.6 [lb_av] Co mmon [facility] temperature 2023-03-18 13:30:00 97.8 [degF] Com [facility] bmi 2023-03-18 13:30:00 38.83 kg/m2 Comm on [facility] oximetry 2023-03-18 13:30:00 96 % Commo n [facility] respiratory rate 2023-03-18 13:30:00 18 /min Common [facility] blood pressure systolic 2023-03-18 13:30:00 121 mm[Hg] [facility] blood pressure diastolic 2023-03-18 13:30:00 66 mm[Hg] [facility] height 2022-11-18 10:45:00 66 [in_i] Commo n [facility] weight 2022-11-18 10:45:00 231 [lb_av] Comm on [facility] temperature 2022-11-18 10:45:00 98.1 [degF] Com [facility] bmi 2022-11-18 10:45:00 37.28 kg/m2 Comm on [facility] oximetry 2022-11-18 10:45:00 99 % Commo n [facility] respiratory rate 2022-11-18 10:45:00 18 /min [facility] blood pressure systolic 2022-11-18 10:45:00 123 mm[Hg] [facility] blood pressure diastolic 2022-11-18 10:45:00 71 mm[Hg] [facility] height 2022-05-20 13:15:00 66 [in_i] Commo n [facility] weight 2022-05-20 13:15:00 205 [lb_av] Comm on [facility] temperature 2022-05-20 13:15:00 98.3 [degF] Com mon [facility] bmi 2022-05-20 13:15:00 33.08 kg/m2 Comm on [facility] oximetry 2022-05-20 13:15:00 96 % Commo n [facility] respiratory rate 2022-05-20 13:15:00 17 /min [facility] blood pressure systolic 2022-05-20 13:15:00 113 mm[Hg] [facility] blood pressure diastolic 2022-05-20 13:15:00 66 mm[Hg] [facility] Encounters Start Date/Time End Date/Time Encounter Type Admission Type Attending [facility] Care Facility Care Department Encounter ID Source 2023-06-30 09:43:00 Outpatient Domo GORDON [facility] [id number] [facility] 2023-06-28 16:58:00 Outpatient Domo GORDON [facility] [id number] [facility] 2023-03-15 14:56:01 Outpatient Domo GORDON [facility] [id number] [facility] 2023-02-08 15:36:00 Outpatient Domo GORDON [facility] [id number] [facility] 2023-01-05 07:00:00 Inpatient Trevor Benavides [facility] [id number] [facility] 2022-11-23 08:14:01 Outpatient Domo GORDON [facility] [id number] [facility] 2022-11-16 10:39:02 Outpatient Domo GORDON [facility] [id number] [facility] 2022-05-14 14:33:02 Outpatient Domo Gordon [facility] 2021-08-06 08:57:04 Outpatient Domo Gordon [facility] 2021-06-25 14:20:34 Outpatient Domo Gordon [facility] [id number] [facility] 2021-06-25 14:18:31 Outpatient Domo Gordon [facility] [id number] [facility] 2023-10-21 00:00:00 2023-10-21 00:00:00 OFFICE VISIT ESTAB PT LEVEL 3 [facility] [id number] [facility] 2023-03-18 00:00:00 2023-03-18 00:00:00 OFFICE VISIT ESTAB PT LEVEL 3 [facility] [id number] [facility] 2022-11-23 00:00:00 2022-11-23 00:00:00 (TEL) [facility] [id number] [facility] 2022-11-18 00:00:00 2022-11-18 00:00:00 OFFICE VISIT ESTAB PT LEVEL 3 [facility] ST[facility] [id number] [facility] 2022-05-20 00:00:00 2022-05-20 00:00:00 OFFICE VISIT EST PT LEVEL 3 [facility] ST[facility] [id number] [facility] 2021-05-02 00:00:00 2021-05-02 00:00:00 ambulatory [facility]LMLC ST[facility]C [id number] [facility]
--- NOTE | 2024-01-18 17:45 | EKG ---
Test Date: 2024-01-17 Test Time: 22:16:58 Transportation Attendant: ALBERTINA MEASUREMENT RESULTS: Intervals: Rate: 68 GA: 174 QRSD: 112 QT: 430 QTc: 457 [place]: P: 44 GA: 174 QRS: -20 T: 105 INTERPRETIVE STATEMENTS: Sinus rhythm with premature atrial complexes Anterolateral infarct, age undetermined Abnormal ECG Compared to ECG 01/11/2024 01:00:25 No significant changes Electronically Signed On 01-18-24 17:44:16 CDT by Cisco Segovia
--- NOTE | 2024-01-18 21:00 | RAD REPORT ---
EXAM DESCRIPTION: XR Chest, 1 View CLINICAL HISTORY: The patient is 68 years old and is Male; CHEST PAIN TECHNIQUE: Frontal view of the chest. COMPARISON: No relevant prior studies available. FINDINGS: LUNGS: Mild interstitial prominence is noted. No consolidation. PLEURAL SPACE: Unremarkable. No pneumothorax. HEART: The cardiac silhouette is enlarged. MEDIASTINUM: Unremarkable. Normal mediastinal contour. BONES/JOINTS: Unremarkable. No acute fracture. UPPER ABDOMEN: Unremarkable as visualized. IMPRESSION: Cardiomegaly with findings suggestive of vascular is seen. Electronically signed by: Clare Ortiz MD 01/18/2024 12:16 AM CDT RP Due to temporary technical issues with the PACS/Fluency reporting system, reports are being signed by the in house radiologists without review as a courtesy to insure prompt reporting. The interpreting radiologist is fully responsible for the content of the report.
== END 2024-01-18 00:59 | disposition home or self-care (01) ==
LOC: ER 22:03
DX: I48.91 Unspecified atrial fibrillation (principal); Z79.01 Long term (current) use of anticoagulants; I10 Essential (primary) hypertension; I25.2 Old myocardial infarction; Z79.82 Long term (current) use of aspirin; Z86.711 Personal history of pulmonary embolism
CPT/HCPCS: 36415; 71045; 80048; 80076; 83735; 83880; 84484; 85025; 93005

== ENCOUNTER 2024-01-29 17:28 | Emergency (ER) | payer OTHER ==
[2024-01-29] MEDS ORDERED: SOTALOL HCL 80 MG TAB ONE (18:00)
[2024-01-29 18:27] LABS: Absolute Eosinophils 0.1 K/uL (0-0.5); Absolute Lymphocytes (CBC) 2.3 K/uL (0.7-4.9); Absolute Monocytes 1.2 K/uL (0.1-1.3); Absolute Neutrophil 6.4 K/uL (1.8-8.0); Basophils % 0.3 % (0-1.3); Eosinophils % 0.8 % (0-4.4); Hemoglobin 13.7 g/dL (13.6-17.9); Lymphocytes % 23.2 % (15.3-44.8); MCH 31.5 pg (27.0-35.0); MCHC 33.4 g/dL (32.0-36.0); MCV 94.1 fL (80-100); MPV 8.4 fL (7.6-11.3); Monocytes % 12.3 % (3.3-12.3); Neutrophils % 63.4 % (41.7-73.7); Nucleated Red Blood Cells % 0.1 % (0-0); Platelets 271 thou/uL (152-406); RBC Red Blood Cell Count 4.36 M/uL (4.33-5.43)
--- NOTE | 2024-01-29 18:36 | RAD REPORT ---
EXAM DESCRIPTION: Ben Single View01/29/2024 6:23 pm CLINICAL HISTORY: Chest pain COMPARISON: January 1607 04 FINDINGS: The lungs appear clear of acute infiltrate. The heart is moderately enlarged IMPRESSION: No acute abnormalities displayed
[2024-01-29 18:37] LABS: ALT/SGPT 39 U/L (16-61); AST/SGOT 18 U/L (15-37); Albumin 3.4 g/dL (3.4-5.0); Alkaline Phosphatase 70 U/L (45-117); BUN Blood Urea Nitrogen 17 mg/dL (7-18); Bicarbonate 23 mEq/L (21-32); Bilirubin Total 0.3 mg/dL (0.2-1.0); Globulin 3.3 g/dL (2.3-3.5); Glomerular Filtration Rate 69 ml/min (=/>90); Glucose Level 147 mg/dL (74-106); Magnesium 1.7 mg/dL (1.6-2.4); Protein, Total 6.7 g/dL (6.4-8.2); Sodium Level 137 mEq/L (136-145)
[2024-01-29 18:38] LABS: Bilirubin Direct < 0.2 mg/dL (0-0.2); Bilirubin Indirect, Calculated 0.1 mg/dL (0.2-0.8)
--- NOTE | 2024-01-29 19:29 | EDPHYS ---
Physician Documentation [facility] Name: Sinan Swift Age: 68 yrs Sex: Male : 1955 Arrival Date: 01/29/2024 Time: 17:28 Bed 4 Private MD: ED Physician Chucky Dean HPI: 01/28 19:48 This 68 yrs old Male presents to ER via EMS with complaints of Chest Pain. rt 19:48 Patient with known history of A-fib presents to the ED with chest pain, shortness of rt breath, acutely starting about an hour prior to arrival. Patient checked his heart rate, noted that was about 120. EMS was called, briefly thereafter, his heart rate normalized and his symptoms completely resolved. This is similar to previous episodes of A-fib. Of note, patient does have an appointment for pacemaker defibrillator placement on Wednesday in [place]. Denies other acute complaints, symptoms are moderate in severity, no other aggravating or alleviating factors.. Historical: - Allergies: 17:36 Fish Containing Products; rs5 - PMHx: 17:36 a flutter; Atrial fibrillation; Bladder Diverticulum; Hypertensive disorder; PA; rs5 Pneumonia; Prostate; Pulmonary Embolism; - PSHx: 17:36 cataract; Stented artery; Vasectomy; rs5 - Immunization history:: Adult Immunizations up to date. - Infectious Disease History:: Denies. - Social history:: Smoking status: Patient/guardian denies using tobacco, but has a distant history of tobacco abuse. - Family history:: not pertinent. ROS: 19:48 Constitutional: Negative for fever, chills, and weight loss, Abdomen/GI: Negative for rt abdominal pain, nausea, vomiting, diarrhea, and constipation, MS/Extremity: Negative for injury and deformity, Neuro: Negative for headache, weakness, numbness, tingling, and seizure, 19:48 Cardiovascular: Positive for chest pain, Negative for edema, 19:48 Respiratory: Positive for shortness of breath, Negative for cough, Exam: 19:48 Constitutional: This is a well developed, well nourished patient who is awake, alert, rt and in no acute distress. Head/Face: Normocephalic, atraumatic. Chest/axilla: Normal chest wall appearance and motion. Nontender with no deformity. No lesions are appreciated. Cardiovascular: Regular rate and rhythm with a normal S1 and S2. No gallops, murmurs, or rubs. Normal PMI, no JVD. No pulse deficits. Respiratory: Lungs have equal breath sounds bilaterally, clear to auscultation and percussion. No rales, rhonchi or wheezes noted. No increased work of breathing, no retractions or nasal flaring. Abdomen/GI: Soft, non-tender, with normal bowel sounds. No distension or tympany. No guarding or rebound. No evidence of tenderness throughout. Skin: Warm, dry with normal turgor. Normal color with no rashes, no lesions, and no evidence of cellulitis. MS/ Extremity: Pulses equal, no cyanosis. Neurovascular intact. Full, normal range of motion. Neuro: Awake and alert, GCS 15, oriented to person, place, time, and situation. Cranial nerves II-XII grossly intact. Motor strength 5/5 in all extremities. Sensory grossly intact. Cerebellar exam normal. Normal gait. 19:48 ECG was reviewed by the Attending Physician. Vital Signs: 17:33 BP 124 / 67; Pulse 77; Resp 17; Temp 97.9(O); Pulse Ox 97% on R/A; rs5 18:38 BP 107 / 71; Pulse 67; Resp 16; Pulse Ox 98% ; ko1 19:53 BP 112 / 71; Pulse 61; Resp 18; Temp 97.9; Pulse Ox 99% ; cp4 MDM: 17:40 Patient medically screened. rt 19:48 Differential diagnosis: A-fib, ACS, atrial flutter, nonspecific chest pain. Data rt reviewed: vital signs, nurses notes, lab test result(s), EKG, radiologic studies. Consideration of Admission/Observation Escalation of care including admission/observation considered. Offer patient admission to the hospital, states that he wishes to be discharged as his symptoms have completely resolved. The patient was also offered a repeat troponin testing, also wishes to forego this. He wishes to go home, will keep his appointment. Strict return precautions were discussed with patient. I informed patient of risk, he has decision-making capacity.. I considered the following discharge prescriptions or medication management in the emergency department Medications were administered in the Emergency Department. See MAR. Independent interpretation of the following test(s) in the Emergency Department X-Ray: My interpretation is No edema seen by interpretation of x-ray images. Test considered but Not performed: CT: Low suspicion for pulmonary embolus, CT angiogram not indicated. Care significantly affected by the following chronic conditions: Atrial fibrillation. Counseling: I had a detailed discussion with the patient and/or guardian regarding the historical points, exam findings, and any diagnostic results supporting the discharge/admit diagnosis, lab results, radiology results, the need for outpatient follow up, to return to the emergency department if symptoms worsen or persist or if there are any questions or concerns that arise at home. Response to treatment: the patient's symptoms have resolved after treatment. 01/28 17:51 Order name: Basic Metabolic Panel; Complete Time: 18:40 rt 01/28 17:51 Order name: CBC with Diff; Complete Time: 18:40 rt 01/28 17:51 Order name: LFT's; Complete Time: 18:40 rt 01/28 17:51 Order name: Magnesium; Complete Time: 18:40 rt 01/28 17:51 Order name: Troponin HS; Complete Time: 18:40 rt 01/28 17:51 Order name: XRAY Chest (1 view); Complete Time: 18:40 rt 01/28 17:51 Order name: Cardiac monitoring; Complete Time: 18:30 rt 01/28 17:51 Order name: EKG - Nurse/Tech; Complete Time: 18:30 rt 01/28 17:51 Order name: IV Saline Lock; Complete Time: 18:30 rt 01/28 17:51 Order name: Labs collected and sent; Complete Time: 18:30 rt 01/28 17:51 Order name: O2 Per Protocol; Complete Time: 18:30 rt 01/28 17:51 Order name: O2 Sat Monitoring; Complete Time: 18:30 rt EC:48 Rate is 74 beats/min. Rhythm is regular, Normal Sinus Rhythm with PACs. [place] interval is rt normal. QRS interval is normal. QT interval is normal. No Q waves. No ST changes noted. Interpreted by me. Administered Medications: 17:59 Drug: Sotalol PO 40 mg PO once Route: PO; rs5 Disposition Summary: 01/29/24 19:28 Discharge Ordered Notes: Location: Home rt Problem: an acute exacerbation rt Symptoms: have improved rt Condition: Stable rt Diagnosis - Atrial fibrillation with rapid ventricular rate rt Followup: rt - With: Private Physician - When: 2 - 3 days - Reason: Discharge Instructions: - Discharge Summary Sheet rt - Atrial Fibrillation rt Forms: - Medication Reconciliation Form rt - Antibiotic Education rt - Prescription Opioid Use rt - Patient Portal Instructions rt - Leadership Thank You Letter rt Signatures: Dispatcher [employer] EDChucky Saenz MD MD rt Chele Perez, RN RN rs5 Corrections: (The following items were deleted from the chart) 17:51 17:51 BASIC METABOLIC PANEL+C.LAB.BRZ ordered. EDMS EDMS 17:51 17:51 CBC+H.LAB.BRZ ordered. EDMS EDMS 17:51 17:51 HEPATIC FUNCTION+C.LAB.BRZ ordered. EDMS EDMS 17:51 17:51 MAGNESIUM+C.LAB.BRZ ordered. EDMS EDMS 17:51 17:51 Troponin High Sensitivity+C.LAB.BRZ ordered. EDMS EDMS 17:51 17:51 Chest Single View+RAD.RAD.BRZ ordered. EDMS EDMS
--- NOTE | 2024-01-29 19:29 | ER ---
Nurse's Notes [facility] Name: Sinan Swift Age: 68 yrs Sex: Male : 1955 Arrival Date: 01/29/2024 Time: 17:28 Bed 4 Private MD: Diagnosis: Atrial fibrillation with rapid ventricular rate Presentation: 01/28 17:33 Chief complaint: EMS states: Sudden onset chest pain and dizziness that started 20 min rs5 prior to arrival, tachycardic on scene with a rate in 130's. Chest pain and dizziness resolved en route and rate is now in 70's, no meds adm. Pt states he was set to have a pacemaker placed next Wednesday and that this has happened before. Coronavirus screen: At this time, the client does not indicate any symptoms associated with coronavirus-19. Ebola Screen: No symptoms or risks identified at this time. Initial Sepsis Screen: Does the patient meet any 2 criteria? No. Patient's initial sepsis screen is negative. Does the patient have a suspected source of infection? No. Patient's initial sepsis screen is negative. Risk Assessment: Do you want to hurt yourself or someone else? Patient reports no desire to harm self or others. Onset of symptoms was January 29, 2024. Care prior to arrival: IV initiated. 20 GA, in the left hand. 17:33 Method Of Arrival: EMS: [facility] rs5 17:33 Acuity: SUSANNE 3 rs5 Historical: - Allergies: 17:36 Fish Containing Products; rs5 - PMHx: 17:36 a flutter; Atrial fibrillation; Bladder Diverticulum; Hypertensive disorder; [place]; rs5 Pneumonia; Prostate; Pulmonary Embolism; - PSHx: 17:36 cataract; Stented artery; Vasectomy; rs5 - Immunization history:: Adult Immunizations up to date. - Infectious Disease History:: Denies. - Social history:: Smoking status: Patient/guardian denies using tobacco, but has a distant history of tobacco abuse. - Family history:: not pertinent. Screenin:34 [facility] ED Fall Risk Assessment (Adult) History of falling in the last 3 months, rs5 including since admission No falls in past 3 months (0 pts) Confusion or Disorientation No (0 pts) Intoxicated or Sedated No (0 pts) Impaired Gait No (0 pts) Mobility Assist Device Used No (0 pt) Altered Elimination No (0 pt) Score/Fall Risk Level 0 - 2 = Low Risk Oriented to surroundings, Maintained a safe environment. Abuse screen: Denies threats or abuse. Nutritional screening: No deficits noted. Tuberculosis screening: No symptoms or risk factors identified. Assessment: 17:33 General: Appears in no apparent distress. comfortable, Behavior is calm, cooperative. rs5 Pain: Denies pain. Neuro: Level of Consciousness is awake, alert, obeys commands, Oriented to person, place, time, situation. Cardiovascular: Patient's skin is warm and dry. Respiratory: Airway is patent Respiratory effort is even, unlabored, Respiratory pattern is regular, symmetrical. GI: Abdomen is round non-distended, Abd is soft and non tender X 4 quads. : No signs and/or symptoms were reported regarding the genitourinary system. EENT: No signs and/or symptoms were reported regarding the EENT system. Derm: Skin is intact, Skin is pink, warm \T\ dry. Musculoskeletal: Range of motion: intact in all extremities. 18:41 Reassessment: Patient and/or family updated on plan of care and expected duration. Pain rs5 level reassessed. Patient is alert, oriented x 3, equal unlabored respirations, skin warm/dry/pink. Patient denies pain at this time. 19:53 Pain: Pain does not radiate. Pain began no pain. cp4 Vital Signs: 17:33 BP 124 / 67; Pulse 77; Resp 17; Temp 97.9(O); Pulse Ox 97% on R/A; rs5 18:38 BP 107 / 71; Pulse 67; Resp 16; Pulse Ox 98% ; ko1 19:53 BP 112 / 71; Pulse 61; Resp 18; Temp 97.9; Pulse Ox 99% ; cp4 ED Course: 17:32 Patient arrived in ED. eb 17:33 Chele Perez, RN is Primary Nurse. rs5 17:34 Patient has correct armband on for positive identification. Placed in gown. Bed in low rs5 position. Call light in reach. Side rails up X2. Client placed on continuous cardiac and pulse oximetry monitoring. NIBP monitoring applied. child development consultant on. 17:34 No provider procedures requiring assistance completed. rs5 17:36 Triage completed. rs5 17:38 Chucky Dean MD is Attending Physician. rt 18:25 XRAY Chest (1 view) In Process Unspecified. EDMS 18:38 Provided Education on: call light. Door closed. Noise minimized. Lights dimmed. Warm ko1 blanket given. Pillow given. 19:54 Arm band placed on right wrist. Patient placed in an exam room, on a stretcher. cp4 19:54 intact, bleeding controlled, No redness/swelling at site. Pressure dressing applied. cp4 Patient maintains SpO2 saturation greater than 95% on room air. Administered Medications: 17:59 Drug: Sotalol PO 40 mg PO once Route: PO; rs5 Medication: 17:50 VIS not applicable for this client. rs5 Outcome: 19:28 Discharge ordered by MD. rt 19:54 Discharged to home ambulatory, cp4 19:54 Condition: stable 19:54 Discharge instructions given to patient, Instructed on discharge instructions, follow up and referral plans. Demonstrated understanding of instructions, follow-up care, 19:55 Patient left the ED. cp4 Signatures: Dispatcher [employer] EDIN Daniela Soto Kathy, RN RN ko1 Chucky Dean MD MD rt Chele Perez RN RN rs5 Julia Sharp cp4
[2024-01-29 20:14] VITALS: TEMP 97.9
[2024-01-29 20:16] VITALS: BP 112/71; O2SAT 99
--- NOTE | 2024-02-01 12:45 | EKG ---
Test Date: 2024-01-29 Test Time: 17:40:42 Lead Application Architect: VICKY MEASUREMENT RESULTS: Intervals: Rate: 74 HI: 168 QRSD: 114 QT: 388 QTc: 430 [place]: P: 55 HI: 168 QRS: -20 T: 106 INTERPRETIVE STATEMENTS: Sinus rhythm with premature atrial complexes Cannot rule out Inferior infarct, age undetermined Anterolateral infarct, age undetermined Abnormal ECG Compared to ECG 01/17/2024 22:16:58 No significant changes Electronically Signed On 02-01-24 12:41:03 CDT by Cisco Segovia
== END 2024-01-29 19:55 | disposition home or self-care (01) ==
LOC: ER 17:28
DX: I48.91 Unspecified atrial fibrillation (principal); R06.02 Shortness of breath; I10 Essential (primary) hypertension; I25.2 Old myocardial infarction
CPT/HCPCS: 36415; 71045; 80048; 80076; 83735; 84484; 85025; 93005; 99284

== ENCOUNTER 2024-06-03 00:33 | Inpatient (IN) | payer OTHER, BC ==
--- OUTSIDE RECORDS SUMMARY | 2024-06-03 00:36 | XMS REPORT | Continuity of Care Document ---
Author Name Unknown Address [address] [place] [address] [facility] thconnect Address [address] [place] [address] Care Team Providers Care Fun House Attendant Name Role Phone Domo GORDON Attending Clinician Unavailab Trevor Stanford Attending Clinician Unavailable Sudheer Tavarez V Attending Clinician Unavailable Trevor Grimm Admitting Clinician Unavailable Physician, No Primary or Family Admitting Clinic lopez Unavailable Payers Payer Name Policy Type Policy Number Effective Date Expirati on Date Source [facility] 6 [id number] [facility] AETNA 53 [id number] [facility] Problems Condition Name Condition Details Condition Category Status Onset Date Resolution Date Last Treatment Date Treating Clinician Comments Source [id number] Acquired bladder diverticul um Problem [facility] [id number] Obstructiv e uropathy Problem [facility] 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 Problem [facility] Incomplete bladder emptying Incomplete bladder emptying Problem [facility] [id number] Dysfunctio nal voiding of urine Problem [facility] 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 BPH loc w urin obs/LUTS Problem [facility] Allergies, Adverse Reactions, Alerts Allergy Name Allergy Type Status Severity Reaction(s) Onset Date Inactive Date Treating Clinician Comments Source No Known Allergie s DA Active U 01-31 00:00: 00 [facility] Kenner Kenner Active (mhs) [facility] Social History Social Habit Start Date Stop Date Quantity Comments Source History of Tobacco Use [facility] Sex Assigned At [facility] Smoking Status Start Date Stop Date Source Former Smoker 2023-10-21 00:00:00 2023-10-21 00:00:00 [facility] Current Smoker 2023-03-18 00:00:00 [facility] Medications Ordered Medication Name Filled Medication Name [...] t} QD Aspirin 81 81 MG Saw [place] 1000 MG Saw [place] 1000 MG No Saw [place] 1000 MG Cayenne 450 MG Cayenne 450 [...] height 2023-10-21 15:15:00 66 [in_i] [facility] weight 2023-10-21 15:15:00 229.6 [lb_av] Co mmon [facility] temperature 2023-10-21 15:15:00 97.5 [degF] Com mon [facility] bmi 2023-10-21 15:15:00 37.05 kg/m2 Comm on [facility] oximetry 2023-10-21 15:15:00 93 % [facility] respiratory rate 2023-10-21 15:15:00 18 /min Common [facility] blood pressure systolic 2023-10-21 15:15:00 101 mm[Hg] Common [facility] blood pressure diastolic 2023-10-21 15:15:00 55 mm[Hg] [facility] height 2023-03-18 13:30:00 66 [in_i] Commo n [facility] weight 2023-03-18 13:30:00 240.6 [lb_av] Co mmon [facility] temperature 2023-03-18 13:30:00 97.8 [degF] Com mon [facility] bmi 2023-03-18 13:30:00 38.83 kg/m2 Comm on [facility] oximetry 2023-03-18 13:30:00 96 % Commo [facility] respiratory rate 2023-03-18 13:30:00 18 /min Common [facility] blood pressure systolic 2023-03-18 13:30:00 121 mm[Hg] Common [facility]iri [facility] blood pressure diastolic 2023-03-18 13:30:00 66 mm[Hg] [facility] height 2022-11-18 10:45:00 66 [in_i] Commo n [facility] weight 2022-11-18 10:45:00 231 [lb_av] Comm on [facility] temperature 2022-11-18 10:45:00 98.1 [degF] Com mon [facility] bmi 2022-11-18 10:45:00 37.28 kg/m2 Comm on [facility] oximetry 2022-11-18 10:45:00 99 % [facility] respiratory rate 2022-11-18 10:45:00 18 /min [facility] blood pressure systolic 2022-11-18 10:45:00 123 mm[Hg] [facility] blood pressure diastolic 2022-11-18 10:45:00 71 mm[Hg] [facility] blood pressure diastolic 2022-05-20 13:15:00 66 mm[Hg] [facility] height 2022-05-20 13:15:00 66 [in_i] Commo n [facility] weight 2022-05-20 13:15:00 205 [lb_av] Comm on [facility] temperature 2022-05-20 13:15:00 98.3 [degF] Com mon [facility] bmi 2022-05-20 13:15:00 33.08 kg/m2 Comm [facility] oximetry 2022-05-20 13:15:00 96 % [facility] respiratory rate 2022-05-20 13:15:00 17 /min [facility] blood pressure systolic 2022-05-20 13:15:00 113 mm[Hg] [facility] Encounters Start Date/Time End Date/Time Encounter Type Admission Type Attending [facility] Care Facility Care Department Encounter ID Source 2023-06-30 09:43:00 Outpatient Domo GORDON [facility] [id number] [facility] 2023-06-28 16:58:00 Outpatient [facility] [id number] [facility] 2023-03-15 14:56:01 Outpatient Domo GORDON [facility] [id number] [facility] 2023-02-08 15:36:00 Outpatient Domo GORDON [facility]C [facility] [id number] [facility] 2023-01-05 07:00:00 Inpatient Trevor Benavides [facility] CARD [id number] [facility] 2022-11-23 08:14:01 Outpatient BRIANNENoelDomo STNINALC STLMLC [id number] [facility] 2022-11-16 10:39:02 Outpatient GORDON Domo STLMLC STLMLC 19 [facility] 2022-05-14 14:33:02 Outpatient Gordon, Domo STLMLC STLMLC 15 [facility] 2021-08-06 08:57:04 Outpatient Gordon, Domo STLMLC STL[facility]C [facility] 2021-06-25 14:20:34 Outpatient Noel Gordonence STLMLC STL[facility]C [id number] [facility] 2021-06-25 14:18:31 Outpatient GordonDomo STLMLC STLMLC [id number] [facility] 2024-02-02 05:26:00 2024-02-02 05:26:00 Outpatient Sudheer Jackson [facility] OUTD [id number] [facility] 2023-10-21 00:00:00 2023-10-21 00:00:00 OFFICE VISIT ESTAB PT LEVEL 3 [facility]LMLC STLMLC [id number] [facility] 2023-03-18 00:00:00 2023-03-18 00:00:00 OFFICE VISIT ESTAB PT LEVEL 3 STLMLC STLMLC [id number] [facility] 2022-11-23 00:00:00 2022-11-23 00:00:00 (TEL) STLMLC STLMLC [id number] [facility] 2022-11-18 00:00:00 2022-11-18 00:00:00 OFFICE VISIT ESTAB PT LEVEL 3 STLMLC STLMLC [id number] [facility] 2022-05-20 00:00:00 2022-05-20 00:00:00 OFFICE VISIT EST PT LEVEL 3 [facility] [id number] [facility] 2021-05-02 00:00:00 2021-05-02 00:00:00 ambulatory STLC [facility] [id number] [facility] Results Test Description Test Time Test Comments Results Result Co mments Source BASIC METABOLIC [id number] 14:55:00* Test Item Value Reference Range Interpretation Comme nts SODIUM (test code = NA) 141 mEq/L 134-147 N POTASSIUM (test code = K) 3.6 mEq/L 3.4-5.0 N CHLORIDE (test code = CL) 108 mEq/L 100-108 N CARBON DIOXIDE (test code = CO2) 26 mEq/l 21-33 N ANION GAP (test code = GAP) 11 0-20 N GLUCOSE (test code = GLU) 119 mg/dL 77-141 N BLOOD UREA NITROGEN (test code = BUN) 15 mg/dL 7-25 N GLOMERULAR FILTRATION RATE (test code = GFR) 60.2 80-90 L The Glomerular Filtration Rate is a calculated parameterbased on serum Creatinine, patient age and sex. GFR valuesless than 60 mL/min/1.73 square meters are indicative ofChronic Kidney Disease. Values less than 15 mL/min/1.73square meters indicate Kidney failure. The calculation forGFR is based on the CKD-EPI (2020) calculation. This formulais race indifferent and is the recommended formula for GFRby the National Kidney Foundation for Adults.The GFR will not calculate if the sex is unknown or if thepatient's age is <18 years. CREATININE (test code = CREAT) 1.3 mg/dL 0.6-1.3 N CALCIUM (test code = CA) 8.3 mg/dL 8.0-10.5 N CBC W/AUTO [id number] 14:44:00* Test Item Value Reference Range Interpretation Comme nts WHITE BLOOD CELL (test code = WBC) 9.5 x10 3/uL 4.5-11.0 N RED BLOOD CELL (test code = RBC) 4.43 x10 6/uL 4.00-5.60 N HEMOGLOBIN (test code = HGB) 13.7 g/dL 12.5-16.9 N HEMATOCRIT (test code = HCT) 43.1 % 37.5-50.7 N MEAN CELL VOLUME (test code = MCV) 97.3 fL 81.0-99.0 N MEAN CELL HGB (test code = MCH) 30.9 pg 27.0-33.0 N MEAN CELL HGB CONCETRATION (test code = MCHC) 31.8 g/dL 33.0-37.0 L RED CELL DISTRIBUTION WIDTH CV (test code = RDW) 14.5 % 11.5-14.5 N RED CELL DISTRIBUTION WIDTH SD (test code = RDW-SD) 52.0 fL 37.0-54.0 N PLATELET COUNT (test code = PLT) 283 x10 3/uL 150-400 N MEAN PLATELET VOLUME (test c ode = MPV) 9.9 fL 7.0-9.0 H NEUTROPHIL % (test code = NT%) 57.8 % 56.0-77.0 N IMMATURE GRANULOCYTE % (test code = IG%) 0.5 % 0.0-2.0 N LYMPHOCYTE % (test code = LY%) 28.8 % 14.0-32.0 N MONOCYTE % (test code = MO%) 11.9 % 4.8-9.0 H EOSINOPHIL % (test code = EO%) 0.8 % 0.3-3.7 N BASOPHIL % (test code = BA%) 0.2 % 0.0-2.0 N NUCLEATED RBC % (test code = NRBC%) 0.0 % 0-0 N NEUTROPHIL # (test code = NT#) 5.49 x10 3/uL 2.0-7.6 N IMMATURE GRANULOCYTE # (test code = IG#) 0.05 x10 3/uL 0.00-0.03 H LYMPHOCYTE # (test code = LY#) 2.74 x10 3/uL 1.0-3.8 N MONOCYTE # (test code = MO#) 1.13 x10 3/uL 0.1-0.8 H EOSINOPHIL # (test code = EO#) 0.08 x10 3/uL 0.0-0.2 N BASOPHIL # (test code = BA#) 0.02 x10 3/uL 0.0-0.2 N NUCLEATED RBC # (test code = NRBC#) 0.00 x10 3/uL 0.0-0.1 N
[2024-06-03] MEDS ORDERED: dilTIAZem HCL 25 MG/5 ML VIAL IV ONE ×3 (00:44→01:08)
[2024-06-03] MEDS ORDERED: NA CHLORIDE 0.9% 100 ML ONE (00:48)
[2024-06-03] MEDS ORDERED: NA CHLORIDE 0.9% 1,000 ML ONE (00:48)
[2024-06-03 01:07] LABS: Absolute Eosinophils 0.1 K/uL (0-0.5); Absolute Lymphocytes (CBC) 2.2 K/uL (0.7-4.9); Absolute Monocytes 1.1 K/uL (0.1-1.3); Basophils % 0.3 % (0-1.3); Eosinophils % 1.1 % (0-4.4); Hematocrit 42.4 % (39.6-49.0); Lymphocytes % 25.9 % (15.3-44.8); MCH 30.1 pg (27.0-35.0); MCV 91.1 fL (80-100); MPV 8.4 fL (7.6-11.3); Monocytes % 13.5 % (3.3-12.3); Neutrophils % 59.2 % (41.7-73.7); Nucleated Red Blood Cells % 0.1 % (0-0); Platelets 341 thou/uL (152-406); RBC Red Blood Cell Count 4.66 M/uL (4.33-5.43); Red Cell Distribution Width 14.5 % (12.1-15.2)
[2024-06-03] MEDS ORDERED: ALBUMIN HUMAN 25% 100 ML IV ONE (01:15)
[2024-06-03 01:29] LABS: Albumin 3.3 g/dL (3.4-5.0); Albumin/Globulin Ratio 0.9 (1.1-1.8); Anion Gap 12.9 mEq/L (5.0-15.0); Bilirubin Direct 0.2 mg/dL (0-0.2); Bilirubin Indirect, Calculated 0.4 mg/dL (0.2-0.8); Bilirubin Total 0.6 mg/dL (0.2-1.0); Globulin 3.8 g/dL (2.3-3.5); Magnesium 1.7 mg/dL (1.6-2.4); Potassium 3.9 mEq/L (3.5-5.1); Protein, Total 7.1 g/dL (6.4-8.2); Troponin High Sensitivity 30.9 pg/mL (<58.9)
[2024-06-03 01:34] LABS: PT Prothrombin Time 14.4 SECONDS (9.4-12.5); Protime INR 1.3
[2024-06-03] MEDS ORDERED: AMIODARONE HCL 150 MG/3 ML INJ IV ONE (02:01)
[2024-06-03] MEDS ORDERED: D5W 100 ML IV ONE (02:02)
[2024-06-03] MEDS ORDERED: AMIODARONE IN DEXTROSE,ISO-OSM 360 MG/200 ML BAG IV ONE (02:12)
--- NOTE | 2024-06-03 04:06 | EDPHYS ---
Physician Documentation [facility] Name: Sinan Swift Age: 68 yrs Sex: Male : 1955 Arrival Date: 06/03/2024 Time: 00:33 Bed 4 Private MD: ED Physician Farza Phillip HPI: 06/03 00:37 This 68 yrs old Male presents to ER via Unassigned with complaints of rapid sp4 heart rate . 01:57 68-year-old male presents with complaint of rapid heart rate and generalized weakness. sp4 Patient has history of pacemaker defibrillator implantation in January 2024. This was done at [facility]. Additional history includes LAD stent, hypertension, atrial fibrillation, BPH, bladder diverticulum, monomorphic ventricular tachycardia, atrial fibrillation on chronic anticoagulation, history of CAD, chronic systolic congestive heart failure, diabetes mellitus type II . . 01:58 Home medications include tamsulosin, atorvastatin, spironolactone, apixaban 5 mg p.o. sp4 twice daily, aspirin 81 mg daily, sotalol 40 mg twice daily,. Historical: - Allergies: 00:40 Fish Containing Products; br2 - PMHx: 00:40 Atrial fibrillation; Bladder Diverticulum; Hypertensive disorder; OH; Prostate; br2 Pulmonary Embolism; Pneumonia; - PSHx: 00:40 cataract; Stented artery; Vasectomy; br2 - Immunization history:: Adult Immunizations not up to date. - Infectious Disease History:: Denies. - Social history:: Smoking status: Patient reports the use of cigarette tobacco products, Patient/guardian denies using tobacco. - Family history:: not pertinent. ROS: 01:59 Constitutional: Negative for fever, chills, and weight loss, positive for rapid heart sp4 rate, positive for generalized weakness. 01:59 All other systems are negative, Exam: 01:59 Constitutional: This is a well developed, well nourished patient who is awake, pale, sp4 ill-appearing, nontoxic appearing. Head/Face: Normocephalic, atraumatic. Eyes: Pupils equal round and reactive to light, extra-ocular motions intact. Lids and lashes normal. Conjunctiva and sclera are not injected. Cornea within normal limits. Periorbital areas with no swelling, redness, or edema. ENT: Nares patent. No nasal discharge, no septal abnormalities noted. Tympanic membranes are normal and external auditory canals are clear. Oropharynx with no redness, swelling, or masses, exudates, or evidence of obstruction, uvula midline. Mucous membranes moist. Neck: Trachea midline, no thyromegaly or masses palpated, and no cervical lymphadenopathy. Supple, full range of motion without nuchal rigidity, or vertebral point tenderness. Chest/axilla: Normal chest wall appearance and motion. Nontender with no deformity. No lesions are appreciated. Cardiovascular: Rapid regular tachycardia. Normal PMI, no JVD. No pulse deficits. Respiratory: Lungs have equal breath sounds bilaterally, clear to auscultation and percussion. No rales, rhonchi or wheezes noted. No increased work of breathing, no retractions or nasal flaring. Abdomen/GI: Soft, with normal bowel sounds. No distension or tympany. No guarding or rebound. No evidence of tenderness throughout. Back: No spinal tenderness. No costovertebral tenderness. Skin: Warm, dry with normal turgor. Normal color with no rashes, no lesions, and no evidence of cellulitis. MS/ Extremity: Pulses equal, no cyanosis. Neurovascular intact. Full, normal range of motion. Neuro: Awake and alert, GCS 15, oriented to person, place, time, and situation. Cranial nerves II-XII grossly intact. Motor strength 5/5 in all extremities. Sensory grossly intact. Psych: Awake, alert, with orientation to person, place and time. Behavior, mood, and affect are within normal limits 01:59 ECG was reviewed by the Attending Physician. EKG at 0033 wide QRS tachycardia, left axis deviation, rate 141. 04:12 Repeat EKG 0404 white QRS rhythm paced rhythm at rate of 70. sp4 Vital Signs: 00:30 BP 107 / 93; Pulse 142; Resp 17; Pulse Ox 99% on R/A; dd2 00:37 BP 125 / 88; Pulse 143; Resp 18 S; Pulse Ox 98% on R/A; Weight 104.33 kg; Height 5 ft. br2 8 in. ; Pain 0/10; 01:00 BP 97 / 75; Pulse 144; Resp 17; Pulse Ox 96% on R/A; dd2 01:27 Pulse 144; dd2 01:30 BP 95 / 77; Pulse 141; Resp 16; Pulse Ox 98% on R/A; dd2 01:42 Pulse 141; dd2 02:00 BP 99 / 72; Pulse 137; Resp 16; Pulse Ox 96% on R/A; dd2 02:32 BP 98 / 72; Pulse 138; Resp 16; Pulse Ox 97% on R/A; dd2 02:45 Pulse 117; dd2 03:02 BP 101 / 64; Pulse 116; Resp 16; Pulse Ox 96% on R/A; dd2 03:40 BP 97 / 68; Pulse 117; Resp 16; Pulse Ox 96% on R/A; dd2 04:03 BP 94 / 68; Pulse 70; Resp 16; Pulse Ox 98% on R/A; dd2 00:37 Body Mass Index 34.97 (104.33 kg, 172.72 cm) br2 00:37 Pain Scale: Adult br2 Ashley Coma Score: 00:45 Eye Response: spontaneous(4). Motor Response: obeys commands(6). Verbal Response: dd2 oriented(5). Total: 15. 01:59 Eye Response: spontaneous(4). Motor Response: obeys commands(6). Verbal Response: sp4 oriented(5). Total: 15. MDM: 00:40 Medical Screening Exam initiated sp4 04:00 ED course: EXAM: XR Chest, 1 View CLINICAL HISTORY: The patient is 68 years old and is sp4 Male; CHEST PAIN TECHNIQUE: Frontal view of the chest. COMPARISON: No relevant prior studies available. FINDINGS: LUNGS: Mild interstitial prominence is noted throughout the lungs. No consolidation. PLEURAL SPACE: Unremarkable. No pneumothorax. HEART: The cardiac silhouette is enlarged. MEDIASTINUM: Unremarkable. Normal mediastinal contour. BONES/JOINTS: Unremarkable. No acute fracture. TUBES, LINES AND DEVICES: Left-sided pacemaker is present. UPPER ABDOMEN: Unremarkable as visualized. IMPRESSION: Cardiomegaly with findings suggestive of mild vascular congestion. Electronically signed by: Clare Ortiz MD 06/03/2024 02:21 AM. 04:03 Differential diagnosis: arrythmia, dehydration, stress disorder, Wide complex sp4 Tachycardia. Data reviewed: vital signs, nurses notes, EMS record, old medical records, lab test result(s), EKG, radiologic studies, plain films. Consideration of Admission/Observation Patient was admitted/placed on observation. Escalation of care including admission/observation considered. Management of patient was discussed with the following: Hospitalist: Zeke EDDY . ED course: Amiodarone has decreased patient heart rate from 140 down to 70. Patient currently has paced rhythm at 70. Patient stable for admission for observation. Will switch from IV amiodarone down to the amiodarone p.o. 400 mg. 06/03 00:39 Order name: Basic Metabolic Panel; Complete Time: :56 sp4 06/03 00:39 Order name: CBC with Diff; Complete Time: : sp4 06/03 00:39 Order name: LFT's; Complete Time: : sp4 06/03 00:39 Order name: Magnesium; Complete Time: : sp4 06/03 00:39 Order name: NT PRO-BNP; Complete Time: :56 sp4 06/03 00:39 Order name: PT-INR; Complete Time: :56 sp4 06/03 00:39 Order name: Troponin HS; Complete Time: : sp4 06/03 03:57 Order name: Troponin High Sensitivity; Complete Time: 05:14 sp4 06/03 04:12 Order name: Magnesium EDMS 06/03 04:12 Order name: Phosphorus EDMS 06/03 04:12 Order name: Urinalysis w/ reflexes EDMS 06/03 04:12 Order name: Basic Metabolic Panel EDMS 06/03 04:12 Order name: Basic Metabolic Panel EDMS 06/03 04:12 Order name: CBC with Automated Diff EDMS 06/03 04:12 Order name: CBC with Automated Diff EDMS 06/03 00:39 Order name: XRAY Chest (1 view) sp4 06/03 03:57 Order name: EKG; Complete Time: 03:57 sp4 06/03 00:39 Order name: Cardiac monitoring; Complete Time: 00:39 sp4 06/03 00:39 Order name: EKG - Nurse/Tech; Complete Time: 00:39 sp4 06/03 00:39 Order name: IV Saline Lock; Complete Time: 00:40 sp4 06/03 00:39 Order name: Labs collected and sent; Complete Time: 00:40 sp4 06/03 00:39 Order name: O2 Per Protocol; Complete Time: 00:40 sp4 06/03 00:39 Order name: O2 Sat Monitoring; Complete Time: 00:40 sp4 06/03 04:05 Order name: Misc. Order: Discontinue Amiodarone drip, stop the fluids; Complete Time: sp4 04:12 EC:33 Rate is 141 beats/min. Rhythm is regular with No ectopy. QRS interval is prolonged. sp4 Interpreted by me. Reviewed by me. Administered Medications: 01:12 Drug: Diltiazem IVP 20 mg IVP once; Over 2 minutes Route: IVP; Site: right antecubital; dd2 01:12 Drug: Diltiazem IV 5 mg/hr IV at calculated rate See Administration Instructions; dd2 (standard dilution 125 mg diltiazem mixed in 125 mL NS; final concentration 1mg/mL). Recommended max rate 15 mg/hr; Titrate 5 mg/hr as often as every 15 minutes to achieve goal (see titration policy); Goal parameter HR less than 100 bpm Route: IV; Rate: calculated rate; Site: right antecubital; :27 Follow up: Pulse 144 bpm; Rate change 10 mg/hr dd2 01:27 Follow up: Response: No adverse reaction; Cardiac rhythm changed dd2 01:42 Follow up: Pulse 141 bpm; Rate change 15 mg/hr dd2 04:29 Follow up: IV Status: Order to discontinue infusion; IV Intake: 15ml dd2 01:12 Drug: NS 0.9% IV 1000 ml IV at 125 ml/hr once; to be given as a bolus over 60 minutes dd2 Route: IV; Rate: 125 ml/hr; Site: right antecubital; :27 Follow up: Response: No adverse reaction dd2 04:25 Follow up: IV Status: Order to discontinue infusion; IV Intake: 375ml dd2 01:15 Drug: Albumin IVPB 25 grams 100 ml IVPB once; (Note: Albumin 25% concentration) Volume: dd2 100 ml; Route: IVPB; Site: left antecubital; 01:30 Follow up: Response: No adverse reaction dd2 02:15 Follow up: IV Status: Completed infusion; IV Intake: 100ml dd2 02:14 Drug: amiodarone IVPB 150 mg 100 ml IVPB once over 10 mins; (mix in D5W) Volume: 100 dd2 ml; Route: IVPB; Infused Over: 10 mins; Site: right antecubital; 02:24 Follow up: IV Status: Completed infusion; IV Intake: 100ml dd2 02:29 Follow up: Response: No adverse reaction dd2 02:24 Drug: amiodarone IVPB 900 mg, D5W IV 500 ml IVPB at 1 mg/min continuous; for 6 hrs, dd2 then change to 0.5 mg/min Route: IVPB; Rate: 1 mg/min; Site: right antecubital; 02:39 Follow up: Response: No adverse reaction dd2 04:26 Follow up: IV Status: Order to discontinue infusion; IV Intake: 67ml dd2 04:18 Drug: amiodarone PO 400 mg PO once Route: PO; dd2 Disposition Summary: 06/03/24 04:05 Hospitalization Ordered Notes: Hospitalization Status: Observation sp4 Provider: Prince alexey Alanis Location: Telemetry/MedSurg (observation) sp4 Condition: Stable sp4 Problem: new sp4 Symptoms: have improved sp4 Bed/Room Type: Standard sp4 Room Assignment: 220(06/03/24 04:15) vk Diagnosis - Wide Complex Tachycardia, Generalized weakness, Palpitations sp4 Forms: - Medication Reconciliation Form sp4 - SBAR form sp4 - Leadership Thank You Letter sp4 Signatures: Dispatcher [employer] EDMS Faraz Phillip MD MD sp4 Mary Ellen Andrew Belinda RN RN br2 KEVIN MEYERS RN RN dd2 Corrections: (The following items were deleted from the chart) 00:39 00:39 BASIC METABOLIC PANEL+C.LAB.BRZ ordered. EDMS EDMS 00:39 00:39 CBC+H.LAB.BRZ ordered. EDMS EDMS 00:39 00:39 HEPATIC FUNCTION+C.LAB.BRZ ordered. EDMS EDMS 00:39 00:39 MAGNESIUM+C.LAB.BRZ ordered. EDMS EDMS 00:39 00:39 PROBNP+C.LAB.BRZ ordered. EDMS EDMS 00:39 00:39 PROTIME (+INR)+COAG.LAB.BRZ ordered. EDMS EDMS 00:39 00:39 Troponin High Sensitivity+C.LAB.BRZ ordered. EDMS EDMS 00:39 00:39 Chest Single View+RAD.RAD.BRZ ordered. EDMS EDMS 04:15 04:05 sp4 vk
--- NOTE | 2024-06-03 04:06 | ER ---
Nurse's Notes [facility] Name: Sinan Swift Age: 68 yrs Sex: Male : 1955 Arrival Date: 06/03/2024 Time: 00:33 Bed 4 Private MD: Diagnosis: Wide Complex Tachycardia, Generalized weakness, Palpitations Presentation: 06/03 00:37 Chief complaint: Patient states: PT STATES WAS WATCHING TV AND HIS HEART RATE WAS AT br2 140. PT DENIES PAIN OR SOB PACEMAKER PLACEMENT IN 2023. Coronavirus screen: Client denies travel out of the [place] in the last 14 days. Ebola Screen: Patient denies exposure to infectious person. Initial Sepsis Screen: Does the patient meet any 2 criteria? HR > 90 bpm. Does the patient have a suspected source of infection? No. Patient's initial sepsis screen is negative. Risk Assessment: Do you want to hurt yourself or someone else? Patient reports no desire to harm self or others. Onset of symptoms was June 03, 2024 at 00:00. 00:37 Method Of Arrival: EMS: [facility] br2 00:37 Acuity: SUSANNE 3 br2 Triage Assessment: 00:40 General: Appears in no apparent distress. comfortable, Behavior is calm, cooperative. br2 Pain: Denies pain. EENT: No signs and/or symptoms were reported regarding the EENT system. Neuro: Boyce Agitation-Sedation Scale (RASS): 0 - Alert and Calm Level of Consciousness is awake, alert, obeys commands, Oriented to person, place, time, situation. Cardiovascular: Capillary refill < 3 seconds Rhythm is. Historical: - Allergies: 00:40 Fish Containing Products; br2 - PMHx: 00:40 Atrial fibrillation; Bladder Diverticulum; Hypertensive disorder; WV; Prostate; br2 Pulmonary Embolism; Pneumonia; - PSHx: 00:40 cataract; Stented artery; Vasectomy; br2 - Immunization history:: Adult Immunizations not up to date. - Infectious Disease History:: Denies. - Social history:: Smoking status: Patient reports the use of cigarette tobacco products, Patient/guardian denies using tobacco. - Family history:: not pertinent. Screenin:37 [facility] ED Fall Risk Assessment (Adult) History of falling in the last 3 months, br2 including since admission No falls in past 3 months (0 pts) Confusion or Disorientation No (0 pts) Intoxicated or Sedated No (0 pts) Impaired Gait No (0 pts) Mobility Assist Device Used No (0 pt) Altered Elimination No (0 pt) Score/Fall Risk Level 0 - 2 = Low Risk Oriented to surroundings. Abuse screen: Denies threats or abuse. Denies injuries from another. Nutritional screening: No deficits noted. Tuberculosis screening: No symptoms or risk factors identified. Assessment: 00:45 General: Appears in no apparent distress. Behavior is calm, cooperative, appropriate dd2 for age. Pain: Denies pain. Neuro: Boyce Agitation-Sedation Scale (RASS): 0 - Alert and Calm Level of Consciousness is awake, alert, obeys commands, Oriented to person, place, time, situation, Appropriate for age. Cardiovascular: Denies chest pain, shortness of breath, Heart tones S1 S2 present Patient's skin is warm and dry. Rhythm is sinus tachycardia. Respiratory: Airway is patent Respiratory effort is even, unlabored, Respiratory pattern is regular, symmetrical. GI: No deficits noted. No signs and/or symptoms were reported involving the gastrointestinal system. Abdomen is round non-distended, Bowel sounds present X 4 quads. Abd is soft and non tender X 4 quads. : No deficits noted. No signs and/or symptoms were reported regarding the genitourinary system. EENT: No deficits noted. No signs and/or symptoms were reported regarding the EENT system. Derm: No deficits noted. No signs and/or symptoms reported regarding the dermatologic system. Musculoskeletal: No deficits noted. No signs and/or symptoms reported regarding the musculoskeletal system. Circulation, motion, and sensation intact. Range of motion: intact in all extremities. 03:04 Reassessment: Patient and/or family updated on plan of care and expected duration. Pain dd2 level reassessed. Patient is alert, oriented x 3, equal unlabored respirations, skin warm/dry/pink. Patient denies pain at this time. Patient states symptoms have improved. Vital Signs: 00:30 BP 107 / 93; Pulse 142; Resp 17; Pulse Ox 99% on R/A; dd2 00:37 BP 125 / 88; Pulse 143; Resp 18 S; Pulse Ox 98% on R/A; Weight 104.33 kg; Height 5 ft. br2 8 in. ; Pain 0/10; 01:00 BP 97 / 75; Pulse 144; Resp 17; Pulse Ox 96% on R/A; dd2 01:27 Pulse 144; dd2 01:30 BP 95 / 77; Pulse 141; Resp 16; Pulse Ox 98% on R/A; dd2 01:42 Pulse 141; dd2 02:00 BP 99 / 72; Pulse 137; Resp 16; Pulse Ox 96% on R/A; dd2 02:32 BP 98 / 72; Pulse 138; Resp 16; Pulse Ox 97% on R/A; dd2 02:45 Pulse 117; dd2 03:02 BP 101 / 64; Pulse 116; Resp 16; Pulse Ox 96% on R/A; dd2 03:40 BP 97 / 68; Pulse 117; Resp 16; Pulse Ox 96% on R/A; dd2 04:03 BP 94 / 68; Pulse 70; Resp 16; Pulse Ox 98% on R/A; dd2 00:37 Body Mass Index 34.97 (104.33 kg, 172.72 cm) br2 00:37 Pain Scale: Adult br2 Ashley Coma Score: 00:45 Eye Response: spontaneous(4). Motor Response: obeys commands(6). Verbal Response: dd2 oriented(5). Total: 15. 01:59 Eye Response: spontaneous(4). Motor Response: obeys commands(6). Verbal Response: sp4 oriented(5). Total: 15. ED Course: 00:35 Patient arrived in ED. lg3 00:36 KEVIN MEYERS, SALINA is Primary Nurse. dd2 00:37 Faraz Phillip MD is Attending Physician. sp4 00:37 Patient has correct armband on for positive identification. Bed in low position. Call br2 light in reach. Side rails up X 1. Provided Education on: PLAN 0F CARE. 00:39 Triage completed. br2 00:40 Initial lab(s) drawn, by ED staff, sent to lab. EKG done, by ED staff, reviewed by [email or web address] Faraz Phillip MD. Inserted saline lock: 20 gauge in right antecubital area, using aseptic technique. Blood collected. Flushed with 10 mL NS. 00:40 Arm band placed on. br2 00:45 Patient maintains SpO2 saturation greater than 95% on room air. dd2 00:45 Client placed on continuous cardiac and pulse oximetry monitoring. NIBP monitoring dd2 applied. cleaning handyman on. Door closed. Noise minimized. Warm blanket given. Pillow given. Verbal reassurance given. 01:06 XRAY Chest (1 view) In Process Unspecified. EDMS 01:28 No provider procedures requiring assistance completed. Inserted saline lock: 20 gauge dd2 in left antecubital area, using aseptic technique. Flushed with 10 mL NS. 04:04 Prince Alanis MD is Hospitalizing Provider. sp4 05:32 Patient admitted, IV remains in place. dd2 Administered Medications: 01:12 Drug: Diltiazem IVP 20 mg IVP once; Over 2 minutes Route: IVP; Site: right antecubital; dd2 01:12 Drug: Diltiazem IV 5 mg/hr IV at calculated rate See Administration Instructions; dd2 (standard dilution 125 mg diltiazem mixed in 125 mL NS; final concentration 1mg/mL). Recommended max rate 15 mg/hr; Titrate 5 mg/hr as often as every 15 minutes to achieve goal (see titration policy); Goal parameter HR less than 100 bpm Route: IV; Rate: calculated rate; Site: right antecubital; 01:27 Follow up: Pulse 144 bpm; Rate change 10 mg/hr dd2 01:27 Follow up: Response: No adverse reaction; Cardiac rhythm changed dd2 01:42 Follow up: Pulse 141 bpm; Rate change 15 mg/hr dd2 04:29 Follow up: IV Status: Order to discontinue infusion; IV Intake: 15ml dd2 01:12 Drug: NS 0.9% IV 1000 ml IV at 125 ml/hr once; to be given as a bolus over 60 minutes dd2 Route: IV; Rate: 125 ml/hr; Site: right antecubital; 01:27 Follow up: Response: No adverse reaction dd2 04:25 Follow up: IV Status: Order to discontinue infusion; IV Intake: 375ml dd2 01:15 Drug: Albumin IVPB 25 grams 100 ml IVPB once; (Note: Albumin 25% concentration) Volume: dd2 100 ml; Route: IVPB; Site: left antecubital; 01:30 Follow up: Response: No adverse reaction dd2 02:15 Follow up: IV Status: Completed infusion; IV Intake: 100ml dd2 02:14 Drug: amiodarone IVPB 150 mg 100 ml IVPB once over 10 mins; (mix in D5W) Volume: 100 dd2 ml; Route: IVPB; Infused Over: 10 mins; Site: right antecubital; 02:24 Follow up: IV Status: Completed infusion; IV Intake: 100ml dd2 02:29 Follow up: Response: No adverse reaction dd2 02:24 Drug: amiodarone IVPB 900 mg, D5W IV 500 ml IVPB at 1 mg/min continuous; for 6 hrs, dd2 then change to 0.5 mg/min Route: IVPB; Rate: 1 mg/min; Site: right antecubital; 02:39 Follow up: Response: No adverse reaction dd2 04:26 Follow up: IV Status: Order to discontinue infusion; IV Intake: 67ml dd2 04:18 Drug: amiodarone PO 400 mg PO once Route: PO; dd2 Medication: 00:45 VIS not applicable for this client. dd2 Intake: 02:15 IV: 100ml; Total: 100ml. dd2 02:24 IV: 100ml; Total: 200ml. dd2 04:25 IV: 375ml; Total: 575ml. dd2 04:26 IV: 67ml; Total: 642ml. dd2 04:29 IV: 15ml; Total: 657ml. dd2 Outcome: 04:05 Decision to Hospitalize by Provider. sp4 05:32 Admitted to Med/surg accompanied by tech, room 220, with chart, dd2 05:32 Condition: stable 05:32 Instructed on the need for admit, Demonstrated understanding of instructions, 05:33 Patient left the ED. dd2 Signatures: Dispatcher [employer] EDMS Deidre Colin RN RN lg3 Faraz Phillip MD MD sp4 Elizabet Hendricks RN RN br2 KEVIN MEYERS RN RN dd2 Corrections: (The following items were deleted from the chart) :29 02:13 IV Status: Order to discontinue infusion; IV Intake: 15ml dd2 dd2
[2024-06-03] MEDS ORDERED: ONDANSETRON 4 MG/2 ML VIAL IV PRN (04:08)
[2024-06-03] MEDS ORDERED: AMIODARONE HCL 200 MG TAB ONE (04:15)
--- NOTE | 2024-06-03 04:51 | P.HP ---
Certification for Inpatient Patient admitted to: Observation With expected LOS: <2 Midnights Practitioner: I am a practitioner with admitting privileges, knowledge of patient current condition, hospital course, and medical plan of care. 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 Patient is here for tachycardia. He has been in his normal state of health for the past 4 months until today. He suddenly noticed a pulsating jugular vein. Patient used a pulse ox and found out that his heart rate was in the 140s. He called EMS. No medication were given en route to the ER. His heart rate was still in the 140s. Patient states that he was a asymptomatic. Upon arrival in the ER, he was given diltiazem which did not alleviate his symptoms. EKG revealed wide-complex tachycardia. Patient was eventually given amiodarone bolus and infusion which restored his heart rate to normal limits, in the 70s. Patient is known to our cardiology team. He has a defibrillator which was placed in [facility]. Patient has been on amiodarone for a year before switching to metoprolol then sotalol due to side effects. Patient's last stress test was in August 2023. No reversible ischemia found. 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 - Family History Father -: Heart disease - Social History Alcohol use: No CD- Drugs: No Caffeine use: Yes Physical Examination - Physical Exam General: Alert, Obese HEENT: Atraumatic, Normocephalic Neck: Supple, 2+ carotid pulse no bruit Respiratory: Clear to auscultation bilaterally, Normal air movement Cardiovascular: No edema, Normal pulses, Regular rate/rhythm, Normal S1 S2, Other (Pacemaker in place) Integumentary: Other (Multiple tattoos) Neurological: Normal speech - Studies Laboratory Data (last 24 hrs) 06/03/24 06/03/24 06/03/24 00:42 00:42 00:42 WBC 8.50 Hgb 14.0 Hct 42.4 Plt Count 341 PT 14.4 H INR 1.30 Sodium 139 Potassium 3.9 BUN 16 Creatinine 1.07 Glucose 149 H Magnesium 1.7 Total Bilirubin 0.6 AST 18 ALT 30 Alkaline Phosphatase 99 Assessment and Plan - Problems (Diagnosis) (1) Wide-complex tachycardia Current Visit: Yes Status: Acute (2) Chronic systolic CHF (congestive heart failure) Current Visit: Yes Status: Acute (3) Atrial fibrillation Current Visit: Yes Status: Acute (4) Coronary artery disease Current Visit: Yes Status: Acute (5) BPH (benign prostatic hyperplasia) Current Visit: Yes Status: Acute (6) CHF (congestive heart failure) Current Visit: No Status: Acute Qualifiers: Heart failure type: diastolic Heart failure chronicity: acute Qualified Code(s): I50.31 - Acute diastolic (congestive) heart failure - Plan Assessment 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 Brought in by EMS for evaluation of sudden tachycardia. Patient was found to have wide-complex tachycardia that initially failed diltiazem and eventually responded to amiodarone bolus and infusion. Patient's heart rate is now within normal limits. He is being transitioned to oral amiodarone. He has a history of amiodarone use. He was on amiodarone for a year and was switched to metoprolol then sotalol due to side effects. He is well-known to [facility] cardiology group Wide-complex tachycardia Atrial fibrillation Chronic systolic CHF Coronary artery disease BPH Plan: Will admit under observation with telemetry Continue oral amiodarone Patient will benefit from cardiology consult for continuity of care His last echo was done in April 2024 at the [facility] or beauty [facility] manager office. No need to repeat another echo Device interrogation Resume rest of home medications upon reconciliation Patient can be discharged once cleared by cardiology - Advance Directives Does patient have a Living Will: No Does patient have a Durable POA for Healthcare: No
[2024-06-03 05:50] VITALS: BMI 34.9
[2024-06-03 06:12] LABS: Specific Gravity 1.014 (1.005-1.030); Sqamous Epithelial <5 /HPF (None Seen); Urine Bacteria <20 /HPF (<20); Urine Bilirubin NEGATIVE (Negative); Urine Blood Negative (Negative); Urine Clarity Extremely Turbid (Clear); Urine Color Light-Yellow (Yellow); Urine Culture Reflex Order REFLEXED; Urine Glucose NEGATIVE (Negative); Urine Ketones NEGATIVE (Negative); Urine Microscopic Reflex YN ORDER UMIC; Urine Mucus Slight /HPF (None Seen); Urine Nitrite NEGATIVE (Negative); Urine Protein NEGATIVE (Negative); Urine RBC <5 /HPF (None Seen); Urine Urobilinogen Normal (Normal); Urine WBC >50 /HPF (<5); Urine WBC Clump Occasional /HPF (None Seen); Urine pH 5.5 (5.0-7.0)
[2024-06-03 06:17] VITALS: O2SAT 98
--- NOTE | 2024-06-03 06:20 | RAD REPORT ---
EXAM: XR Chest, 1 View CLINICAL HISTORY: The patient is 68 years old and is Male; CHEST PAIN TECHNIQUE: Frontal view of the chest. COMPARISON: No relevant prior studies available. FINDINGS: LUNGS: Mild interstitial prominence is noted throughout the lungs. No consolidation. PLEURAL SPACE: Unremarkable. No pneumothorax. HEART: The cardiac silhouette is enlarged. MEDIASTINUM: Unremarkable. Normal mediastinal contour. BONES/JOINTS: Unremarkable. No acute fracture. TUBES, LINES AND DEVICES: Left-sided pacemaker is present. UPPER ABDOMEN: Unremarkable as visualized. IMPRESSION: Cardiomegaly with findings suggestive of mild vascular congestion. Electronically signed by: Clare Ortiz MD 06/03/2024 02:21 AM [facility] Due to temporary technical issues with the PACS/[employer] FFT reporting system, reports are being checo d by the in-house radiologist without review as a courtesy to ensure prompt reporting the interpreting radiologist is fully responsible for the content of the report. Transcribed Date/Time: 06/03/2024 6:19 AM
[2024-06-03 07:26] LABS: Magnesium 1.8 mg/dL (1.6-2.4); Phosphorus 2.9 mg/dL (2.5-4.9)
[2024-06-03] MEDS: ENOXAPARIN 40 MG/0.4 ML SQ SCH (09:15)
[2024-06-03 12:32] LABS: Albumin 3.2 g/dL (3.4-5.0); Anion Gap 13.8 mEq/L (5.0-15.0); Bilirubin Total 0.7 mg/dL (0.2-1.0); Globulin 3.1 g/dL (2.3-3.5); Potassium 3.8 mEq/L (3.5-5.1); Protein, Total 6.3 g/dL (6.4-8.2)
[2024-06-03] MEDS ORDERED: GLUCAGON 1 MG/VIAL IM PRN (14:35)
[2024-06-03] MEDS ORDERED: D10W 125 ML IV PRN (14:35)
--- NOTE | 2024-06-03 14:52 | P.PN ---
Subjective Date of Service: 06/03/24 Chief Complaint: Wide-complex tachycardia, Subjective: No new changes (Asymptomatic, patient does c/o dizziness with amiodarone in the past, we will switch him back to sotalol and metoprolol and observe overnight.) <Zahira Lemus - Last Filed: 06/03/24 14:52> Date of Service: 06/03/24 <XIOMARA Betts - Last Filed: 06/03/24 16:07> Review of Systems 10-point ROS is otherwise unremarkable General: Unremarkable Eyes: Unremarkable ENT: Unremarkable Respiratory: Unremarkable Cardiovascular: Unremarkable Genitourinary: Unremarkable Musculoskeletal: Unremarkable Integumentary: Unremarkable Neurological: Unremarkable Lymphatics: Unremarkable <Zahira Lemus - Last Filed: 06/03/24 14:52> Physical Examination - Vital Signs Temperature: 98.7 F Blood Pressure: 127/71 Pulse: 72 Respirations: 12 Pulse Ox (%): 96 - Physical Exam General: Alert, In no apparent distress, Oriented x3 HEENT: Atraumatic, Normocephalic Neck: Supple, 2+ carotid pulse no bruit, JVD not distended Respiratory: Clear to auscultation bilaterally Cardiovascular: No edema, Regular rate/rhythm, Normal S1 S2 (Converted from A- fib, normal sinus paced rhythm) Capillary refill: <2 Seconds Gastrointestinal: Normal bowel sounds, Soft and benign Musculoskeletal: No clubbing, No swelling Integumentary: No rashes, No breakdown Neurological: Normal speech, Normal tone, Normal affect Lymphatics: No axilla or inguinal lymphadenopathy External genitalia: Deferred Rectal: Deferred - Studies Laboratory Data (last 24 hrs) 06/03/24 06/03/24 06/03/24 00:42 00:42 00:42 WBC 8.50 Hgb 14.0 Hct 42.4 Plt Count 341 PT 14.4 H INR 1.30 Sodium 139 Potassium 3.9 BUN 16 Creatinine 1.07 Glucose 149 H Magnesium 1.7 Total Bilirubin 0.6 AST 18 ALT 30 Alkaline Phosphatase 99 <Zahira Lemus - Last Filed: 06/03/24 14:52> - Studies Laboratory Data (last 24 hrs) 06/03/24 06/03/24 06/03/24 12:00 06:58 00:42 WBC Hgb Hct Plt Count PT 14.4 H INR 1.30 Sodium 137 Potassium 3.8 BUN 16 Creatinine 0.99 Glucose 229 H Phosphorus 2.9 Magnesium 1.8 Total Bilirubin 0.7 AST 15 ALT 25 Alkaline Phosphatase 77 D 06/03/24 06/03/24 00:42 00:42 WBC 8.50 Hgb 14.0 Hct 42.4 Plt Count 341 PT INR Sodium 139 Potassium 3.9 BUN 16 Creatinine 1.07 Glucose 149 H Phosphorus Magnesium 1.7 Total Bilirubin 0.6 AST 18 ALT 30 Alkaline Phosphatase 99 <XIOMARA Betts Aden - Last Filed: 06/03/24 16:07> Assessment And Plan - Plan Problems (Diagnosis) (1) Wide-complex tachycardia Current Visit: Yes Status: Acute (2) Chronic systolic CHF (congestive heart failure) Current Visit: Yes Status: Acute (3) Atrial fibrillation Current Visit: Yes Status: Acute (4) Coronary artery disease Current Visit: Yes Status: Acute (5) BPH (benign prostatic hyperplasia) Current Visit: Yes Status: Acute (6) CHF (congestive heart failure) Current Visit: No Status: Acute Qualifiers: Heart failure type: diastolic Heart failure chronicity: acute Qualified Code(s): I50.31 - Acute diastolic (congestive) heart failure - Plan Assessment 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 Brought in by EMS for evaluation of sudden tachycardia. Patient was found to have wide-complex tachycardia that initially failed diltiazem and eventually responded to amiodarone bolus and infusion. Patient's heart rate is now within normal limits. He is being transitioned to oral amiodarone. He has a history of amiodarone use. He was on amiodarone for a year and was switched to metoprolol then sotalol due to side effects. He is well-known to [facility] cardiology group Wide-complex tachycardia Atrial fibrillation Chronic systolic CHF Coronary artery disease BPH [id number] diabetes Plan: Will admit under observation with telemetry, converted to paced sinus rhythm Continue oral amiodarone -switch back to sotalol 40 p.o. twice daily p.o. and Coreg 3.125 mg p.o. twice daily His last echo was done in April 2024 at the nodulizer office. No need to repeat another echo Device interrogation Resume rest of home medications upon reconciliation -to include apixaban Patient can be discharged tomorrow morning if he remains asymptomatic Patient is diabetic however his hemoglobin A1c is at goal at 7.1. Discharge Plan: Home Plan to discharge in: 24 Hours - Code Status/Comfort Care Code Status Assessed: Yes (Full) Critical Care: No <Zahira Lemus - Last Filed: 06/03/24 14:52> - Plan Type 2 diabetes, hemoglobin A1c 7.1 at target, started on low-dose insulin sliding scale Mildly elevated troponin secondary to atrial fibrillation with rapid ventricle response, patient has no chest pain or any sign of acute coronary syndrome. <XIOMARA Betts - Last Filed: 06/03/24 16:07>
[2024-06-03] MEDS: INSULIN REGULAR (HUMAN) 100 UNIT/ML SQ SCH (16:15)
[2024-06-03] MEDS: carvediloL 3.125 MG TAB PO SCH (17:00)
[2024-06-03] MEDS: APIXABAN 5 MG TABLET PO SCH (21:09)
[2024-06-03] MEDS: SOTALOL HCL 80 MG TAB PO SCH (21:09)
[2024-06-03] MEDS: TAMSULOSIN 0.4 MG SR CAP PO SCH (21:09)
[2024-06-03] MEDS: ATORVASTATIN 20 MG TAB PO SCH (21:09)
[2024-06-04] MEDS: ASPIRIN EC 81 MG TAB PO SCH (08:12)
[2024-06-04] MEDS: SPIRONOLACTONE 25 MG TABLET PO SCH (08:13)
[2024-06-04 09:37] LABS: Absolute Eosinophils 0.1 K/uL (0-0.5); Absolute Lymphocytes (CBC) 1.7 K/uL (0.7-4.9); Absolute Neutrophil 5.4 K/uL (1.8-8.0); Basophils % 0.5 % (0-1.3); Eosinophils % 0.9 % (0-4.4); Hematocrit 37.8 % (39.6-49.0); Hemoglobin 12.8 g/dL (13.6-17.9); Lymphocytes % 20.3 % (15.3-44.8); MCH 30.4 pg (27.0-35.0); MCHC 33.8 g/dL (32.0-36.0); MCV 90.2 fL (80-100); MPV 8.2 fL (7.6-11.3); Neutrophils % 66.3 % (41.7-73.7); Platelets 288 thou/uL (152-406); RBC Red Blood Cell Count 4.19 M/uL (4.33-5.43); Red Cell Distribution Width 14.3 % (12.1-15.2)
[2024-06-04 10:01] LABS: Anion Gap 10.7 mEq/L (5.0-15.0); Potassium 3.7 mEq/L (3.5-5.1)
[2024-06-04 10:04] LABS: Troponin High Sensitivity 299.5 pg/mL (<58.9)
--- NOTE | 2024-06-04 15:01 | P.CNS ---
Date of Consult: 06/04/24 Chief Complaint: Wide-complex tachycardia, History of Present Illness: Patient with PMH of CAD, Heart failure, ischemic in nature with scar, AF, VT, s/p pacemaker, ICD, presented with palpitations, HR was in the 140s, denies chest pain, no SOB, no syncope. Allergies No Known Allergies Allergy (Verified 06/03/24 06:28) Home medications list reviewed: Yes Home Medications: Tamsulosin HCl [Flomax] 0.4 mg PO BID 03/23/22 Spironolactone 25 mg PO DAILY 05/14/23 Apixaban [Eliquis] 5 mg PO BID 09/06/23 Aspirin [Aspirin EC 81 MG] 81 mg PO DAILY 09/06/23 Sotalol HCl [Betapace*] 40 mg PO BID #30 tab 09/09/23 Atorvastatin Calcium [Lipitor*] 20 mg PO BEDTIME 06/03/24 carvediloL [Coreg*] 3.125 mg PO BID 06/03/24 - Past Medical/Surgical History Diabetic: No -: BPH -: urinary diverticulum -: WV -: HTN -: NIDDM -: leticia cataract sx -: vasectomy in 83 -: cardiac cath 2021 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 - Family History Father Medical History: Heart disease - Social History Smoking Status: Former smoker Alcohol use: No CD- Drugs: No Caffeine use: Yes Place of Residence: Home Review of Systems 10-point ROS is otherwise unremarkable Physical Examination Temp Pulse Resp BP Pulse Ox 98 F 72 16 130/72 96 06/04/24 12:00 06/04/24 12:00 06/04/24 12:00 06/04/24 12:00 06/04/24 12:00 General: Alert, In no apparent distress HEENT: Atraumatic, PERRLA, Mucous membr. moist/pink, EOMI, Sclerae nonicteric Neck: Supple, 2+ carotid pulse no bruit, No LAD, Without JVD or thyroid abnormality Respiratory: Clear to auscultation bilaterally, Normal air movement Cardiovascular: Regular rate/rhythm, Normal S1 S2 Gastrointestinal: Normal bowel sounds, No tenderness Musculoskeletal: No tenderness Integumentary: No rashes Neurological: Normal gait, Normal speech, Normal tone, Normal affect Lymphatics: No axilla or inguinal lymphadenopathy - Problems (1) Atrial fibrillation Current Visit: Yes Status: Acute Plan: patient is currently paced, increase Sotalolol to 80 mg po BID Continue Eliquis 5 mg po BID continue Coreg. (2) Wide-complex tachycardia Current Visit: Yes Status: Acute Plan: can not see rhythm strip or EKG showing the wide complex tachy in chart, so not sure if it was VT vs AF w RVR adjust sotalol as above continue coreg. outpatient follow up for device check (3) CHF (congestive heart failure) Current Visit: No Status: Acute Plan: looks euvolemic on exam, continue home medications, Qualifiers: Heart failure type: diastolic Heart failure chronicity: acute Qualified Code(s): I50.31 - Acute diastolic (congestive) heart failure
--- NOTE | 2024-06-04 15:58 | P.DS ---
Admission Date: 06/03/24 Discharge Date: 06/04/24 Disposition: ROUTINE DISCHARGE Discharge Condition: GOOD Reason for Admission: Wide-complex tachycardia, Consultations: Dr. 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 Patient is here for tachycardia. He has been in his normal state of health for the past 4 months until today. He suddenly noticed a pulsating jugular vein. Patient used a puls e ox and found out that his heart rate was in the 140s. He called EMS. No medication were given en route to the ER. His heart rate was still in the 140s. Patient states that he was a asymptomatic. Upon arrival in the ER, he was given diltiazem which did not alleviate his symptoms. EKG revealed wide-complex tachycardia. Patient was eventually given amiodarone bolus and infusion which restored his heart rate to normal limits, in the 70s. Patient is known to our cardiology team. He has a defibrillator which was placed in [facility]. Patient has been on amiodarone for a year before switching to metoprolol then sotalol due to side effects. Patient's last stress test was in August 2023. No reversible ischemia found. Hospital Course: Mr. Swift was placed on amiodarone and his rhythm did slow and convert. However, in the past, amiodarone caused dizziness and side effects the patient was not comfortable having. He was switched back to Sotalol and Coreg 06/03/2024 and his paced rhythm has been back to his baseline in the 70's. He was seen by Dr. Segovia who recommends increasing sotalol from 40 mg twice daily to 80 mg twice daily, continuing Coreg, continuing his other medications and having an outpatient pacemaker evaluation. Glucose monitoring shows clz-nfbrmoa-slerfkwng diabetes. Please continue to monitor. At present, glucose within goal with hemoglobin A1c of 7 Vital Signs/Physical Exam: Temp Pulse Resp BP Pulse Ox 98 F 72 16 130/72 96 06/04/24 12:00 06/04/24 12:00 06/04/24 12:00 06/04/24 12:00 06/04/24 12:00 Other Physical/Emotional Findings: - Physical Exam. General: Alert, Oriented x3, Cooperative, no distress. HEENT: Atraumatic, Normocephalic. Neck: Supple. Respiratory: Clear to auscultation bilaterally, Normal air movement. Cardiovascular: No edema, Regular rate/rhythm, Normal S1 S2. Capillary refill: <2 Seconds. Gastrointestinal: Soft and benign, without hepatosplenomegaly. Musculoskeletal: No clubbing, No swelling. Integumentary: No rashes, No breakdown. Neurological: Normal gait, Normal speech, Normal strength at 5/5 x4 extr, Cranial nerves 3-12 intact, Normal affect. Lymphatics: No axilla or inguinal lymphadenopathy Laboratory Data at Discharge: WBC 8.20 thou/uL (4.3-10.9) 06/04/24 09:19 Hgb 12.8 g/dL (13.6-17.9) L 06/04/24 09:19 Hct 37.8 % (39.6-49.0) L 06/04/24 09:19 Plt Count 288 thou/uL (152-406) 06/04/24 09:19 PT 14.4 SECONDS (9.4-12.5) H 06/03/24 00:42 INR 1.30 06/03/24 00:42 Sodium 138 mEq/L (136-145) 06/04/24 09:19 Potassium 3.7 mEq/L (3.5-5.1) 06/04/24 09:19 BUN 13 mg/dL (7-18) 06/04/24 09:19 Creatinine 0.97 mg/dL (0.70-1.30) 06/04/24 09:19 Glucose 213 mg/dL (74-106) H 06/04/24 09:19 Phosphorus 2.9 mg/dL (2.5-4.9) 06/03/24 06:58 Magnesium 1.8 mg/dL (1.6-2.4) 06/03/24 06:58 Total Bilirubin 0.7 mg/dL (0.2-1.0) 06/03/24 12:00 AST 15 U/L (15-37) 06/03/24 12:00 ALT 25 U/L (16-61) 06/03/24 12:00 Alkaline Phosphatase 77 U/L (45-117) D 06/03/24 12:00 Home Medications: Tamsulosin HCl [Flomax] 0.4 mg PO BID 03/23/22 Spironolactone 25 mg PO DAILY 05/14/23 Apixaban [Eliquis] 5 mg PO BID 09/06/23 Atorvastatin Calcium [Lipitor*] 20 mg PO BEDTIME 06/03/24 carvediloL [Coreg*] 3.125 mg PO BID 06/03/24 Apixaban [Eliquis] 5 mg PO BID #180 tab 06/04/24 Sotalol HCl [Betapace*] 80 mg PO BID #180 tab 06/04/24 New Medications: Sotalol HCl [Betapace*] 80 mg PO BID #180 tab Apixaban [Eliquis] 5 mg PO BID #180 tab Diet: ADA Activity: Ad young Followup: NONE,NONE [Primary Care Provider] - Cisco Segovia MD [ACTIVE - CAN ADMIT] -
[2024-06-04 17:29] VITALS: BP 121/83; TEMP 97.7
== END 2024-06-04 18:25 | disposition home or self-care (01) | DRG 291 ==
LOC: ER 00:33 → 2ND 04:08 → OBSVTOIN 15:20
PROVIDERS: ADMIT Internal Medicine; ATTEND Internal Medicine
DX: I11.0 Hypertensive heart disease with heart failure (principal); I50.31 Acute diastolic (congestive) heart failure; I48.91 Unspecified atrial fibrillation; N40.0 Benign prostatic hyperplasia without lower urinary tract symptoms; E11.9 Type 2 diabetes mellitus without complications; F17.210 Nicotine dependence, cigarettes, uncomplicated; I25.10 Atherosclerotic heart disease of native coronary artery without angina pectoris; I25.2 Old myocardial infarction; R00.0 Tachycardia, unspecified; Z98.52 Vasectomy status; Z79.82 Long term (current) use of aspirin; Z79.01 Long term (current) use of anticoagulants; Z86.711 Personal history of pulmonary embolism; Z79.899 Other long term (current) drug therapy; Z95.810 Presence of automatic (implantable) cardiac defibrillator
CPT/HCPCS: 36415; 71045; 80048; 80053; 80076; 81001; 82550; 82947; 83036; 83735; 83880; 84100; 84484; 85025; 85610; 87077; 87086; 87088; 87186; 99285; G0378; J0282; J1650; J7030; P9047

== ENCOUNTER 2024-07-16 06:01 | Inpatient (IN) | payer OTHER, BC ==
--- OUTSIDE RECORDS SUMMARY | 2024-07-16 06:05 | XMS REPORT | Continuity of Care Document ---
Author Name Unknown Address [address] [facility] [address] [place] [address] [facility] thconnect Address [address] [facility] [address] [place] [address] Care Team Providers Care Public Relations Professional Name Role Phone Domo GORDON Attending Clinician Unavailab Trevor Stanford Attending Clinician Unavailable Sudheer Tavarez V Attending Clinician Unavailable Trevor Grimm Admitting Clinician Unavailable Physician, No Primary or Family Admitting Clinic lopez Unavailable Payers Payer Name Policy Type Policy Number Effective Date Expirati on Date Source 6 [id number] [facility] AETNA 53 [id number] Common [facility] Problems Condition Name Condition Details Condition Category Status Onset Date Resolution Date Last Treatment Date Treating Clinician Comments Source [id number] Acquired bladder diverticul um Problem [facility] [id number] Obstructiv e uropathy Problem [facility] 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 Problem [facility] Incomplete bladder emptying Incomplete bladder emptying Problem [facility] [id number] Dysfunctio nal voiding of urine Problem [facility] 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 BPH loc w urin obs/LUTS Problem [facility] Left bundle branch block LBBB (left bundle branch block) Problem [employer] Bradycardi a Bradycardi a Problem [employer] [facility] Cardiomyop athy Cardiomyop athy Problem [employer] Chronic combined systolic and diastolic heart failure Chronic combined systolic (congestiv e) and diastolic (congestiv e) heart failure Problem [employer] [facility] Old myocardial infarction Myocardial infarction , old Problem [employer] [facility] Shortness of breath Shortness of breath Problem [employer] [facility] Automatic implantabl e cardiac defibrilla tor in situ Biventricu lar implantabl e cardiovert er-defibri llator (ICD) in situ Problem [employer] [facility] Allergies, Adverse Reactions, Alerts Allergy Name Allergy Type Status Severity Reaction(s) Onset Date Inactive Date Treating Clinician Comments Source No Known Allergie s DA Active U 01-31 00:00: 00 [facility] [place] Active (mhs) [facility] Social History Social Habit Start Date Stop Date Quantity Comments Source History of Tobacco Use [employer] [facility] Sex Assigned At [employer] [facility] Smoking Status Start Date Stop Date Source Never Smoker [employer] [facility] Former Smoker 2023-10-21 00:00:00 2023-10-21 00:00:00 [facility] Current Smoker 2023-03-18 00:00:00 [facility] Medications Ordered Medication Name Filled Medication Name Start Date Stop Date Current Medication? Ordering Clinician Indication Dosage Frequency Signature (SIG) Comments Components Source Minocycline HCl 100 MG Minocycline HCl 100 MG 8- 00:00: 00 No 1{capsu le} QD Minocyclin e HCl 100 MG Eliquis Eliquis No 1{table t} QD Eliquis [...] t} QD Aspirin 81 81 MG Saw [place] 1000 MG Saw [place] 1000 MG No Saw [place] 1000 MG [place] 450 MG [place] 450 [...] 0.4 MG No Tamsulosin HCl 0.4 MG Carvedilol 3.125 MG Carvedilol 3.125 MG No 1{table t_with_ food} BID Carvedilol 3.125 MG Atorvastati n Calcium 20 MG Atorvastati n Calcium 20 MG No 1{table t} QD Atorvastat in Calcium 20 MG Coreg 3.125 MG Coreg 3.125 MG No 1{table t_with_ food} BID Coreg 3.125 MG Sotalol HCl 80 MG Sotalol HCl 80 MG No 1{table t} BID Sotalol HCl 80 MG Tamsulosin HCl 0.4 MG Tamsulosin HCl 0.4 MG No 1{capsu le} QD Tamsulosin HCl 0.4 MG Spironolact one 25 MG Spironolact one 25 MG No 1{table t} Spironolac tone 25 MG Eliquis 5 MG Eliquis 5 MG No Eliquis 5 MG Amiodarone HCl 200 MG Amiodarone HCl 200 MG No 1{table t} QD Amiodarone HCl 200 MG Aspirin 81 MG Aspirin 81 MG No 1{table t} QD Aspirin 81 MG Cefdinir 300 mg Cefdinir 300 mg No 1{capsu le} BID Cefdinir 300 mg Vital Signs Vital Name Observation Time Observation Value Comments S ource height 2024-02-11 10:30:00 69 [in_i] [facility] weight-kg 2024-02-11 10:30:00 103.87 kg [employer] bmi 2024-02-11 10:30:00 33.81 kg/m2 [facility] temperature 2024-02-11 10:30:00 97 [degF] [facility] blood pressure systolic 2024-02-11 10:30:00 100 mm[Hg] [facility] diastolic 2024-02-11 10:30:00 56 mm[Hg] [facility] height 2024-01-18 10:00:00 69 [in_i] [facility] weight-kg 2024-01-18 10:00:00 103.42 kg [facility] bmi 2024-01-18 10:00:00 33.67 kg/m2 Hillary [facility] temperature 2024-01-18 10:00:00 96.4 [degF] Ugo [facility] heart rate 2024-01-18 10:00:00 51 /min [facility] blood pressure systolic 2024-01-18 10:00:00 106 mm[Hg] [facility] diastolic 2024-01-18 10:00:00 59 mm[Hg] [facility] height 2023-10-21 15:15:00 66 [in_i] Commo n [facility] weight 2023-10-21 15:15:00 229.6 [lb_av] Co mmon [facility] temperature 2023-10-21 15:15:00 97.5 [degF] Com mon [facility] bmi 2023-10-21 15:15:00 37.05 kg/m2 Comm on [facility] oximetry 2023-10-21 15:15:00 93 % [facility] respiratory rate 2023-10-21 15:15:00 18 /min Common [facility] blood pressure systolic 2023-10-21 15:15:00 101 mm[Hg] Common [facility] blood pressure diastolic 2023-10-21 15:15:00 55 mm[Hg] Common [facility]iri [facility] height 2023-03-18 13:30:00 66 [in_i] [facility]mo n [facility] weight 2023-03-18 13:30:00 240.6 [lb_av] Co mmon [facility] temperature 2023-03-18 13:30:00 97.8 [degF] Com mon [facility] bmi 2023-03-18 13:30:00 38.83 kg/m2 Comm on [facility] oximetry 2023-03-18 13:30:00 96 % [facility] respiratory rate 2023-03-18 13:30:00 18 /min Common [facility] blood pressure systolic 2023-03-18 13:30:00 121 mm[Hg] Common [facility] blood pressure diastolic 2023-03-18 13:30:00 66 mm[Hg] [facility] height 2022-11-18 10:45:00 66 [in_i] Commo n [facility] weight 2022-11-18 10:45:00 231 [lb_av] Comm on [facility] temperature 2022-11-18 10:45:00 98.1 [degF] Com [facility] bmi 2022-11-18 10:45:00 37.28 kg/m2 Comm on [facility] oximetry 2022-11-18 10:45:00 99 % [facility] respiratory rate 2022-11-18 10:45:00 18 /min [facility] blood pressure systolic 2022-11-18 10:45:00 123 mm[Hg] [facility] blood pressure diastolic 2022-11-18 10:45:00 71 mm[Hg] [facility] height 2022-05-20 13:15:00 66 [in_i] Commo n [facility] weight 2022-05-20 13:15:00 205 [lb_av] Comm on [facility] temperature 2022-05-20 13:15:00 98.3 [degF] Com [facility] bmi 2022-05-20 13:15:00 33.08 kg/m2 Comm on [facility] oximetry 2022-05-20 13:15:00 96 % [facility] respiratory rate 2022-05-20 13:15:00 17 /min [facility] blood pressure systolic 2022-05-20 13:15:00 113 mm[Hg] [facility] blood pressure diastolic 2022-05-20 13:15:00 66 mm[Hg] [facility] Encounters Start Date/Time End Date/Time Encounter Type Admission Type Attending Clinicians Care Facility Care Department Encounter ID Source 2024-01-18 10:15:01 Outpatient [facility] [id number] [facility] 2023-06-30 09:43:00 Outpatient Domo GORDON [facility] [id number] [facility] 2023-06-28 16:58:00 Outpatient Domo GORDON [facility]C [id number] [facility] 2023-03-15 14:56:01 Outpatient Domo GORDON [facility] STLM [id number] [facility] 2023-02-08 15:36:00 Outpatient Domo GORDON [facility] STL[facility] [id number] [facility] 2023-01-05 07:00:00 Inpatient Trevor Benavides [facility] CARD [id number] [facility] 2022-11-23 08:14:01 Outpatient Domo GORDON [facility]C STL[facility]C [id number] [facility] 2022-11-16 10:39:02 Outpatient Domo GORDON [facility]C [id number] [facility] 2022-05-14 14:33:02 Outpatient Domo Gordon [facility]C [facility]C [id number] [facility] 2021-08-06 08:57:04 Outpatient Domo Gordon [facility] 2021-06-25 14:20:34 Outpatient Domo Gordon [facility] [id number] [facility] 2021-06-25 14:18:31 Outpatient Domo Gordon [facility] [id number] [facility] 2024-02-11 00:00:00 2024-02-11 00:00:00 Office Visit- Est Pt.- Level 4 CLS CLS [id number] [facility] [employer] 2024-02-10 00:00:00 2024-02-10 00:00:00 (TEL) CLS CLS [id number] [employer] [facility] 2024-02-07 00:00:00 2024-02-07 00:00:00 (TEL) CLS CLS [id number] [employer] [facility] 2024-02-03 00:00:00 2024-02-03 00:00:00 (TEL) CLS CLS [id number] [employer] [facility] 2024-02-02 05:26:00 2024-02-02 05:26:00 Outpatient Sudheer [facility] OUT[facility] [id number] 51 [facility] 2024-01-18 00:00:00 2024-01-18 00:00:00 Office Visit- New Pt.- Level 4 CLS CLS [id number] [facility] 2024-01-18 00:00:00 2024-01-18 00:00:00 (TEL) CLS CLS [id number] [facility] bry 2023-10-21 00:00:00 2023-10-21 00:00:00 OFFICE VISIT ESTAB PT LEVEL 3 STLMLC STLMLC [id number] [facility] 2023-03-18 00:00:00 2023-03-18 00:00:00 OFFICE VISIT ESTAB PT LEVEL 3 [facility]LMLC STLMLC [id number] [facility] 2022-11-23 00:00:00 2022-11-23 00:00:00 (TEL) STLMLC STLMLC [id number] [facility] 2022-11-18 00:00:00 2022-11-18 00:00:00 OFFICE VISIT ESTAB PT LEVEL 3 [facility]LMLC STLMLC [id number] [facility] 2022-05-20 00:00:00 2022-05-20 00:00:00 OFFICE VISIT EST PT LEVEL 3 [facility] STLC [id number] [facility] 2021-05-02 00:00:00 2021-05-02 00:00:00 ambulatory STLMLC STLC [id number] [facility] Results Test Description Test Time Test Comments Results Result Co mments Source BASIC METABOLIC [id number] 14:55:00* Test Item Value Reference Range Interpretation [...] CA) 8.3 mg/dL 8.0-10.5 N CBC W/AUTO [id number] 14:44:00* Test Item Value Reference Range Interpretation [...] = NRBC#) 0.00 x10 3/uL 0.0-0.1 N Notes Date/Time Note Provider Source 2024-02-02 15:14:00 [id number] [address] PATIENT NAME: NINO SWIFT ADMIT DATE: 02/02/24 ACCOUNT NO: [id number] ROOM NO: AGE: 68 REPORT TYPE: CARDIAC CATHETERIZATION REPORT SEX: M ADMITTING PHYSICIAN: ATTENDING PHYSICIAN:Sudheer Tavarez MD PROCEDURE DATE: 02/02/2024 PROCEDURE: Biventricular ICD implantation. SURGEON: Sudheer Tavarez MD ICD SYSTEM: [employer] ICD system. PREOPERATIVE DIAGNOSES: 1. Nonischemic cardiomyopathy, ejection fraction less than 35%. 2. Typical left bundle branch block, QRS greater than 120 milliseconds. 3. Congestive heart failure, [place] Heart Association class 3. 4. Chronic systolic and diastolic heart failure. POSTOPERATIVE DIAGNOSES: 1. Nonischemic cardiomyopathy, ejection fraction less than 35%. 2. Typical left bundle branch block, QRS 120-130 milliseconds. 3. Chronic systolic and diastolic heart failure. 4. Congestive heart failure, [place] Heart Association class 3. PROCEDURE: 1. Biventricular ICD implantation. 2. Moderate sedation with IV Versed and fentanyl for 90 minutes. 3. Contrast venography for CS. 4. Contrast venography for left axillary/subclavian venous system. PROCEDURE METHODOLOGY: The patient was brought to the electrophysiology lab in a fasting and nonsedated state after informed consent was obtained. Blood pressure monitoring, oxygen sats monitoring, ECG monitoring was initiated followed by placement of cardioversion patches. After the timeout, IV moderate sedation was initiated with Versed and fentanyl followed by administration of prophylactic antibiotics. The patient was then prepped and draped in sterile fashion following which we obtained a 2 cm incision in the left infraclavicular area giving generous local anesthesia and additional moderate sedation. Contrast venography demonstrated patent left subclavian/axillary venous system. We obtained 3 fluoroscopy/venogram guided venous access using modified Seldinger technique with confirmation of the guidewires in the IVC. Following this, we placed RV ICD lead using standard technique, fluoroscopy guidance and peel-away dilator sheaths. After adequate parameters were obtained, the RV ICD lead was sewn to the prepectoral fascia and muscle using 0 silk. PATIENT NAME: NINO SWIFT We then placed LV lead using a long [employer] LV sheath, AL2 catheter and Wholey wire. After getting the CS access, we did a contrast venography which demonstrated the patient had a lateral vein and posterolateral vein. We initially attempted placing the catheter in the posterolateral vein. However, given the angle of the vein, while attempting to use the inner sheath, the patient's LV sheath slid into the high lateral vein. In GERMAN position, the vein within appropriate position for adequate LV pacing. We proceeded ahead to place the LV lead in the lateral vein using Whisper wire. We placed a short spiral LV lead. After getting adequate parameters, the long LV sheath was split using standard techniques and the LV lead was sewn to the prepectoral fascia and muscle using 0 silk. We then placed RA lead using standard technique fluoroscopy guidance and peel-away dilator sheaths. After adequate parameters were obtained, the RA lead was sewn to the prepectoral fascia and muscle using 0 silk. The pocket was flushed with antibiotic solution. The BiV ICD generator was connected to the leads and was placed in the pocket. Antibiotic pouch was inserted and vancomycin powder was inserted. The pocket was closed in running layers using 2-0 Vicryl and 3-0 Vicryl sutures. Pressure dressing was applied. Sponge and needle counts were verified. No immediate complications were observed. Patient's family was updated about the patient's status, procedure outcome. RECOMMENDATIONS: 1. Left arm precautions for 6 weeks. 2. Surgical wound care precautions for 6 weeks. 3. Left arm sling for 2 weeks. 4. Follow up in EP clinic for surgical wound check and ICD interrogation. 5. Continue antibiotics as prescribed. BI-V ICD SYSTEM: [employer] ICD system. RA lead, 2.3 millivolts, 0.7 volts at 0.40 milliseconds, 580 ohms, model 7841, serial #[id number]. RV lead, 12 millivolts, 0.4 volts at 0.40 milliseconds, 670 ohms, model 0672, serial #[id number]. LV lead, 12 millivolts, 2 volts at 0.40 milliseconds, LV tip 1 to LV ring 2, impedance 969 ohms, model 4674, serial #[id number]. Bi-V ICD generator, model G447, serial #[id number]. Mode DDDR 60/120 bpm. Dictated By: Sudheer Tavarez MD Date Dictated: 02/02/2024 15:14:23 Date Transcribed: 02/02/2024 17:02:47 HG/NAN Receipt ID: [id number] Authenticated and Edited by Sudheer Tavarez MD On 02/13/24 10:31:54 AM PATIENT NAME: NINO SWIFT at 1033 PATIENT NAME: NINO SWIFT [facility] 2024-02-01 14:04:00 [id number] [place] [address] PATIENT NAME: NINO SWIFT ADMIT DATE: ACCOUNT NO: [id number] ROOM NO: AGE: 68 REPORT TYPE: eELECTROCARDIOGRAM REPORT SEX: M ADMITTING PHYSICIAN: ATTENDING PHYSICIAN:Sudheer Tavarez MD Order: [id number] Test Reason : PREOP Test Date/Time Stamp: WedFeb 01 2024 14:04:12 Blood Pressure : / mmHG Vent. Rate : 062 BPM Atrial Rate : 062 BPM P-R Int : 164 ms QRS Dur : 118 ms QT Int : 414 ms P-R-T Axes : 043 -11 111 degrees QTc Int : 420 ms Sinus rhythm with premature atrial complexes Left ventricular hypertrophy with QRS widening Cannot rule out Inferior infarct , age undetermined Anterolateral infarct , age undetermined Abnormal ECG PRE_OP Confirmed by PIETER LEE MD ([id number]) on 02/01/2024 3:54:42 PM Referred By: Sudheer Tavarez Confirmed by:PIETER LEE MD at 1554 PATIENT NAME: NINO SWIFT [facility]
--- NOTE | 2024-07-16 07:06 | EDPHYS ---
Physician Documentation [facility] Name: Sinan Swift Age: 68 yrs Sex: Male : 1955 Arrival Date: 07/16/2024 Time: 06:01 Bed 16 Private MD: ED Physician Jacoby Hernández HPI: 07/16 06:25 This 68 yrs old Male presents to ER via Unassigned with complaints of katherin PALPITATIONS. 06:25 The patient or guardian reports chest pain that is located primarily in the substernal katherin area. Onset: just prior to arrival. The patient presents with a history of irregular heart beat, heart skipping beats. Context: The symptoms occur at rest. Onset: The symptoms/episode began/occurred this morning. Duration: The patient or guardian reports a single episode, that is now resolved. Modifying factors: The symptoms are aggravated by nothing. The symptoms are alleviated by nothing. The pain does not radiate. Associated signs and symptoms: Pertinent positives: chest pain, SOB. Associated signs and symptoms: The patient has no apparent associated signs or symptoms. The chest pain is described as aching. Modifying factors: The symptoms are alleviated by nothing. the symptoms are aggravated by nothing. Severity of pain: At its worst the pain was mild moderate in the emergency department the pain is unchanged. Severity of symptoms: At their worst the symptoms were mild moderate in the emergency department the symptoms have improved moderately. The patient has experienced similar episodes in the past, several times. Historical: - Allergies: 07:42 Fish Containing Products; ay - Home Meds: 07:42 Aldactone 25 mg Oral tablet 1 tab 2 times per day [Active]; aspirin 81 mg Oral capsule ay 1 cap daily [Active]; Coreg 3.125 mg Oral tablet 1 tab 2 times per day [Active]; Eliquis oral 1 tab 2 times per day [Active]; Flomax 0.4 mg Oral capsule 1 cap BID [Active]; Sotalol 40 mg Oral 1 tab 2 times per day [Active]; - PMHx: 07:42 a flutter; Atrial fibrillation; Bladder Diverticulum; Hypertensive disorder; OH; ay Pneumonia; Prostate; Pulmonary Embolism; - PSHx: 07:42 cataract; Stented artery; Vasectomy; ay - Immunization history:: Adult Immunizations up to date. - Infectious Disease History:: Denies. - Family history:: not pertinent. - Social history:: Smoking status: Patient denies any tobacco usage or history of. ROS: 06:35 Constitutional: Negative for fever, chills, and weight loss, Eyes: Negative for injury, katherin pain, redness, and discharge, ENT: Negative for injury, pain, and discharge, Neck: Negative for injury, pain, and swelling, Respiratory: Negative for shortness of breath, cough, wheezing, and pleuritic chest pain, Abdomen/GI: Negative for abdominal pain, nausea, vomiting, diarrhea, and constipation, Back: Negative for injury and pain, : Negative for injury, bleeding, discharge, and swelling, MS/Extremity: Negative for injury and deformity, Skin: Negative for injury, rash, and discoloration, Neuro: Negative for headache, weakness, numbness, tingling, and seizure, Psych: Negative for depression, anxiety, suicide ideation, homicidal ideation, and hallucinations, Allergy/Immunology: Negative for hives, rash, and allergies, Endocrine: Negative for neck swelling, polydipsia, polyuria, polyphagia, and marked weight changes, Hematologic/Lymphatic: Negative for swollen nodes, abnormal bleeding, and unusual bruising, 06:35 Cardiovascular: Positive for chest pain, palpitations, Exam: 06:40 Constitutional: This is a well developed, well nourished patient who is awake, alert, katherin and in no acute distress. Head/Face: Normocephalic, atraumatic. Eyes: Pupils equal round and reactive to light, extra-ocular motions intact. Lids and lashes normal. Conjunctiva and sclera are non-icteric and not injected. Cornea within normal limits. Periorbital areas with no swelling, redness, or edema. ENT: Nares patent. No nasal discharge, no septal abnormalities noted. Tympanic membranes are normal and external auditory canals are clear. Oropharynx with no redness, swelling, or masses, exudates, or evidence of obstruction, uvula midline. Mucous membranes moist. Neck: Trachea midline, no thyromegaly or masses palpated, and no cervical lymphadenopathy. Supple, full range of motion without nuchal rigidity, or vertebral point tenderness. No Meningismus. Chest/axilla: Normal chest wall appearance and motion. Nontender with no deformity. No lesions are appreciated. Respiratory: Lungs have equal breath sounds bilaterally, clear to auscultation and percussion. No rales, rhonchi or wheezes noted. No increased work of breathing, no retractions or nasal flaring. Abdomen/GI: Soft, non-tender, with normal bowel sounds. No distension or tympany. No guarding or rebound. No evidence of tenderness throughout. Back: No spinal tenderness. No costovertebral tenderness. Full range of motion. Male : Normal genitalia with no discharge or lesions. Skin: Warm, dry with normal turgor. Normal color with no rashes, no lesions, and no evidence of cellulitis. MS/ Extremity: Pulses equal, no cyanosis. Neurovascular intact. Full, normal range of motion., bilateral aka Neuro: Awake and alert, GCS 15, oriented to person, place, time, and situation. Cranial nerves II-XII grossly intact. Motor strength 5/5 in all extremities. Sensory grossly intact. Cerebellar exam normal. Normal gait. Psych: Awake, alert, with orientation to person, place and time. Behavior, mood, and affect are within normal limits. 06:40 Cardiovascular: Rate: normal, Rhythm: regular, Pulses: no pulse deficits are appreciated, Heart sounds: normal, normal S1and S2, no S3 or S4, no murmur, no rub, no gallop, Edema: is not appreciated, JVD: is not appreciated, 06:40 ECG was reviewed by the Attending Physician. 06:46 ECG was reviewed by the Attending Physician. katherin 06:46 Musculoskeletal/extremity: DVT Exam: No signs of deep vein thrombosis. no pain, no swelling, no tenderness, negative Homans' sign noted on exam, no appreciated bluish discoloration, no erythema, no increased warmth, Vital Signs: 07:15 BP 95 / 61; Pulse 70; Resp 15; Pulse Ox 96% on R/A; ko1 MDM: 06:11 Medical Screening Exam initiated katherin 06:41 Differential diagnosis: abnormal EKG, acute myocardial infarction, acute pericarditis, katherin anxiety, chest wall pain, cholecystitis, costochondritis, arrythmia, dehydration, stress disorder, esophagitis, gastritis, gastroesophageal reflux disease (GERD), pancreatitis, peptic ulcer disease, pericarditis, pleurisy, pneumonia, pneumothorax, pulmonary embolus, stable angina, thoracic aortic disection, unstable angina. HEART Score: History: Moderately Suspicious (1), ECG: Non specific repolarization disturbance / LBTB / PM (1), Age: > 45 and < 65 years (1), Risk Factors: > or = 3 Risk factors for atherosclerotic disease (2), [Hypercholesterolemia] [Hypertension] [+ Family HX] [Obesity] Troponin: < or = 1 x Normal Limit (0). The patient was given aspirin in the Emergency Department. GORDO Risk Score: 1 - patient's age is greater or equal to 65 years, 1 - Three or more CAD risk factors, 1- Known CAD, TOTAL SCORE = 3. Data reviewed: vital signs, nurses notes, EMS record, lab test result(s), EKG, radiologic studies, plain films. Consideration of Admission/Observation Patient was admitted/placed on observation. Escalation of care including admission/observation considered. I considered the following discharge prescriptions or medication management in the emergency department Medications were administered in the Emergency Department. See MAR. Independent interpretation of the following test(s) in the Emergency Department EKG: See my EKG interpretation above. Test considered but Not performed: Ultrasound NO 2 D ECHO , NOT AVAILABLE. Historians other than the Patient: EMS: EMS WELL INFORMED. Care significantly affected by the following chronic conditions: Hypertension, Obesity. Counseling: I had a detailed discussion with the patient and/or guardian regarding the historical points, exam findings, and any diagnostic results supporting the discharge/admit diagnosis. 07/16 06:13 Order name: Basic Metabolic Panel; Complete Time: 19:08 07/16 06:13 Order name: CBC with Diff; Complete Time: 19:08 07/16 06:13 Order name: LFT's; Complete Time: 19:08 07/16 06:13 Order name: Magnesium; Complete Time: 19:08 07/16 06:13 Order name: NT PRO-BNP; Complete Time: 19:08 07/16 06:13 Order name: PT-INR; Complete Time: 19:08 07/16 06:13 Order name: Troponin HS; Complete Time: 19:08 07/16 06:13 Order name: Urinalysis w/ reflexes; Complete Time: 19:08 07/16 06:13 Order name: Lipase; Complete Time: 19:08 07/16 06:25 Order name: Type And Screen; Complete Time: 19:08 07/16 08:06 Order name: CBC with Automated Diff EDMS 07/16 08:06 Order name: CBC with Automated Diff EDCT 07/16 08:06 Order name: Comprehensive Metabolic Panel EDCT 07/16 08:06 Order name: Comprehensive Metabolic Panel EDCT 07/16 08:06 Order name: Troponin High Sensitivity EDCT 07/16 08:06 Order name: Troponin High Sensitivity EDCT 07/16 08:06 Order name: Troponin High Sensitivity [facility] 07/17 00:45 Order name: Glucose, Ancillary Testing EDCT 07/17 04:33 Order name: ABO/RH no charge EDCT 07/17 07:07 Order name: Urine Culture EDCT 07/16 06:13 Order name: XRAY Chest (1 view); Complete Time: 19:08 [facility] 07/16 06:13 Order name: Cardiac monitoring; Complete Time: 06:57 [facility] 07/16 06:13 Order name: EKG - Nurse/Tech; Complete Time: 06:57 [facility] 07/16 06:13 Order name: IV Saline Lock; Complete Time: 07:11 [facility] 07/16 06:13 Order name: Labs collected and sent; Complete Time: 06:57 [facility] 07/16 06:13 Order name: O2 Per Protocol; Complete Time: 06:57 katherin 07/16 06:13 Order name: O2 Sat Monitoring; Complete Time: 06:57 [facility] 07/16 06:13 Order name: Misc. Order: download defib; Complete Time: 07:18 [facility] 07/16 12:26 Order name: Misc. Order: small lavender top for lab draw; Complete Time: 19:23 sp EC:46 Rate is 70 beats/min. Rhythm is regular. QRS [place] is Normal. MT interval is normal. QRS katherin interval is normal. QT interval is normal. No Q waves. T waves are Normal. No ST changes noted. Clinical impression: Abnormal EKG without significant change and No evidence of ischemia. Interpreted by me. Reviewed by me. Administered Medications: 07:01 CANCELLED (Duplicate Order): ns 0.9% 500 ml 500 ml IV at 1 bolus once; to be given as a katherin bolus over 30 minutes 07:19 Drug: Magnesium Sulfate IVPB 2 grams IVPB once over 2 hrs Route: IVPB; Infused Over: 2 ko1 hrs; Site: left antecubital; 07:46 Follow up: Response: No adverse reaction; IV Status: Completed infusion; IV Intake: ko1 100ml 07:19 Drug: Famotidine IVP 20 mg IVP once; dilute with 10 mL 0.9% NaCl; give over 2 minutes ko1 Route: IVP; Site: left antecubital; 07:34 Follow up: Response: No adverse reaction ko1 07:45 Drug: Furosemide IVP 20 mg IVP once; give over 2 minutes Route: IVP; Site: left ko1 antecubital; 08:00 Follow up: Response: No adverse reaction ko1 Disposition Summary: 07/16/24 07:06 Hospitalization Ordered Notes: Hospitalization Status: Observation katherin Provider: Tyra Betts katherin Condition: Fair katherin Problem: new katherin Symptoms: have improved katherin Bed/Room Type: Standard katherin Location: Telemetry/MedSurg (observation)(07/17/24 10:22) bd Room Assignment: 211(07/17/24 10:22) bd Diagnosis - Palpitations katherin - Cardiomegaly katherin - Chronic combined systolic (congestive) and diastolic (congestive) heart failure 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 EDMS EDMS 06:14 06:14 CBC+H.LAB.BRZ ordered. EDMS EDMS 06:14 06:14 HEPATIC FUNCTION+C.LAB.BRZ ordered. EDMS EDMS 06:14 06:14 MAGNESIUM+C.LAB.BRZ ordered. EDMS EDMS 06:14 06:14 PROBNP+C.LAB.BRZ ordered. EDMS EDMS 06:14 06:14 PROTIME (+INR)+COAG.LAB.BRZ ordered. EDMS EDMS 06:14 06:14 Troponin High Sensitivity+C.LAB.BRZ ordered. EDMS EDMS 06:14 06:14 Urinalysis+U.LAB.BRZ ordered. EDMS EDMS 06:14 06:14 LIPASE+C.LAB.BRZ ordered. EDMS EDMS 06:14 06:14 Chest Single View+RAD.RAD.BRZ ordered. EDMS EDMS 06:26 06:25 TYPE AND SCREEN+BB.LAB.BRZ ordered. EDMS EDMS 07:01 06:13 NS 0.9% IV 500 ml 500 ml IV at 1 bolus once; to be given as a bolus over 30 katherin minutes ordered. katherin 08: 07:06 Telemetry/MedSurg (observation) katherin sp 08:21 07:06 katherin sp 07/17 10:22 0216 08:21 [facility] ER HOLD sp bd 07/17 10:22 0216 08:21 ERHOLD- sp bd
--- NOTE | 2024-07-16 07:06 | ER ---
Nurse's Notes [facility] Name: Sinan Swift Age: 68 yrs Sex: Male : 1955 Arrival Date: 07/16/2024 Time: 06:01 Bed 16 Private MD: Diagnosis: Palpitations;Cardiomegaly;Chronic combined systolic (congestive) and diastolic (congestive) heart failure;halfway (current) use of anticoagulants Presentation: 07/16 06:10 Chief complaint: EMS states: palpitations. Coronavirus screen: Client denies travel out ay of the [place] in the last 14 days. Ebola Screen: No symptoms or risks identified at this time. Initial Sepsis Screen: Does the patient meet any 2 criteria? No. Patient's initial sepsis screen is negative. Does the patient have a suspected source of infection? No. Patient's initial sepsis screen is negative. Risk Assessment: Do you want to hurt yourself or someone else? Patient reports no desire to harm self or others. Note BIBA with a c/o palpitations, HR in 120s. Pt has a pacemaker with defib. Per EMS, pt's HR came down to 70s prior to arrival. Hx of Afib. Pt alert and oriented, on monitoring coordinator, no distress noted. Onset of symptoms was July 16, 2024. 06:10 Acuity: SUSANNE 3 ay 06:10 Method Of Arrival: EMS: [facility] Triage Assessment: 07:42 General: Appears in no apparent distress. comfortable, Behavior is calm, cooperative. ay Pain: Denies pain. EENT: No signs and/or symptoms were reported regarding the EENT system. Neuro: Level of Consciousness is awake, alert, obeys commands, Oriented to person, place, time, situation, Speech is normal. Cardiovascular: Reports palpitations, Denies chest pain, nausea, vomiting, Capillary refill < 3 seconds. Respiratory: Airway is patent Respiratory effort is even, unlabored, Respiratory pattern is regular, symmetrical. GI: No signs and/or symptoms were reported involving the gastrointestinal system. : No signs and/or symptoms were reported regarding the genitourinary system. Musculoskeletal: No signs and/or symptoms reported regarding the musculoskeletal system. Historical: - Allergies: 07:42 Fish Containing Products; ay - Home Meds: 07:42 Aldactone 25 mg Oral tablet 1 tab 2 times per day [Active]; aspirin 81 mg Oral capsule ay 1 cap daily [Active]; Coreg 3.125 mg Oral tablet 1 tab 2 times per day [Active]; Eliquis oral 1 tab 2 times per day [Active]; Flomax 0.4 mg Oral capsule 1 cap BID [Active]; Sotalol 40 mg Oral 1 tab 2 times per day [Active]; - PMHx: 07:42 a flutter; Atrial fibrillation; Bladder Diverticulum; Hypertensive disorder; [place]; ay Pneumonia; Prostate; Pulmonary Embolism; - PSHx: 07:42 cataract; Stented artery; Vasectomy; ay - Immunization history:: Adult Immunizations up to date. - Infectious Disease History:: Denies. - Family history:: not pertinent. - Social history:: Smoking status: Patient denies any tobacco usage or history of. Screenin:[facility] ED Fall Risk Assessment (Adult) History of falling in the last 3 months, ko1 including since admission No falls in past 3 months (0 pts) Confusion or Disorientation No (0 pts) Intoxicated or Sedated No (0 pts) Impaired Gait No (0 pts) Mobility Assist Device Used No (0 pt) Altered Elimination No (0 pt) Score/Fall Risk Level 0 - 2 = Low Risk Oriented to surroundings, Maintained a safe environment, Educated pt \T\ family on fall prevention, incl call for assistance when getting out of bed, Assessed \T\ reinforced patient's understanding of fall precautions, Provided non-skid footwear, Hourly rounding (assess needs \T\ fall precautionary measures) done. Abuse screen: Denies threats or abuse. Denies injuries from another. Nutritional screening: No deficits noted. Tuberculosis screening: No symptoms or risk factors identified. Assessment: 07:23 General: Appears in no apparent distress. Behavior is calm, cooperative, appropriate ko1 for age. Pain: Denies pain. Neuro: No deficits noted. Cardiovascular: Reports palpitations, prior to arrival. Respiratory: No deficits noted. GI: No deficits noted. : Reports self caths. EENT: No deficits noted. No signs and/or symptoms were reported regarding the EENT system. Derm: No deficits noted. No signs and/or symptoms reported regarding the dermatologic system. Musculoskeletal: No deficits noted. No signs and/or symptoms reported regarding the musculoskeletal system. 07:34 Reassessment: Spoke to [employer] after hours rep about pacemaker interrogation hb that was successfully uploaded an hour ago, should receive faxed report within 20 mins per rep. Vital Signs: 07:15 BP 95 / 61; Pulse 70; Resp 15; Pulse Ox 96% on R/A; ko1 ED Course: 06:06 Patient arrived in ED. vk 06:11 Jacoby Hernández MD is Attending Physician. katherin 06:15 Addy Augustine RN is Primary Nurse. ay 06:37 XRAY Chest (1 view) In Process Unspecified. EDMS 06:37 Pacemaker Interrogation completed and sent to [employer]. vc1 07:03 Tyra Betts is Hospitalizing Provider. katherin 07:10 Report received from Briseyda Augustine RN. ko1 07:26 No provider procedures requiring assistance completed. Maintain EMS IV. Dressing ko1 intact. Good blood return noted. Site clean \T\ dry. Gauge \T\ site: 20g left AC. Flushed with 10 mL NS. 07:26 Patient has correct armband on for positive identification. Bed in low position. Call ko1 light in reach. Side rails up X2. Provided Education on: labs. Door closed. Noise minimized. Lights dimmed. Warm blanket given. Pillow given. 07:42 Triage completed. ay 08:10 Urinalysis w/ reflexes Sent. ko1 08:10 Urine collected: straight cath specimen, clear. Patient admitted, IV remains in place. ko1 08:10 Assisted to bathroom. ko1 08:41 Arm band placed on right wrist. Patient notified of wait time. ko1 16:57 Diet: DELIVERED DINNER TRAY TO PT. sp Administered Medications: 07:01 CANCELLED (Duplicate Order): ns 0.9% 500 ml 500 ml IV at 1 bolus once; to be given as a katherin bolus over 30 minutes 07:19 Drug: Magnesium Sulfate IVPB 2 grams IVPB once over 2 hrs Route: IVPB; Infused Over: 2 ko1 hrs; Site: left antecubital; 07:46 Follow up: Response: No adverse reaction; IV Status: Completed infusion; IV Intake: ko1 100ml 07:19 Drug: Famotidine IVP 20 mg IVP once; dilute with 10 mL 0.9% NaCl; give over 2 minutes ko1 Route: IVP; Site: left antecubital; 07:34 Follow up: Response: No adverse reaction ko1 07:45 Drug: Furosemide IVP 20 mg IVP once; give over 2 minutes Route: IVP; Site: left ko1 antecubital; 08:00 Follow up: Response: No adverse reaction ko1 Medication: 07:26 VIS not applicable for this client. ko1 Intake: 07:46 IV: 100ml; Total: 100ml. ko1 Outcome: 07:06 Decision to Hospitalize by Provider. katherin 08:40 Admitted to ER Hold. Please see [facility] for further documentation. ko1 08:40 Condition: stable 08:40 Instructed on the need for admit, 07/17 11:42 Patient left the ED. ll1 Signatures: Dispatcher [employer] EDMS Jacoby Hernández MD MD cha Pinkerton, Shawna sp Baxter, Heather RN RN Smiley Lyons RN RN [email or web address] Juliane Altman RN RN vc1 Oliver, Kathy, RN RN koMary Ellen Prabhakar Awudu, RN RN ay Corrections: (The following items were deleted from the chart) 07/16 07:48 06:10 Method Of Arrival: Ambulatory ay ay
[2024-07-16 07:08] LABS: Absolute Eosinophils 0.1 K/uL (0-0.5); Absolute Lymphocytes (CBC) 1.3 K/uL (0.7-4.9); Absolute Monocytes 0.8 K/uL (0.1-1.3); Absolute Neutrophil 4.2 K/uL (1.8-8.0); Basophils % 0.5 % (0-1.3); Hematocrit 41.9 % (39.6-49.0); Hemoglobin 13.6 g/dL (13.6-17.9); MCHC 32.5 g/dL (32.0-36.0); MCV 89.1 fL (80-100); MPV 8.4 fL (7.6-11.3); Monocytes % 12.6 % (3.3-12.3); Neutrophils % 64.9 % (41.7-73.7); Nucleated Red Blood Cells % 0.2 % (0-0); Platelets 267 thou/uL (152-406); Red Cell Distribution Width 14.7 % (12.1-15.2)
[2024-07-16] MEDS ORDERED: FAMOTIDINE 20 MG/2 ML VIAL IV ONE (07:09)
[2024-07-16] MEDS ORDERED: Magnesium Sulfate 2gm IVPB 2 G/50 ML BAG IV ONE (07:09)
[2024-07-16] MEDS ORDERED: FUROSEMIDE 20 MG/ 2ML VIAL ONE (07:09)
[2024-07-16 07:16] LABS: PT Prothrombin Time 17.4 SECONDS (9.4-12.5); Protime INR 1.67
[2024-07-16 07:37] LABS: Albumin 2.9 g/dL (3.4-5.0); Albumin/Globulin Ratio 0.9 (1.1-1.8); Anion Gap 10.7 mEq/L (5.0-15.0); Bilirubin Direct 0.3 mg/dL (0-0.2); Bilirubin Indirect, Calculated 0.5 mg/dL (0.2-0.8); Bilirubin Total 0.8 mg/dL (0.2-1.0); Globulin 3.2 g/dL (2.3-3.5); Magnesium 1.8 mg/dL (1.6-2.4); Potassium 3.7 mEq/L (3.5-5.1); Protein, Total 6.1 g/dL (6.4-8.2); Troponin High Sensitivity 25.6 pg/mL (<58.9)
--- NOTE | 2024-07-16 08:00 | P.HP ---
Certification for Inpatient Patient admitted to: Observation With expected LOS: <2 Midnights Patient will require the following post-hospital care: None Practitioner: I am a practitioner with admitting privileges, knowledge of patient current condition, hospital course, and medical plan of care. Services: Services provided to patient in accordance with Admission requirements found in Title 42 Section 412.3 of the Code of Federal Regulations Patient History Date of Service: 07/16/24 Reason for admission: symptomatic arrhythmia History of Present Illness: Mr. Swift is a 68-year-old gentleman with a past medical history of Palpitations, Cardiomegaly, Chronic combined systolic (congestive) and diastolic (congestive) heart failure s/p pacer/defibrillator, and halfway (current) use of anticoagulants. He called EMS as he was having palpitations with a heart rate in the 140s. He states that [place] bump on the highway and he converted to normal sinus rhythm in the 70s. His labs are unremarkable and his EKG shows normal sinus rhythm in the emergency department. He had a pacemaker interrogation on July 02, 2024 and has an appointment with his spike driver, Dr. Grimm, tomorrow at 1530. He was given magnesium and Protonix in the emergency department and feels "better than normal". Denies pain, palpitations, or shortness of breath. We will admit him for observation for serial troponins and discharge him in the morning for his appointment with Dr. Grimm. The only medication change from admission last month is his dose of Sotalol has increased from 40mg to 80mg po BID Allergies No Known Allergies Allergy (Verified 06/03/24 06:28) Home medications list reviewed: Yes Home Medications: Tamsulosin HCl [Flomax] 0.4 mg PO BID 03/23/22 Spironolactone 25 mg PO DAILY 05/14/23 Apixaban [Eliquis] 5 mg PO BID 09/06/23 Atorvastatin Calcium [Lipitor*] 20 mg PO BEDTIME 06/03/24 carvediloL [Coreg*] 3.125 mg PO BID 06/03/24 Apixaban [Eliquis] 5 mg PO BID #180 tab 06/04/24 Sotalol HCl [Betapace*] 80 mg PO BID #180 tab 06/04/24 - Past Medical/Surgical History Has patient received pneumonia vaccine in the past: Yes Diabetic: No -: BPH -: urinary diverticulum -: NM -: HTN -: NIDDM -: leticia cataract sx -: vasectomy in 83 -: cardiac cath 2021 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 - Family History Father -: Heart disease - Social History Smoking Status: Unknown if ever smoked Alcohol use: No CD- Drugs: No Caffeine use: Yes Place of Residence: Home Review of Systems 10-point ROS is otherwise unremarkable General: As per HPI Eyes: Unremarkable ENT: Unremarkable Respiratory: Unremarkable Cardiovascular: Palpitations Gastrointestinal: Unremarkable Genitourinary: Unremarkable Integumentary: Unremarkable Neurological: Unremarkable Lymphatics: Unremarkable Physical Examination - Physical Exam General: Alert, In no apparent distress, Oriented x3 HEENT: Atraumatic, Normocephalic, PERRLA Neck: Supple Respiratory: Normal air movement Cardiovascular: Normal pulses, Regular rate/rhythm, Normal S1 S2 Capillary refill: <2 Seconds Gastrointestinal: Normal bowel sounds, Soft and benign Musculoskeletal: No clubbing, No swelling Integumentary: No rashes Neurological: Normal speech, Normal tone, Normal affect Lymphatics: No axilla or inguinal lymphadenopathy External genitalia: Deferred Rectal: Deferred - Studies Laboratory Data (last 24 hrs) 07/16/24 07/16/24 07/16/24 06:50 06:50 06:50 WBC 6.40 Hgb 13.6 Hct 41.9 Plt Count 267 PT 17.4 H INR 1.67 Sodium 138 Potassium 3.7 BUN 14 Creatinine 1.18 Glucose 151 H Magnesium 1.8 Total Bilirubin 0.8 AST 16 ALT 34 Alkaline Phosphatase 102 Lipase 23 Assessment and Plan - Plan pacermaker/defibrillator status with episode of uncontrolled tachycardia no defibrillation administered pt converted to sinus rhythm in route to ED pt denies symptoms presently states Magnesium and Protonix helped residual discomfort symptoms appointment with Dr. Grmim at 1530 tomorrow for pacemaker interrogation (from 07/02/24) results continue sotalol 80mg po BID continue home medications (Eliquis 5mg po BID, Carvedilol 3.125mg po BID, atorvastatin 20mg po q hs, and Tamsulosin 0.4mg po daily) NIDDM Hgb A1c 06/03/24 7.1 glucose monitoring VTE prophylaxis on Eliquis Discharge Plan: Home Plan to discharge in: 24 Hours - Advance Directives Does patient have a Living Will: No Does patient have a Durable POA for Healthcare: No - Code Status/Comfort Care Code Status Assessed: Yes (Full)
--- NOTE | 2024-07-16 08:17 | RAD REPORT ---
Procedure: Chest Single View HISTORY: Chest pain COMPARISON: May 2024 FINDINGS: The lungs appear clear of acute infiltrate. No significant pleural effusion noted. The heart is markedly enlarged. Pacemaker leads in place IMPRESSION: No acute abnormality is displayed.
[2024-07-16 08:24] LABS: Specific Gravity 1.008 (1.005-1.030); Sqamous Epithelial <5 /HPF (None Seen); Urine Bacteria None Seen /HPF (<20); Urine Bilirubin NEGATIVE (Negative); Urine Blood Negative (Negative); Urine Clarity Turbid (Clear); Urine Color Light-Yellow (Yellow); Urine Culture Reflex Order REFLEXED; Urine Glucose NEGATIVE (Negative); Urine Ketones NEGATIVE (Negative); Urine Microscopic Reflex YN ORDER UMIC; Urine Mucus Slight /HPF (None Seen); Urine Nitrite NEGATIVE (Negative); Urine Protein NEGATIVE (Negative); Urine RBC <5 /HPF (None Seen); Urine Urobilinogen Normal (Normal); Urine pH 5.5 (5.0-7.0)
[2024-07-16 08:55] VITALS: BMI 34.3
[2024-07-16] MEDS: APIXABAN 5 MG TABLET PO SCH ×2 (09:00→22:30)
[2024-07-16] MEDS: FAMOTIDINE 20 MG/2 ML VIAL IV SCH (09:00)
[2024-07-16] MEDS: SPIRONOLACTONE 25 MG TABLET PO SCH (09:00)
[2024-07-16] MEDS ORDERED: APIXABAN 5 MG TABLET ONE ×2 (09:39→22:27)
[2024-07-16] MEDS: carvediloL 3.125 MG TAB PO SCH (19:00)
[2024-07-16] MEDS ORDERED: TAMSULOSIN 0.4 MG SR CAP ONE (22:27)
[2024-07-16] MEDS: TAMSULOSIN 0.4 MG SR CAP PO SCH (22:30)
[2024-07-17 05:18] LABS: Absolute Eosinophils 0.1 K/uL (0-0.5); Absolute Lymphocytes (CBC) 1.9 K/uL (0.7-4.9); Absolute Neutrophil 4.5 K/uL (1.8-8.0); Basophils % 0.4 % (0-1.3); Eosinophils % 1.2 % (0-4.4); Hematocrit 38.3 % (39.6-49.0); Hemoglobin 12.9 g/dL (13.6-17.9); Lymphocytes % 24.7 % (15.3-44.8); MCH 29.6 pg (27.0-35.0); MCHC 33.6 g/dL (32.0-36.0); MPV 9.2 fL (7.6-11.3); Monocytes % 13.6 % (3.3-12.3); Neutrophils % 60.1 % (41.7-73.7); Nucleated Red Blood Cells % 0.1 % (0-0); Platelets 247 thou/uL (152-406); RBC Red Blood Cell Count 4.35 M/uL (4.33-5.43); Red Cell Distribution Width 14.6 % (12.1-15.2)
[2024-07-17 05:32] LABS: Albumin 2.8 g/dL (3.4-5.0); Albumin/Globulin Ratio 0.9 (1.1-1.8); Anion Gap 8.6 mEq/L (5.0-15.0); Bilirubin Total 0.8 mg/dL (0.2-1.0); Globulin 3.1 g/dL (2.3-3.5); Potassium 3.6 mEq/L (3.5-5.1); Protein, Total 5.9 g/dL (6.4-8.2)
[2024-07-17] MEDS: POTASSIUM CL SA 10 MEQ TAB PO ONE (07:14)
[2024-07-17] MEDS ORDERED: FAMOTIDINE 20 MG/2 ML VIAL IV ONE (08:14)
[2024-07-17] MEDS ORDERED: POTASSIUM CL SA 10 MEQ TAB PO ONE (08:14)
[2024-07-17] MEDS ORDERED: APIXABAN 5 MG TABLET ONE (08:14)
[2024-07-18 12:39] VITALS: TEMP 98.1
[2024-07-18] MEDS: TAMSULOSIN 0.4 MG SR CAP PO SCH (12:56)
[2024-07-18 16:45] VITALS: BP 104/64
[2024-07-18 18:19] VITALS: O2SAT 98
[2024-07-18] MEDS ORDERED: SPIRONOLACTONE 25 MG TABLET PO SCH (21:00)
[2024-07-18] MEDS ORDERED: TAMSULOSIN 0.4 MG SR CAP PO SCH (21:00)
[2024-07-18] MEDS ORDERED: APIXABAN 5 MG TABLET PO SCH (21:00)
[2024-07-18] MEDS ORDERED: carvediloL 3.125 MG TAB PO SCH (21:00)
[2024-07-18] MEDS ORDERED: SOTALOL HCL 80 MG TAB PO SCH (21:00)
[2024-07-19] MEDS ORDERED: ASPIRIN 81 MG CHEWABLE TABLET PO SCH (09:00)
--- NOTE | 2024-07-24 12:38 | EKG ---
Test Date: 2024-07-16 Test Time: 06:41:23 Food And Beverage Assistant: JIMENEZ MEASUREMENT RESULTS: Intervals: Rate: 70 FL: QRSD: 214 QT: 516 QTc: 557 Colon: P: FL: QRS: -23 T: 183 INTERPRETIVE STATEMENTS: Ventricular-paced rhythm Biventricular pacemaker detected Abnormal ECG Compared to ECG 06/03/2024 12:06:37 Left ventricular hypertrophy no longer present Electronically Signed On 07-24-24 12:21:28 DIGITAL CAMPAIGN SPECIALIST by [employer] Segovia
== END 2024-07-18 17:50 | disposition home or self-care (01) | DRG 309 ==
LOC: ER 06:01 → ERHOLD 08:17 → 2ND 07-17 11:04 → OBSVTOIN 07-17 18:21
PROVIDERS: ADMIT Internal Medicine; ATTEND Hospitalist
DX: R00.0 Tachycardia, unspecified (principal); I50.42 Chronic combined systolic (congestive) and diastolic (congestive) heart failure; I11.0 Hypertensive heart disease with heart failure; I48.91 Unspecified atrial fibrillation; E66.9 Obesity, unspecified; N40.0 Benign prostatic hyperplasia without lower urinary tract symptoms; E11.9 Type 2 diabetes mellitus without complications; I25.2 Old myocardial infarction; Z98.52 Vasectomy status; Z79.82 Long term (current) use of aspirin; Z68.34 Body mass index [BMI] 34.0-34.9, adult; Z79.01 Long term (current) use of anticoagulants; Z91.013 Allergy to seafood; Z79.899 Other long term (current) drug therapy; Z86.711 Personal history of pulmonary embolism; Z95.810 Presence of automatic (implantable) cardiac defibrillator; Z79.02 Long term (current) use of antithrombotics/antiplatelets
CPT/HCPCS: 36415; 71045; 80048; 80053; 80076; 81001; 82947; 83690; 83735; 83880; 84484; 85025; 85610; 86850; 86900; 86901; 87077; 87086; 87088; 87186; 93005; 96365; 96375; 99285; G0378; J1940; J3475

== ENCOUNTER 2025-03-17 08:27 | Emergency (ER) | payer OTHER, BC ==
--- OUTSIDE RECORDS SUMMARY | 2025-03-17 08:31 | XMS REPORT | Continuity of Care Document ---
Author Name Unknown Address [address] [facility] [place] [address] [facility] [address] [facility] [address] [place] [address] Care Team Providers Care Comfort Filler Name Role Phone Domo GORDON Attending Clinician Unavailab Trevor Stanford Attending Clinician Unavailable Sudheer Tavarez V Attending Clinician Unavailable Trevor Grimm Admitting Clinician Unavailable Physician, No Primary or Family Admitting Clinic lopez Unavailable Payers Payer Name Policy Type Policy Number Effective Date Expirati on Date Source AETNA 53 [id number] [facility] [id number] [facility] [place] Problems Condition Name Condition Details Condition Category Status Onset Date Resolution Date Last Treatment Date Treating Clinician Comments Source [id number] Acquired bladder diverticul um Problem [facility] [place] [id number] Obstructiv e uropathy Problem [facility] [place] 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 Problem [facility] [place] Incomplete bladder emptying Incomplete bladder emptying Problem [facility] [place] [id number] Dysfunctio nal voiding of urine Problem [facility] [place] 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 BPH loc w urin obs/LUTS Problem [facility] [place] Left bundle branch block LBBB (left bundle branch block) Problem [facility] Bradycardi a Bradycardi a Problem [facility] Cardiomyop athy Cardiomyop athy Problem [facility] Chronic combined systolic and diastolic heart failure Chronic combined systolic (congestiv e) and diastolic (congestiv e) heart failure Problem [facility] Old myocardial infarction Myocardial infarction , old Problem [facility] Shortness of breath Shortness of breath Problem [facility] Automatic implantabl e cardiac defibrilla tor in situ Biventricu lar implantabl e cardiovert er-defibri llator (ICD) in situ Problem [facility] Allergies, Adverse Reactions, Alerts Allergy Name Allergy Type Status Severity Reaction(s) Onset Date Inactive Date Treating Clinician Comments Source No Known Allergie s DA Active U 01-31 00:00: 00 [facility] [place] Active (mhs) [facility] [place] Social History Social Habit Start Date Stop Date Quantity Comments Source History of Tobacco Use [facility] Sex Assigned At [facility] Smoking Status Start Date Stop Date Source Former Smoker 2024-10-19 00:00:00 2024-10-19 00:00:00 [facility] [place] Never Smoker [facility] Current Smoker 2023-03-18 00:00:00 [facility] [place] Medications Ordered Medication Name Filled Medication Name Start Date Stop Date Current Medication? Ordering Clinician Indication Dosage Frequency Signature (SIG) Comments Components Source Minocycline HCl 100 MG Minocycline HCl 100 MG 8 00:00: 00 No 1{capsu le} QD Minocyclin e HCl 100 MG Eliquis Eliquis No 1{table t} QD Eliquis Aldactone 25 MG Aldactone 25 MG No 1{table t} Aldactone 25 MG Sotalol HCl 80 MG Sotalol HCl 80 MG No BID Sotalol HCl 80 MG Aspirin 81 81 MG Aspirin 81 81 MG No 1{table t} QD Aspirin 81 81 MG Tamsulosin HCl 0.4 MG Tamsulosin HCl 0.4 MG No 1{capsu le} BID Tamsulosin HCl 0.4 MG Carvedilol 3.125 MG [...] Time Observation Value Comments S ource height 2024-10-19 10:00:00 66 [in_i] Commo n [facility] weight 2024-10-19 10:00:00 206 [lb_av] Comm on [facility] temperature 2024-10-19 10:00:00 98.0 [degF] Com mon [facility] bmi 2024-10-19 10:00:00 33.25 kg/m2 Comm on [facility] oximetry 2024-10-19 10:00:00 95 % Commo n [facility] respiratory rate 2024-10-19 10:00:00 17 /min [facility] [place] blood pressure systolic 2024-10-19 10:00:00 106 mm[Hg] [facility] blood pressure diastolic 2024-10-19 10:00:00 66 mm[Hg] Common [facility] height 2024-02-11 10:30:00 69 [in_i] [facility] weight-kg 2024-02-11 10:30:00 103.87 kg [facility] bmi 2024-02-11 10:30:00 33.81 kg/m2 [facility] temperature 2024-02-11 10:30:00 97 [degF] [facility] blood pressure systolic 2024-02-11 10:30:00 100 mm[Hg] [facility] blood pressure diastolic 2024-02-11 10:30:00 56 mm[Hg] [facility] height 2024-01-18 10:00:00 69 [in_i] [facility] weight-kg 2024-01-18 10:00:00 103.42 kg [facility] bmi 2024-01-18 10:00:00 33.67 kg/m2 [facility] temperature 2024-01-18 10:00:00 96.4 [degF] [facility] heart rate 2024-01-18 10:00:00 51 /min [facility] blood pressure systolic 2024-01-18 10:00:00 106 mm[Hg] [facility] blood pressure diastolic 2024-01-18 10:00:00 59 mm[Hg] [facility] height 2023-10-21 15:15:00 66 [in_i] Commo n [facility] weight 2023-10-21 15:15:00 229.6 [lb_av] Co mmon [facility] temperature 2023-10-21 15:15:00 97.5 [degF] Com mon [facility] bmi 2023-10-21 15:15:00 37.05 kg/m2 Comm on [facility] oximetry 2023-10-21 15:15:00 93 % Commo n [facility] respiratory rate 2023-10-21 15:15:00 18 /min Common [facility] blood pressure systolic 2023-10-21 15:15:00 101 mm[Hg] Common [facility] blood pressure diastolic 2023-10-21 15:15:00 55 mm[Hg] [facility] height 2023-03-18 13:30:00 66 [in_i] Commo n [facility] weight 2023-03-18 13:30:00 240.6 [lb_av] Co mmon [facility] temperature 2023-03-18 13:30:00 97.8 [degF] Com mon [facility] bmi 2023-03-18 13:30:00 38.83 kg/m2 Comm on [facility] oximetry 2023-03-18 13:30:00 96 % Commo n [facility] respiratory rate 2023-03-18 13:30:00 18 /min [facility] [place] blood pressure systolic 2023-03-18 13:30:00 121 mm[Hg] [facility] blood pressure diastolic 2023-03-18 13:30:00 66 mm[Hg] Common [facility] height 2022-11-18 10:45:00 66 [in_i] Commo n [facility] weight 2022-11-18 10:45:00 231 [lb_av] Comm on [facility] temperature 2022-11-18 10:45:00 98.1 [degF] Com mon [facility] bmi 2022-11-18 10:45:00 37.28 kg/m2 Comm on [facility] oximetry 2022-11-18 10:45:00 99 % Commo n [facility] respiratory rate 2022-11-18 10:45:00 18 /min Common [facility] blood pressure systolic 2022-11-18 10:45:00 123 mm[Hg] [facility] blood pressure diastolic 2022-11-18 10:45:00 71 mm[Hg] Common [facility] height 2022-05-20 13:15:00 66 [in_i] Commo n [facility] weight 2022-05-20 13:15:00 205 [lb_av] Comm on [facility] temperature 2022-05-20 13:15:00 98.3 [degF] Com mon [facility] bmi 2022-05-20 13:15:00 33.08 kg/m2 Comm on [facility] oximetry 2022-05-20 13:15:00 96 % Commo n [facility] respiratory rate 2022-05-20 13:15:00 17 /min [facility] [place] blood pressure systolic 2022-05-20 13:15:00 113 mm[Hg] [facility] blood pressure diastolic 2022-05-20 13:15:00 66 mm[Hg] [facility] Procedures Procedure Date / Time Performed Performing Clinicia n Source PVR 2024-10-19 00:00:00 [facility] Encounters Start Date/Time End Date/Time Encounter Type Admission Type Attending Clinicians Care Facility Care Department Encounter ID Source 2024-01-18 10:15:01 [facility] [id number] [facility] 2023-06-30 09:43:00 Outpatient Domo GORDON [facility] [id number] [facility] [place] 2023-06-28 16:58:00 Outpatient Domo GORDON [facility] [id number] [facility] [place] 2023-03-15 14:56:01 Outpatient Domo GORDON [facility] [id number] [facility] [place] 2023-02-08 15:36:00 Outpatient Domo GORDON [facility] [id number] [facility] [place] 2023-01-05 07:00:00 Inpatient Trevor Benavides [facility] C[facility] [id number] [facility] 2022-11-23 08:14:01 Outpatient Domo GORDON [facility] [id number] [facility] [place] 2022-11-16 10:39:02 Outpatient Domo GORDON [facility] [id number] [facility] [place] 2022-05-14 14:33:02 Outpatient Domo Gordon [facility] [place] 2021-08-06 08:57:04 Outpatient Domo Gordon [facility] [place] 2021-06-25 14:20:34 Outpatient Domo Gordon [facility] [id number] [facility] [place] 2021-06-25 14:18:31 Outpatient Domo Gordon [facility] [id number] [facility] [place] 2024-12-27 00:00:00 2024-12-27 00:00:00 (TEL) [facility] [id number] [facility] [place] 2024-10-19 00:00:00 2024-10-19 00:00:00 [facility] [id number] [place] 2024-02-11 00:00:00 2024-02-11 00:00:00 Office Visit- Est Pt.- Level 4 CLS CLS [id number] [facility] 2024-02-10 00:00:00 2024-02-10 00:00:00 (TEL) CLS CLS [id number] [facility] 2024-02-07 00:00:00 2024-02-07 00:00:00 (TEL) CLS CLS [id number] [facility] 2024-02-03 00:00:00 2024-02-03 00:00:00 (TEL) CLS CLS [id number] [facility] 2024-02-02 05:26:00 2024-02-02 05:26:00 Outpatient Sudheer Jackson [facility] [id number] [address] [place] [address] 2024-01-18 00:00:00 2024-01-18 00:00:00 Office Visit- New Pt.- Level 4 CLS CLS [id number] Abdullahi londono 2024-01-18 00:00:00 2024-01-18 00:00:00 (TEL) CLS CLS [id number] Abdullahi londono 2023-10-21 00:00:00 2023-10-21 00:00:00 OFFICE VISIT ESTAB PT LEVEL 3 [facility] [id number] [facility] [place] 2023-03-18 00:00:00 2023-03-18 00:00:00 OFFICE VISIT ESTAB PT LEVEL 3 [facility] [id number] [facility] [place] 2022-11-23 00:00:00 2022-11-23 00:00:00 (TEL) [facility] [id number] [facility] [place] 2022-11-18 00:00:00 2022-11-18 00:00:00 OFFICE VISIT ESTAB PT LEVEL 3 [facility] [id number] [facility] [place] 2022-05-20 00:00:00 2022-05-20 00:00:00 OFFICE VISIT EST PT LEVEL 3 [facility] [id number] [facility] [place] 2021-05-02 00:00:00 2021-05-02 00:00:00 ambulatory [facility] [id number] [facility] [place] Results Test Description Test Time Test Comments Results Result Co mments Source BASIC METABOLIC [id number] 14:55:00* Test Item Value Reference Range Interpretation [...] calculation forGFR is based on the CKD-EPI (202) calculation. This formulais race indifferent and is the recommended formula for GFRby the National Kidney Foundation for Adults.The GFR will not calculate if the sex is unknown or if thepatient's age is <18 years. CREATININE (test code = CREAT) 1.3 mg/dL 0.6-1.3 N CALCIUM (test code = CA) 8.3 mg/dL 8.0-10.5 N CBC W/AUTO [id number] 14:44:00* Test Item Value Reference Range Interpretation [...] Notes Date/Time Note Provider Source 2024-02-02 15:14:00 [id number] [place] [address] PATIENT NAME: NINO SWIFT ADMIT DATE: 02/02/24 ACCOUNT NO: [id number] ROOM NO: AGE: 68 REPORT TYPE: CARDIAC CATHETERIZATION REPORT SEX: M ADMITTING PHYSICIAN: ATTENDING PHYSICIAN:Sudheer Tavarez MD PROCEDURE DATE: 02/02/2024 PROCEDURE: Biventricular ICD implantation. SURGEON: Sudheer Tavarez MD ICD SYSTEM: [employer] ICD system. PREOPERATIVE DIAGNOSES: 1. Nonischemic cardiomyopathy, ejection fraction less than 35%. 2. Typical left bundle branch block, QRS greater than 120 milliseconds. 3. Congestive heart failure, [place] Heart Association class 3. 4. Chronic systolic and diastolic heart failure. POSTOPERATIVE DIAGNOSES: 1. Nonischemic cardiomyopathy, ejection fraction less than 35%. 2. Typical left bundle branch block, QRS 120-130 milliseconds. 3. Chronic systolic and diastolic heart failure. 4. Congestive heart failure, [place] Heart Association class 3. PROCEDURE: 1. Biventricular [...] then placed LV lead using a long [employer] LV sheath, AL2 catheter and Wholey [...] Continue antibiotics as prescribed. BI-V ICD SYSTEM: [employer] ICD system. RA lead, 2.3 millivolts, 0.7 volts at 0.40 milliseconds, 580 ohms, model 7841, serial #[id number]. RV lead, 12 millivolts, 0.4 volts at 0.40 milliseconds, 670 ohms, model 0672, serial #[id number]. LV lead, 12 millivolts, 2 volts at 0.40 milliseconds, LV tip 1 to LV ring 2, impedance 969 ohms, model 4674, serial #[id number]. Bi-V ICD generator, model G447, serial #[id number]. Mode DDDR 60/120 bpm. Dictated By: Sudheer Tavarez MD Date Dictated: 02/02/2024 15:14:23 Date Transcribed: 02/02/2024 17:02:47 HG/NAN Receipt ID: [id number] Authenticated and Edited by Sudheer Tavarez MD On 02/13/24 10:31:54 AM PATIENT NAME: HARLEY SWIFTALD at 1033 PATIENT NAME: NINO SWIFT [facility] 2024-02-01 14:04:00 [id number] [address] PATIENT NAME: NINO SWIFT ADMIT DATE: ACCOUNT NO: [id number] ROOM NO: AGE: 68 REPORT TYPE: eELECTROCARDIOGRAM REPORT SEX: M ADMITTING PHYSICIAN: ATTENDING PHYSICIAN:Sudheer Tavarez MD Order: [id number] Test Reason : PREOP Test Date/Time Stamp: [...] Sudheer Tavarez Confirmed by:PIETER LEE MD at 2416 PATIENT NAME: NINO SWIFT [facility]
[2025-03-17] MEDS ORDERED: NA CHLORIDE 0.9% 500 ML ONE (08:53)
[2025-03-17 09:00] LABS: Absolute Lymphocytes (CBC) 1.7 K/uL (0.7-4.9); Hematocrit 40.0 % (39.6-49.0); Hemoglobin 13.3 g/dL (13.6-17.9); MCH 30.5 pg (27.0-35.0); MCHC 33.3 g/dL (32.0-36.0); MCV 91.6 fL (80-100); MPV 8.7 fL (7.6-11.3); Nucleated RBC Absolute Count 0.0 (0-0); Nucleated Red Blood Cells % 0.0 % (0-0); RBC Red Blood Cell Count 4.37 M/uL (4.33-5.43); White Blood Count 13.30 thou/uL (4.3-10.9)
[2025-03-17 09:12] LABS: PT Prothrombin Time 21.9 SECONDS (10-13.0); Protime INR 1.98
[2025-03-17 09:19] LABS: ALT/SGPT 39.0 U/L (16-61); AST/SGOT 12.0 U/L (15-37); Albumin 3.0 g/dL (3.4-5.0); Albumin/Globulin Ratio 0.8 (1.1-1.8); Alkaline Phosphatase 73.0 U/L (45-117); Anion Gap 10.3 mEq/L (5.0-15.0); BUN Blood Urea Nitrogen 13.0 mg/dL (7-18); Bilirubin Indirect, Calculated 0.8 mg/dL (0.2-0.8); Globulin 3.7 g/dL (2.3-3.5); Glucose Level 164.0 mg/dL (74-106); Magnesium 1.7 mg/dL (1.6-2.4); NT PRO-BNP 2475.0 pg/mL (<125); Potassium 3.3 mEq/L (3.5-5.1); Troponin High Sensitivity 21.2 pg/mL (<58.9)
--- NOTE | 2025-03-17 09:24 | RAD REPORT ---
EXAMINATION: ONE VIEW CHEST XR CLINICAL INDICATION: COUGH TECHNIQUE: Frontal chest projection is submitted. Examination is limited by patient positioning and t echnique. COMPARISON: 07/16/2024 FINDINGS: The lungs are well inflated and clear. The heart is moderately enlarged in size. No displaced fractur es identified. Multilead pacer/defibrillator device present. IMPRESSION: No acute intrathoracic abnormalities.
[2025-03-17] MEDS ORDERED: POTASSIUM 25 MEQ EFFERV TAB ONE (10:33)
[2025-03-17] MEDS ORDERED: MAGNESIUM SULFATE 1 gm IVPB 1 GM/100 ML BAG IV ONE (10:34)
--- NOTE | 2025-03-17 11:25 | ER ---
Nurse's Notes [facility] Name: Sinan Swift Age: 69 yrs Sex: Male : 1955 Arrival Date: 03/17/2025 Time: 08:27 Bed 15 Private MD: Diagnosis: Palpitations;Hypokalemia;Presence of cardiac pacemaker Presentation: 03/17 08:31 Chief complaint: EMS states: Pt called reporting heart rate fluctuations and is jb4 concerned his pace maker may be failing. Coronavirus screen: At this time, the client does not indicate any symptoms associated with coronavirus-19. Ebola Screen: No symptoms or risks identified at this time. Initial Sepsis Screen: Does the patient meet any 2 criteria? No. Patient's initial sepsis screen is negative. Does the patient have a suspected source of infection? No. Patient's initial sepsis screen is negative. Risk Assessment: Do you want to hurt yourself or someone else? Patient reports no desire to harm self or others. Onset of symptoms was March 17, 2025. Transition of care: patient was not received from another setting of care. 08:31 Method Of Arrival: Ambulatory jb4 08:31 Acuity: SUSANNE 3 jb4 Historical: - Allergies: 08:33 Fish Containing Products; jb4 - PMHx: 08:33 Atrial fibrillation; Hypertensive disorder; Bladder Diverticulum; Pneumonia; a flutter; jb4 Prostate; PA; Pulmonary Embolism; - PSHx: 08:33 cataract; Stented artery; Vasectomy; jb4 - Family history:: not pertinent. Screenin:02 [facility] ED Fall Risk Assessment (Adult) History of falling in the last 3 months, jb4 including since admission No falls in past 3 months (0 pts) Confusion or Disorientation No (0 pts) Intoxicated or Sedated No (0 pts) Impaired Gait No (0 pts) Mobility Assist Device Used No (0 pt) Altered Elimination No (0 pt) Score/Fall Risk Level 0 - 2 = Low Risk Oriented to surroundings, Maintained a safe environment. Abuse screen: Denies threats or abuse. Nutritional screening: No deficits noted. Tuberculosis screening: No symptoms or risk factors identified. Assessment: 09:14 General: Appears in no apparent distress. comfortable, Behavior is calm, cooperative, jb4 appropriate for age. Pain: Denies pain. Neuro: Level of Consciousness is awake, alert, obeys commands, Oriented to person, place, time, situation. Cardiovascular: Reports heart rate fluctuation. Patient's skin is warm and dry. Rhythm is Respiratory: Airway is patent Respiratory effort is even, unlabored, Respiratory pattern is regular, symmetrical. Derm: Skin is intact, Skin is pink, warm \T\ dry. 10:15 Reassessment: Patient appears in no apparent distress at this time. Patient and/or jb4 family updated on plan of care and expected duration. Pain level reassessed. Patient is alert, oriented x 3, equal unlabored respirations, skin warm/dry/pink. 11:59 Reassessment: Patient appears in no apparent distress at this time. Patient and/or jb4 family updated on plan of care and expected duration. Pain level reassessed. Patient is alert, oriented x 3, equal unlabored respirations, skin warm/dry/pink. d/c pending completion of Magnesium infusion. 12:02 Reassessment: Patient appears in no apparent distress at this time. Patient and/or jb4 family updated on plan of care and expected duration. Pain level reassessed. Patient is alert, oriented x 3, equal unlabored respirations, skin warm/dry/pink. Vital Signs: 08:31 BP 106 / 65; Pulse 72; Resp 14; Pulse Ox 97% on R/A; Weight 96.62 kg (R); Height 5 ft. jb4 9 in. ; Pain 0/10; 10:30 BP 99 / 58; Pulse 70; Resp 14; Pulse Ox 97% ; jb4 12:04 BP 100 / 71; Pulse 65; Resp 16; Pulse Ox 98% ; jb4 08:31 Body Mass Index 31.45 (96.62 kg, 175.26 cm) jb4 08:31 Pain Scale: Adult jb4 ED Course: 08:31 Patient arrived in ED. jb4 08:33 Triage completed. jb4 08:33 Jacoby Hernández MD is Attending Physician. katherin 09:14 Arm band placed on right wrist. jb4 09:19 XRAY Chest (1 view) In Process Unspecified. EDMS 10:56 Clarke Butler, SALINA is Primary Nurse. jb4 11:25 Trevor Grimm MD is Referral Physician. katherin 12:02 Patient has correct armband on for positive identification. Bed in low position. Call jb4 light in reach. Side rails up X 1. Provided Education on: discharge isntructions.. 12:02 No provider procedures requiring assistance completed. IV discontinued, intact, jb4 bleeding controlled, No redness/swelling at site. Pressure dressing applied. Administered Medications: 09:00 Drug: NS 0.9% IV 500 ml IV at bolus once; to be given as a bolus over 30 minutes Route: jb4 IV; Rate: bolus; Site: right antecubital; 10:56 Drug: Potassium PO Effervescent Tablet 50 mEq PO once; dissolve in 4 ounces of water or jb4 juice Route: PO; 11:09 Drug: Magnesium Sulfate IVPB 1 grams IVPB once over 1 hrs Route: IVPB; Infused Over: 1 jb4 hrs; Site: right antecubital; Medication: 12:02 VIS not applicable for this client. jb4 Outcome: 11:25 Discharge ordered by . katherin 12:02 Discharged to home ambulatory, with family, jb4 12:02 Condition: stable 12:02 Discharge instructions given to patient, Instructed on discharge instructions, follow up and referral plans. Demonstrated understanding of instructions, follow-up care, 12:04 Patient left the ED. jb4 Signatures: Dispatcher [employer] Jacoby Tillman MD MD cha Bryson, James, RN RN jb4
--- NOTE | 2025-03-17 11:26 | EDPHYS ---
Physician Documentation [facility] Name: Sinan Swift Age: 69 yrs Sex: Male : 1955 Arrival Date: 03/17/2025 Time: 08:27 Bed 15 Private MD: ED Physician Jacoby Hernández HPI: 03/17 08:57 This 69 yrs old Male presents to ER via Ambulatory with complaints of katherin pacemaker check, palpitations. 08:57 The patient presents with a history of irregular heart beat, heart racing. Context: The katherin symptoms occur at rest. Onset: The symptoms/episode began/occurred 2 day(s) ago. Duration: The patient or guardian reports a single episode, that is still ongoing, The patient or guardian reports multiple episodes, with no pattern. Modifying factors: The symptoms are aggravated by nothing. The symptoms are alleviated by nothing. Associated signs and symptoms: The patient has no apparent associated signs or symptoms. Severity of symptoms: At their worst the symptoms were mild in the emergency department the symptoms are unchanged. The patient has not experienced similar symptoms in the past. Historical: - Allergies: 08:33 Fish Containing Products; jb4 - PMHx: 08:33 Atrial fibrillation; Hypertensive disorder; Bladder Diverticulum; Pneumonia; a flutter; jb4 Prostate; OR; Pulmonary Embolism; - PSHx: 08:33 cataract; Stented artery; Vasectomy; jb4 - Family history:: not pertinent. ROS: 08:57 Constitutional: Negative for fever, chills, and weight loss, Eyes: Negative for injury, katherin pain, redness, and discharge, ENT: Negative for injury, pain, and discharge, Neck: Negative for injury, pain, and swelling, Cardiovascular: Negative for chest pain, palpitations, and edema, Respiratory: Negative for shortness of breath, cough, wheezing, and pleuritic chest pain, Abdomen/GI: Negative for abdominal pain, nausea, vomiting, diarrhea, and constipation, Back: Negative for injury and pain, : Negative for injury, bleeding, discharge, and swelling, MS/Extremity: Negative for injury and deformity, Skin: Negative for injury, rash, and discoloration, Neuro: Negative for headache, weakness, numbness, tingling, and seizure, Psych: Negative for depression, anxiety, suicide ideation, homicidal ideation, and hallucinations, Allergy/Immunology: Negative for hives, rash, and allergies, Endocrine: Negative for neck swelling, polydipsia, polyuria, polyphagia, and marked weight changes, Hematologic/Lymphatic: Negative for swollen nodes, abnormal bleeding, and unusual bruising, 08:57 Cardiovascular: Positive for palpitations, Exam: 08:57 Constitutional: This is a well developed, well nourished patient who is awake, alert, katherin and in no acute distress. Head/Face: Normocephalic, atraumatic. Eyes: Pupils equal round and reactive to light, extra-ocular motions intact. Lids and lashes normal. Conjunctiva and sclera are non-icteric and not injected. Cornea within normal limits. Periorbital areas with no swelling, redness, or edema. ENT: Nares patent. No nasal discharge, no septal abnormalities noted. Tympanic membranes are normal and external auditory canals are clear. Oropharynx with no redness, swelling, or masses, exudates, or evidence of obstruction, uvula midline. Mucous membranes moist. Neck: Trachea midline, no thyromegaly or masses palpated, and no cervical lymphadenopathy. Supple, full range of motion without nuchal rigidity, or vertebral point tenderness. No Meningismus. Chest/axilla: Normal chest wall appearance and motion. Nontender with no deformity. No lesions are appreciated. Cardiovascular: Regular rate and rhythm with a normal S1 and S2. No gallops, murmurs, or rubs. Normal PMI, no JVD. No pulse deficits. Respiratory: Lungs have equal breath sounds bilaterally, clear to auscultation and percussion. No rales, rhonchi or wheezes noted. No increased work of breathing, no retractions or nasal flaring. Abdomen/GI: Soft, non-tender, with normal bowel sounds. No distension or tympany. No guarding or rebound. No evidence of tenderness throughout. Back: No spinal tenderness. No costovertebral tenderness. Full range of motion. Male : Normal genitalia with no discharge or lesions. Skin: Warm, dry with normal turgor. Normal color with no rashes, no lesions, and no evidence of cellulitis. MS/ Extremity: Pulses equal, no cyanosis. Neurovascular intact. Full, normal range of motion., bilateral aka Neuro: Awake and alert, GCS 15, oriented to person, place, time, and situation. Cranial nerves II-XII grossly intact. Motor strength 5/5 in all extremities. Sensory grossly intact. Cerebellar exam normal. Normal gait. Psych: Awake, alert, with orientation to person, place and time. Behavior, mood, and affect are within normal limits. 10:31 ECG was reviewed by the Attending Physician. [facility] Vital Signs: 08:31 BP 106 / 65; Pulse 72; Resp 14; Pulse Ox 97% on R/A; Weight 96.62 kg (R); Height 5 ft. jb4 9 in. ; Pain 0/10; 10:30 BP 99 / 58; Pulse 70; Resp 14; Pulse Ox 97% ; jb4 12:04 BP 100 / 71; Pulse 65; Resp 16; Pulse Ox 98% ; jb4 08:31 Body Mass Index 31.45 (96.62 kg, 175.26 cm) 4 08:31 Pain Scale: Adult jb4 MDM: 08:33 Medical Screening Exam initiated katherin 09:00 GORDO Risk Score: 1 - Patient's age is greater or equal to 65, 1 - 3 or more CAD risk katherin factors, 1 - Known CAD, Total Score = 3. Differential diagnosis: arrythmia, dehydration, stress disorder. Data reviewed: vital signs, nurses notes, lab test result(s), EKG, radiologic studies, plain films. Consideration of Admission/Observation Escalation of care including admission/observation considered. I considered the following discharge prescriptions or medication management in the emergency department Medications were administered in the Emergency Department. See MAR. Independent interpretation of the following test(s) in the Emergency Department EKG: See my EKG interpretation above. Test considered but Not performed: Ultrasound no 2 d echo. Care significantly affected by the following chronic conditions: Diabetes, Hypertension, Obesity, a fib , flutter. 03/17 08:34 Order name: Basic Metabolic Panel; Complete Time: 10:27 [facility] 03/17 08:34 Order name: CBC with Diff; Complete Time: 10: [facility] 03/17 08:34 Order name: LFT's; Complete Time: 10:27 katherin 03/17 08:34 Order name: Magnesium; Complete Time: 10:27 katherin 03/17 08:34 Order name: NT PRO-BNP; Complete Time: 10:27 [facility] 03/17 08:34 Order name: PT-INR; Complete Time: 10: [facility] 03/17 08:34 Order name: Troponin HS; Complete Time: 10:27 katherin 03/17 08:34 Order name: XRAY Chest (1 view); Complete Time: 10: [facility] 03/17 08:34 Order name: Cardiac monitoring; Complete Time: 08:43 [facility] 03/17 08:34 Order name: EKG - Nurse/Tech; Complete Time: 09:14 03/17 08:34 Order name: IV Saline Lock; Complete Time: 09:14 [facility] 03/17 08:34 Order name: Labs collected and sent; Complete Time: 09: [facility] 03/17 08:34 Order name: O2 Per Protocol; Complete Time: 08:43 [facility] 03/17 08:34 Order name: O2 Sat Monitoring; Complete Time: 08: [facility] 03/17 08:34 Order name: Misc. Order: interrogate pacemaker; Complete Time: : [facility] EC:31 Rate is 71 beats/min. Rhythm is regular. QRS [place] is Normal. [place] interval is normal. QRS [place] interval is normal. QT interval is normal. No Q waves. T waves are Normal. No ST changes noted. Clinical impression: Abnormal EKG without significant change and No evidence of ischemia. Interpreted by me. Reviewed by me. Administered Medications: 09:00 Drug: NS 0.9% IV 500 ml IV at bolus once; to be given as a bolus over 30 minutes Route: jb4 IV; Rate: bolus; Site: right antecubital; 10:56 Drug: Potassium PO Effervescent Tablet 50 mEq PO once; dissolve in 4 ounces of water or jb4 juice Route: PO; 11:09 Drug: Magnesium Sulfate IVPB 1 grams IVPB once over 1 hrs Route: IVPB; Infused Over: 1 jb4 hrs; Site: right antecubital; Disposition Summary: 03/17/25 11:25 Discharge Ordered Notes: Location: Home katherin Problem: new katherin Symptoms: have improved katherin Condition: Stable katherin Diagnosis - Palpitations katherin - Hypokalemia katherin - Presence of cardiac pacemaker katherin Followup: katherin - With: Private Physician - When: 1 - 2 days - Reason: Recheck today's complaints, Continuance of care, Re-evaluation by your physician Followup: katherin - With: Trevor Grimm MD - When: 2 - 3 days - Reason: Recheck today's complaints, Re-evaluation by your physician Discharge Instructions: - Discharge Summary Sheet katherin - Potassium Content of Foods katherin - Palpitations katherin - Aspirin and Your Heart katherin - Palpitations, [id number] katherin - Hypokalemia katherin Forms: - Medication Reconciliation Form katherin - Antibiotic Education katherin - Prescription Opioid Use katherin - Patient Portal Instructions katherin - Leadership Thank You Letter katherin Signatures: Dispatcher [employer] EDJacoby Reyes MD MD cha Bryson, James, RN RN jb4 Corrections: (The following items were deleted from the chart) 08:34 08:34 BASIC METABOLIC PANEL+C.LAB.BRZ ordered. EDMS EDMS 08:34 08:34 CBC+H.LAB.BRZ ordered. EDMS EDMS 08:34 08:34 HEPATIC FUNCTION+C.LAB.BRZ ordered. EDMS EDMS 08:34 08:34 MAGNESIUM+C.LAB.BRZ ordered. EDMS EDMS 08:34 08:34 PROBNP+C.LAB.BRZ ordered. EDMS EDMS 08:34 08:34 PROTIME (+INR)+COAG.LAB.BRZ ordered. EDMS EDMS 08:34 08:34 Troponin High Sensitivity+C.LAB.BRZ ordered. EDMS EDMS 08:34 08:34 Chest Single View+RAD.RAD.BRZ ordered. EDMS EDMS
[2025-03-17 16:27] VITALS: BP 100/71; O2SAT 98
== END 2025-03-17 12:04 | disposition home or self-care (01) ==
LOC: ER 08:27
DX: R00.2 Palpitations (principal); E87.6 Hypokalemia; Z95.0 Presence of cardiac pacemaker; I10 Essential (primary) hypertension; I48.91 Unspecified atrial fibrillation
CPT/HCPCS: 93005; 85025; 80048; 36415; 83735; 85610; 80076; 84484; 83880; 71045; 96374; 99284; J3475; J7040